=== PATIENT | female | born 1945 | race Caucasian/White ===

== ENCOUNTER → 2017-10-28 13:53 | Outpatient (CLI) | payer MEDICARE, SELFPAY ==
[2017-10-28 14:37] LABS: Prothrombin Time 21.7 seconds (9.4-11.8)
== END ==
PROVIDERS: Visit Provider Family Medicine
DX: Z79.01 Long term (current) use of anticoagulants (principal); Z51.81 Encounter for therapeutic drug level monitoring
CPT/HCPCS: 36415; 85610

== ENCOUNTER → 2017-11-21 10:50 | Outpatient (CLI) | payer MEDICARE, SELFPAY ==
[2017-11-21 11:31] LABS: INR 1.87 (0.9-1.1); Prothrombin Time 20.3 seconds (9.4-11.8)
== END ==
PROVIDERS: Visit Provider Family Medicine
DX: Z79.01 Long term (current) use of anticoagulants (principal); Z51.81 Encounter for therapeutic drug level monitoring
CPT/HCPCS: 36415; 85610

== ENCOUNTER → 2017-12-04 10:56 | Outpatient (CLI) | payer MEDICARE, SELFPAY ==
[2017-12-04 11:32] LABS: Prothrombin Time 25.1 seconds (9.4-11.8)
== END ==
PROVIDERS: Visit Provider Family Medicine
DX: Z79.01 Long term (current) use of anticoagulants (principal); Z51.81 Encounter for therapeutic drug level monitoring
CPT/HCPCS: 36415; 85610

== ENCOUNTER → 2017-12-16 10:45 | Outpatient (CLI) | payer MEDICARE, SELFPAY ==
[2017-12-16 11:43] LABS: INR 2.16 (0.9-1.1); Prothrombin Time 23.5 seconds (9.4-11.8)
== END ==
PROVIDERS: Visit Provider Family Medicine
DX: Z79.01 Long term (current) use of anticoagulants (principal); Z51.81 Encounter for therapeutic drug level monitoring
CPT/HCPCS: 36415; 85610

== ENCOUNTER → 2018-01-14 09:42 | Outpatient (CLI) | payer MEDICARE, SELFPAY ==
[2018-01-14 10:30] LABS: INR 2.12 (0.9-1.1); Prothrombin Time 23.1 seconds (9.4-11.8)
== END ==
PROVIDERS: Visit Provider Family Medicine
DX: Z79.01 Long term (current) use of anticoagulants (principal); Z51.81 Encounter for therapeutic drug level monitoring
CPT/HCPCS: 36415; 85610

== ENCOUNTER → 2018-06-17 11:08 | Outpatient (CLI) | payer MEDICARE, SELFPAY ==
[2018-06-17 12:53] LABS: INR 2.25 (0.9-1.1); Prothrombin Time 22.6 seconds (9.4-11.8)
== END ==
PROVIDERS: Visit Provider Family Medicine
DX: Z51.81 Encounter for therapeutic drug level monitoring (principal); Z79.01 Long term (current) use of anticoagulants
CPT/HCPCS: 36415; 85610

== ENCOUNTER → 2018-10-14 13:53 | Outpatient (CLI) | payer MEDICARE, SELFPAY ==
[2018-10-14 14:14] LABS: INR 2.79 (0.9-1.1); Prothrombin Time 27.9 seconds (9.4-11.8)
== END ==
PROVIDERS: Visit Provider Family Medicine
DX: Z51.81 Encounter for therapeutic drug level monitoring (principal); Z79.01 Long term (current) use of anticoagulants
CPT/HCPCS: 36415; 85610

== ENCOUNTER → 2019-01-05 15:41 | Outpatient (CLI) | payer MEDICARE, SELFPAY ==
--- NOTE | 2019-01-05 15:55 | XR_ITS ---
XR chest 2V HISTORY: ITS.REASON: COUGH ORDERING PHYSICIAN: Gabriel Pendleton MD PATIENT AGE: 73 years COMPARISON: 07/17/2010 FINDINGS: Cardiac pacemaker is in place from left subclavian approach. Normal heart size. There are atelectatic or fibrotic changes in the right upper lobe anteriorly. The remaining lungs are clear. No acute bony findings. IMPRESSION: Atelectatic or fibrotic changes in the right upper lobe. Consider follow-up to confirm resolution
== END ==
PROVIDERS: PCP Family Medicine; Visit Provider Family Medicine
DX: R05 Cough (principal)
CPT/HCPCS: 71046

== ENCOUNTER → 2019-01-29 12:29 | Outpatient (CLI) | payer MEDICARE, SELFPAY ==
--- NOTE | 2019-01-29 12:39 | CT_ITS ---
CT chest wo con HISTORY: Cough and congestion abnormal lung sounds. Abnormal CXR ITS.REASON: ABNORMAL LUNG SOUNDS, COUGH ORDERING PHYSICIAN: Gabriel Pendleton MD PATIENT AGE: 73 years COMPARISON: PA and lateral chest January 05, 2019 as well as July 2010 made to the 9 Technique: Axial images obtained. Sagittal and coronal reformatted images are also generated and reviewed. All CT scans at the facility use one or more dose reduction, viz: automated exposure control, ma/kV adjustment per patient size (including targeted exams where dose is matched to indication, i.e. head), or iterative reconstruction technique. FINDINGS: : LUNGS. Minimal linear scarring at the anterior RUL,. Which extends peripherally from right hilum. This accounts for the density seen here on recent plain film & likely reflecting interval area of prior inflammation/scarring No acute pneumonia. No significant lung nodule or mass.. I believe minimal scarring and atelectasis accounts tiny area of density posteriorly at right upper lobe (axial image 22, sagittal 33, 34.) . scattered pleural-parenchymal scarring at right apex> left apex, accounting for of minimal densities here, axial image 7-9 sagittal image 30--35 I believe this is compatible with previous chest films dating back to 2009 . Small 4.5 mm calcified granuloma towards distal left lung base, axial slice 51 at LLL. Mediastinum. No significant mediastinal mass or adenopathy.. The right tr is very slightly more generous then the left tr, but I see no discrete mass or adenopathy on this noncontrast study.. Initially Question possible very subtle tapering of the proximal right middle lobe bronchus, however after further review I believe we are merely viewing to be mainly viewing generous vessels & Interstitium at right tr on this noncontrast study.. (also note the right tr has a similar contour on plain film from 01/05/2019 versus 2010 CXR). However if patient should & progressive cough or symptoms a follow-up postcontrast study in 6 months months may be of benefit . Heart:. Pacemaker noted. Streak artifact from leads. Heart upper normal in size. No pericardial effusion. Moderate size hiatal hernia. Measures up to 4.5 cm transverse and 5 cm AP Thoracic spine. Mild degenerative changes. Mild anterior marginal osteophytes some early senile ankylosis changes. However no significant compression fracture or thoracic spine lesion. No rib fracture or lesion. No pleural effusion or pleural lesion. Uppermost abdomen. Limited views here. Adrenals unremarkable upper abdomen. 1 cm most likely benign cyst at the superior right lobe of liver noted. Measures fluid density ------IMPRESSION 1.... No acute appearing pulmonary findings. 2.... Minor chronic changes . No findings of significant concern .. Minimal linear scarring anterior RUL.-Likely postinflammatory feature which accounts for density seen on recent CXR. .. Scant pleural-parenchymal scarring right apex(> left apex); as well as along posterior RUL (However patient persist and cough or symptoms consider follow-up CT chest 6 months particularly if symptoms persist) 3.... No discrete mediastinal adenopathy nor mass. . 4.... Moderate-sized hiatal hernia measures 5 cm AP diameter 5.... Pacemaker..
== END ==
PROVIDERS: PCP Family Medicine; Visit Provider Family Medicine
DX: R05 Cough (principal); R91.8 Other nonspecific abnormal finding of lung field
CPT/HCPCS: 71250

== ENCOUNTER → 2019-07-26 11:12 | Outpatient (CLI) | payer MEDICARE, SELFPAY ==
[2019-07-26 12:01] LABS: Prothrombin Time 45.6 seconds (9.4-11.8)
[2019-07-26 12:02] LABS: INR 4.72 (0.9-1.1)
== END ==
PROVIDERS: Visit Provider Family Medicine
DX: Z51.81 Encounter for therapeutic drug level monitoring (principal); Z79.01 Long term (current) use of anticoagulants
CPT/HCPCS: 36415; 85610

== ENCOUNTER → 2019-07-29 10:22 | Outpatient (CLI) | payer MEDICARE, SELFPAY ==
[2019-07-29 10:56] LABS: INR 2.21 (0.9-1.1); Prothrombin Time 22.1 seconds (9.4-11.8)
== END ==
PROVIDERS: Visit Provider Family Medicine
DX: Z51.81 Encounter for therapeutic drug level monitoring (principal)
CPT/HCPCS: 36415; 85610

== ENCOUNTER → 2020-06-28 12:36 | Outpatient (CLI) | payer MEDICARE, SELFPAY ==
[2020-06-29 09:22] LABS: Covid-19 Nasal PCR Sendout Lex NOT DETECTED
== END ==
PROVIDERS: PCP Family Medicine; Visit Provider Family Medicine
DX: Z03.818 Encounter for observation for suspected exposure to other biological agents ruled out (principal)
CPT/HCPCS: U0004

== ENCOUNTER 2021-03-22 13:33 | Emergency (ER) | payer MEDICARE, SELFPAY ==
[2021-03-22 13:34] VITALS: BP 130/59; PULSE 85; RESP 18; TEMP 36.9; O2SAT 97; BMI 31.6
--- NOTE | 2021-03-22 13:43 | HMH.EDLOEX ---
ED Disposition Clinical Impression: Knee strain Qualifiers: Encounter type: initial encounter Laterality: right Qualified Code(s): S86.911A - Strain of unspecified muscle(s) and tendon(s) at lower leg level, right leg, initial encounter Fall Qualifiers: Encounter type: initial encounter Qualified Code(s): W19.XXXA - Unspecified fall, initial encounter Disposition: Home, Self-Care Condition on Discharge: Good Instructions: DI for Knee Effusion, DI for Knee Pain Additional Instructions: Remain touchdown weightbearing until follow-up with primary care provider within the next 2 to 3 days for reevaluation. If symptoms are not improving within the next several days to 1 week, be evaluated by your primary care or emergency room or urgent treatment center for repeat imaging. Referrals: Gabriel Pendleton MD [Primary Care Provider] - 3 days - Critical Care Critical Care Time: No Attestation: On , the high probability of a clinically significant, sudden or life threatening deterioration of the following system(s) required my full and direct attention, intervention and personal management. The time I documented below is in addition to time spent performing reported procedures but includes the following listed in this critical care notation. Medical Decision Making - Medical Records Medical records reviewed: Yes: I reviewed the patient's medical records. - Hugo Inquiry Pt receiving controlled substance: No Vital Signs: 03/22/21 13:34 03/22/21 14:30 03/22/21 15:00 Temperature 98.4 F Temperature Source Oral Pulse Rate 86 77 Pulse Rate [Right] 85 Respiratory Rate 18 20 20 Blood Pressure 122/63 115/70 Blood Pressure [Right Arm] 130/59 L Blood Pressure Mean 69 85 Blood Pressure Mean [Right Arm] 82 02 Sat by Pulse Oximetry 97 95 96 Oxygen Delivery Method Room Air - Radiology Data #1 Image(s): Knee Image Reviewed: Yes I reviewed the patient's radiology results IMPRESSION: Osteoarthritic change with small knee joint effusion otherwise negative Medical Decision Narrative: Patient with no obvious fracture or dislocation on x-ray. She is neurovascularly intact distally. She does have some arthritis and a small knee effusion which may be subsequent to her chronic arthritis or recent fall. She is given crutches, Stan bandage and advised to be touchdown weightbearing until follow-up with PCP in the next 2 to 3 days. If symptoms are worsening or not getting better over the next several days to 1 week, she was advised to be evaluated again at primary care or the ER for repeat imaging to look for occult fracture. She does not have any clear ligamentous instability on exam, though body habitus does somewhat limit exam. Lower Extremity Injury HPI - General Stated Complaint: Fall with right leg injury Time Seen by Provider: 03/22/21 13:43 Mode of Arrival: EMS Source of Information: Patient Limitations: No Limitations - History of Present Illness HPI Narrative: Medical history significant for hypertension, hyperlipidemia, on warfarin who presents to the emergency department for right knee injury that occurred about 3 hours prior to arrival when she slipped in the shower. There was a twisting component and she did not hit her head, denies any head, neck, back pain. No loss of consciousness. Pain in the knee is worse with movement, better with rest. She took a Tylenol at home which has helped somewhat with the pain. No lower leg, ankle, foot pain. - Related Data Allergies Allergy/AdvReac Type Severity Reaction Status Date / Time SULFA (sulfonamide) Allergy Unknown Uncoded 07/29/17 15:38 Sulfamethoxazole Allergy Unknown Uncoded 07/29/17 15:38 Trimethoprim Allergy Unknown Uncoded 07/29/17 15:38 [facility] History - Hepatitis A Screen Attestation statement:: This patient has been screened for Hepatitis A risk factors. I have reviewed the patient's past medical history: Yes ROS Obtained: Larry
--- NOTE | 2021-03-22 13:44 | XR_ITS ---
PROCEDURE: XR KNEE RT 3V CLINICAL INDICATION: fall with twisting inj COMPARISON: No exams were available for comparison FINDINGS: No fracture or dislocation. No lytic or blastic change. There is normal mineralization. [id number] osteoarthritic changes are present involving the medial compartment and patellofemoral joint with suspected small suprapatellar effusion. A small loose body is noted anterior to the tibial spine region. Other findings:None. IMPRESSION: Osteoarthritic change with small knee joint effusion otherwise negative Dictated by: Andrea Barton MD 03/22/2021 15:10 Andrea Barton MD in [place] 03/22/2021 15:10
[2021-03-22 14:30] VITALS: BP 122/63; PULSE 86; RESP 20; O2SAT 95
[2021-03-22 15:00] VITALS: BP 115/70; PULSE 77; RESP 20; O2SAT 96
[2021-03-22 15:20] VITALS: BP 115/70; PULSE 67; RESP 18; TEMP 36.7; O2SAT 98
== END 2021-03-22 15:31 | disposition home or self-care (01) ==
PROVIDERS: Emergency Provider Emergency Medicine; PCP Family Medicine
DX: S86.911A Strain of unspecified muscle(s) and tendon(s) at lower leg level, right leg, initial encounter (principal); W18.2XXA Fall in (into) shower or empty bathtub, initial encounter; Y92.012 Bathroom of single-family (private) house as the place of occurrence of the external cause; I10 Essential (primary) hypertension; E78.5 Hyperlipidemia, unspecified; Z88.2 Allergy status to sulfonamides; Z79.899 Other long term (current) drug therapy
CPT/HCPCS: 73562; 99282

== ENCOUNTER → 2021-04-02 07:30 | Outpatient (CLI) | payer MEDICARE, SELFPAY ==
--- NOTE | 2021-04-02 07:40 | CT_ITS ---
PROCEDURE: CT KNEE RT WO CON CLINICAL HISTORY: RIGHT KNEE PAIN SWELLING AFTER FALL LAST WEEK COMPARISON: CR XR KNEE RT 3V from 03/22/2021 TECHNIQUE: Axial images obtained with sagittal and coronal reformats. All CT scans at the facility use one or more dose reduction, viz: automated exposure control, ma/kV adjustment per patient size (including targeted exams where dose is matched to indication, i.e. head), or iterative reconstruction technique. FINDINGS: There is normal alignment. Osteoarthritic changes are present involving all 3 compartments greatest at medial compartment with narrowing joint space, osteophyte formation, and mild osteosclerosis. There is a moderate size knee joint effusion. No fat fluid level is. There does appear to be a minimally displaced fracture involving the anterior aspect of the tibial spine region centrally accounting for the loose body noted on the previous radiograph. This is at the region of the insertion the anterior cruciate ligament on the proximal tibia. The ACL is not well evaluated by CT. This avulsion fracture may be acute. MRI may provide further for the status of the ACL and to determine if this represents an acute or chronic avulsion. No other fractures are apparent. IMPRESSION: 1. Avulsion fracture of the anterior interspinous region of proximal tibia which may be acute. Consider MRI to determine if this represents an acute fracture and to determine the status of the ligamentous structures. 2. Moderate-sized knee joint effusion. 3. Moderate osteoarthritic changes Dictated by: Andrea Barton MD 04/03/2021 04:26 Andrea Barton MD in [place] 04/03/2021 04:26
== END ==
PROVIDERS: PCP Family Medicine; Visit Provider Family Medicine
DX: M25.561 Pain in right knee (principal)
CPT/HCPCS: 73700

== ENCOUNTER → 2021-06-15 13:29 | Outpatient (CLI) | payer MEDICARE, SELFPAY ==
--- NOTE | 2021-06-15 13:33 | CT_ITS ---
PROCEDURE: CT KNEE RT WO CON CLINICAL HISTORY: RT KNEE PAIN Injury with pain COMPARISON: CT CT KNEE RT WO CON from 04/02/2021 TECHNIQUE: Axial images obtained with sagittal and coronal reformats. All CT scans at the facility use one or more dose reduction, viz: automated exposure control, ma/kV adjustment per patient size (including targeted exams where dose is matched to indication, i.e. head), or iterative reconstruction technique. FINDINGS: No change in the small intercondylar bone fragment at the proximal tibia just anterior to the tibial spines consistent with a small avulsion injury age indeterminate. There are osteoarthritic changes of the knee involving all 3 compartments with spurring of the tibial spines. There is a small knee joint effusion present. No new fractures apparent. A calcified loose body is present posteriorly medial to the medial aspect of the lateral femoral condyle. This has slightly migrated more centrally compared to the previous exam. Knee joint effusion is slightly smaller compared to the previous study. A small cortical defect is present in the medial tibial plateau articular surface measuring approximately 5 mm not significantly changed. IMPRESSION: No change in the small bony fragment along the anterior aspect of the tibial spines. This could be due to an old avulsion injury or a loose body. There is an additional loose body along the medial aspect of the medial femoral condyle posteriorly which is slightly migrated more medial compared to the previous exam.. There are osteoarthritic changes with knee joint effusion. Dictated by: Andrea Barton MD 06/18/2021 08:15 Andrea Barton MD in [facility] 06/18/2021 08:15
== END ==
PROVIDERS: PCP Family Medicine; Visit Provider Family Medicine
DX: M25.561 Pain in right knee (principal)
CPT/HCPCS: 73700

== ENCOUNTER 2021-10-27 01:32 | Emergency (ER) | payer MEDICARE, SELFPAY ==
[2021-10-27] VITALS (8 sets, daily range): BP systolic 131–158; BP diastolic 59–79; PULSE 56–85; RESP 20–24; TEMP 36.7–37.1; O2SAT 80–100; BMI 31.7
--- NOTE | 2021-10-27 01:39 | CT_ITS ---
PROCEDURE INFORMATION: Exam: CTA Chest With Contrast Exam date and time: 10/27/2021 2:38 AM Age: 76 years old Clinical indication: Shortness of breath; Additional info: SOA TECHNIQUE: Imaging protocol: Computed tomographic angiography of the chest with contrast. 3D rendering (Not supervised by radiologist): MIP and/or 3D reconstructed images were created by the technologist. Radiation optimization: All CT scans at this facility use at least one of these dose optimization techniques: automated exposure control; mA and/or kV adjustment per patient size (includes targeted exams where dose is matched to clinical indication); or iterative reconstruction. Contrast material: ISOVUE 370; Contrast volume: 70 ml; Contrast route: INTRAVENOUS (IV); COMPARISON: CHESTWO CT chest wo con 01/29/2019 12:39 PM FINDINGS: Pulmonary arteries: Normal. No pulmonary emboli. Aorta: Unremarkable. No aortic aneurysm. No aortic dissection. Lungs: Unremarkable. No consolidation. No masses. Pleural spaces: Unremarkable. No pneumothorax. No pleural effusion. Heart: Unremarkable. No cardiomegaly. No pericardial effusion. Lymph nodes: Unremarkable. No enlarged lymph nodes. Diaphragm: There is a moderate hiatal hernia. Liver: There is an 11.9 mm cyst or hemangioma in the right lobe of the liver. Bones/joints: There are marked degenerative changes present. No acute fracture. Soft tissues: Unremarkable. IMPRESSION: No acute cardiopulmonary abnormality. Moderate hiatal hernia. Hepatic cyst or hemangioma.
--- NOTE | 2021-10-27 01:39 | XR_ITS ---
PROCEDURE INFORMATION: Exam: XR Chest Exam date and time: 10/27/2021 2:24 AM Age: 76 years old Clinical indication: Shortness of breath; Additional info: SOA TECHNIQUE: Imaging protocol: XR of the chest. Views: 2 views. COMPARISON: CHESTWO CT chest wo con 01/29/2019 12:39 PM FINDINGS: Tubes, catheters and devices: Cardiac pacer system in stable position. Lungs: Unremarkable. No consolidation. Pleural spaces: Unremarkable. No pleural effusion. No pneumothorax. Heart/Mediastinum: Unremarkable. No cardiomegaly. Bones/joints: Unremarkable. IMPRESSION: No acute cardiopulmonary abnormality.
--- NOTE | 2021-10-27 01:42 | ECG_ITS ---
APPROVED REPORT Exam: Resting ECG HR:79 bpm ECG Measurements Heart Rate 79 AXES CA 187 P 78 QRSd 138 QRS -78 QT 429 T 90 QTc 464 Conclusion ELECTRONIC VENTRICULAR PACEMAKER ABNORMAL RHYTHM ECG UNCONFIRMED REPORT Electronically signed by : Osawldo Price MD 10/27/2021 12:26:33
[2021-10-27 01:58] LABS: Basophils # 0.1 K/mm3 (0-0.2); Basophils % 2.1 % (0.1-2.0); Eosinophils # 0.4 K/mm3 (0.0-0.4); Eosinophils % 6.6 % (0.1-12.0); Hematocrit 41.6 % (37.0-47.0); Hemoglobin 13.3 g/dL (12.2-16.2); Lymphocytes # 2.5 K/mm3 (0.7-4.5); Lymphocytes % 38.2 % (10-50); Mean Corpuscular HGB Conc 31.9 g/dL (31.8-35.4); Mean Corpuscular Hemoglobin 30.2 pg (27.0-31.2); Mean Corpuscular Volume 94.7 fl (81-99); Mean Platelet Volume 8.5 fl (7.4-10.4); Monocytes # 0.5 K/mm3 (0.1-1.0); Monocytes % 8.2 % (1.7-9.3); Neutrophils # 2.9 K/mm3 (1.8-7.8); Neutrophils % 44.9 % (37.0-80.0); Platelet Count 278 K/mm3 (142-424); Red Cell Distribution Width 13.9 % (11.5-17.5); White Blood Count 6.4 K/mm3 (4.8-10.8)
[2021-10-27 02:01] LABS: Coronavirus 19, PCR Not Detected (NotDetected); Influenza A, PCR Not Detected (NotDetected); Influenza B, PCR Not Detected (NotDetected)
[2021-10-27 02:10] LABS: Chloride 100 mmol/L (98-107)
[2021-10-27 02:11] LABS: ABG Base Excess 2.7 mmol/L (-2.4-2.3); ABG HCO3 24.6 mmhg (22.0-26.0); ABG Oxygen Saturation 98 % (90-100); ABG PCO2 26.7 mmhg (35.0-45.0); ABG PO2 91.2 mmhg (80-100); ABG TCO2 25.4 mmhg (23-27)
[2021-10-27 02:11] LABS: Potassium 3.8 mmoL/L (3.5-5.1); Sodium 135 mmol/L (136-145)
[2021-10-27 02:12] LABS: Allen's Test Acceptable; Oxygen 2L %; Source Left Radial
[2021-10-27 02:13] LABS: Alanine Aminotransferase 16 U/L (12-78); Blood Urea Nitrogen 15 mg/dl (7-17); Creatinine Clearance Estimated 57 mL/min (50-200); Estimated Glomerular Filt Rate 48 ml/min (>60); GFR (African American) 58 ML/MIN (>60)
[2021-10-27 02:14] LABS: Albumin Level 3.9 g/dl (3.5-5.0); Albumin/Globulin Ratio 1.4 (1.1-1.8); Alkaline Phosphatase 73 U/L (38-126); Anion Gap 11.8 mEq/L (5-15); Aspartate Amino Transferase 39 U/L (14-36); Bilirubin,Total 0.5 mg/dl (0.2-1.3); Calcium 8.3 mg/dl (8.4-10.2); Carbon Dioxide 27 mmol/L (22.0-30.0); Globulin 2.8 g/dL (1.3-3.2); Glucose 98 mg/dl (74-100); Lactic Acid 1.6 mmol/L (0.7-2.1); Total Protein,Serum 6.7 g/dl (6.3-8.2)
[2021-10-27 02:14] LABS: ABG PH 7.58 mmol/L (7.35-7.45)
--- NOTE | 2021-10-27 02:17 | HMH.EDSOB ---
ED Disposition Clinical Impression: Pacemaker Dyspnea Qualifiers: Dyspnea type: unspecified Qualified Code(s): R06.00 - Dyspnea, unspecified Disposition: Home, Self-Care Condition on Discharge: Good Instructions: DI for Shortness of Breath Additional Instructions: see pcp and consider card and pul consult Referrals: Gabriel Pendleton MD [Primary Care Provider] - - Critical Care Critical Care Time: No Attestation: On 10/27/21, the high probability of a clinically significant, sudden or life threatening deterioration of the following system(s) required my full and direct attention, intervention and personal management. The time I documented below is in addition to time spent performing reported procedures but includes the following listed in this critical care notation. Medical Decision Making - Medical Records Medical records reviewed: Yes: I reviewed the patient's medical records. - Hugo Inquiry Pt receiving controlled substance: No Vital Signs: 10/27/21 01:33 10/27/21 01:35 10/27/21 01:50 Temperature 98.8 F Temperature Source Oral Pulse Rate 56 L 78 Pulse Rate [Right] 78 Respiratory Rate 24 Blood Pressure 157/72 H Blood Pressure [Right Arm] 157/72 H Blood Pressure Mean Blood Pressure Mean [Right Arm] 100 02 Sat by Pulse Oximetry 80 L 83 L Oxygen Delivery Method Room Air Room Air Oxygen Flow Rate (LPM) 10/27/21 02:20 10/27/21 03:01 10/27/21 03:17 Temperature Temperature Source Pulse Rate 85 81 84 Pulse Rate [Right] Respiratory Rate Blood Pressure 155/79 H 131/59 L 158/67 H Blood Pressure [Right Arm] Blood Pressure Mean 83 81 Blood Pressure Mean [Right Arm] 02 Sat by Pulse Oximetry 97 94 L 95 Oxygen Delivery Method Nasal Cannula Oxygen Flow Rate (LPM) 2 2 2 10/27/21 03:30 Temperature Temperature Source Pulse Rate 71 Pulse Rate [Right] Respiratory Rate Blood Pressure 139/62 Blood Pressure [Right Arm] Blood Pressure Mean Blood Pressure Mean [Right Arm] 02 Sat by Pulse Oximetry 100 Oxygen Delivery Method Nasal Cannula Oxygen Flow Rate (LPM) 2 - Lab Data Lab results reviewed: Yes: I reviewed the patient's lab results. Lab Results 10/27/21 01:51: WBC 6.4, RBC 4.40, Hgb 13.3, Hct 41.6, MCV 94.7, MCH 30.2, MCHC 31.9, RDW 13.9, Plt Count 278, MPV 8.5, Neut % (Auto) 44.9, Lymph % (Auto) 38.2, Isabela % (Auto) 8.2, Eos % (Auto) 6.6, Baso % (Auto) 2.1 H, Neut # (Auto) 2.9, Lymph # (Auto) 2.5, Isabela # (Auto) 0.5, Eos # (Auto) 0.4, Baso # (Auto) 0.1, ESR 27 10/27/21 01:51: Sodium 135 L, Potassium 3.8, Chloride 100, Carbon Dioxide 27, Anion Gap 11.8, BUN 15, Creatinine 1.10 H, Estimated Creat Clear 57, Estimated GFR 48 L, Est GFR ( Amer) 58 L, Glucose 98, Calcium 8.3 L, Total Bilirubin 0.5, AST 39 H, ALT 16, Alkaline Phosphatase 73, Troponin I < 0.01, C-Reactive Protein 12.7 H, Total Protein 6.7, Albumin 3.9, Globulin 2.8, Albumin/Globulin Ratio 1.4 10/27/21 01:51: Lactate 1.6 10/27/21 01:51: SARS-CoV-2 (PCR) Not detected, Influenza A Untype (PCR) Not detected, Influenza Type B (PCR) Not detected 10/27/21 01:51: Procalcitonin 0.077 10/27/21 01:51: NT-Pro-B Natriuret Pep 191 10/27/21 02:04: Specimen Source Left radial, O2 % 2l, ABG pH 7.58 H*, ABG pCO2 26.7 L, ABG pO2 91.2, ABG HCO3 24.6, ABG Total CO2 25.4, ABG O2 Saturation 98, ABG Base Excess 2.7 H, Andrea Test Acceptable 10/27/21 02:18: PT 18.8 H, INR 1.73 H 10/27/21 04:41: Troponin I 0.02 Result diagrams: 10/27/21 01:51 10/27/21 01:51 Orders (Tests/Meds): ED MEDICATIONS Generic Name Dose Route Start Last Admin Trade Name Freq PRN Reason Stop Dose Admin Sodium Chloride 1,000 mls @ 999 mls/hr 10/27/21 01:45 10/27/21 01:45 Sod Chlor 0.9% 1000ml Bag IV 10/27/21 02:45 999 mls/hr .Q1H1M AGUSTIN Administration Discontinued Medications Generic Name Dose Route Start Last Admin Trade Name Freq PRN Reason Stop Dose Admin Albuterol/Ipratropium 3 ml 10/27/21 01:39 10/27/21
[2021-10-27 02:19] LABS: C-Reactive Protein 12.7 mg/L (0-4)
[2021-10-27 02:24] LABS: Erythrocyte Sedimentation Rate 27 mm/hr (0-30)
[2021-10-27 02:26] LABS: NT Pro Brain Natriuretic Pep. 191 pg/mL (0-450)
[2021-10-27 02:36] LABS: Procalcitonin 0.077 ng/mL (0.0-2.0)
[2021-10-27 02:38] LABS: INR 1.73 (0.9-1.1); Prothrombin Time 18.8 seconds (10.1-12.5)
[2021-10-27 02:56] LABS: Troponin I < 0.01 ng/ml (0.00-0.034)
[2021-10-27 05:32] LABS: Troponin I 0.02 ng/ml (0.00-0.034)
== END 2021-10-27 05:57 | disposition home or self-care (01) ==
PROVIDERS: Emergency Provider Emergency Medicine; PCP Family Medicine
DX: R06.00 Dyspnea, unspecified (principal); I48.0 Paroxysmal atrial fibrillation; Z95.0 Presence of cardiac pacemaker; Z79.899 Other long term (current) drug therapy
CPT/HCPCS: 71046; 71275; 80053; 82803; 83605; 83880; 84145; 84484; 85025; 85610; 85651; 86140; 87040; 93005; 96365; 96375; 99284; C9803; Q9967; U0003; U0005

== ENCOUNTER 2021-10-28 10:32 | Observation (INO) | payer MEDICARE, SELFPAY ==
[2021-10-28] VITALS (13 sets, daily range): BP systolic 134–176; BP diastolic 51–85; PULSE 69–94; RESP 18–22; TEMP 36.6–36.8; O2SAT 95–99; BMI 30.2; BMI 31.4
--- NOTE | 2021-10-28 11:12 | XR_ITS ---
PROCEDURE INFORMATION: Exam: XR Chest Exam date and time: 10/28/2021 11:56 AM Age: 76 years old Clinical indication: Shortness of breath TECHNIQUE: Imaging protocol: XR of the chest. Views: 1 view. COMPARISON: CR XR CHEST 2V 10/27/2021 2:24 AM FINDINGS: Tubes, catheters and devices: Transvenous pacemaker leads in the heart Lungs: Opacities in the right base may represent atelectasis or pneumonia.. Pleural spaces: Unremarkable. No pleural effusion. No pneumothorax. Heart/Mediastinum: Unremarkable. No cardiomegaly. Bones/joints: Degenerative changes in the glenohumeral joints and acromioclavicular joints IMPRESSION: Opacities in the right base may represent atelectasis or pneumonia..
--- NOTE | 2021-10-28 11:26 | ECG_ITS ---
APPROVED REPORT Exam: Resting ECG HR:73 bpm ECG Measurements Heart Rate 73 AXES MO 177 P 78 QRSd 133 QRS -79 QT 431 T 82 QTc 457 Conclusion ELECTRONIC VENTRICULAR PACEMAKER ABNORMAL RHYTHM ECG UNCONFIRMED REPORT Electronically signed by : Oswaldo Price MD 10/28/2021 20:08:01
[2021-10-28 11:44] LABS: Basophils # 0.1 K/mm3 (0-0.2); Basophils % 0.5 % (0.1-2.0); Eosinophils # 0.1 K/mm3 (0.0-0.4); Eosinophils % 0.5 % (0.1-12.0); Hematocrit 41.2 % (37.0-47.0); Hemoglobin 13.3 g/dL (12.2-16.2); Lymphocytes # 2.6 K/mm3 (0.7-4.5); Mean Corpuscular HGB Conc 32.2 g/dL (31.8-35.4); Mean Corpuscular Hemoglobin 30.4 pg (27.0-31.2); Mean Corpuscular Volume 94.6 fl (81-99); Mean Platelet Volume 8.1 fl (7.4-10.4); Monocytes # 0.8 K/mm3 (0.1-1.0); Monocytes % 5.8 % (1.7-9.3); Neutrophils # 10.9 K/mm3 (1.8-7.8); Neutrophils % 75.2 % (37.0-80.0); Platelet Count 320 K/mm3 (142-424); Red Blood Count 4.35 M/mm3 (4.20-5.40); Red Cell Distribution Width 13.6 % (11.5-17.5); White Blood Count 14.5 K/mm3 (4.8-10.8)
[2021-10-28 11:46] LABS: Coronavirus 19, PCR Not Detected (NotDetected); Influenza A, PCR Not Detected (NotDetected); Influenza B, PCR Not Detected (NotDetected)
[2021-10-28 11:48] LABS: Chloride 104 mmol/L (98-107)
[2021-10-28 11:49] LABS: Potassium 3.4 mmoL/L (3.5-5.1); Sodium 136 mmol/L (136-145)
[2021-10-28 11:51] LABS: Alanine Aminotransferase 17 U/L (12-78); Albumin Level 3.9 g/dl (3.5-5.0); Albumin/Globulin Ratio 1.3 (1.1-1.8); Alkaline Phosphatase 71 U/L (38-126); Anion Gap 10.4 mEq/L (5-15); Aspartate Amino Transferase 35 U/L (14-36); Bilirubin,Total 0.6 mg/dl (0.2-1.3); Blood Urea Nitrogen 15 mg/dl (7-17); Calcium 8.5 mg/dl (8.4-10.2); Carbon Dioxide 25 mmol/L (22.0-30.0); Creatinine Clearance Estimated 61 mL/min (50-200); Estimated Glomerular Filt Rate 54 ml/min (>60); GFR (African American) 65 ML/MIN (>60); Globulin 2.9 g/dL (1.3-3.2); Glucose 104 mg/dl (74-100); Lactic Acid 1.4 mmol/L (0.7-2.1); Total Protein,Serum 6.8 g/dl (6.3-8.2)
[2021-10-28 12:01] LABS: NT Pro Brain Natriuretic Pep. 1180 pg/mL (0-450)
[2021-10-28 12:04] LABS: Troponin I 0.02 ng/ml (0.00-0.034)
--- NOTE | 2021-10-28 12:41 | HMH.EDGENADL ---
ED Disposition Clinical Impression: Bronchospasm, Elevated brain natriuretic peptide (BNP) level Pneumonia Qualifiers: Pneumonia type: due to unspecified organism Laterality: right Lung location: lower lobe of lung Qualified Code(s): J18.9 - Pneumonia, unspecified organism Acute bronchitis Qualifiers: Bronchitis organism: unspecified organism Qualified Code(s): J20.9 - Acute bronchitis, unspecified Disposition: Admitted as Observation Condition on Discharge: Fair Referrals: Gabriel Pendleton MD [Primary Care Provider] - - Critical Care Critical Care Time: No Attestation: On 10/28/21, the high probability of a clinically significant, sudden or life threatening deterioration of the following system(s) required my full and direct attention, intervention and personal management. The time I documented below is in addition to time spent performing reported procedures but includes the following listed in this critical care notation. Medical Decision Making - Hugo Inquiry Pt receiving controlled substance: No Vital Signs: 10/28/21 10:52 10/28/21 11:00 10/28/21 11:06 Temperature 97.9 F Temperature Source Oral Pulse Rate 69 74 Pulse Rate [Left Radial] 72 Respiratory Rate 18 Blood Pressure 150/71 H 154/69 H Blood Pressure [Right Arm] 150/71 H Blood Pressure Mean 88 81 Blood Pressure Mean [Right Arm] 97 02 Sat by Pulse Oximetry 96 Oxygen Delivery Method Nasal Cannula Oxygen Flow Rate (LPM) 2 10/28/21 11:30 10/28/21 12:15 Temperature Temperature Source Pulse Rate 80 70 Pulse Rate [Left Radial] Respiratory Rate Blood Pressure 159/75 H 159/75 H Blood Pressure [Right Arm] Blood Pressure Mean 103 Blood Pressure Mean [Right Arm] 02 Sat by Pulse Oximetry 98 Oxygen Delivery Method Oxygen Flow Rate (LPM) - Lab Data Lab Results 10/28/21 11:34: WBC 14.5 H D, RBC 4.35, Hgb 13.3, Hct 41.2, MCV 94.6, MCH 30.4, MCHC 32.2, RDW 13.6, Plt Count 320, MPV 8.1, Neut % (Auto) 75.2, Lymph % (Auto) 18.0, Jennings % (Auto) 5.8, Eos % (Auto) 0.5, Baso % (Auto) 0.5, Neut # (Auto) 10.9 H, Lymph # (Auto) 2.6, Jennings # (Auto) 0.8, Eos # (Auto) 0.1, Baso # (Auto) 0.1 10/28/21 11:34: Sodium 136, Potassium 3.4 L, Chloride 104, Carbon Dioxide 25, Anion Gap 10.4, BUN 15, Creatinine 1.00, Estimated Creat Clear 61, Estimated GFR 54 L, Est GFR ( Amer) 65, Glucose 104 H, Calcium 8.5, Total Bilirubin 0.6, AST 35, ALT 17, Alkaline Phosphatase 71, Troponin I 0.02, NT-Pro-B Natriuret Pep 1180 H, Total Protein 6.8, Albumin 3.9, Globulin 2.9, Albumin/Globulin Ratio 1.3 10/28/21 11:34: Lactate 1.4 10/28/21 11:34: SARS-CoV-2 (PCR) Not detected, Influenza A Untype (PCR) Not detected, Influenza Type B (PCR) Not detected Result diagrams: 10/28/21 11:34 10/28/21 11:34 Orders (Tests/Meds): ED MEDICATIONS Generic Name Dose Route Start Last Admin Trade Name Freq PRN Reason Stop Dose Admin Albuterol/Ipratropium 3 ml 10/28/21 14:00 Ipratropium/Albuterol 3 Ml Neb 11/27/21 13:59 QIDRT AGUSTIN Ceftriaxone Sodium 1 gm/ 50 mls @ 100 mls/hr 10/28/21 13:15 Sodium Chloride IV 11/11/21 13:14 Q24H AGUSTIN Azithromycin 500 mg/ Sodium 250 mls @ 250 mls/hr 10/28/21 13:15 Chloride IV 11/11/21 13:14 Q24H AGUSTIN Methylprednisolone Sodium Succinate 80 mg 10/28/21 13:00 Methylprednisolone Sod Succ 125mg Vial IV 11/27/21 12:59 Q8H AGUSTIN Sodium Chloride 10 ml 10/28/21 11:12 Sodium Chloride 0.9% 10ml Flush Syringe IV 11/27/21 11:11 NEEDED PRN Maintain IV Site Sodium Chloride 3 ml 10/28/21 11:30 Sodium Chloride 3% 15ml Neb 11/27/21 11:29 ONCE PRN INDUCE SPUTUM COLLECTION Discontinued Medications Generic Name Dose Route Start Last Admin Trade Name Freq PRN Reason Stop Dose Admin Levofloxacin/Dextrose 750 mg in 150 mls @ 100 mls/hr 10/28/21 13:00 Levofloxacin 750mg/150ml Premix IV 11/11/21 12:59 Q24H AGUSTIN ORDERS Category Date Phil
--- NOTE | 2021-10-28 13:25 | PC.NURSE ---
DR PATEL SPOKE WITH DR HIGHTOWER PT IS GOING TO BE ADMITTED HOUSE NOTIFIED
--- NOTE | 2021-10-28 13:59 | PC.NURSE ---
called report to kia rolon
[2021-10-28 14:23] LABS: INR 2.08 (0.9-1.1); Prothrombin Time 22.3 seconds (10.1-12.5)
[2021-10-28 17:05] LABS: Adenovirus,PCR Not Detected (NotDetected); Bordetella Pertussis Not Detected (NotDetected); Chlamydophila Pneumoniae, PCR Not Detected (NotDetected); Coronavirus 19, PCR Not Detected (NotDetected); Coronavirus 229E Not Detected (NotDetected); Coronavirus NL63 Not Detected (NotDetected); Coronovirus HKU1,PCR Not Detected (NotDetected); Human Metapneumovirus Not Detected (NotDetected); Influenza A, PCR Not Detected (NotDetected); Influenza AH1, 2009 Not Detected (NotDetected); Influenza AH1, PCR Not Detected (NotDetected); Influenza AH3,PCR Not Detected (NotDetected); Influenza B, PCR Not Detected (NotDetected); Mycoplasma Pneumoniae, PCR Not Detected (NotDetected); Parainfluenza 1, PCR Not Detected (NotDetected); Parainfluenza 2, PCR Not Detected (NotDetected); Parainfluenza 3, PCR Not Detected (NotDetected); Parainfluenza 4, PCR Not Detected (NotDetected); Respiratory Syncytial Virus Not Detected (NotDetected); Rhinovirus/Enterovirus Not Detected (NotDetected)
[2021-10-28 18:40] LABS: Coronavirus OC43 Detected (NotDetected)
--- NOTE | 2021-10-28 22:07 | PC.NURSE ---
Okayed with [facility] on administering warfarin r/t interaction pop up with azithromycin.
[2021-10-29] VITALS (12 sets, daily range): BP systolic 128–150; BP diastolic 40–80; PULSE 64–99; RESP 18–20; TEMP 36.5–36.8; O2SAT 95–99; BMI 32.0
--- NOTE | 2021-10-29 07:25 | HMH.PHAVTE ---
[facility] Pharmacy VTE Monitoring - Patient Demographics Admission date: 10/28/21 Report Date: 10/29/21 Time: 07:25 Allergies/Adverse Reactions: Patient Allergies sulfamethoxazole [From Bactrim] Allergy (Unknown, Verified 10/28/21 14:05) Unknown allergy reaction trimethoprim [From Bactrim] Allergy (Unknown, Verified 10/28/21 14:05) Unknown allergy reaction Height: 1.65 m Weight: 87.226 kg Patient Problems: Current Active Problems Pneumonia (Acute) Bronchospasm (Acute) Acute bronchitis (Acute) Elevated brain natriuretic peptide (BNP) level (Acute) - VTE Risk Labs: VTE Related Lab Results Hgb 13.3 g/dL (12.2-16.2) 10/28/21 11:34 Hct 41.2 % (37.0-47.0) 10/28/21 11:34 Plt Count 320 K/mm3 (142-424) 10/28/21 11:34 PT 22.3 seconds (10.1-12.5) H 10/28/21 11:34 INR 2.08 (0.9-1.1) H 10/28/21 11:34 BUN 15 mg/dl (7-17) 10/28/21 11:34 Creatinine 1.00 mg/dl (0.52-1.04) 10/28/21 11:34 Estimated Creat Clear 61 mL/min (50-200) 10/28/21 11:34 VTE Score: 4 VTE Risk Level: Low Risk - Prophylaxis VTE Prophylaxis Ordered?: Yes Types of VTE Prophylaxis: TEDS Knee High, Pharmacological Location of Applied Device: Bilateral Lower Extremeties Pharmacologic Type: Warfarin
--- NOTE | 2021-10-29 08:45 | CT_ITS ---
FINAL REPORT TECHNIQUE: Postcontrast axial images of the chest were performed in a CTA protocol. This study was performed with techniques to keep radiation doses as low as reasonably achievable, (ALARA). Individualized dose reduction technique using automated exposure control or adjustment of mA and/or kV according to the patient's size were employed. CLINICAL HISTORY: recurrent wheezing COMPARISON: 10/27/2021 FINDINGS: There is streak artifact arising from right upper chest wall pacemaker. There is a moderate size hiatal hernia. The heart is normal in size. No adenopathy is identified. No pleural or pericardial effusion is identified. The thoracic aorta is normal in caliber with no focal aneurysm or dissection identified. There is no filling defect to suggest pulmonary embolism. No lung infiltrate or mass is identified. The images of the upper abdomen demonstrate a 1.2 cm benign-appearing right hepatic lobe cyst. IMPRESSION: No evidence for PE on this exam. Reviewed, Interpreted and Dictated by Yasir Unger MD Transcribed by Jessy Quintero Authenticated by Yasir Unger MD on 10/29/2021 10:41:34 AM [facility]
--- NOTE | 2021-10-29 08:48 | HMH.HP ---
*Admission Date: 10/28/21 *Chief complaint: Wheezing and coughing *History of present illness: 76-year-old white female who is enjoyed a very good functional status in spite of cardiac issues-she states that she been diagnosed with A. fib and a bundle branch block, and had a pacemaker put in several years ago per EP at [facility] and has had it replaced with good status. She follows with Dr. Valentine at [facility] cardiology. She also is chronic A. fib and has been on warfarin for several years. In addition to this she is had multiple episodes where she has wheezing, bronchospasm and shortness of air and has lot of functional problems with this with inability to do daily activities because of frequent wheezing. She sees her family practice doctor in [facility] who has been giving her what sounds like steroid shots intermittently for this bronchospasm which helped. She reports that she has been on a multiplicity of inhalers-she cannot remember names but states they have been all different kinds and she stopped them after 2 or 3 days because she developed blisters in her mouth. She denies thrush but reports that she has lots of blisters. She is not sure if the inhalers actually help. She also has been diagnosed with rheumatoid arthritis by her family practice doctor, and has been on a regimen of prednisone 7.5 alternating with 2.5 every other day, does not recall ever seen an child protective services social worker, technician support association or other field sales specialist. She is never seen a community health director although her bilingual medical assistant have been aware of the wheezing and bronchospasm. She reports that she has had echocardiograms in the past have been normal except for the issues with the electrical conduction issues. 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 She does note that in the wintertime when weather is very cold she seems to do better. Her , who from small cell lung cancer in 2012, was a very heavy smoker, in the house with her, but she has never actively smoked. She does not think that her symptoms have improved since her and her house is now smoke-free. 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 [facility] History I have reviewed the patient's past medical history: Yes Medical History: Reports:: Hyperlipidemia, Hypertension, Internal Pacemaker Denies:: Cancer, Diabetes Mellitus Type 1, Diabetes Mellitus Type 2, MRSA *Have you ever received a pneumonia vaccine?: No *Have you received a flu vaccine this season?: No Other Medical History: Reports: Arthritis, Sinus Problems Other Surgeries: Yes: Pacemaker Amputation: No - *Social History Last grade of school completed: High school graduate Smoking Status: Never smoker Alcohol Intake: current Alcohol Intake Frequency:: holidays/special occasions only *Occupational Status:: retired Household Members: family *Travel in the last 8 weeks: None Family Hx:: Asthma, Cancer, Diabetes, Heart Attack, Hyperlipidemia, Hypertension, Stroke Review of Systems - Review of Systems Review of systems:: pertinent systems reviewed and negative unless documented below Meds Home Medications Medication Instructions Recorded Confirmed Type Fluoxetine HCl [Prozac] 20 mg PO DAILY 10/27/21 10/28/21 History Losartan Potassium 50 mg PO DAILY 10/27/21 10/28/21 History Omeprazole [Omeprazole 20mg 20 mg PO DAILY 10/27/21 10/28/21 History Capsule] Simvastatin 40 mg PO HS 10/27/21 10/28/21 History Warfarin Sodium 5 mg PO DAILY 10/27/21 10/28/21 History hydroCHLOROthiazide 12.5 mg PO DAILY 10/27/21 10/28/21 History [Hydrochlorothiazide 12.5mg Tab] Allergies Allergy/AdvReac Type Severity Reaction Status Date / Time sulfamethoxazole Allergy Unknown Unknown Verified 10/28/21 14:05 [From Bactrim]
[2021-10-29 09:09] LABS: Basophils % 0.1 % (0.1-2.0); Eosinophils % 0.1 % (0.1-12.0); Hematocrit 39.5 % (37.0-47.0); Hemoglobin 12.5 g/dL (12.2-16.2); Lymphocytes # 0.6 K/mm3 (0.7-4.5); Lymphocytes % 4.2 % (10-50); Mean Corpuscular HGB Conc 31.6 g/dL (31.8-35.4); Mean Corpuscular Hemoglobin 30.2 pg (27.0-31.2); Mean Corpuscular Volume 95.6 fl (81-99); Monocytes # 0.5 K/mm3 (0.1-1.0); Monocytes % 3.2 % (1.7-9.3); Neutrophils % 92.4 % (37.0-80.0); Platelet Count 266 K/mm3 (142-424); Red Blood Count 4.13 M/mm3 (4.20-5.40); Red Cell Distribution Width 13.5 % (11.5-17.5); White Blood Count 15.2 K/mm3 (4.8-10.8)
[2021-10-29 09:20] LABS: MANUAL DIFFERENTIAL MANUAL DIFFERENTIAL (MANUAL DIFF)
[2021-10-29 09:40] LABS: Chloride 102 mmol/L (98-107)
[2021-10-29 09:41] LABS: Sodium 135 mmol/L (136-145)
[2021-10-29 09:43] LABS: Blood Urea Nitrogen 16 mg/dl (7-17); Creatinine Clearance Estimated 65 mL/min (50-200); Estimated Glomerular Filt Rate 54 ml/min (>60); GFR (African American) 65 ML/MIN (>60)
[2021-10-29 09:44] LABS: Calcium 8.2 mg/dl (8.4-10.2); Carbon Dioxide 23 mmol/L (22.0-30.0); Glucose 198 mg/dl (74-100)
[2021-10-29 09:49] LABS: C-Reactive Protein 30.6 mg/L (0-4)
[2021-10-29 10:20] LABS: Lymphocytes % 2 % (10-50); Monocytes % 1 % (2-9); Neutrophils % 97 % (42-76); Total Cells Counted 100
[2021-10-29 10:21] LABS: Platelet Estimate Normal
[2021-10-29 10:36] LABS: Erythrocyte Sedimentation Rate 41 mm/hr (0-30)
--- NOTE | 2021-10-29 10:45 | HMH.PHAINT ---
MEDICATION RECONCILIATION COMPLETED ON PATIENT USING EXTERNAL FILL HISTORY FROM PHARMACY AND PATIENT INTERVIEW. -KYRA ALVARENGA, VANNESAD
--- NOTE | 2021-10-29 11:24 | HMH.PULMCON ---
*Admission Date: 10/28/21 *Reason for consult:: Acute hypoxic respiratory failure *History of present illness: Ms. Lorenzo is a 76-year-old female no significant smoking exposure, significant secondhand smoke exposure, diagnosed with rheumatoid arthritis by her PCP 2 years ago and has been receiving prednisone 7.5 mg every other day, has been complaining of respiratory problems for a very long time almost 10 years, her breathing symptoms predominate with exertion and not at rest however she also have these intermittent episodes of bronchitis 1-2 times per year for which she has been receiving antibiotics and steroids with improvement in her symptoms. However her baseline exertional dyspnea has been gradually getting worse since the last 10 years. On this admission presented to the hospital worsening respiratory associated cough and greenish phlegm. Denies any subjective fevers. Denies any known sick contacts. [facility] History Medical History: Reports:: Hyperlipidemia, Hypertension, Internal Pacemaker Denies:: Cancer, Diabetes Mellitus Type 1, Diabetes Mellitus Type 2, MRSA *Have you ever received a pneumonia vaccine?: No *Have you received a flu vaccine this season?: No Other Medical History: Reports: Arthritis, Sinus Problems Other Surgeries: Yes: Pacemaker Amputation: No - *Social History Last grade of school completed: High school graduate Smoking Status: Never smoker Alcohol Intake: current Alcohol Intake Frequency:: holidays/special occasions only *Occupational Status:: retired Household Members: family *Travel in the last 8 weeks: None Family Hx:: Asthma, Cancer, Diabetes, Heart Attack, Hyperlipidemia, Hypertension, Stroke ROS - Cons Reports chills, Reports fatigue - Eyes Reports blurry vision - ENT Denies nosebleed - Card Reports shortness of breath - Resp Respiratory: Reports chest congestion, Reports cough, Denies excessive phlegm production, Denies coughing up blood, Reports cough with sputum production - GI Gastrointestingal: Denies: abdominal pain - Psych Denies thoughts of hurting/killing others, Denies thoughts of hurting/killing yourself Meds Home Medications Medication Instructions Recorded Confirmed Type Fluoxetine HCl [Prozac] 20 mg PO DAILY 10/27/21 10/28/21 History Losartan Potassium 50 mg PO DAILY 10/27/21 10/28/21 History Omeprazole [Omeprazole 20mg 20 mg PO DAILY 10/27/21 10/28/21 History Capsule] Simvastatin 40 mg PO HS 10/27/21 10/28/21 History Warfarin Sodium 5 mg PO MOTH 10/27/21 10/29/21 History hydroCHLOROthiazide 12.5 mg PO DAILY 10/27/21 10/28/21 History [Hydrochlorothiazide 12.5mg Tab] Warfarin Sodium [Coumadin 5mg 2.5 mg PO [id number] 10/29/21 10/29/21 History tablet] predniSONE [Prednisone 5mg 7.5 mg PO Q48H 10/29/21 10/29/21 History Tab] Allergies Allergy/AdvReac Type Severity Reaction Status Date / Time sulfamethoxazole Allergy Unknown Unknown Verified 10/28/21 14:05 [From Bactrim] allergy reaction trimethoprim [From Bactrim] Allergy Unknown Unknown Verified 10/28/21 14:05 allergy reaction Exam - Constitutional Constitutional:: Present: no acute distress - HENMT Exam HENMT: Present: normocephalic - Eye Exam Eyes:: Present: normal appearance both eyes and related structures - Neck Exam Neck:: Present: normal visual inspection - Respiratory Exam Respiratory:: Present: respiratory distress, wheezing. Absent: accessory muscle use - Cardiovascular Exam Cardiac:: Present: S1, S2 - GI Exam GI:: Present: soft - Skin Exam Skin: Present: warm - Neurological Exam Neurological: Present: alert, awake, normal cognition - Extremities Exam Extremities: Present: no cyanosis, no clubbing, no edema Internal Medicine - CN: Reslt - Labs CBC & Chem 7: 10/29/21 08:36 10/29/21 08:36 Labs: Short CBC 10/28/21 10/29/21 Range/Units 11:34 08:36 WBC 14.5 H D 15.2 H (4.8-10.8) K/mm3 Hgb 13.3 12.5 (
--- NOTE | 2021-10-29 14:02 | CA_ITS ---
APPROVED REPORT EXAM: Comprehensive 2D, Doppler, and color-flow Echocardiogram [place] Laborer: Mervat Charles, RT(R) Ht: 5 ft 5 in Wt: 192lbs BSA: 1.94 BP: 150/71 mmHg Indications: SOB, HTN, hyperlipidemia, bronchial spasms, pacemaker, hx AFIB, RBBB, cardiac ablation 2D Dimensions LVOT 2.02 cm (M/F) 1.5-2.5 M-Mode Dimensions RVDd 3.22 cm (0.9-2.6) LA Diam 3.51 cm (1.9-4.0) LVDd 4.47 cm (3.5-5.7) Ao Diam 2.78 cm (2.0-3.7) LVDs 3.06 cm (3.5-5.7) IVSd 0.89 cm (0.6-1.1) PWd 0.76 cm (0.6-1.1) EF (Teich) 59.70% FS 31.50% EDV (Teich) 91.00 mL ESV (Teich) 36.70 mL LV Diastology E Decel Time 227.00 (160-240 msec) E/A Ratio 0.8 MED E' 5.00 (< 7 cm/sec) E'/MED E' Ratio 18.90 (>14) LAT E' 11.00 (<10 cm/sec) E/LAT E' Ratio 8.59 (>14) Mitral Valve MV E Max Gopal. 95.00 (40-130 cm/s) MV A Velocity 126.00 (40-130 cm/s) E/A Ratio 0.75 MV Decel. Time 227.00 (160-240 ms) MV PHT 66.00 ms Tricuspid Valve TR P. Velocity 325.00 cm/s RAP Estimate 15.00 mmHg RVSP 57.30 mmHg Left Ventricle Left atrium is mildly enlarged, left ventricle is normal size, mild concentric left ventricular hypertrophy, estimated ejection fraction 55% with no regional wall motion abnormality, diastolic parameters are inconclusive. Right Ventricle Right atrium and right ventricle are mildly enlarged with normal contractility, there is pacemaker lead seen in right ventricle. Aortic Valve Aortic valve is thickened and calcified without aortic stenosis or aortic insufficiency. Mitral Valve Mitral valve leaflets are minimally thickened, there is mild mitral regurgitation. Tricuspid Valve Tricuspid valve grossly normal, there is mild tricuspid regurgitation, calculated right ventricular systolic pressure is 57 mmHg. Pulmonic Valve Pulmonic valve is poorly visualized. Great Vessels Aortic root is normal size. Inferior vena cava is poorly visualized. Pericardium No significant pericardial effusion. Inferior vena cava is poorly visualized. Conclusion 1. Mild biatrial enlargement, normal left ventricular size, mild concentric left ventricular hypertrophy, visually estimated ejection fraction 55% with no regional wall motion abnormality, diastolic parameters are inconclusive. 2. Mildly enlarged right ventricle with normal contractility. 3. Mild mitral and tricuspid regurgitation, calculated right ventricular systolic pressure is 57 mmHg. 4. No significant pericardial effusion. 5. Inferior vena cava is poorly visualized. Electronically signed by : Joe Blandon MD 10/29/2021 19:19:39
[2021-10-30] VITALS (13 sets, daily range): BP systolic 138–156; BP diastolic 66–83; PULSE 74–103; RESP 16–22; TEMP 36.6–36.9; O2SAT 95–99; BMI 32.0
[2021-10-30 06:56] LABS: Alanine Aminotransferase 14 U/L (12-78); Albumin Level 3.7 g/dl (3.5-5.0); Albumin/Globulin Ratio 1.4 (1.1-1.8); Alkaline Phosphatase 62 U/L (38-126); Anion Gap 7.7 mEq/L (5-15); Aspartate Amino Transferase 29 U/L (14-36); Bilirubin,Total 0.4 mg/dl (0.2-1.3); Blood Urea Nitrogen 22 mg/dl (7-17); Calcium 8.7 mg/dl (8.4-10.2); Carbon Dioxide 27 mmol/L (22.0-30.0); Chloride 101 mmol/L (98-107); Creatinine Clearance Estimated 65 mL/min (50-200); Estimated Glomerular Filt Rate 54 ml/min (>60); GFR (African American) 65 ML/MIN (>60); Globulin 2.7 g/dL (1.3-3.2); Glucose 167 mg/dl (74-100); Sodium 133 mmol/L (136-145); Total Protein,Serum 6.4 g/dl (6.3-8.2)
[2021-10-30 06:59] LABS: Basophils # 0.1 K/mm3 (0-0.2); Basophils % 0.7 % (0.1-2.0); Hematocrit 38.8 % (37.0-47.0); Hemoglobin 12.6 g/dL (12.2-16.2); Lymphocytes # 0.9 K/mm3 (0.7-4.5); Lymphocytes % 6.8 % (10-50); Mean Corpuscular HGB Conc 32.6 g/dL (31.8-35.4); Mean Corpuscular Hemoglobin 30.5 pg (27.0-31.2); Mean Corpuscular Volume 93.5 fl (81-99); Mean Platelet Volume 8.2 fl (7.4-10.4); Monocytes # 0.5 K/mm3 (0.1-1.0); Monocytes % 3.5 % (1.7-9.3); Neutrophils # 12.5 K/mm3 (1.8-7.8); Neutrophils % 89.1 % (37.0-80.0); Platelet Count 290 K/mm3 (142-424); Red Blood Count 4.14 M/mm3 (4.20-5.40); Red Cell Distribution Width 13.4 % (11.5-17.5)
[2021-10-30 07:02] LABS: INR 2.94 (0.9-1.1); Prothrombin Time 30.7 seconds (10.1-12.5)
[2021-10-30 07:15] LABS: MANUAL DIFFERENTIAL MANUAL DIFFERENTIAL (MANUAL DIFF)
[2021-10-30 07:27] LABS: Potassium 2.7 mmoL/L (3.5-5.1)
[2021-10-30 08:12] LABS: Lymphocytes % 13 % (10-50); Monocytes % 1 % (2-9); Neutrophils % 86 % (42-76); Platelet Estimate Normal; Total Cells Counted 100
--- NOTE | 2021-10-30 09:05 | HMH.ACPN2 ---
Internal Medicine - PN: Subj *Date: 10/30/21 *Time: 08:30 Interval history: No acute events overnight. Tolerating oxygen well. Stable on 2 L. Still having cough but improving. Afebrile. Respiratory panel has returned with a coronavirus infection, non-Covid. Likely culprit in exacerbation of her underlying undiagnosed lung disease. During fair p.o. intake. Exam Vital signs and Labs for Last 24 Hours: Temp Pulse Resp BP Pulse Ox 98.4 F 95 H 22 156/71 H 96 10/30/21 08:00 10/30/21 08:00 10/30/21 08:00 10/30/21 08:00 10/30/21 08:00 Laboratory Results - last 24 hr 10/29/21 08:36: WBC 15.2 H, RBC 4.13 L, Hgb 12.5, Hct 39.5, MCV 95.6, MCH 30.2, MCHC 31.6 L, RDW 13.5, Plt Count 266, MPV 8.0, Neut % (Auto) 92.4 H, Lymph % (Auto) 4.2 L, Wilkin % (Auto) 3.2, Eos % (Auto) 0.1, Baso % (Auto) 0.1, Neut # (Auto) 14.0 H, Lymph # (Auto) 0.6 L, Wilkin # (Auto) 0.5, Eos # (Auto) 0.0, Baso # (Auto) 0.0, Total Counted 100, Neutrophils % (Manual) 97 H, Lymphocytes % (Manual) 2 L, Monocytes % (Manual) 1 L, Platelet Estimate Normal 10/29/21 08:36: Sodium 135 L, Potassium 3.0 L, Chloride 102, Carbon Dioxide 23, Anion Gap 13.0, BUN 16, Creatinine 1.00, Estimated Creat Clear 65, Estimated GFR 54 L, Est GFR ( Amer) 65, Glucose 198 H D, Calcium 8.2 L 10/29/21 08:36: ESR 41 H 10/29/21 08:36: C-Reactive Protein 30.6 H D 10/30/21 06:06: PT 30.7 H, INR 2.94 H 10/30/21 06:06: WBC 14.0 H, RBC 4.14 L, Hgb 12.6, Hct 38.8, MCV 93.5, MCH 30.5, MCHC 32.6, RDW 13.4, Plt Count 290, MPV 8.2, Neut % (Auto) 89.1 H, Lymph % (Auto) 6.8 L, Wilkin % (Auto) 3.5, Eos % (Auto) 0.0 L, Baso % (Auto) 0.7, Neut # (Auto) 12.5 H, Lymph # (Auto) 0.9, Wilkin # (Auto) 0.5, Eos # (Auto) 0.0, Baso # (Auto) 0.1, Total Counted 100, Neutrophils % (Manual) 86 H, Lymphocytes % (Manual) 13, Monocytes % (Manual) 1 L, Platelet Estimate Normal 10/30/21 06:06: Sodium 133 L, Potassium 2.7 L*, Chloride 101, Carbon Dioxide 27, Anion Gap 7.7, BUN 22 H D, Creatinine 1.00, Estimated Creat Clear 65, Estimated GFR 54 L, Est GFR ( Amer) 65, Glucose 167 H, Calcium 8.7, Total Bilirubin 0.4, AST 29, ALT 14, Alkaline Phosphatase 62, Total Protein 6.4, Albumin 3.7, Globulin 2.7, Albumin/Globulin Ratio 1.4 I & O for Last 24 hours: Intake & Output 10/27/21 10/28/21 10/29/21 10/30/21 23:59 23:59 23:59 23:59 Intake Total 240 / 240 1140 / 1140 240 / 240 Output Total 450 / 850 1200 / 1200 Balance 240 / 240 690 / 290 -960 / -960 Weight 85.786 kg 87.226 kg 87.226 kg Microbiology Reports for the Last 24 Hours: Microbiology 10/28/21 11:28 Sputum - Expectorated Sputum Gram Stain - Final 10/28/21 11:28 Sputum - Expectorated Sputum Sputum Culture - Preliminary - Constitutional mild distress, obese - *Routine HEENT Exam Head: Present: normocephalic Eye: Present: EOMI, PERRL ENT: Present: mucous membranes moist - *Routine Neck Exam Present: supple. Absent: lymphadenopathy - *Routine Respiratory Exam Present: rhonchi, wheezes, crackles, distant breath sounds - *Routine Cardiovascular Exam Present: RRR - *Routine Abdominal Exam Present: soft, normoactive bowel sounds. Absent: tenderness - *Routine Extremities Exam Absent: cyanosis, clubbing, edema - *Routine Skin Exam Present: warm. Absent: rash - *Routine Neurological Exam Present: alert, oriented X3 Assessment and Plan (1) Acute hypoxemic respiratory failure Status: Acute Category: Medical Code(s): J96.01 - Acute respiratory failure with hypoxia (2) Acute bronchitis Status: Acute Qualifiers: Bronchitis organism: unspecified organism Qualified Code(s): J20.9 - Acute bronchitis, unspecified Category: Medical Code(s): J20.9 - Acute bronchitis, unspecified (3) Bronchospasm Status: Acute Category: Medical Code(s): J98.01 - Acute bronchospasm (4) Community acquired pneumonia Status: Acute Category: Medical Code(s): J18.9 - Pneumonia, unspecified organism - Assessmen
--- NOTE | 2021-10-30 09:20 | HMH.PULMPN ---
Internal Medicine - PN: Subj *Date: 10/30/21 *Time: 11:05 Interval history: No acute respiratory events overnight. Patient admits continued improvement in her symptoms. Exam - Constitutional Constitutional:: Present: no acute distress, comfortable - HENMT Exam HENMT: Present: normocephalic, atraumatic - Eye Exam Eyes:: Present: normal appearance both eyes and related structures - Neck Exam Neck:: Present: normal visual inspection - Respiratory Exam Respiratory:: Present: able to speak in complete sentences, no respiratory distress. Absent: wheezing - Cardiovascular Exam Cardiac:: Present: S1, S2 - GI Exam GI:: Present: soft - Skin Exam Skin: Present: warm - Neurological Exam Neurological: Present: alert, awake - Extremities Exam Extremities: Present: no cyanosis, no clubbing, no edema Assessment and Plan (1) Acute bronchitis Status: Acute Qualifiers: Bronchitis organism: unspecified organism Qualified Code(s): J20.9 - Acute bronchitis, unspecified Category: Medical Code(s): J20.9 - Acute bronchitis, unspecified (2) Bronchospasm Status: Acute Category: Medical Code(s): J98.01 - Acute bronchospasm - Assessment and plan all Dx Assessment and Plan for all problems:: #Acute hypoxic respiratory failure: #Community-acquired pneumonia: 76-year-old female no significant smoking exposure, significant secondhand smoke exposure, diagnosed with rheumatoid arthritis by her PCP 2 years ago and has been receiving prednisone 7.5 mg every other day, presented to hospital with worsening respiratory distress, productive phlegm greenish that was changed along with subjective fevers. Denies any sick contacts. Has been complaining of respiratory problems for a very long time almost 10 years, her breathing symptoms predominate with exertion and not at rest however she also have these intermittent episodes of bronchitis 1-2 times per year for which she has been receiving antibiotics and steroids with improvement in her symptoms. However her baseline exertional dyspnea has been gradually getting worse since the last 10 years. Denies any personal history or family history of asthma no childhood respiratory symptoms. Symptoms worse with exposure to cold air. Patient also on long-term anticoagulant for her atrial fibrillation. Denies any prior history of blood clots. Prelim sputum 10- 25 WBC, few gram-positive cocci Clinical bilateral expiratory wheeze. CTA performed, revealed bilateral air trapping/ mosaic attenuation. No dense consolidative process noted. No evidence of pulmonary embolism. Interval update: Patient admits continued improvement in her symptoms. On room air saturating 98%. Auscultation revealed significantly improved wheezing. Autoimmune work-up pending. Plan: -Patient on room air saturating 98%. Perform 6-minute walk testing prior to discharge to determine the the need for home oxygen therapy. -Continue Ceftriaxone and Azithromycin, can be weaned to levofloxacin upon discharge -Continue DuoNebs every 6 hours, budesonide every 12 scheduled, recommend to discharge the patient on triple inhaler therapy along with DuoNebs every 6 hours and as needed basis. Please arrange nebulizer machine prior to discharge -Recommend to wean steroids to prednisone 40 mg daily for 7 days. -We will follow with autoimmune, rheumatological work-up and will evaluate the possibility of her RA/CT-ILD, RA-LADAN as an outpatient basis with needed additional autoimmune workup. #Thank you for involving pulmonary in this patient care. We will perform 6-minute walk testing prior to discharge and please arrange nebulization machine at home. We will follow the patient in pulmonary clinic in 1 week. Please call pulmonary with any further questions or concerns.
[2021-10-30 16:14] LABS: Cytoplasmic (C-ANCA) <1:20 titer (Neg:<1:20); Perinuclear (P-ANCA) <1:20 titer (Neg:<1:20)
[2021-10-31] VITALS: BP 153/80; PULSE 78; PULSE 80; RESP 16; TEMP 36.7; O2SAT 95
[2021-10-31 00:10] LABS: Anti-Cyclic Citrullinated Pept 7 units (0-19)
[2021-10-31 04:00] VITALS: BP 167/90; PULSE 70; PULSE 89; RESP 18; TEMP 36.7; O2SAT 95
[2021-10-31 05:00] VITALS: BMI 32.5
[2021-10-31 06:27] VITALS: PULSE 72; PULSE 76; O2SAT 96
[2021-10-31 07:25] LABS: Basophils % 0.3 % (0.1-2.0); Eosinophils % 0.1 % (0.1-12.0); Hematocrit 38.3 % (37.0-47.0); Hemoglobin 12.3 g/dL (12.2-16.2); Lymphocytes % 9.4 % (10-50); Mean Corpuscular HGB Conc 32.1 g/dL (31.8-35.4); Mean Corpuscular Hemoglobin 30.5 pg (27.0-31.2); Mean Corpuscular Volume 95.2 fl (81-99); Mean Platelet Volume 8.7 fl (7.4-10.4); Monocytes # 0.4 K/mm3 (0.1-1.0); Monocytes % 4.1 % (1.7-9.3); Neutrophils # 9.4 K/mm3 (1.8-7.8); Neutrophils % 86.2 % (37.0-80.0); Platelet Count 309 K/mm3 (142-424); Red Blood Count 4.02 M/mm3 (4.20-5.40); Red Cell Distribution Width 13.5 % (11.5-17.5); White Blood Count 10.9 K/mm3 (4.8-10.8)
[2021-10-31 07:34] LABS: Alanine Aminotransferase 13 U/L (12-78); Albumin Level 3.4 g/dl (3.5-5.0); Albumin/Globulin Ratio 1.4 (1.1-1.8); Alkaline Phosphatase 52 U/L (38-126); Anion Gap 8.4 mEq/L (5-15); Aspartate Amino Transferase 34 U/L (14-36); Bilirubin,Total 0.4 mg/dl (0.2-1.3); Blood Urea Nitrogen 28 mg/dl (7-17); Calcium 8.6 mg/dl (8.4-10.2); Carbon Dioxide 25 mmol/L (22.0-30.0); Chloride 102 mmol/L (98-107); Creatinine Clearance Estimated 66 mL/min (50-200); Estimated Glomerular Filt Rate 54 ml/min (>60); GFR (African American) 65 ML/MIN (>60); Globulin 2.5 g/dL (1.3-3.2); Glucose 157 mg/dl (74-100); MANUAL DIFFERENTIAL MANUAL DIFFERENTIAL (MANUAL DIFF); Potassium 4.4 mmoL/L (3.5-5.1); Sodium 131 mmol/L (136-145); Total Protein,Serum 5.9 g/dl (6.3-8.2)
[2021-10-31 08:00] VITALS: BP 132/84; PULSE 90; PULSE 94; RESP 24; TEMP 37.1; O2SAT 97
--- NOTE | 2021-10-31 08:32 | HMH.DCSUM ---
General - General Admission date:: 10/28/21 Discharge date: 10/31/21 HPI HPI: 76-year-old white female who is enjoyed a very good functional status in spite of cardiac issues-she states that she been diagnosed with A. fib and a bundle branch block, and had a pacemaker put in several years ago per EP at [facility] and has had it replaced with good status. She follows with Dr. Valentine at [facility] cardiology. She also is chronic A. fib and has been on warfarin for several years. In addition to this she is had multiple episodes where she has wheezing, bronchospasm and shortness of air and has lot of functional problems with this with inability to do daily activities because of frequent wheezing. She sees her family practice doctor in [facility] who has been giving her what sounds like steroid shots intermittently for this bronchospasm which helped. She reports that she has been on a multiplicity of inhalers-she cannot remember names but states they have been all different kinds and she stopped them after 2 or 3 days because she developed blisters in her mouth. She denies thrush but reports that she has lots of blisters. She is not sure if the inhalers actually help. She also has been diagnosed with rheumatoid arthritis by her family practice doctor, and has been on a regimen of prednisone 7.5 alternating with 2.5 every other day, does not recall ever seen an clinical trials data coordinator, lawn care worker or other brand specialist. She is never seen a preschool teacher although her hot knife cutter have been aware of the wheezing and bronchospasm. She reports that she has had echocardiograms in the past have been normal except for the issues with the electrical conduction issues. 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 She does note that in the wintertime when weather is very cold she seems to do better. Her , who from small cell lung cancer in 2012, was a very heavy smoker, in the house with her, but she has never actively smoked. She does not think that her symptoms have improved since her and her house is now smoke-free. 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 Hospital Course Hospital Course: Patient was admitted, placed on IV fluids. Placed on intense pulmonary toilet with duo nebs and inhaled budesonide as well as antibiotics. Acute bronchospasm improved and very nice and progressive stepwise fashion over the next 48 hours. Pulmonary was consulted, appreciate input and follow-up plan scheduled. Patient reached baseline level of functioning fairly quickly. PCR testing was found to show [id number] species. This morning patient was back to her baseline, doing all ADLs, no oxygen requirement, and she will be discharged home with duo nebs, budesonide nebs. P.o. dexamethasone and Levaquin, along with close follow-up in our office for a post hospital checkup and with Dr. Chanel in the next week. He is asked for a 6-minute walk test before discharge, and this will be done. Objective Vital signs: Temp Pulse Resp BP Pulse Ox 98.8 F 94 H 24 132/84 97 10/31/21 08:00 10/31/21 08:00 10/31/21 08:00 10/31/21 08:00 10/31/21 08:00 no acute distress - *Routine HEENT Exam Head: Present: normocephalic Eye: Present: EOMI, PERRL ENT: Present: mucous membranes moist - *Routine Neck Exam Present: supple - *Routine Respiratory Exam Present: CTA bilaterally - *Routine Cardiovascular Exam Present: RRR - *Routine Abdominal Exam Present: soft, normoactive bowel sounds. Absent: tenderness - *Routine Extremities Exam Absent: cyanosis, clubbing, edema - *Routine Skin Exam Present: warm. Absent: rash - Detailed Eye Exam Eyelids: Bilateral normal inspection R
--- NOTE | 2021-10-31 09:04 | HMH.PHAINT ---
I spoke with Mrs. Lorenzo today about her medication list upon discharge. Went over the new medications, medications she was to continue, and medications that she should stop taking. Went over interaction between two of her new discharge medications and her warfarin (INR increase), and instructed her to call her provider that manages her warfarin so they can be aware and to see if they wanted her to come in and have her INR checked after she starts the medications.
--- NOTE | 2021-10-31 09:12 | HMH.PULMPN ---
Internal Medicine - PN: Subj *Date: 10/31/21 *Time: 11:28 Interval history: No acute respiratory vents overnight. Patient continued to remain on room air. 6 Minute walk testing showed exertional hypoxia. Exam - Constitutional Constitutional:: Present: no acute distress, comfortable - HENMT Exam HENMT: Present: normocephalic - Eye Exam Eyes:: Present: normal appearance both eyes and related structures - Neck Exam Neck:: Present: normal visual inspection - Respiratory Exam Respiratory:: Present: able to speak in complete sentences, respiratory distress. Absent: wheezing - Cardiovascular Exam Cardiac:: Present: S1, S2 - GI Exam GI:: Present: soft - Skin Exam Skin: Present: warm, no rash - Neurological Exam Neurological: Present: alert, awake, normal cognition - Extremities Exam Extremities: Present: no cyanosis, no clubbing, no edema Assessment and Plan (1) Acute hypoxemic respiratory failure Status: Acute Category: Medical Code(s): J96.01 - Acute respiratory failure with hypoxia (2) Acute bronchitis Status: Acute Qualifiers: Bronchitis organism: unspecified organism Qualified Code(s): J20.9 - Acute bronchitis, unspecified Category: Medical Code(s): J20.9 - Acute bronchitis, unspecified (3) Bronchospasm Status: Acute Category: Medical Code(s): J98.01 - Acute bronchospasm (4) Community acquired pneumonia Status: Acute Category: Medical Code(s): J18.9 - Pneumonia, unspecified organism - Assessment and plan all Dx Assessment and Plan for all problems:: #Acute hypoxic respiratory failure: #Community-acquired pneumonia: 76-year-old female no significant smoking exposure, significant secondhand smoke exposure, diagnosed with rheumatoid arthritis by her PCP 2 years ago and has been receiving prednisone 7.5 mg every other day, presented to hospital with worsening respiratory distress, productive phlegm greenish that was changed along with subjective fevers. Denies any sick contacts. Has been complaining of respiratory problems for a very long time almost 10 years, her breathing symptoms predominate with exertion and not at rest however she also have these intermittent episodes of bronchitis 1-2 times per year for which she has been receiving antibiotics and steroids with improvement in her symptoms. However her baseline exertional dyspnea has been gradually getting worse since the last 10 years. Denies any personal history or family history of asthma no childhood respiratory symptoms. Symptoms worse with exposure to cold air. Patient also on long-term anticoagulant for her atrial fibrillation. Denies any prior history of blood clots. Prelim sputum 10- 25 WBC, few gram-positive cocci CTA performed on admission , revealed bilateral air trapping/ mosaic attenuation. No dense consolidative process noted. No evidence of pulmonary embolism. Auscultation revealed diffuse bilateral expiratory wheeze on admission. Patient was initiated on duo nebs along with budesonide to significantly improve her respiratory distress and she was eventually weaned to room air from treated with saturations maintained at 98% and above. However patient still appeared to be in distress and 6-minute walk testing was performed on the day of the discharge that showed desaturations to 87% patient was discharged on home oxygen therapy. Autoimmune work-up with ROSY and CCP negative. CRP 30.6. BNP also elevated. The plan was made to discharge the patient on levofloxacin to complete a total of 7-day course along with initiation of Trelegy 100 inhaler and DuoNebs every 6 hours on a as needed basis and to continue prednisone 40 mg daily and to follow in the clinic in 7 to 10 days. Plan: -Patient on room air saturating 98%. Exertional hypoxia noted -Continue Ceftriaxone and Azithromycin, can be weaned to levofloxacin upon discharge -Continue DuoNebs every 6 hours, budesonide every 12 scheduled, recommend to di
[2021-10-31 09:32] VITALS: PULSE 96; PULSE 97
--- NOTE | 2021-10-31 09:45 | CARE MANAGER ---
Patient needs nebulizer machine and Oxygen upon discharge. Faxed information to [facility]. Declines home health at this time. OANH Cheatham
[2021-10-31 10:31] LABS: Lymphocytes % 13 % (10-50); Monocytes % 3 % (2-9); Neutrophils % 84 % (42-76); Total Cells Counted 100
[2021-10-31 10:32] LABS: Platelet Estimate Normal
--- NOTE | 2021-11-02 13:09 | CARE MANAGER ---
Addendum entered by April Jiang RN 11/02/21 13:27: Daughter, Abigail, returned call. States patient is doing very well. She is using nebulizer and Oxygen and still has some coughing, but denies any issues or questions/concerns. OANH Cheatham Original Note: Attempted to contact patient regarding follow up to hospital discharge. Left voicemail message. OANH Cheatham
[2021-11-07 21:31] LABS: D001-IgE D pteronyssinus <0.10 kU/L (Class 0); D002-IgE D farinae <0.10 kU/L (Class 0); E001-IgE Cat Dander <0.10 kU/L (Class 0); E005-IgE Dog Dander <0.10 kU/L (Class 0); E072-IgE Mouse Urine <0.10 kU/L (Class 0); F001-IgE Egg White <0.10 kU/L (Class 0); F002-IgE Milk <0.10 kU/L (Class 0); F003-IgE Codfish <0.10 kU/L (Class 0); F004-IgE Wheat <0.10 kU/L (Class 0); F010-IgE Sesame Seed <0.10 kU/L (Class 0); F013-IgE Peanut <0.10 kU/L (Class 0); F014-IgE Soybean <0.10 kU/L (Class 0); F024-IgE Shrimp <0.10 kU/L (Class 0); F256-IgE Walnut <0.10 kU/L (Class 0); F338-IgE Scallop <0.10 kU/L (Class 0); G002-IgE Bermuda Grass <0.10 kU/L (Class 0); G006-IgE Timothy Grass <0.10 kU/L (Class 0); I006-IgE Cockroach, German <0.10 kU/L (Class 0); Immunoglobulin E, Total 4 IU/mL (6-495); M001-IgE Penicillium chrysogen <0.10 kU/L (Class 0); M002-IgE Cladosporium herbarum <0.10 kU/L (Class 0); M003-IgE Aspergillus fumigatus <0.10 kU/L (Class 0); M006-IgE Alternaria alternata <0.10 kU/L (Class 0); T001-IgE Maple/Box Elder <0.10 kU/L (Class 0); T003-IgE Common Silver Birch <0.10 kU/L (Class 0); T006-IgE Cedar, Mountain <0.10 kU/L (Class 0); T007-IgE Oak, White <0.10 kU/L (Class 0); T008-IgE Elm, American <0.10 kU/L (Class 0); T010-IgE Walnut <0.10 kU/L (Class 0); T011-IgE Maple Leaf Sycamore <0.10 kU/L (Class 0); T014-IgE Cottonwood <0.10 kU/L (Class 0); T015-IgE Ash, White <0.10 kU/L (Class 0); T022-IgE Pecan, Hickory <0.10 kU/L (Class 0); T070-IgE White Mulberry <0.10 kU/L (Class 0); W001-IgE Ragweed, Short <0.10 kU/L (Class 0); W011-IgE Thistle, Russian <0.10 kU/L (Class 0); W014-IgE Pigweed, Common <0.10 kU/L (Class 0); W016-IgE Rough Marshelder <0.10 kU/L (Class 0); W018-IgE Sheep Sorrel <0.10 kU/L (Class 0)
== END 2021-10-31 11:08 | disposition home or self-care (01) ==
LOC: ER 13:14 → 2ND 13:40
PROVIDERS: Internal Medicine Adolescent Medicine; Admitting Provider Internal Medicine Adolescent Medicine; Emergency Provider Emergency Medicine; PCP Family Medicine; Visit Provider Internal Medicine Adolescent Medicine
DX: J18.9 Pneumonia, unspecified organism (principal); Z79.01 Long term (current) use of anticoagulants; J20.9 Acute bronchitis, unspecified; Z79.899 Other long term (current) drug therapy; I48.91 Unspecified atrial fibrillation; Z95.0 Presence of cardiac pacemaker; I10 Essential (primary) hypertension; J98.01 Acute bronchospasm; J96.01 Acute respiratory failure with hypoxia; R06.09 Other forms of dyspnea; J30.89 Other allergic rhinitis; Z20.822 Contact with and (suspected) exposure to COVID-19
CPT/HCPCS: G0378; 36415; 71045; 71275; 80048; 80053; 82785; 83605; 83880; 84484; 85007; 85025; 85610; 85651; 86003; 86008; 86140; 86200; 86256; 87040; 87070; 87205; 87581; 87632; 87798; 93005; 93306; 94618; 94640; 94760; 96365; 96367; 96375; 99285; C9803; J0456; J0696; Q9967; U0003; U0005

== ENCOUNTER → 2021-11-29 12:44 | Outpatient (CLI) | payer MEDICARE, SELFPAY ==
[2021-11-29 13:45] VITALS: PULSE 73; PULSE 80
== END ==
PROVIDERS: PCP Family Medicine; Visit Provider Internal Medicine Pulmonary Disease
DX: R06.00 Dyspnea, unspecified (principal)
CPT/HCPCS: 94060; 94618; 94640; 94727; 94729; 94762

== ENCOUNTER → 2022-02-25 13:07 | Outpatient (CLI) | payer MEDICARE, SELFPAY ==
--- NOTE | 2022-02-25 13:07 | CT_ITS ---
FINAL REPORT CLINICAL HISTORY: soa, cough COMPARISON: October 29, 2021 FINDINGS: Axial images through the chest was performed by computed tomography. Sagittal and coronal reformatted images were obtained and reviewed. High-resolution technique was performed with supine inspiration and expiration and prone inspiration. This study was performed with techniques to keep radiation doses as low as reasonably achievable (ALARA). Individualized dose reduction techniques using automated exposure control or adjustment of mA and/or kV according to the patient's size were employed. There is a left subclavian pacemaker. There is no axillary mass or adenopathy. There is no mediastinal or hilar mass or adenopathy. There is a small pericardial effusion. There is no pleural effusion. There is a 12 mm mass in the right hepatic lobe that is stable and likely represents a cyst. There is a small hiatal hernia. Lung window images demonstrate mild scarring. There is mild right middle lobe atelectasis or scarring. There has been interval improvement in patchy ground-glass opacity with minimal persistent ground-glass opacity. There is no significant air trapping. IMPRESSION: Interval improvement in patchy ground-glass opacity with minimal persisting ground-glass opacity. No significant air trapping. Mild right middle lobe atelectasis or scarring. Reviewed, Interpreted and Dictated by Prabhakar Moe III, MD Transcribed by Darrell Melendez Authenticated and [facility]
== END ==
PROVIDERS: PCP Family Medicine; Visit Provider Internal Medicine Pulmonary Disease
DX: J84.9 Interstitial pulmonary disease, unspecified (principal)
CPT/HCPCS: 71250

== ENCOUNTER → 2022-08-14 08:07 | Outpatient (CLI) | payer MEDICARE, SELFPAY ==
[2022-08-14 08:55] VITALS: PULSE 71; PULSE 77
== END ==
PROVIDERS: PCP Family Medicine; Visit Provider Internal Medicine Pulmonary Disease
DX: R06.09 Other forms of dyspnea (principal)
CPT/HCPCS: 94060; 94618; 94640; 94727; 94729

== ENCOUNTER → 2023-02-18 13:37 | Outpatient (CLI) | payer MEDICARE, SELFPAY | PROVIDERS: PCP Family Medicine; Visit Provider Internal Medicine Cardiovascular Disease | DX: R06.09 Other forms of dyspnea (principal) | CPT/HCPCS: 93306 ==

== ENCOUNTER → 2023-03-13 14:33 | Outpatient (CLI) | payer MEDICARE, SELFPAY ==
--- NOTE | 2023-03-13 14:37 | XR_ITS ---
FINAL REPORT CLINICAL HISTORY: ankle pain, weightbearing views for podiatry clinic FINDINGS: Left ankle Three views were obtained. There is no acute fracture or dislocation. There are mild degenerative changes. Calcaneal spurs are noted. No soft tissue abnormality is identified. IMPRESSION: Mild degenerative changes. Reviewed, Interpreted and Dictated by Prabhakar Moe III, MD Transcribed by Melissa Gandara Authenticated and [facility]
--- NOTE | 2023-03-13 14:37 | XR_ITS ---
FINAL REPORT CLINICAL HISTORY: foot pain ,weight bearing views for podiatry clinic. FINDINGS: Right foot Three views were obtained. There is no acute fracture or dislocation. There are mild degenerative changes. Calcaneal spurs are noted. No soft tissue abnormality is identified. IMPRESSION: Mild degenerative changes. Reviewed, Interpreted and Dictated by Prabhakar Moe III, MD Transcribed by Melissa Gandara Authenticated and [facility]
--- NOTE | 2023-03-13 14:37 | XR_ITS ---
FINAL REPORT CLINICAL HISTORY: ankle pain, weightbearing views for podiatry clinic FINDINGS: Right ankle Three views were obtained. There is no acute fracture or dislocation. There are mild degenerative changes. Calcaneal spurs are noted. No soft tissue abnormality is identified. IMPRESSION: Mild degenerative changes. Reviewed, Interpreted and Dictated by Prabhakar Moe III, MD Transcribed by Melissa Gandara Authenticated and [facility]
--- NOTE | 2023-03-13 14:37 | XR_ITS ---
FINAL REPORT CLINICAL HISTORY: foot pain, weightbearing views for podiatry clinic. FINDINGS: Left foot Three views were obtained. There is no acute fracture or dislocation. There are mild degenerative changes. Calcaneal spurs are noted. No soft tissue abnormality is identified. IMPRESSION: Mild degenerative changes. Reviewed, Interpreted and Dictated by Prabhakar Moe III, MD Transcribed by Melissa Gandara Authenticated and . [facility]
== END ==
PROVIDERS: PCP Family Medicine; Visit Provider Nurse Practitioner Family
DX: M79.672 Pain in left foot; M79.671 Pain in right foot; M25.572 Pain in left ankle and joints of left foot; M25.571 Pain in right ankle and joints of right foot
CPT/HCPCS: 73610; 73630

== ENCOUNTER → 2023-04-02 09:43 | Outpatient (CLI) | payer MEDICARE, SELFPAY ==
--- NOTE | 2023-04-02 10:00 | US_ITS ---
FINAL REPORT CLINICAL HISTORY: Decreased Pulses COMPARISON: None FINDINGS: ANKLE-BRACHIAL PRESSURE INDICES Pressure indices are as follows: RIGHT LOWER EXTREMITY: Ankle-brachial pressure index: 1.1 Comments: Normal LEFT LOWER EXTREMITY: Ankle-brachial pressure index: 1.1 Comments: Normal IMPRESSION: No evidence of significant obstructive peripheral vascular disease of the lower extremities Reviewed, Interpreted and Dictated by Yasir Unger MD Transcribed by Kimberly Aviles Authenticated and [facility]
== END ==
PROVIDERS: PCP Family Medicine; Visit Provider Nurse Practitioner Family
DX: R09.89 Other specified symptoms and signs involving the circulatory and respiratory systems (principal)
CPT/HCPCS: 93923

== ENCOUNTER → 2023-04-29 09:49 | Outpatient (CLI) | payer MEDICARE, SELFPAY ==
[2023-04-29 11:05] LABS: Anion Gap 13.5 mEq/L (5-15); Blood Urea Nitrogen 14 mg/dl (7-17); Calcium 8.9 mg/dl (8.4-10.2); Carbon Dioxide 25 mmol/L (22.0-30.0); Chloride 99 mmol/L (98-107); Estimated Glomerular Filt Rate 43 ml/min (>60); GFR (African American) 53 ML/MIN (>60); Glucose 75 mg/dl (74-100); Potassium 3.5 mmoL/L (3.5-5.1); Sodium 134 mmol/L (136-145)
== END ==
PROVIDERS: PCP Family Medicine; Visit Provider Internal Medicine Cardiovascular Disease
DX: I10 Essential (primary) hypertension (principal)
CPT/HCPCS: 36415; 80048

== ENCOUNTER 2023-09-16 09:41 | Outpatient (CLI) | payer MEDICARE, SELFPAY ==
[2023-09-16 10:40] VITALS: PULSE 60; PULSE 67
[2023-09-16] MEDS: ALBUTEROL 0.083% 2.5 MG/3 ML NEB IH (10:40)
== END 2023-09-16 23:59 ==
PROVIDERS: PCP Family Medicine; Visit Provider Internal Medicine Pulmonary Disease
DX: R06.09 Other forms of dyspnea (principal); Z51.81 Encounter for therapeutic drug level monitoring; Z79.01 Long term (current) use of anticoagulants
CPT/HCPCS: 94060; 94618; 94640; 94726; 94729

== ENCOUNTER 2024-04-21 21:24 | Observation (INO) | payer MEDICARE, SELFPAY ==
--- NOTE | 2024-04-21 21:41 | XR_ITS ---
PROCEDURE INFORMATION: Exam: XR Chest Exam date and time: 04/21/2024 10:11 PM Age: 78 years old Clinical indication: Shortness of breath; Additional info: SOGabriel, nedraid+ 1wk TECHNIQUE: Imaging protocol: Radiologic exam of the chest. Views: 1 view. COMPARISON: 1. CT HR CHEST X3 02/25/2022 1:37 PM 2. CR XR CHEST PORTABLE 10/28/2021 11:56 AM FINDINGS: Lungs: Right basilar airspace opacity. Lungs are otherwise clear. Pleural spaces: Unremarkable. No pleural effusion. No pneumothorax. Heart/Mediastinum: Heart size mildly enlarged but stable. Stable position of the dual lead pacer. Moderate-sized hiatal hernia. Bones/joints: Unremarkable. IMPRESSION: Right basilar airspace opacity suggesting possible developing pneumonia. Advise short-term follow-up chest x-ray in 3 to 6 weeks to ensure resolution. This finding should be followed until completely resolved and returned to baseline.
[2024-04-21 21:44] VITALS: BP 143/84; PULSE 97; RESP 18; TEMP 37.2; O2SAT 94; BMI 30.7
--- NOTE | 2024-04-21 21:49 | ECG_ITS ---
APPROVED REPORT Exam: Resting ECG HR:96 bpm ECG Measurements Heart Rate 96 AXES QRSd 147 QRS -75 QT 398 T 81 QTc 452 Conclusion ELECTRONIC VENTRICULAR PACEMAKER Electronically signed by : SILVER CHAN, 04/21/2024 22:04:55
[2024-04-21 21:51] LABS: VBG Base Excess -2.7 mmol/L (-2.4-2.3); VBG HCO3 22.5 mmol/L (23-30); VBG Oxygen Saturation 74.9 % (50-70); VBG PCO2 39.2 mmol/L (35-51); VBG PH 7.38 mmol/L (7.31-7.41); VBG PO2 39.5 mmol/L (28-40); VBG Total CO2 23.7 mmol/L (23-27)
[2024-04-21 21:51] LABS: Basophils # 0.2 K/mm3 (0-0.2); Basophils % 1.1 % (0.1-2.0); Eosinophils # 0.1 K/mm3 (0.0-0.4); Eosinophils % 0.8 % (0.1-12.0); Hemoglobin 13.8 g/dL (12.2-16.2); Lymphocytes % 12.6 % (10-50); Mean Corpuscular HGB Conc 30.6 g/dL (31.8-35.4); Mean Corpuscular Hemoglobin 31.1 pg (27.0-31.2); Mean Corpuscular Volume 101.9 fl (81-99); Mean Platelet Volume 8.4 fl (7.4-10.4); Monocytes % 6.1 % (1.7-9.3); Neutrophils # 12.6 K/mm3 (1.8-7.8); Neutrophils % 79.4 % (37.0-80.0); Platelet Count 351 K/mm3 (142-424); Red Blood Count 4.42 M/mm3 (4.20-5.40); Red Cell Distribution Width 13.5 % (11.5-17.5); White Blood Count 15.9 K/mm3 (4.8-10.8)
--- NOTE | 2024-04-21 21:51 | PC.NURSE ---
Pt reports she tested Covid+ over 8 days ago at PCP, reports increasing SOA and non productive cough, reports she is unable to rest
[2024-04-21 21:52] LABS: Albumin Level 4.3 g/dl (3.5-5.0); Chloride 100 mmol/L (98-107); Potassium 4.2 mmoL/L (3.5-5.1); Sodium 131 mmol/L (136-145)
[2024-04-21 21:53] LABS: MANUAL DIFFERENTIAL MANUAL DIFFERENTIAL (MANUAL DIFF)
[2024-04-21 21:55] LABS: Lactate Venous 2.3 mmol/L (0.4-2.0)
[2024-04-21 21:55] LABS: Alanine Aminotransferase 17 U/L (12-78); Albumin/Globulin Ratio 1.3 (1.1-1.8); Alkaline Phosphatase 70 U/L (38-126); Anion Gap 11.2 mEq/L (5-15); Aspartate Amino Transferase 33 U/L (14-36); Blood Urea Nitrogen 11 mg/dl (7-17); Calcium 8.9 mg/dl (8.4-10.2); Carbon Dioxide 24 mmol/L (22.0-30.0); Creatinine Clearance Estimated 55 mL/min (50-200); Estimated Glomerular Filt Rate 48 ml/min (>60); GFR (African American) 58 ML/MIN (>60); Globulin 3.2 g/dL (1.3-3.2); Glucose 128 mg/dl (74-100); Total Protein,Serum 7.5 g/dl (6.3-8.2)
--- NOTE | 2024-04-21 21:55 | CT_ITS ---
PROCEDURE INFORMATION: Exam: CTA Chest With Contrast Exam date and time: 04/21/2024 10:24 PM Age: 78 years old Clinical indication: Cough and shortness of breath; Additional info: SOA, covid+ TECHNIQUE: Imaging protocol: Computed tomographic angiography of the chest with contrast. Exam focused on the arteries. 3D rendering (Not supervised by radiologist): MIP and/or 3D reconstructed images were created by the technologist. Radiation optimization: All CT scans at this facility use at least one of these dose optimization techniques: automated exposure control; mA and/or kV adjustment per patient size (includes targeted exams where dose is matched to clinical indication); or iterative reconstruction. Contrast material: ISOVUE; Contrast volume: 70 ml; Contrast route: INTRAVENOUS (IV); COMPARISON: CT ANGIO CHEST PE PROTOCOL 10/29/2021 9:26 AM FINDINGS: Tubes, catheters and devices: Stable position of the dual lead pacer. Pulmonary arteries: Normal. No pulmonary emboli. Aorta: Unremarkable. No aortic aneurysm. No aortic dissection. Celiac trunk and mesenteric arteries: Focal short segment narrowing of the proximal celiac artery with mild poststenotic dilatation suggesting median arcuate ligament syndrome redemonstrated. Lungs: Potential soft tissue fullness in the right infrahilar region with associated narrowing and possible occlusion of the adjacent central infrahilar airways. This finding measures 3.3 x 3.4 x 3.1 cm centered on axial image 60 and coronal image 45. Associated opacification of the more peripheral inferior right middle lobe with associated volume loss suggesting postobstructive pneumonia and atelectasis. A 9 mm perihilar nodular appearing density in the right upper lobe on axial image 55 and coronal image 48 that has developed in the interval since prior CT. There are patchy multifocal ground-glass opacities noted in the more inferior aspect of the right lower lobe and superolateral aspect of the left lower lobe. Lung gruber otherwise clear. Pleural spaces: Unremarkable. No pneumothorax. No pleural effusion. Heart: Unremarkable. No cardiomegaly. No pericardial effusion. Lymph nodes: Mildly enlarged subcarinal node measuring 11 mm. Mildly enlarged right infrahilar lymph nodes noted. Diaphragm: Moderate-sized hiatal hernia redemonstrated. Liver: Small cyst in the right lobe of the liver redemonstrated. Bones/joints: See Celiac trunk and mesenteric arteries finding. Soft tissues: Unremarkable. IMPRESSION: 1. No PE identified but sensitivity may be limited by motion artifact. 2. Patchy multifocal ground-glass opacities in both lower lobes may reflect pneumonia related to patient's C19 infection. 3. Possible soft tissue fullness in the right infrahilar region measuring up to 3.4 cm with associated potential occlusion of the adjacent airways. This finding might be due to perihilar consolidation and/or adenopathy but developing hilar mass also possible. Associated opacification and volume loss of the right middle lobe suggesting developing postobstructive pneumonia and atelectasis. Pulmonary consultation regarding these findings advised. 4. Incidental new 9 mm nodule in the right upper lobe. Benign versus malignant etiologies cannot be differentiated. Consider CT Chest at 3 months, PET/CT, or biopsy. (Reference: Diamond) 5. Interval development of mild right hilar and subcarinal adenopathy. 6. Focal short segment narrowing of the proximal celiac artery with mild poststenotic dilatation suggesting median arcuate ligament syndrome redemonstrated. REFERENCES: Diamond H, et al. Guidelines for Management of Incidental Pulmonary Nodules Detected on CT Images: From the Fleischner Society 2017. Radiology. 2017;284(1):228-243.
[2024-04-21 22:01] VITALS: BP 170/79; O2SAT 97
[2024-04-21 22:05] LABS: Lactic Acid 2.2 mmol/L (0.7-2.1)
[2024-04-21 22:08] LABS: Troponin I < 0.01 ng/ml (0.00-0.034)
[2024-04-21] MEDS: ONDANSETRON 4MG/2ML VIAL 4 MG IV (22:14)
[2024-04-21] MEDS: METHYLPREDNISOLONE SOD SUCC 125MG VIAL 125 MG IV (22:15)
[2024-04-21] MEDS: CEFTRIAXONE SODIUM 1 GM in 0.9 % SODIUM CHLORIDE 50 ML IV (22:15)
[2024-04-21 22:19] LABS: INR 2.69 (0.9-1.1); Prothrombin Time 27.3 seconds (10.1-12.5)
[2024-04-21 22:37] LABS: Lymphocytes % 11 % (10-50); Macrocytosis 1+; Monocytes % 5 % (2-9); Neutrophils % 84 % (42-76); Platelet Estimate Normal; Total Cells Counted 100
--- NOTE | 2024-04-21 22:37 | [facility].EDCP ---
Discharge Plan Disposition Patient Disposition: Admitted Condition: Fair Prescriptions Prescriptions: No Action fluticasone propionate [Flonase Allergy Relief] 50 mcg/actuation spray,suspension 1 spray intranasal BID PRN (Reason: allergy symptoms) 90 Days Qty: 16 3RF Rx Instructions: administer into each nostril albuterol sulfate 90 mcg/actuation HFA aerosol inhaler See Rx Instructions .ROUTE .COMPLEX Qty: 8.5 11RF Dose Instruction: INHALE 2 PUFFS BY MOUTH EVERY 6 HOURS NEEDED FOR SHORTNESS OF BREATH OR WHEEZING Rx Instructions: INHALE 2 PUFFS BY MOUTH EVERY 6 HOURS NEEDED FOR SHORTNESS OF BREATH OR WHEEZING Breztri Aerosphere 160-9-4.8 mcg/actuation HFA aerosol inhaler See Rx Instructions .ROUTE .COMPLEX Qty: 10.7 1RF Dose Instruction: INHALE 2 PUFFS BY MOUTH TWICE A DAY (RINSE MOUTH AFTER USE) Rx Instructions: INHALE 2 PUFFS BY MOUTH TWICE A DAY (RINSE MOUTH AFTER USE) losartan 50 MG tablet 50 mg PO DAILY simvastatin 40 MG tablet 40 mg PO HS omeprazole 20 MG capsule,delayed release(DR/EC) 20 mg PO DAILY fluoxetine 20 MG capsule 20 mg PO DAILY hydrochlorothiazide 12.5 MG tablet 12.5 mg PO DAILY warfarin 5 MG tablet 2.5 mg PO SUTUWEFRSA Referrals Follow up/Referrals: Gabriel Pendleton MD [Primary Care Provider] - See instructions Clinical Impressions Clinical Impression: COVID-19, Lung nodule Community acquired pneumonia Qualifiers: Laterality: right Lung location: unspecified part of lung Qualified Code(s): J18.9 - Pneumonia, unspecified organism Print Language Print Language: Vietnamese Discharge ED Provider: Genoveva Mcdaniel HPI <Genoveva Mcdaniel MD - Last Filed: 04/21/24 23:12> General Chief Complaint: Shortness of Breath/Dyspnea Stated Complaint: covid+, vomiting Time Seen by Provider: 04/21/24 21:46 Mode of Arrival: Wheelchair Source of Information: Patient Limitations: No Limitations Description of Symptoms (Recalled from ER Triage Doc. by RN): Pt reports to ED with cc of weakness, SOA, cough, and headache. Pt tested positive for COVID last friday 04/13. Pt also has N&V. History of Present Illness HPI narrative: Patient is a 78-year-old female with past medical history of asthma, restrictive lung disease, heart block status post pacemaker placement presenting with shortness of breath. Patient tested positive for COVID on 04/13 and has been managing her symptoms at home but over the past 2 to 3 days has had worsening weakness, shortness of breath, cough and headache. She has also had some associated nausea and vomiting. Her daughter was concerned about her work of breathing prompting their presentation tonight. Her daughter does also note that she is prone to pneumonias and is concerned that she may have contracted 1 today. Denies any known fevers. Related Data Home Medications ?Medication ?Instructions ?Recorded ?Confirmed fluoxetine 20 mg capsule 20 mg PO DAILY Depression 10/27/21 09/16/23 hydrochlorothiazide 12.5 mg tablet 12.5 mg PO DAILY Fluid 10/27/21 09/16/23 losartan 50 mg tablet 50 mg PO DAILY Hypertension 10/27/21 09/16/23 omeprazole 20 mg capsule,delayed 20 mg PO DAILY GERD 10/27/21 09/16/23 release simvastatin 40 mg tablet 40 mg PO HS High cholesterol 10/27/21 09/16/23 warfarin 5 mg tablet 2.5 mg PO SUTUWEFRSA Blood thinner 10/29/21 09/16/23 Previous Rx's ?Medication ?Instructions ?Recorded fluticasone propionate 50 1 spray intranasal BID PRN allergy 02/19/23 mcg/actuation nasal symptoms 90 days #16 grams spray,suspension (Flonase Allergy Relief) albuterol sulfate 90 mcg/actuation See Rx Instructions .Route 10/13/23 aerosol inhaler .COMPLEX #8.5 grams budesonide 160 mcg-glycopyr 9 See Rx Instructions .Route 03/31/24 mcg-formot 4.8 mcg/actuation HFA .COMPLEX #10.7 grams inhaler (Breztri Aerosphere) Allergies Allergy/AdvReac Type Severity Reaction Status Date / Time sulfamethoxazole Allergy Unknown Unknown Verified 09/16/23 12:01 [From Bactrim] allergy reaction trimethoprim [From Bactrim] Allergy Unknown Unknown Verified 09/16/23 12:01 allergy reaction PFSH <Genoveva Mcdaniel MD - Last Filed: 04/21/24 23:12> [facility] Disclaimer: The information contained in this section may have been updated after the patient was seen, as this information can be updated by other users. Medical History Abnormal pulmonary function Allergic rhinitis Allergic rhinitis, unspecified Asthma Dyspnea on exertion Dyspnea on exertion History of pacemaker Moderate persistent asthma Restrictive lung disease Surgical History No history of previous surgery Family History Other Asthma Cancer Diabetes Heart attack Hyperlipidemia Hypertension Stroke Social History Smoking Status: Never smoker alcohol intake: current alcohol intake frequency: holidays/special occasions only current occupational status: retired Travel in the last 8 weeks: None household members: family <Genoveva Mcdaniel MD - Last Filed: 04/21/24 23:12> ROS Obtained: Yes Systems reviewed as appropriate & no additional complaints except as documented Physical Exam <Genoveva Mcdaniel MD - Last Filed: 04/21/24 23:12> General General appearance: alert and other (Some increased work of breathing and frequent productive cough) Neck Neck exam: Present normal inspection Chest Chest inspection: Present normal inspection and symmetric chest wall rise Respiratory Respiratory exam: Present other (Coarse breath sounds bilaterally with some increased work of breathing) Cardiovascular Cardiovascular exam: Present normal rhythm and tachycardia Abdominal Exam Abdominal exam: Present soft; Absent tenderness Neurological Exam Neurological exam: Present alert and oriented X3 Psychiatric Psychiatric exam: Present normal affect HEART Score <Genoveva Mcdaniel MD - Last Filed: 04/21/24 23:12> HEART Score HEART Score assessment performed?: Yes History (anamnesis): Slightly suspicious ECG: Non-specific disturbance Age: >65 years Risk factors: 1-2 risk factors Troponin: </= normal limit HEART Score: 4 <Tray Kowalski MD - Last Filed: 04/22/24 00:33> HEART Score HEART Score: 4 Critical Care <Genoveva Mcdaniel MD - Last Filed: 04/21/24 23:12> Critical Care Time Critical Care Time: No Medical Decision Making <Genoveva Mcdaniel MD - Last Filed: 04/21/24 23:12> Medical Records Medical records reviewed: Yes I reviewed the patient's medical records. Hugo Inquiry Pt receiving controlled substance: No Vital Signs Vital Signs: 04/21/24 21:44 04/21/24 22:01 04/21/24 22:57 Temperature 98.9 F Temperature Source Oral Pulse Rate 74 Pulse Rate [Left Radial] 97 H Respiratory Rate 18 Blood Pressure 170/79 H Blood Pressure [Right Arm] 143/84 H Blood Pressure Mean 131 Blood Pressure Mean [Right Arm] 103 02 Sat by Pulse Oximetry 94 L 97 Oxygen Delivery Method Room Air Oxygen Flow Rate (LPM) 04/21/24 22:57 04/21/24 23:00 04/21/24 23:30 Temperature Temperature Source Pulse Rate 95 H Pulse Rate [Left Radial] Respiratory Rate Blood Pressure 136/68 131/64 Blood Pressure [Right Arm] Blood Pressure Mean 90 81 Blood Pressure Mean [Right Arm] 02 Sat by Pulse Oximetry Oxygen Delivery Method Oxygen Flow Rate (LPM) 04/22/24 00:00 04/22/24 00:28 Temperature Temperature Source Pulse Rate Pulse Rate [Left Radial] Respiratory Rate Blood Pressure 119/55 L Blood Pressure [Right Arm] Blood Pressure Mean 76 Blood Pressure Mean [Right Arm] 02 Sat by Pulse Oximetry 90 L Oxygen Delivery Method Room Air Oxygen Flow Rate (LPM) 2 Lab Data Lab results reviewed: Yes I reviewed the patient's lab results. Labs: Lab Results 04/21/24 21:38: WBC 15.9 H, RBC 4.42, Hgb 13.8, Hct 45.0, MCV 101.9 H, MCH 31.1, MCHC 30.6 L, RDW 13.5, Plt Count 351, MPV 8.4, Neut % (Auto) 79.4, Lymph % (Auto) 12.6, [place] % (Auto) 6.1, Eos % (Auto) 0.8, Baso % (Auto) 1.1, Neut # (Auto) 12.6 H, Lymph # (Auto) 2.0, [place] # (Auto) 1.0, Eos # (Auto) 0.1, Baso # (Auto) 0.2, Total Counted 100, Neutrophils % (Manual) 84 H, Lymphocytes % (Manual) 11, Monocytes % (Manual) 5, Platelet Estimate Normal, Macrocytosis 1+, PT 27.3 H, INR 2.69 H, Sodium 131 L, Potassium 4.2, Chloride 100, Carbon Dioxide 24, Anion Gap 11.2, BUN 11, Creatinine 1.10 H, Estimated Creat Clear 55, Estimated GFR 48 L, Est GFR ( Amer) 58 L, Glucose 128 H, Lactate 2.2 H, Calcium 8.9, Total Bilirubin 1.0, AST 33, ALT 17, Alkaline Phosphatase 70, Troponin I < 0.01, Total Protein 7.5 D, Albumin 4.3, Globulin 3.2, Albumin/Globulin Ratio 1.3 04/21/24 21:55: VBG pH 7.38, VBG pCO2 39.2, VBG pO2 39.5, VBG HCO3 22.5 L, VBG Total CO2 23.7, VBG O2 Saturation 74.9 H, VBG Base Excess -2.7 L, VBG Lactic Acid 2.3 H 04/21/24 21:38 04/21/24 21:38 Response Orders (Tests/Meds): ED MEDICATIONS Generic Name Dose Route Start Last Admin Trade Name Freq PRN Reason Stop Dose Admin Acetaminophen 650 mg 04/22/24 00:13 Acetaminophen 325mg Tab PO 05/22/24 00:12 Q4HP PRN Fever or Mild Pain (1-3) Ceftriaxone Sodium 1 gm/ 50 mls @ 100 mls/hr 04/21/24 22:00 04/21/24 22:15 Sodium Chloride IV 05/01/24 21:59 100 mls/hr Q24H AGUSTIN Administration Morphine Sulfate 2 mg 04/22/24 00:13 Morphine 2mg/Ml Syringe IV 05/22/24 00:12 Q2HP PRN Severe Pain (7-10) Nicotine 21 mg 04/22/24 00:13 Nicotine 21mg/24hr Patch TD 05/22/24 00:12 DAILYP PRN Nicotine Cravings Ondansetron HCl 4 mg 04/22/24 00:13 Ondansetron 4mg/2ml Vial IV 05/22/24 00:12 Q8HP PRN Nausea Pantoprazole Sodium 40 mg 04/22/24 09:00 Pantoprazole 40mg Tablet PO 05/22/24 08:59 DAILY AGUSTIN Discontinued Medications Generic Name Dose Route Start Last Admin Trade Name Freq PRN Reason Stop Dose Admin Albuterol/Ipratropium 3 ml 04/21/24 21:52 04/21/24 22:57 Ipratropium/Albuterol 3 Ml Neb IH 04/21/24 21:53 3 ml ONCE ONE Administration Doxycycline Hyclate 100 mg 04/21/24 22:29 04/21/24 22:59 Doxycycline Hycl 100 Mg Tablet PO 04/21/24 22:30 100 mg ONCE ONE Administration Iopamidol 70 ml 04/21/24 22:55 04/21/24 22:56 Iopamidol-370 (76%);100ml Bottle IV 04/21/24 22:56 70 ml ONCE ONE Administration Methylprednisolone Sodium Succinate 125 mg 04/21/24 21:53 04/21/24 22:15 Methylprednisolone Sod Succ 125mg Vial IV 04/21/24 21:54 125 mg ONCE ONE Administration Ondansetron HCl 4 mg 04/21/24 21:53 04/21/24 22:14 Ondansetron 4mg/2ml Vial IV 04/21/24 21:54 4 mg ONCE ONE Administration Sodium Chloride 50 ml 04/21/24 22:55 04/21/24 22:56 0.9 % Sodium Chloride 50 Ml Vial IV 04/21/24 22:56 50 ml ONCE ONE Administration Sodium Chloride 10 ml 04/21/24 22:55 04/21/24 22:57 Sodium Chloride 0.9% 10ml Syr (Rad Only) IV 04/21/24 22:56 10 ml ONCE ONE Administration ORDERS Category Date Time Status CTA Chest [CT angio chest PE protocol] Stat Cat Scan 04/21/24 21:55 Completed Pulmonology Consult [Consult to Pulmonology] [CONS] Cons 04/22/24 00:13 Active Routine XR chest portable Stat Exams 04/21/24 21:41 Completed Complete Blood Count Auto Diff AMLAB Lab 04/22/24 06:00 Ordered Complete Blood Count Auto Diff Stat Lab 04/21/24 21:38 Completed Comprehensive Metabolic Panel AMLAB Lab 04/22/24 06:00 Ordered Comprehensive Metabolic Panel Stat Lab 04/21/24 21:38 Completed INR [Prothrombin Time INR] Stat Lab 04/21/24 21:38 Completed Lactic Acid Stat Lab 04/21/24 21:38 Completed Magnesium AMLAB Lab 04/22/24 06:00 Ordered Troponin I Stat Lab 04/21/24 21:38 Ordered Blood Culture Stat Micro 04/21/24 22:00 Received Venous Blood Gas Stat RT 04/21/24 21:55 Completed ECG Data Tracing #1: Attestation: I reviewed this ECG and interpreted as documented below: ECG Narrative: EKG showing ventricular paced rhythm at a rate of 96 with otherwise normal intervals, no acute ischemia or infarction but does have occasional PVC ECG initial impression date: 04/21/24 ECG initial impression time: 21:49 MDM Narrative Medical Decision Narrative: Patient is a 78-year-old female with past medical history asthma, restrictive lung disease, heart block status post pacemaker placement presenting with shortness of breath. She was diagnosed with COVID 1 week ago and has been declining especially over the past 3 days. Her daughter is concerned that she may have a pneumonia as she is prone to this with her lung disease. She does have an increased work of breathing and coarse breath sounds bilaterally. Her oxygen saturation is 93% on room air but she is tachycardic as well. She does take warfarin. Will obtain labs and imaging for further evaluation and management. Blood culture was obtained and we will start patient on Rocephin and doxycycline for presumed pneumonia EKG showing a ventricular paced rhythm without acute ischemia or infarction but is borderline tachycardic, VBG without acute derangement with pH of 7.38, pCO2 of 39 and pO2 of 39 with a lactate of 2.3, CBC is notable for white blood cell count of 15.9, CMP with creatinine slightly elevated to 1.1, INR is therapeutic at 2.69, troponin is negative, CT PE pending at time of signout and care patient transition to Dr. Kowalski. <Tray Kowalski MD - Last Filed: 04/22/24 00:33> Vital Signs Vital Signs: 04/21/24 21:44 04/21/24 22:01 04/21/24 22:57 Temperature 98.9 F Temperature Source Oral Pulse Rate 74 Pulse Rate [Left Radial] 97 H Respiratory Rate 18 Blood Pressure 170/79 H Blood Pressure [Right Arm] 143/84 H Blood Pressure Mean 131 Blood Pressure Mean [Right Arm] 103 02 Sat by Pulse Oximetry 94 L 97 Oxygen Delivery Method Room Air Oxygen Flow Rate (LPM) 04/21/24 22:57 04/21/24 23:00 04/21/24 23:30 Temperature Temperature Source Pulse Rate 95 H Pulse Rate [Left Radial] Respiratory Rate Blood Pressure 136/68 131/64 Blood Pressure [Right Arm] Blood Pressure Mean 90 81 Blood Pressure Mean [Right Arm] 02 Sat by Pulse Oximetry Oxygen Delivery Method Oxygen Flow Rate (LPM) 04/22/24 00:00 04/22/24 00:28 Temperature Temperature Source Pulse Rate Pulse Rate [Left Radial] Respiratory Rate Blood Pressure 119/55 L Blood Pressure [Right Arm] Blood Pressure Mean 76 Blood Pressure Mean [Right Arm] 02 Sat by Pulse Oximetry 90 L Oxygen Delivery Method Room Air Oxygen Flow Rate (LPM) 2 Lab Data Labs: Lab Results 04/21/24 21:38: WBC 15.9 H, RBC 4.42, Hgb 13.8, Hct 45.0, MCV 101.9 H, MCH 31.1, MCHC 30.6 L, RDW 13.5, Plt Count 351, MPV 8.4, Neut % (Auto) 79.4, Lymph % (Auto) 12.6, [place] % (Auto) 6.1, Eos % (Auto) 0.8, Baso % (Auto) 1.1, Neut # (Auto) 12.6 H, Lymph # (Auto) 2.0, [place] # (Auto) 1.0, Eos # (Auto) 0.1, Baso # (Auto) 0.2, Total Counted 100, Neutrophils % (Manual) 84 H, Lymphocytes % (Manual) 11, Monocytes % (Manual) 5, Platelet Estimate Normal, Macrocytosis 1+, PT 27.3 H, INR 2.69 H, Sodium 131 L, Potassium 4.2, Chloride 100, Carbon Dioxide 24, Anion Gap 11.2, BUN 11, Creatinine 1.10 H, Estimated Creat Clear 55, Estimated GFR 48 L, Est GFR ( Amer) 58 L, Glucose 128 H, Lactate 2.2 H, Calcium 8.9, Total Bilirubin 1.0, AST 33, ALT 17, Alkaline Phosphatase 70, Troponin I < 0.01, Total Protein 7.5 D, Albumin 4.3, Globulin 3.2, Albumin/Globulin Ratio 1.3 04/21/24 21:55: VBG pH 7.38, VBG pCO2 39.2, VBG pO2 39.5, VBG HCO3 22.5 L, VBG Total CO2 23.7, VBG O2 Saturation 74.9 H, VBG Base Excess -2.7 L, VBG Lactic Acid 2.3 H Response Orders (Tests/Meds): ED MEDICATIONS Generic Name Dose Route Start Last Admin Trade Name Freq PRN Reason Stop Dose Admin Acetaminophen 650 mg 04/22/24 00:13 Acetaminophen 325mg Tab PO 05/22/24 00:12 Q4HP PRN Fever or Mild Pain (1-3) Ceftriaxone Sodium 1 gm/ 50 mls @ 100 mls/hr 04/21/24 22:00 04/21/24 22:15 Sodium Chloride IV 05/01/24 21:59 100 mls/hr Q24H AGUSTIN Administration Morphine Sulfate 2 mg 04/22/24 00:13 Morphine 2mg/Ml Syringe IV 05/22/24 00:12 Q2HP PRN Severe Pain (7-10) Nicotine 21 mg 04/22/24 00:13 Nicotine 21mg/24hr Patch TD 05/22/24 00:12 DAILYP PRN Nicotine Cravings Ondansetron HCl 4 mg 04/22/24 00:13 Ondansetron 4mg/2ml Vial IV 05/22/24 00:12 Q8HP PRN Nausea Pantoprazole Sodium 40 mg 04/22/24 09:00 Pantoprazole 40mg Tablet PO 05/22/24 08:59 DAILY AGUSTIN Discontinued Medications Generic Name Dose Route Start Last Admin Trade Name Freq PRN Reason Stop Dose Admin Albuterol/Ipratropium 3 ml 04/21/24 21:52 04/21/24 22:57 Ipratropium/Albuterol 3 Ml Neb IH 04/21/24 21:53 3 ml ONCE ONE Administration Doxycycline Hyclate 100 mg 04/21/24 22:29 04/21/24 22:59 Doxycycline Hycl 100 Mg Tablet PO 04/21/24 22:30 100 mg ONCE ONE Administration Iopamidol 70 ml 04/21/24 22:55 04/21/24 22:56 Iopamidol-370 (76%);100ml Bottle IV 04/21/24 22:56 70 ml ONCE ONE Administration Methylprednisolone Sodium Succinate 125 mg 04/21/24 21:53 04/21/24 22:15 Methylprednisolone Sod Succ 125mg Vial IV 04/21/24 21:54 125 mg ONCE ONE Administration Ondansetron HCl 4 mg 04/21/24 21:53 04/21/24 22:14 Ondansetron 4mg/2ml Vial IV 04/21/24 21:54 4 mg ONCE ONE Administration Sodium Chloride 50 ml 04/21/24 22:55 04/21/24 22:56 0.9 % Sodium Chloride 50 Ml Vial IV 04/21/24 22:56 50 ml ONCE ONE Administration Sodium Chloride 10 ml 04/21/24 22:55 04/21/24 22:57 Sodium Chloride 0.9% 10ml Syr (Rad Only) IV 04/21/24 22:56 10 ml ONCE ONE Administration ORDERS Category Date Time Status CTA Chest [CT angio chest PE protocol] Stat Cat Scan 04/21/24 21:55 Completed Pulmonology Consult [Consult to Pulmonology] [CONS] Cons 04/22/24 00:13 Active Routine XR chest portable Stat Exams 04/21/24 21:41 Completed Complete Blood Count Auto Diff AMLAB Lab 04/22/24 06:00 Ordered Complete Blood Count Auto Diff Stat Lab 04/21/24 21:38 Completed Comprehensive Metabolic Panel AMLAB Lab 04/22/24 06:00 Ordered Comprehensive Metabolic Panel Stat Lab 04/21/24 21:38 Completed INR [Prothrombin Time INR] Stat Lab 04/21/24 21:38 Completed Lactic Acid Stat Lab 04/21/24 21:38 Completed Magnesium AMLAB Lab 04/22/24 06:00 Ordered Troponin I Stat Lab 04/21/24 21:38 Ordered Blood Culture Stat Micro 04/21/24 22:00 Received Venous Blood Gas Stat RT 04/21/24 21:55 Completed MDM Narrative Medical Decision Narrative: Patient is a 78-year-old female with past medical history asthma, restrictive lung disease, heart block status post pacemaker placement presenting with shortness of breath. She was diagnosed with COVID 1 week ago and has been declining especially over the past 3 days. Her daughter is concerned that she may have a pneumonia as she is prone to this with her lung disease. She does have an increased work of breathing and coarse breath sounds bilaterally. Her oxygen saturation is 93% on room air but she is tachycardic as well. She does take warfarin. Will obtain labs and imaging for further evaluation and management. Blood culture was obtained and we will start patient on Rocephin and doxycycline for presumed pneumonia EKG showing a ventricular paced rhythm without acute ischemia or infarction but is borderline tachycardic, VBG without acute derangement with pH of 7.38, pCO2 of 39 and pO2 of 39 with a lactate of 2.3, CBC is notable for white blood cell count of 15.9, CMP with creatinine slightly elevated to 1.1, INR is therapeutic at 2.69, troponin is negative, CT PE pending at time of signout and care patient transition to Dr. Kowalski. Kowalski: Upon my assumption of care patient is stable. She is ill-appearing with significant adventitious sounds in bilateral lung gruber as well as increased work of breathing though she is not in respiratory distress. I reviewed labs concerning for leukocytosis, PT/INR are appropriately elevated since patient is on warfarin, mildly elevated lactic, creatinine similar to baseline. CTA PE was personally interpreted and I did not appreciate PE however there are findings in the right lung concerning for pneumonia. Radiology read in agreement also mentions pulmonary nodules that will require pulmonology follow-up. Given patient's advanced age, and disease course thus far with COVID, and now the presence of pneumonia and increased work of breathing, I believe she requires admission which I recommended to patient and family. They are in agreement with this plan. I discussed this case with the hospitalist including lab and imaging finding as well as the medications that have been administered thus far in the ER. Patient accepted for admission.
--- NOTE | 2024-04-21 22:40 | PC.NURSE ---
Called to CT, RAC IV infiltrated during PE protocol, Per breeding technician 33ml of contrast injected prior to infiltration. Provider aware
[2024-04-21] MEDS: 0.9 % SODIUM CHLORIDE 50 ML VIAL IV (22:56)
[2024-04-21] MEDS: IOPAMIDOL-370 (76%);100ML BOTTLE 70 ML IV (22:56)
[2024-04-21 22:57] VITALS: PULSE 74; PULSE 95
[2024-04-21] MEDS: SODIUM CHLORIDE 0.9% 10ML SYR (RAD ONLY) 10 ML IV (22:57)
[2024-04-21] MEDS: IPRATROPIUM/ALBUTEROL 3 ML NEB IH (22:57)
[2024-04-21] MEDS: DOXYCYCLINE HYCL 100 MG TABLET PO (22:59)
--- NOTE | 2024-04-21 22:59 | PC.NURSE ---
Ice pack applied to RAC
[2024-04-21 23:00] VITALS: BP 136/68
[2024-04-21 23:30] VITALS: BP 131/64
[2024-04-22] VITALS (16 sets, daily range): BP systolic 108–136; BP diastolic 51–89; PULSE 64–95; RESP 16–20; TEMP 36.5–37.6; O2SAT 90–97; BMI 31.8; BMI 31.3
--- NOTE | 2024-04-22 00:25 | PC.NURSE ---
tobacco warehouse manager notified of admission
--- NOTE | 2024-04-22 00:29 | EXP.HP ---
History of Present Illness *Admission Date: 04/22/24 *Reason for visit:: SOB *History of present illness: This is a 78-year-old female with PMHx of asthma, heart block status post pacemaker placement presenting with shortness of breath. Patient tested positive for COVID on 04/13 and has been managing her symptoms at home but over the past 2 to 3 days has had worsening weakness, shortness of breath, cough and headache. She has also had some associated nausea and vomiting. Her daughter was concerned about her work of breathing prompting their presentation tonight. Her daughter does also note that she is prone to pneumonias and is concerned that she may have contracted 1 today. Denies any known fevers. Admitted for further management [facility] Medical History Abnormal pulmonary function Allergic rhinitis Allergic rhinitis, unspecified Asthma Dyspnea on exertion Dyspnea on exertion History of pacemaker Moderate persistent asthma Restrictive lung disease Surgical History No history of previous surgery Family History Other Asthma Cancer Diabetes Heart attack Hyperlipidemia Hypertension Stroke Social History (Updated 04/22/24 @ 01:40 by Annie Muñiz RN) Smoking Status: Never smoker alcohol intake: current alcohol intake frequency: holidays/special occasions only current occupational status: retired Travel in the last 8 weeks: None household members: family lives independently: Yes Review of Systems Review of Systems Review of systems:: pertinent systems reviewed and negative unless documented below Meds Home Medications and Allergies Home Medications ?Medication ?Instructions ?Recorded ?Confirmed ?Type fluoxetine 20 mg capsule 20 mg PO DAILY 10/27/21 04/22/24 History hydrochlorothiazide 12.5 mg tablet 12.5 mg PO DAILY 10/27/21 04/22/24 History losartan 50 mg tablet 50 mg PO DAILY 10/27/21 04/22/24 History omeprazole 20 mg capsule,delayed 20 mg PO DAILY 10/27/21 04/22/24 History release simvastatin 40 mg tablet 40 mg PO HS 10/27/21 04/22/24 History warfarin 5 mg tablet 2.5 mg PO MOTHSA 10/29/21 04/22/24 History fluticasone propionate 50 1 spray intranasal BID PRN allergy 02/19/23 04/22/24 Rx mcg/actuation nasal symptoms 90 days #16 grams spray,suspension (Flonase Allergy Relief) alprazolam 0.25 mg tablet 0.25 mg PO TIDP PRN Anxiety 04/22/24 04/22/24 History budesonide 160 mcg-glycopyr 9 2 puff inhalation BID 04/22/24 04/22/24 History mcg-formot 4.8 mcg/actuation HFA inhaler (Breztri Aerosphere) prednisone 2.5 mg tablet 2.5 mg PO DAILY 04/22/24 04/22/24 History warfarin 5 mg tablet 5 mg PO SUTUWEFR 04/22/24 04/22/24 History New Prescriptions to Start Prescriptions: Allergies Allergy/AdvReac Type Severity Reaction Status Date / Time sulfamethoxazole Allergy Unknown Unknown Verified 09/16/23 12:01 [From Bactrim] allergy reaction trimethoprim [From Bactrim] Allergy Unknown Unknown Verified 09/16/23 12:01 allergy reaction Exam Data for Last 24 hours Vital signs and Labs for Last 24 Hours: Temp Pulse Resp BP Pulse Ox O2 Del Method O2 Flow Rate 98.9 F 95 H 18 136/68 90 L Room Air 2 04/21/24 21:44 04/21/24 22:57 04/21/24 21:44 04/21/24 23:00 04/22/24 00:28 04/22/24 00:28 04/22/24 00:28 Laboratory Results - last 24 hr 04/21/24 21:38: WBC 15.9 H, RBC 4.42, Hgb 13.8, Hct 45.0, MCV 101.9 H, MCH 31.1, MCHC 30.6 L, RDW 13.5, Plt Count 351, MPV 8.4, Neut % (Auto) 79.4, Lymph % (Auto) 12.6, [place] % (Auto) 6.1, Eos % (Auto) 0.8, Baso % (Auto) 1.1, Neut # (Auto) 12.6 H, Lymph # (Auto) 2.0, [place] # (Auto) 1.0, Eos # (Auto) 0.1, Baso # (Auto) 0.2, Total Counted 100, Neutrophils % (Manual) 84 H, Lymphocytes % (Manual) 11, Monocytes % (Manual) 5, Platelet Estimate Normal, Macrocytosis 1+, PT 27.3 H, INR 2.69 H, Sodium 131 L, Potassium 4.2, Chloride 100, Carbon Dioxide 24, Anion Gap 11.2, BUN 11, Creatinine 1.10 H, Estimated Creat Clear 55, Estimated GFR 48 L, Est GFR ( Amer) 58 L, Glucose 128 H, Lactate 2.2 H, Calcium 8.9, Total Bilirubin 1.0, AST 33, ALT 17, Alkaline Phosphatase 70, Troponin I < 0.01, Total Protein 7.5 D, Albumin 4.3, Globulin 3.2, Albumin/Globulin Ratio 1.3 04/21/24 21:55: VBG pH 7.38, VBG pCO2 39.2, VBG pO2 39.5, VBG HCO3 22.5 L, VBG Total CO2 23.7, VBG O2 Saturation 74.9 H, VBG Base Excess -2.7 L, VBG Lactic Acid 2.3 H I & O for Last 24 hours: Intake & Output 04/19/24 04/20/24 04/21/24 04/22/24 23:59 23:59 23:59 23:59 Weight 83.915 kg Constitutional Constitutional: moderate distress and cooperative *Routine HEENT Exam Head: Present normocephalic Eye: Present EOMI and PERRL ENT: Present mucous membranes moist *Routine Neck Exam Neck: Present supple; Absent lymphadenopathy *Routine Respiratory Exam Respiratory: Present CTA bilaterally, wheezes, crackles, diminished air movement and symmetric chest movement *Routine Cardiovascular Exam Cardiovascular: Present RRR, Normal S1 and Normal S2 *Routine Abdominal Exam Abdominal: Present soft and normoactive bowel sounds; Absent tenderness *Routine Rectal Exam Rectal:: deferred *Routine Genitalia Exam Genitalia:: deferred *Routine Extremities Exam Extremities: Absent cyanosis, clubbing or edema *Routine Skin Exam Skin: Present warm; Absent rash *Routine Neurological Exam Neurological: Present alert and oriented X3 H&P: Result Imaging and Cardiology EKG: Status: image reviewed by me, Preliminary report and final report Chest x-ray: Status: image reviewed by me, Preliminary report and final report CT scan - chest: Status: image reviewed by me, Preliminary report and final report Assessment and Plan *Assessment and plan (1) COVID-19: Status: Acute Category: Medical Code(s): U07.1 - COVID-19 (2) Pneumonia: Status: Acute Qualifiers: Laterality: right Lung location: lower lobe of lung Pneumonia type: due to unspecified organism Qualified Code(s): J18.9 - Pneumonia, unspecified organism Category: Medical Code(s): J18.9 - Pneumonia, unspecified organism (3) Hilar mass: Status: Acute Category: Medical Code(s): R91.8 - Other nonspecific abnormal finding of lung field (4) Lung nodule: Status: Acute Category: Medical Code(s): R91.1 - Solitary pulmonary nodule (5) LISA (acute kidney injury): Status: Acute Category: Medical Code(s): N17.9 - Acute kidney failure, unspecified (6) HTN (hypertension): Status: Acute Qualifiers: Hypertension type: unspecified Qualified Code(s): I10 - Essential (primary) hypertension Category: Medical Code(s): I10 - Essential (primary) hypertension (7) Pacemaker: Status: Acute Category: Medical Code(s): Z95.0 - Presence of cardiac pacemaker Plan 78-year-old female with PMHx of asthma, heart block status post pacemaker placement presenting with shortness of breath. Patient tested positive for COVID. On arrival patient satting 93% on room air, slightly tachycardic. EKG showing a ventricular paced rhythm without acute ischemia or infarction but is borderline tachycardic, VBG without acute derangement with pH of 7.38, pCO2 of 39 and pO2 of 39 with a lactate of 2.3, CBC is notable for white blood cell count of 15.9, CMP with creatinine slightly elevated to 1.1, INR is therapeutic at 2.69, troponin is negative, CT PE negative. Discussed with the ER for admission. I agree for inpatient management plan as: -Bilateral multifocal groundglass opacity consistent with COVID-pneumonia Incidental right upper lobe lung nodule. Benign versus malignancy Hilar mass vs adenopathy Admit patient for continuous medical monitoring dispo [facility]Sur Pulmonology consult Optimize saturation. Currently on 2 L nasal cannula and weaning Started on ceftriaxone and doxycycline for pneumonia Decadron 6 mg IV daily Sputum culture pending Repeat respiratory full panel. Currently COVID swab negative Monitor daily lab. Monitor for sepsis Vital signs per unit -Acute kidney injury: Presumed prerenal azotemia Daily CMP. Monitor for creatinine encourage increased p.o. fluid intake Caution with nephrotoxic medication Monitoring of History of hypertension On losartan. Condition reviewed and stable Home medications in the setting of hypotension Status post pacemaker On chronic anticoagulation with warfarin Pharmacy to dose and monitor Low concern for DVT. On chronic warfarin. Protonix for GI bleed protection Full code
[2024-04-22 00:53] LABS: Troponin I 0.03 ng/ml (0.00-0.034)
[2024-04-22] MEDS: ACETAMINOPHEN 325MG TAB 650 MG PO (01:16)
[2024-04-22 01:34] LABS: Reflex Lactic Add Lactic Reflex
[2024-04-22 02:04] LABS: Lactic Acid Follow Up (RFLX 1) 0.6 mmol/L (0.7-2.1)
--- NOTE | 2024-04-22 02:09 | PC.NURSE ---
Patient arrived to floor via wheelchair from ED at 00:50.
[2024-04-22 03:56] LABS: Troponin I 0.04 ng/ml (0.00-0.034)
--- NOTE | 2024-04-22 04:18 | PC.NURSE ---
78 yo female pt is A/O X 4 admitted with covid pneumonia. Pt requires 02 at 2 liters per nc cont. She was medicated with tylenol per MAR after complaints of aching and had low grade temp. Pt has tolerated fluids through the night with no further reports of N/V. Last medicated with zofran in the ER. Daughter at bedside. Pt able to ambulate to BR with standby assist and her cane
[2024-04-22 05:47] LABS: Coronavirus 19, PCR Not Detected (NotDetected); Influenza A, PCR Not Detected (NotDetected); Influenza B, PCR Not Detected (NotDetected)
[2024-04-22] MEDS: IPRATROPIUM/ALBUTEROL 3 ML NEB IH ×4 (06:06→23:02)
[2024-04-22 06:48] LABS: Alanine Aminotransferase 12 U/L (12-78); Albumin Level 3.5 g/dl (3.5-5.0); Albumin/Globulin Ratio 1.1 (1.1-1.8); Alkaline Phosphatase 63 U/L (38-126); Anion Gap 11.8 mEq/L (5-15); Aspartate Amino Transferase 31 U/L (14-36); Bilirubin,Total 0.5 mg/dl (0.2-1.3); Blood Urea Nitrogen 12 mg/dl (7-17); Calcium 8.6 mg/dl (8.4-10.2); Carbon Dioxide 22 mmol/L (22.0-30.0); Chloride 97 mmol/L (98-107); Creatinine Clearance Estimated 61 mL/min (50-200); Estimated Glomerular Filt Rate 60 ml/min (>60); GFR (African American) 73 ML/MIN (>60); Globulin 3.2 g/dL (1.3-3.2); Glucose 194 mg/dl (74-100); Magnesium 1.6 mg/dl (1.6-2.3); Potassium 3.8 mmoL/L (3.5-5.1); Sodium 127 mmol/L (136-145); Total Protein,Serum 6.7 g/dl (6.3-8.2)
[2024-04-22 06:54] LABS: Basophils % 0.2 % (0.1-2.0); Hemoglobin 12.8 g/dL (12.2-16.2); Lymphocytes # 0.5 K/mm3 (0.7-4.5); Lymphocytes % 2.3 % (10-50); Mean Corpuscular HGB Conc 31.2 g/dL (31.8-35.4); Mean Corpuscular Hemoglobin 31.6 pg (27.0-31.2); Mean Corpuscular Volume 101.3 fl (81-99); Mean Platelet Volume 8.8 fl (7.4-10.4); Monocytes # 0.4 K/mm3 (0.1-1.0); Neutrophils # 19.4 K/mm3 (1.8-7.8); Neutrophils % 95.5 % (37.0-80.0); Platelet Count 319 K/mm3 (142-424); Red Blood Count 4.05 M/mm3 (4.20-5.40); Red Cell Distribution Width 13.6 % (11.5-17.5); White Blood Count 20.3 K/mm3 (4.8-10.8)
[2024-04-22 07:07] LABS: MANUAL DIFFERENTIAL MANUAL DIFFERENTIAL (MANUAL DIFF)
--- NOTE | 2024-04-22 08:03 | HMH.PHAINT1 ---
Pharmacy Intervention Comments: HOME MEDICATION LIST VERIFIED USING LIST FROM OUTPATIENT PHARMACY
[2024-04-22] MEDS: DOXYCYCLINE HYCLATE 100 MG in 0.9 % SODIUM CHLORIDE 250 ML 166.667 MG IV ×2 (08:54→20:12)
[2024-04-22] MEDS: IRBESARTAN 75MG TABLET 75 MG PO (08:54)
[2024-04-22] MEDS: hydroCHLOROthiazide 12.5MG CAPSULE 12.5 MG PO (08:54)
[2024-04-22] MEDS: 0.9 % SODIUM CHLORIDE 1000ML 1,000 ML 100 ML IV (08:54)
[2024-04-22] MEDS: FLUOXETINE 20MG CAPSULE 20 MG PO (08:54)
[2024-04-22] MEDS: DEXAMETHASONE 4MG/ML 1ML VIAL 6 MG IV (08:59)
[2024-04-22 09:13] LABS: Adenovirus,PCR Not Detected (NotDetected); Bordetella Pertussis Not Detected (NotDetected); Chlamydophila Pneumoniae, PCR Not Detected (NotDetected); Coronavirus 19, PCR Not Detected (NotDetected); Coronavirus 229E Not Detected (NotDetected); Coronavirus NL63 Not Detected (NotDetected); Coronavirus OC43 Not Detected (NotDetected); Coronovirus HKU1,PCR Not Detected (NotDetected); Human Metapneumovirus Not Detected (NotDetected); Influenza A, PCR Not Detected (NotDetected); Influenza AH1, 2009 Not Detected (NotDetected); Influenza AH1, PCR Not Detected (NotDetected); Influenza AH3,PCR Not Detected (NotDetected); Influenza B, PCR Not Detected (NotDetected); Mycoplasma Pneumoniae, PCR Not Detected (NotDetected); Parainfluenza 1, PCR Not Detected (NotDetected); Parainfluenza 2, PCR Not Detected (NotDetected); Parainfluenza 3, PCR Not Detected (NotDetected); Parainfluenza 4, PCR Not Detected (NotDetected); Respiratory Syncytial Virus Not Detected (NotDetected)
--- NOTE | 2024-04-22 09:41 | EXP.PULM.CON ---
History of Present Illness History of present illness: Mr. Lorenzo is a 78-year-old female with reported history of asthma presented with any worsening respiratory send pulmonary was called for further evaluation and management. Patient also had a history reported COVID-19 positive testing on 04/13/2024 managed conservatively as an outpatient basis. Patient admits progressively worsening respiratory distress along with cough and productive phlegm since her diagnosis of COVID-19 pneumonia. Admits worsening wheezing PFSH PFS Disclaimer: The information contained in this section may have been updated after the patient was seen, as this information can be updated by other users. Medical History Abnormal pulmonary function Allergic rhinitis Allergic rhinitis, unspecified Asthma Dyspnea on exertion Dyspnea on exertion History of pacemaker Moderate persistent asthma Restrictive lung disease Surgical History No history of previous surgery Family History Other Asthma Cancer Diabetes Heart attack Hyperlipidemia Hypertension Stroke Social History (Updated 04/22/24 @ 01:40 by Annie Muñiz RN) Smoking Status: Never smoker alcohol intake: current alcohol intake frequency: holidays/special occasions only current occupational status: retired Travel in the last 8 weeks: None household members: family lives independently: Yes Review of Systems Constitutional Constitutional: Reports anorexia, Reports body ache(s), Reports fatigue and Reports lethargy Eyes Eyes: Denies eye discharge, Denies dry eyes, Denies irritation and Denies itchy eyes ENT Ears, Nose, Mouth, and Throat: Denies epistaxis, Denies facial pain, Denies lip swelling and Denies throat swelling *Cardiovascular Cardiovascular: Reports dyspnea and Reports dyspnea on exertion *Respiratory Respiratory: Reports change in phlegm color, Reports chest congestion, Reports cough, Reports dyspnea, Reports dyspnea on exertion, Reports excessive phlegm production and Reports wheezing *Gastrointestinal Gastrointestinal: Denies abdominal pain, Denies belching and Denies cramping *Musculoskeletal Musculoskeletal: Reports back pain, Reports myalgias and Reports other (No small joint swelling or Pain) Psychiatric Psychiatric: Denies homicidal ideation and Denies suicidal ideation Endocrine Endocrine: Reports fatigue and Denies heat intolerance Hematologic/Lymphatic Hematologic/Lymphatic: Denies easy bleeding and Denies lymphadenopathy Allergic/Immunologic Allergic/Immunologic: Denies itchy eyes, Denies lip swelling, Denies throat swelling and Reports wheezing Pulmonology Exam Inpatient Vital signs and Labs for Last 24 Hours: Temp Pulse Resp BP Pulse Ox O2 Del Method O2 Flow Rate 97.7 F 70 16 108/56 L 94 L Nasal Cannula 2 04/22/24 08:00 04/22/24 08:00 04/22/24 08:00 04/22/24 08:00 04/22/24 08:00 04/22/24 06:39 04/22/24 06:39 Laboratory Results - last 24 hr 04/21/24 21:38: WBC 15.9 H, RBC 4.42, Hgb 13.8, Hct 45.0, MCV 101.9 H, MCH 31.1, MCHC 30.6 L, RDW 13.5, Plt Count 351, MPV 8.4, Neut % (Auto) 79.4, Lymph % (Auto) 12.6, [place] % (Auto) 6.1, Eos % (Auto) 0.8, Baso % (Auto) 1.1, Neut # (Auto) 12.6 H, Lymph # (Auto) 2.0, [place] # (Auto) 1.0, Eos # (Auto) 0.1, Baso # (Auto) 0.2, Total Counted 100, Neutrophils % (Manual) 84 H, Lymphocytes % (Manual) 11, Monocytes % (Manual) 5, Platelet Estimate Normal, Macrocytosis 1+, PT 27.3 H, INR 2.69 H, Sodium 131 L, Potassium 4.2, Chloride 100, Carbon Dioxide 24, Anion Gap 11.2, BUN 11, Creatinine 1.10 H, Estimated Creat Clear 55, Estimated GFR 48 L, Est GFR ( Amer) 58 L, Glucose 128 H, Lactate 2.2 H, Calcium 8.9, Total Bilirubin 1.0, AST 33, ALT 17, Alkaline Phosphatase 70, Troponin I < 0.01, Total Protein 7.5 D, Albumin 4.3, Globulin 3.2, Albumin/Globulin Ratio 1.3 04/21/24 21:55: VBG pH 7.38, VBG pCO2 39.2, VBG pO2 39.5, VBG HCO3 22.5 L, VBG Total CO2 23.7, VBG O2 Saturation 74.9 H, VBG Base Excess -2.7 L, VBG Lactic Acid 2.3 H 04/22/24 00:30: Troponin I 0.03 04/22/24 01:50: Lactate 0.6 L 04/22/24 03:25: Troponin I 0.04 H 04/22/24 05:40: SARS-CoV-2 (PCR) Not detected, Influenza A Untype (PCR) Not detected, Influenza Type B (PCR) Not detected 04/22/24 05:57: WBC 20.3 H* D, RBC 4.05 L, Hgb 12.8, Hct 41.0, MCV 101.3 H, MCH 31.6 H, MCHC 31.2 L, RDW 13.6, Plt Count 319, MPV 8.8, Neut % (Auto) 95.5 H, Lymph % (Auto) 2.3 L, [place] % (Auto) 2.0, Eos % (Auto) 0.0 L, Baso % (Auto) 0.2, Neut # (Auto) 19.4 H, Lymph # (Auto) 0.5 L, [place] # (Auto) 0.4, Eos # (Auto) 0.0, Baso # (Auto) 0.0, Sodium 127 L, Potassium 3.8, Chloride 97 L, Carbon Dioxide 22, Anion Gap 11.8, BUN 12, Creatinine 0.90, Estimated Creat Clear 61, Estimated GFR 60, Est GFR ( Amer) 73 D, Glucose 194 H D, Calcium 8.6, Magnesium 1.6, Total Bilirubin 0.5, AST 31, ALT 12 D, Alkaline Phosphatase 63, Total Protein 6.7, Albumin 3.5 D, Globulin 3.2, Albumin/Globulin Ratio 1.1 I & O for Labs for Last 24 Hours: Intake & Output 04/19/24 04/20/24 04/21/24 04/22/24 23:59 23:59 23:59 23:59 Intake Total 360 / 360 Output Total 0 / 0 Balance 360 / 360 Weight 185 lb 188 lb Constitutional: Present moderate distress Head: Present normocephalic and atraumatic ENT: Present normal exam, normal oropharynx and mucous membranes moist Neck: Present normal inspection and full ROM Respiratory: Present prolonged expiratory phase, respiratory distress, rhonchi, wheezes, diminished air movement and able to speak in complete sentences Cardiac: Present S1/S2, Tachycardia and radial pulses present GI: Present soft and distention; Absent tenderness or guarding Rectal (female): Present deferred (female): Present deferred Skin: Present intact; Absent cyanosis or jaundice Neuro: Present alert, awake and oriented x 3 Extremities: Present normal inspection; Absent clubbing or cyanosis Psychiatric: Present normal affect and cooperative Meds Home Medications and Allergies Home Medications ?Medication ?Instructions ?Recorded ?Confirmed ?Type fluoxetine 20 mg capsule 20 mg PO DAILY 10/27/21 04/22/24 History hydrochlorothiazide 12.5 mg tablet 12.5 mg PO DAILY 10/27/21 04/22/24 History losartan 50 mg tablet 50 mg PO DAILY 10/27/21 04/22/24 History omeprazole 20 mg capsule,delayed 20 mg PO DAILY 10/27/21 04/22/24 History release simvastatin 40 mg tablet 40 mg PO HS 10/27/21 04/22/24 History warfarin 5 mg tablet 2.5 mg PO MOTHSA 10/29/21 04/22/24 History fluticasone propionate 50 1 spray intranasal BID PRN allergy 02/19/23 04/22/24 Rx mcg/actuation nasal symptoms 90 days #16 grams spray,suspension (Flonase Allergy Relief) alprazolam 0.25 mg tablet 0.25 mg PO TIDP PRN Anxiety 04/22/24 04/22/24 History budesonide 160 mcg-glycopyr 9 2 puff inhalation BID 04/22/24 04/22/24 History mcg-formot 4.8 mcg/actuation HFA inhaler (Breztri Aerosphere) prednisone 2.5 mg tablet 2.5 mg PO DAILY 04/22/24 04/22/24 History warfarin 5 mg tablet 5 mg PO SUTUWEFR 04/22/24 04/22/24 History New Prescriptions to Start Prescriptions: Allergies Allergy/AdvReac Type Severity Reaction Status Date / Time sulfamethoxazole Allergy Unknown Unknown Verified 09/16/23 12:01 [From Bactrim] allergy reaction trimethoprim [From Bactrim] Allergy Unknown Unknown Verified 09/16/23 12:01 allergy reaction Results Laboratory Findings 04/22/24 05:57 04/22/24 05:57 PT/INR, D-dimer PT 27.3 seconds (10.1-12.5) H 04/21/24 21:38 INR 2.69 (0.9-1.1) H 04/21/24 21:38 Abnormal lab findings: Abnormal Labs 04/21/24 04/21/24 04/22/24 21:38 21:55 01:50 WBC 15.9 H RBC MCV 101.9 H MCH MCHC 30.6 L Neut % (Auto) Lymph % (Auto) Eos % (Auto) Neut # (Auto) 12.6 H Lymph # (Auto) Neutrophils % (Manual) 84 H PT 27.3 H INR 2.69 H VBG HCO3 22.5 L VBG O2 Saturation 74.9 H VBG Base Excess -2.7 L VBG Lactic Acid 2.3 H Sodium 131 L Chloride Creatinine 1.10 H Estimated GFR 48 L Est GFR ( Amer) 58 L Glucose 128 H Lactate 2.2 H 0.6 L Troponin I 04/22/24 04/22/24 03:25 05:57 WBC 20.3 H* D RBC 4.05 L MCV 101.3 H MCH 31.6 H MCHC 31.2 L Neut % (Auto) 95.5 H Lymph % (Auto) 2.3 L Eos % (Auto) 0.0 L Neut # (Auto) 19.4 H Lymph # (Auto) 0.5 L Neutrophils % (Manual) PT INR VBG HCO3 VBG O2 Saturation VBG Base Excess VBG Lactic Acid Sodium 127 L Chloride 97 L Creatinine Estimated GFR Est GFR ( Amer) Glucose 194 H D Lactate Troponin I 0.04 H Assessment and Plan *Assessment and plan (1) Pneumonia: Status: Acute Qualifiers: Laterality: right Lung location: lower lobe of lung Pneumonia type: due to unspecified organism Qualified Code(s): J18.9 - Pneumonia, unspecified organism Category: Medical Code(s): J18.9 - Pneumonia, unspecified organism Plan # Postobstructive pneumonia: # History of COVID-19 pneumonia: #Acute hypoxic respiratory failure: Mr. Lorenzo is a 78-year-old female with reported history of asthma presented with any worsening respiratory send pulmonary was called for further evaluation and management. Patient also had a history reported COVID-19 positive testing on 04/13/2024 managed conservatively as an outpatient basis. Patient admits progressively worsening respiratory distress along with cough and productive phlegm since her diagnosis of COVID-19 pneumonia. Admits worsening wheezing CT PE upon admission evidence of pulm embolism. Diffuse membranous opacities faint. Right middle lobe consolidative/atelectatic changes. Possible concerning narrowing of the right BAL also noted. Afebrile. Hemodynamically stable. Neutrophilic predominant leukocytosis. COVID-19 PCR resulted negative on this admission. Patient admission was initiated on ceftriaxone and doxycycline along with nebulization therapies and steroids. Plan: Continue oxygen supplementation to maintain O2 saturation below 89% and above. This is new from her patient baseline Continue Zosyn pending culture results and nasal MRSA PCR Mucomyst twice daily along with chest percussion therapy DuoNebs every 6 hours along with Pulmicort every 12 scheduled
[2024-04-22 10:30] LABS: Anisocytosis 1+; Lymphocytes % 3 % (10-50); Macrocytosis 1+; Monocytes % 2 % (2-9); Neutrophils % 95 % (42-76); Platelet Estimate Normal; Total Cells Counted 100
[2024-04-22 10:46] LABS: Rhinovirus/Enterovirus Detected (NotDetected)
--- NOTE | 2024-04-22 11:08 | PC.NURSE ---
Sputum collected and sent to lab.
[2024-04-22] MEDS: WARFARIN 5MG TABLET 2.5 MG PO (11:21)
[2024-04-22] MEDS: PIPERACILLIN/TAZO 4.5 GM in 0.9 % SODIUM CHLORIDE 100 ML IV ×3 (11:46→22:15)
--- NOTE | 2024-04-22 14:04 | EXP.PN ---
Subjective *Date: 04/22/24 *Time: 15:35 Interval history: The patient is seen and examined today at bedside. She is accompanied by her daughter and I am accompanied by her nurse Katia. The patient reports that she lives alone and is independent of activities of daily living. She reports that she is a lifelong non-smoker but was to a smoker and describes secondhand smoke. Her goal is to feel better, be discharged home and continue outpatient follow-up with her physicians. Nursing staff report that she remains afebrile with stable vital signs and saturating appropriately on 2 L of oxygen with no home oxygen reported. Pulmonology has evaluated the patient. Exam Data for Last 24 hours Vital signs and Labs for Last 24 Hours: Temp Pulse Resp BP Pulse Ox O2 Del Method O2 Flow Rate 98 F 64 17 110/60 94 L Nasal Cannula 2 04/22/24 12:00 04/22/24 12:00 04/22/24 12:00 04/22/24 12:00 04/22/24 12:00 04/22/24 13:00 04/22/24 13:00 Laboratory Results - last 24 hr 04/21/24 21:38: WBC 15.9 H, RBC 4.42, Hgb 13.8, Hct 45.0, MCV 101.9 H, MCH 31.1, MCHC 30.6 L, RDW 13.5, Plt Count 351, MPV 8.4, Neut % (Auto) 79.4, Lymph % (Auto) 12.6, [place] % (Auto) 6.1, Eos % (Auto) 0.8, Baso % (Auto) 1.1, Neut # (Auto) 12.6 H, Lymph # (Auto) 2.0, [place] # (Auto) 1.0, Eos # (Auto) 0.1, Baso # (Auto) 0.2, Total Counted 100, Neutrophils % (Manual) 84 H, Lymphocytes % (Manual) 11, Monocytes % (Manual) 5, Platelet Estimate Normal, Macrocytosis 1+, PT 27.3 H, INR 2.69 H, Sodium 131 L, Potassium 4.2, Chloride 100, Carbon Dioxide 24, Anion Gap 11.2, BUN 11, Creatinine 1.10 H, Estimated Creat Clear 55, Estimated GFR 48 L, Est GFR ( Amer) 58 L, Glucose 128 H, Lactate 2.2 H, Calcium 8.9, Total Bilirubin 1.0, AST 33, ALT 17, Alkaline Phosphatase 70, Troponin I < 0.01, Total Protein 7.5 D, Albumin 4.3, Globulin 3.2, Albumin/Globulin Ratio 1.3 04/21/24 21:55: VBG pH 7.38, VBG pCO2 39.2, VBG pO2 39.5, VBG HCO3 22.5 L, VBG Total CO2 23.7, VBG O2 Saturation 74.9 H, VBG Base Excess -2.7 L, VBG Lactic Acid 2.3 H 04/22/24 00:30: Troponin I 0.03 04/22/24 01:50: Lactate 0.6 L 04/22/24 03:25: Troponin I 0.04 H 04/22/24 05:40: Chlamy pneumoniae PCR Not detected, Adenovirus (PCR) Not detected, B. pertussis DNA (PCR) Not detected, Coronavirus OC43 (PCR) Not detected, Coronavirus HKU1 (PCR) Not detected, Coronavirus 229E (PCR) Not detected, SARS-CoV-2 (PCR) Not detected 04/22/24 05:40: SARS-CoV-2 (PCR) Not detected, Coronavirus NL63 (PCR) Not detected, Human Metapneumovir PCR Not detected, Influenza A (H1) PCR Not detected, Influ A (H1N1/09) PCR Not detected, Influenza A (H3) PCR Not detected, Influenza Type A (PCR) Not detected, Influenza A Untype (PCR) Not detected, Influenza Type B (PCR) Not detected 04/22/24 05:40: Influenza Type B (PCR) Not detected, M. pneumoniae (PCR) Not detected, Parainfluenza 1 (PCR) Not detected, Parainfluenza 2 (PCR) Not detected, Parainfluenza 3 (PCR) Not detected, Parainfluenza 4 (PCR) Not detected, RSV (PCR) Not detected, Entero/Rhino (PCR) Detected A 04/22/24 05:57: WBC 20.3 H* D, RBC 4.05 L, Hgb 12.8, Hct 41.0, MCV 101.3 H, MCH 31.6 H, MCHC 31.2 L, RDW 13.6, Plt Count 319, MPV 8.8, Neut % (Auto) 95.5 H, Lymph % (Auto) 2.3 L, [place] % (Auto) 2.0, Eos % (Auto) 0.0 L, Baso % (Auto) 0.2, Neut # (Auto) 19.4 H, Lymph # (Auto) 0.5 L, [place] # (Auto) 0.4, Eos # (Auto) 0.0, Baso # (Auto) 0.0, Total Counted 100, Neutrophils % (Manual) 95 H, Lymphocytes % (Manual) 3 L, Monocytes % (Manual) 2, Platelet Estimate Normal, Anisocytosis 1+, Macrocytosis 1+, Sodium 127 L, Potassium 3.8, Chloride 97 L, Carbon Dioxide 22, Anion Gap 11.8, BUN 12, Creatinine 0.90, Estimated Creat Clear 61, Estimated GFR 60, Est GFR ( Amer) 73 D, Glucose 194 H D, Calcium 8.6, Magnesium 1.6, Total Bilirubin 0.5, AST 31, ALT 12 D, Alkaline Phosphatase 63, Total Protein 6.7, Albumin 3.5 D, Globulin 3.2, Albumin/Globulin Ratio 1.1 I & O for Last 24 hours: Intake & Output 04/19/24 04/20/24 04/21/24 04/22/24 23:59 23:59 23:59 23:59 Intake Total 1080 / 1080 Output Total 0 / 0 Balance 1080 / 1080 Weight 83.915 kg 85.275 kg Constitutional Constitutional: no acute distress, obese and cooperative *Routine HEENT Exam Head: Present normocephalic and atraumatic Eye: Present EOMI and PERRL ENT: Present mucous membranes moist *Routine Neck Exam Neck: Present supple; Absent JVD or lymphadenopathy *Routine Respiratory Exam Respiratory: Present rhonchi, wheezes, normal respiratory effort and symmetric chest movement *Routine Cardiovascular Exam Cardiovascular: Present RRR *Routine Abdominal Exam Abdominal: Present soft and normoactive bowel sounds; Absent tenderness *Routine Extremities Exam Extremities: Present full ROM and pulses intact; Absent edema *Routine Skin Exam Skin: Present intact and warm; Absent rash *Routine Neurological Exam Neurological: Present alert, oriented X3, moving all extremities, vision grossly intact, hearing grossly intact and normal speech; Absent sensory deficit or motor deficit Routine Psychiatric Exam Psychiatric: Present normal affect, normal thought process, cooperative, good insight and good judgment Assessment and Plan *Assessment and plan (1) Acute hypoxic respiratory failure: Status: Acute Category: Medical Code(s): J96.01 - Acute respiratory failure with hypoxia (2) Hilar mass: Status: Acute Category: Medical Code(s): R91.8 - Other nonspecific abnormal finding of lung field (3) Postobstructive pneumonia: Status: Acute Category: Medical Code(s): J18.9 - Pneumonia, unspecified organism (4) Atrial fibrillation: Status: Acute Category: Medical Code(s): I48.91 - Unspecified atrial fibrillation (5) Pacemaker: Status: Acute Category: Medical Code(s): Z95.0 - Presence of cardiac pacemaker (6) Chronic anticoagulation: Status: Acute Category: Medical Code(s): Z79.01 - clinical specialist (current) use of anticoagulants (7) HTN (hypertension): Status: Acute Qualifiers: Hypertension type: unspecified Qualified Code(s): I10 - Essential (primary) hypertension Category: Medical Code(s): I10 - Essential (primary) hypertension (8) Generalized anxiety disorder: Status: Acute Category: Medical Code(s): F41.1 - Generalized anxiety disorder (9) Chronically on benzodiazepine therapy: Status: Acute Category: Medical Code(s): Z79.899 - Other group home (current) drug therapy Plan 78-year-old female that presents to the ED with shortness of air and imaging is concerning for hilar mass. Problems addressed as follows: Acute hypoxic respiratory failure Hilar mass Postobstructive pneumonia Pulse oximetry monitoring Oxygen therapy to maintain appropriate oxygen saturations Currently requiring 2 L via nasal cannula (no home O2 requirement) Pulmonology consult Outpatient PFTs FEV1 79% CTA chest: Right infrahilar mass 3.3 x 3.4 x 3.1 cm, postobstructive pneumonia, RUL pulmonary nodule Blood cultures pending Sputum cultures pending MRSA screen pending Trending labs and inflammatory markers Becky/Heydi inhalation therapy ICS therapy Mucomyst therapy IV dexamethasone IV doxycycline IV Zosyn Chronic atrial fibrillation Chronic anticoagulation with Coumadin S/P PPM Telemetry monitoring Routine INR Coumadin therapy Hypertension Routine blood pressure monitoring Thiazide diuretic ARB therapy Generalized anxiety disorder Chronically prescribed benzodiazepine therapy Routine nursing interaction SSRI therapy Benzodiazepine therapy as needed The patient is hospitalized day 1 with above diagnoses complicated by her advanced age. We appreciate network systems consultant evaluation and recommendations. Case management is assisting with discharge needs. Her hope is to return home to her family. She reports a supportive and loving family. Barriers to discharge currently include her IV antibiotic therapy and trending inflammatory markers. Expected day of discharge over the next few days.
--- NOTE | 2024-04-22 14:36 | PC.NURSE ---
PT OFF FLOOR TO RADIOLOGY
[2024-04-22] MEDS: ACETYLCYSTEINE 20% 4ML VIAL 2 ML IH (18:27)
[2024-04-22] MEDS: ALPRAZolam 0.25MG TABLET 0.25 MG PO (20:12)
[2024-04-22] MEDS: SIMVASTATIN 40 MG 1 EACH PO (20:12)
[2024-04-22] MEDS: ACETAMINOPHEN 500MG TAB 1000 MG PO (22:12)
[2024-04-23] VITALS (7 sets, daily range): BP systolic 122–126; BP diastolic 62–67; PULSE 60–82; RESP 18–20; TEMP 36.3–37.2; O2SAT 97–99; BMI 32.9
[2024-04-23] MEDS: PIPERACILLIN/TAZO 4.5 GM in 0.9 % SODIUM CHLORIDE 100 ML IV ×2 (05:33→11:14)
[2024-04-23] MEDS: IPRATROPIUM/ALBUTEROL 3 ML NEB IH ×2 (06:05→13:00)
[2024-04-23] MEDS: ACETYLCYSTEINE 20% 4ML VIAL 2 ML IH (06:05)
--- NOTE | 2024-04-23 06:25 | PC.NURSE ---
wheezing with ambulation around 2300 - RT called for breathing tx. patient weaned to RA tonight/AM with O2 sats >95%. droplet for Rhino/Entero. inhaler locked in room drawer for pharm to label.
[2024-04-23 06:33] LABS: Basophils % 0.1 % (0.1-2.0); Hemoglobin 12.2 g/dL (12.2-16.2); Lymphocytes # 0.8 K/mm3 (0.7-4.5); Lymphocytes % 4.6 % (10-50); Mean Corpuscular HGB Conc 30.6 g/dL (31.8-35.4); Mean Corpuscular Hemoglobin 31.2 pg (27.0-31.2); Mean Corpuscular Volume 101.9 fl (81-99); Mean Platelet Volume 8.5 fl (7.4-10.4); Monocytes # 0.7 K/mm3 (0.1-1.0); Monocytes % 4.1 % (1.7-9.3); Neutrophils # 16.1 K/mm3 (1.8-7.8); Neutrophils % 91.1 % (37.0-80.0); Platelet Count 304 K/mm3 (142-424); Red Blood Count 3.92 M/mm3 (4.20-5.40); Red Cell Distribution Width 13.5 % (11.5-17.5); White Blood Count 17.7 K/mm3 (4.8-10.8)
[2024-04-23 06:41] LABS: MANUAL DIFFERENTIAL MANUAL DIFFERENTIAL (MANUAL DIFF)
[2024-04-23 06:43] LABS: Anion Gap 12.6 mEq/L (5-15); Blood Urea Nitrogen 27 mg/dl (7-17); Calcium 8.5 mg/dl (8.4-10.2); Carbon Dioxide 20 mmol/L (22.0-30.0); Chloride 97 mmol/L (98-107); Creatinine Clearance Estimated 54 mL/min (50-200); Estimated Glomerular Filt Rate 43 ml/min (>60); GFR (African American) 52 ML/MIN (>60); Glucose 143 mg/dl (74-100); Potassium 3.6 mmoL/L (3.5-5.1); Sodium 126 mmol/L (136-145)
[2024-04-23 06:51] LABS: NT Pro Brain Natriuretic Pep. 1370 pg/mL (0-450)
[2024-04-23 06:59] LABS: Procalcitonin 0.503 ng/mL (0.0-2.0)
[2024-04-23 07:44] LABS: Anisocytosis 1+; Lymphocytes % 3 % (10-50); Macrocytosis 1+; Monocytes % 2 % (2-9); Neutrophils % 95 % (42-76); Platelet Estimate Normal; Total Cells Counted 100
[2024-04-23] MEDS: DEXAMETHASONE 4MG/ML 1ML VIAL 6 MG IV (09:11)
[2024-04-23] MEDS: PT OWN MED *LOSARTAN 50 MG TAB 1 EACH PO (09:11)
[2024-04-23] MEDS: HYDROCHLOROTHIAZIDE 12.5 MG 1 EACH PO (09:12)
[2024-04-23] MEDS: OMEPRAZOLE 20 MG 1 EACH PO (09:12)
[2024-04-23] MEDS: FLUOXETINE 20 MG 1 EACH PO (09:12)
[2024-04-23] MEDS: DOXYCYCLINE HYCLATE 100 MG in 0.9 % SODIUM CHLORIDE 250 ML 166.667 MG IV (09:12)
[2024-04-23] MEDS: ACETAMINOPHEN 500MG TAB 1000 MG PO (09:13)
--- NOTE | 2024-04-23 09:30 | EXP.PULM.PN ---
Subjective *Date: 04/23/24 *Time: 12:55 Interval history: No acute respiratory events overnight. Patient denies any new respiratory complaint. Admits to being weak. Pulmonology Exam Inpatient Vital signs and Labs for Last 24 Hours: Temp Pulse Resp BP Pulse Ox O2 Del Method O2 Flow Rate 97.4 F L 79 20 122/62 97 Room Air 1 04/23/24 07:35 04/23/24 07:35 04/23/24 07:35 04/23/24 07:35 04/23/24 07:35 04/23/24 07:35 04/23/24 06:09 Laboratory Results - last 24 hr 04/22/24 05:40: Chlamy pneumoniae PCR Not detected, Adenovirus (PCR) Not detected, B. pertussis DNA (PCR) Not detected, Coronavirus OC43 (PCR) Not detected, Coronavirus HKU1 (PCR) Not detected, Coronavirus 229E (PCR) Not detected, SARS-CoV-2 (PCR) Not detected, Coronavirus NL63 (PCR) Not detected, Human Metapneumovir PCR Not detected, Influenza A (H1) PCR Not detected, Influ A (H1N1/09) PCR Not detected, Influenza A (H3) PCR Not detected, Influenza Type A (PCR) Not detected, Influenza Type B (PCR) Not detected, M. pneumoniae (PCR) Not detected, Parainfluenza 1 (PCR) Not detected, Parainfluenza 2 (PCR) Not detected, Parainfluenza 3 (PCR) Not detected, Parainfluenza 4 (PCR) Not detected, RSV (PCR) Not detected, Entero/Rhino (PCR) Detected A 04/22/24 05:57: Total Counted 100, Neutrophils % (Manual) 95 H, Lymphocytes % (Manual) 3 L, Monocytes % (Manual) 2, Platelet Estimate Normal, Anisocytosis 1+, Macrocytosis 1+ 04/23/24 05:54: WBC 17.7 H, RBC 3.92 L, Hgb 12.2, Hct 40.0, MCV 101.9 H, MCH 31.2, MCHC 30.6 L, RDW 13.5, Plt Count 304, MPV 8.5, Neut % (Auto) 91.1 H, Lymph % (Auto) 4.6 L, [place] % (Auto) 4.1, Eos % (Auto) 0.0 L, Baso % (Auto) 0.1, Neut # (Auto) 16.1 H, Lymph # (Auto) 0.8, [place] # (Auto) 0.7, Eos # (Auto) 0.0, Baso # (Auto) 0.0, Total Counted 100, Neutrophils % (Manual) 95 H, Lymphocytes % (Manual) 3 L, Monocytes % (Manual) 2, Platelet Estimate Normal, Anisocytosis 1+, Macrocytosis 1+, Sodium 126 L, Potassium 3.6, Chloride 97 L, Carbon Dioxide 20 L, Anion Gap 12.6, BUN 27 H D, Creatinine 1.20 H D, Estimated Creat Clear 54, Estimated GFR 43 L, Est GFR ( Amer) 52 L D, Glucose 143 H D, Calcium 8.5, NT-Pro-B Natriuret Pep 1370 H, Procalcitonin 0.503 Temp Pulse Resp BP Pulse Ox O2 Del Method O2 Flow Rate 97.7 F 70 16 108/56 L 94 L Nasal Cannula 2 04/22/24 08:00 04/22/24 08:00 04/22/24 08:00 04/22/24 08:00 04/22/24 08:00 04/22/24 06:39 04/22/24 06:39 Laboratory Results - last 24 hr 04/21/24 21:38: WBC 15.9 H, RBC 4.42, Hgb 13.8, Hct 45.0, MCV 101.9 H, MCH 31.1, MCHC 30.6 L, RDW 13.5, Plt Count 351, MPV 8.4, Neut % (Auto) 79.4, Lymph % (Auto) 12.6, [place] % (Auto) 6.1, Eos % (Auto) 0.8, Baso % (Auto) 1.1, Neut # (Auto) 12.6 H, Lymph # (Auto) 2.0, [place] # (Auto) 1.0, Eos # (Auto) 0.1, Baso # (Auto) 0.2, Total Counted 100, Neutrophils % (Manual) 84 H, Lymphocytes % (Manual) 11, Monocytes % (Manual) 5, Platelet Estimate Normal, Macrocytosis 1+, PT 27.3 H, INR 2.69 H, Sodium 131 L, Potassium 4.2, Chloride 100, Carbon Dioxide 24, Anion Gap 11.2, BUN 11, Creatinine 1.10 H, Estimated Creat Clear 55, Estimated GFR 48 L, Est GFR ( Amer) 58 L, Glucose 128 H, Lactate 2.2 H, Calcium 8.9, Total Bilirubin 1.0, AST 33, ALT 17, Alkaline Phosphatase 70, Troponin I < 0.01, Total Protein 7.5 D, Albumin 4.3, Globulin 3.2, Albumin/Globulin Ratio 1.3 04/21/24 21:55: VBG pH 7.38, VBG pCO2 39.2, VBG pO2 39.5, VBG HCO3 22.5 L, VBG Total CO2 23.7, VBG O2 Saturation 74.9 H, VBG Base Excess -2.7 L, VBG Lactic Acid 2.3 H 04/22/24 00:30: Troponin I 0.03 04/22/24 01:50: Lactate 0.6 L 04/22/24 03:25: Troponin I 0.04 H 04/22/24 05:40: SARS-CoV-2 (PCR) Not detected, Influenza A Untype (PCR) Not detected, Influenza Type B (PCR) Not detected 04/22/24 05:57: WBC 20.3 H* D, RBC 4.05 L, Hgb 12.8, Hct 41.0, MCV 101.3 H, MCH 31.6 H, MCHC 31.2 L, RDW 13.6, Plt Count 319, MPV 8.8, Neut % (Auto) 95.5 H, Lymph % (Auto) 2.3 L, [place] % (Auto) 2.0, Eos % (Auto) 0.0 L, Baso % (Auto) 0.2, Neut # (Auto) 19.4 H, Lymph # (Auto) 0.5 L, [place] # (Auto) 0.4, Eos # (Auto) 0.0, Baso # (Auto) 0.0, Sodium 127 L, Potassium 3.8, Chloride 97 L, Carbon Dioxide 22, Anion Gap 11.8, BUN 12, Creatinine 0.90, Estimated Creat Clear 61, Estimated GFR 60, Est GFR ( Amer) 73 D, Glucose 194 H D, Calcium 8.6, Magnesium 1.6, Total Bilirubin 0.5, AST 31, ALT 12 D, Alkaline Phosphatase 63, Total Protein 6.7, Albumin 3.5 D, Globulin 3.2, Albumin/Globulin Ratio 1.1 I & O for Labs for Last 24 Hours: Intake & Output 04/20/24 04/21/24 04/22/24 04/23/24 23:59 23:59 23:59 23:59 Intake Total 1920 / 2530 880 / 880 Output Total 0 / 0 0 / 0 Balance 1920 / 2530 880 / 880 Weight 185 lb 188 lb 197 lb 12.8 oz Intake & Output 04/19/24 04/20/24 04/21/24 04/22/24 23:59 23:59 23:59 23:59 Intake Total 360 / 360 Output Total 0 / 0 Balance 360 / 360 Weight 185 lb 188 lb Microbiology Reports for the Last 24 Hours: Microbiology 04/21/24 22:00 Blood Blood Culture - Preliminary NO GROWTH AFTER 24 HOURS 04/21/24 22:00 Blood Blood Culture - Preliminary NO GROWTH AFTER 24 HOURS 04/22/24 11:05 Sputum - Expectorated Sputum Gram Stain - Final Constitutional: Present moderate distress Head: Present normocephalic and atraumatic ENT: Present normal exam, normal oropharynx and mucous membranes moist Neck: Present normal inspection and full ROM Respiratory: Present prolonged expiratory phase, respiratory distress, rhonchi, wheezes, diminished air movement and able to speak in complete sentences Cardiac: Present S1/S2, Tachycardia and radial pulses present GI: Present soft and distention; Absent tenderness or guarding Rectal (female): Present deferred (female): Present deferred Skin: Present intact; Absent cyanosis or jaundice Neuro: Present alert, awake and oriented x 3 Extremities: Present normal inspection; Absent clubbing or cyanosis Psychiatric: Present normal affect and cooperative Assessment and Plan *Assessment and plan (1) Pneumonia: Status: Acute Qualifiers: Laterality: right Lung location: lower lobe of lung Pneumonia type: due to unspecified organism Qualified Code(s): J18.9 - Pneumonia, unspecified organism Category: Medical Code(s): J18.9 - Pneumonia, unspecified organism (2) History of 2019 novel coronavirus disease (COVID-19): Status: Acute Category: Medical Code(s): Z86.16 - Personal history of COVID-19 (3) Abnormal CT scan: Status: Acute Category: Medical Code(s): R93.89 - Abnormal findings on diagnostic imaging of other specified body structures (4) Postobstructive pneumonia: Status: Acute Category: Medical Code(s): J18.9 - Pneumonia, unspecified organism Plan # Postobstructive pneumonia: # History of COVID-19 pneumonia: #Acute hypoxic respiratory failure: Mr. Lorenzo is a 78-year-old female with reported history of asthma presented with any worsening respiratory send pulmonary was called for further evaluation and management. Patient also had a history reported COVID-19 positive testing on 04/13/2024 managed conservatively as an outpatient basis. Patient admits progressively worsening respiratory distress along with cough and productive phlegm since her diagnosis of COVID-19 pneumonia. Admits worsening wheezing CT PE upon admission evidence of pulm embolism. Diffuse membranous opacities faint. Right middle lobe consolidative/atelectatic changes. Possible concerning narrowing of the right BAL also noted. Afebrile. Hemodynamically stable. Neutrophilic predominant leukocytosis. COVID-19 PCR resulted negative on this admission. Patient admission was initiated on ceftriaxone and doxycycline along with nebulization therapies and steroids. Interval Update: No acute respiratory vents overnight. Improving leukocytosis. Continue to receive Zosyn and dexamethasone. Plan: On room air saturating 100%. Will follow with walk testing prior to discharge Wean antibiotics to Augmentin to complete a total of 7-day course. Follow with sputum cultures nasal MRSA PCR. Mucomyst twice daily for along with continuation of flutter valve upon discharge Can be discharged home on home inhaler to include Breztri 2 puffs daily along with albuterol/DuoNebs every 6 hours on as-needed basis Follow in pulmonary clinic in 3 to 5 days postdischarge # Thank you for involving pulmonary in this patient care. Will continue to follow.
--- NOTE | 2024-04-23 09:31 | XR_ITS ---
FINAL REPORT CLINICAL HISTORY: RML PNM COMPARISON: 04/21/2024 FINDINGS: A single portable view of the chest was obtained. A left subclavian pacer is identified. The heart is enlarged. Pulmonary vascularity is within normal limits. The mediastinum is within normal limits. There are persistent right base opacities which are worrisome for pneumonia. The bony thorax is intact. IMPRESSION: Right base opacities, worrisome for pneumonia. Reviewed, Interpreted and Dictated by Prabhakar Moe III, MD Transcribed by Mami Paez Authenticated and [facility]
[2024-04-23 09:42] LABS: INR 3.12 (0.9-1.1); Prothrombin Time 31.2 seconds (10.1-12.5)
[2024-04-23] MEDS: WARFARIN 5 MG 1 EACH PO (11:14)
--- NOTE | 2024-04-23 13:44 | PC.NURSE ---
patient a&ox4 and vss. Patient on room air and maintaining O2 saturation >90%. Patient has no c/o pain or discomforrt and gets around well x1 with her cane.
--- NOTE | 2024-04-23 13:53 | P.DS_ITS ---
General Admission date:: 04/22/24 Discharge date: 04/23/24 HPI HPI HPI: This is a 78-year-old female with PMHx of asthma, heart block status post pacemaker placement presenting with shortness of breath. Patient tested positive for COVID on 04/13 and has been managing her symptoms at home but over the past 2 to 3 days has had worsening weakness, shortness of breath, cough and headache. She has also had some associated nausea and vomiting. Her daughter was concerned about her work of breathing prompting their presentation tonight. Her daughter does also note that she is prone to pneumonias and is concerned that she may have contracted 1 today. Denies any known fevers. Admitted for further management Hospital Course Hospital Course Hospital Course: 78-year-old female that presents to the ED with shortness of air and imaging is concerning for hilar mass. Admitted for treatment of concern for postobs tructive pneumonia and respiratory distress. 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 Clinically showed improvement during admission. Pulmonology assisted with care. Given improvement, stable to discharge home. Problems addressed as follows: # Postobstructive pneumonia: # History of COVID-19 pneumonia: #Acute hypoxic respiratory failure: -CTA of chest obtained on admission showing right infrahilar mass approximately 3 cm in diameter. Postobstructive pneumonia and right upper lobe pulmonary nodule. Initiated on IV doxycycline and Zosyn. Responded well to antibiotic t reatment. Given improvement clinically, will transition to Augmentin to complete total of 7 days of antibiotic therapy. Will also continue flutter valve upon discharge. Patient has de-escalated to room air. Walk test performed on day of discharge. Plan to follow-up with pulmonology in the clinic in 3 to 5 days. Tolerating inhalers and nebulizers. Chronic atrial fibrillation Chronic anticoagulation with Coumadin S/P PPM. Monitored on telemetry during admission. INR's at goal. Discussed monitoring with Coumadin clinic, patient prefers to continue to follow with her primary care physician. Recommended repeat INR on Friday to make further adjustments. Decreased warfarin to 2-1/2 mg daily until repeat INR obtained. INR 3 on day of discharge. Hypertension Routine blood pressure monitoring. Continue losartan 50 mg daily, simvastatin for Neumiller grams nightly. Generalized anxiety disorder Chronically prescribed benzodiazepine therapy Continue home alprazolam 0.5 mg 3 times a day as needed and Prozac 20 mg daily. Total time spent on discharge 35 minutes in counseling, documentation, chart review, and direct care with patient. Exam Data for Last 24 hours Vital signs and Labs for Last 24 Hours: Temp Pulse Resp BP Pulse Ox O2 Del Method O2 Flow Rate 97.4 F L 82 20 122/62 97 Room Air 1 04/23/24 07:35 04/23/24 13:02 04/23/24 07:35 04/23/24 07:35 04/23/24 07:35 04/23/24 07:35 04/23/24 06:09 Laboratory Results - last 24 hr 04/23/24 05:54: WBC 17.7 H, RBC 3.92 L, Hgb 12.2, Hct 40.0, MCV 101.9 H, MCH 31.2, MCHC 30.6 L, RDW 13.5, Plt Count 304, MPV 8.5, Neut % (Auto) 91.1 H, Lymph % (Auto) 4.6 L, [place] % (Auto) 4.1, Eos % (Auto) 0.0 L, Baso % (Auto) 0.1, Neut # (Auto) 16.1 H, Lymph # (Auto) 0.8, [place] # (Auto) 0.7, Eos # (Auto) 0.0, Baso # (Auto) 0.0, Total Counted 100, Neutrophils % (Manual) 95 H, Lymphocytes % (Manual) 3 L, Monocytes % (Manual) 2, Platelet Estimate Normal, Anisocytosis 1+, Macrocytosis 1+, Sodium 126 L, Potassium 3.6, Chloride 97 L, Carbon Dioxide 20 L , Anion Gap 12.6, BUN 27 H D, Creatinine 1.20 H D, Estimated Creat Clear 54, Estimated GFR 43 L, Est GFR ( Amer) 52 L D, Glucose 143 H D, Calcium 8.5, NT-Pro-B Natriuret Pep 1370 H, Procalcitonin 0.503 04/23/24 09:20: PT 31.2 H, INR 3.12 H I & O for Last 24 hours: Intake & Output 04/20/24 04/21/24 04/22/24 04/23/24 23:59 23:59 23:59 23:59 Intake Total 1920 / 2530 1150 / 1150 Output Total 0 / 0 0 / 0 Balance 1920 / 2530 1150 / 1150 Weight 83.915 kg 85.275 kg 89.72 kg Microbiology Reports for the Last 24 Hours: Microbiology 04/22/24 11:05 Sputum - Expectorated Sputum Gram Stain - Final 04/22/24 11:05 Sputum - Expectorated Sputum Sputum Culture - Preliminary 04/21/24 22:00 Blood Blood Culture - Preliminary NO GROWTH AFTER 24 HOURS 04/21/24 22:00 Blood Blood Culture - Preliminary NO GROWTH AFTER 24 HOURS Constitutional Constitutional: no acute distress, obese and cooperative *Routine HEENT Exam Head: Present normocephalic and atraumatic Eye: Present EOMI and PERRL ENT: Present mucous membranes moist *Routine Neck Exam Neck: Present supple; Absent JVD or lymphadenopathy *Routine Respiratory Exam Respiratory: Present rhonchi, wheezes, normal respiratory effort and symmetric chest movement *Routine Cardiovascular Exam Cardiovascular: Present RRR *Routine Abdominal Exam Abdominal: Present soft and normoactive bowel sounds; Absent tenderness *Routine Rectal Exam Patient deferred: visual exam *Routine Exam Patient deferred: external exam *Routine Extremities Exam Extremities: Present full ROM and pulses intact; Absent edema *Routine Skin Exam Skin: Present intact and warm; Absent rash *Routine Neurological Exam Neurological: Present alert, oriented X3, moving all extremities and normal speech; Absent altered mental status Routine Psychiatric Exam Psychiatric: Present normal affect Results Data Completed and Pending Labs on day of discharge: Labs from last 24 hours 04/23/24 04/23/24 09:20 05:54 WBC 17.7 H RBC 3.92 L Hgb 12.2 Hct 40.0 MCV 101.9 H MCH 31.2 MCHC 30.6 L RDW 13.5 Plt Count 304 MPV 8.5 Neut % (Auto) 91.1 H Lymph % (Auto) 4.6 L [place] % (Auto) 4.1 Eos % (Auto) 0.0 L Baso % (Auto) 0.1 Neut # (Auto) 16.1 H Lymph # (Auto) 0.8 [place] # (Auto) 0.7 Eos # (Auto) 0.0 Baso # (Auto) 0.0 Total Counted 100 Neutrophils % (Manual) 95 H Lymphocytes % (Manual) 3 L Monocytes % (Manual) 2 Platelet Estimate Normal Anisocytosis 1+ Macrocytosis 1+ PT 31.2 H INR 3.12 H Sodium 126 L Potassium 3.6 Chloride 97 L Carbon Dioxide 20 L Anion Gap 12.6 BUN 27 H D Creatinine 1.20 H D Estimated Creat Clear 54 Estimated GFR 43 L Est GFR ( Amer) 52 L D Glucose 143 H D Calcium 8.5 NT-Pro-B Natriuret Pep 1370 H Procalcitonin 0.503 Preliminary micro results at discharge 04/22/24 11:05 Sputum Culture - Preliminary Sputum - Expectorated Sputum 04/21/24 22:00 Blood Culture - Preliminary Blood NO GROWTH AFTER 24 HOURS 04/21/24 22:00 Blood Culture - Preliminary Blood NO GROWTH AFTER 24 HOURS DS: Diagnosis Discharge Diagnosis (1) Pneumonia: Status: Acute Code(s): J18.9 - Pneumonia, unspecified organism Qualifiers: Laterality: right Lung location: lower lobe of lung Pneumonia type: due to unspecified organism Qualified Code(s): J18.9 - Pneumonia, unspecified organism (2) History of 2019 novel coronavirus disease (COVID-19): Status: Acute Code(s): Z86.16 - Personal history of COVID-19 (3) Abnormal CT scan: Status: Acute Code(s): R93.89 - Abnormal findings on diagnostic imaging of other specified body structures (4) Postobstructive pneumonia: Status: Acute Code(s): J18.9 - Pneumonia, unspecified organism Meds Home Medications and Allergies Home Medications ?Medication ?Instructions ?Recorded ?Confirmed ?Type fluoxetine 20 mg capsule 20 mg PO DAILY 10/27/21 04/22/24 History hydrochlorothiazide 12.5 mg tablet 12.5 mg PO DAILY 10/27/21 04/22/24 History losartan 50 mg tablet 50 mg PO DAILY 10/27/21 04/22/24 History omeprazole 20 mg capsule,delayed 20 mg PO DAILY 10/27/21 04/22/24 History release simvastatin 40 mg tablet 40 mg PO HS 10/27/21 04/22/24 History warfarin 5 mg tablet 2.5 mg PO MOTHSA 10/29/21 04/22/24 History fluticasone propionate 50 1 spray intranasal BID PRN allergy 02/19/23 04/22/24 Rx mcg/actuation nasal symptoms 90 days #16 grams spray,suspension (Flonase Allergy Relief) alprazolam 0.25 mg tablet 0.25 mg PO TIDP PRN Anxiety 04/22/24 04/22/24 History budesonide 160 mcg-glycopyr 9 2 puff inhalation BID 04/22/24 04/22/24 History mcg-formot 4.8 mcg/actuation HFA inhaler (Breztri Aerosphere) prednisone 2.5 mg tablet 2.5 mg PO DAILY 04/22/24 04/22/24 History amoxicillin 875 mg-potassium 1 tab PO BID 5 days #10 tabs 04/23/24 Rx clavulanate 125 mg tablet warfarin 5 mg tablet 5 mg PO SUTUWEFR #30 tabs 04/23/24 04/22/24 Rx New Prescriptions to Start Prescriptions: amoxicillin-pot clavulanate Jaron Blanco Allergies Allergy/AdvReac Type Severity Reaction Status Date / Time sulfamethoxazole Allergy Unknown Unknown Verified 09/16/23 12:01 [From Bactrim] allergy reaction trimethoprim [From Bactrim] Allergy Unknown Unknown Verified 09/16/23 12:01 allergy reaction Discharge Plan Disposition Patient Disposition: Home Health Service Condition: Fair Discharge Order Discharge Orders: Discharge Order (Routine); Ordered 04/23/24 Ordered By: Jaron Blanco Follow up Plan Follow up with: Gabriel Pendleton MD [Primary Care Provider] - 04/26/24 10:30 am (Friday) Jeronimo Barrett MD [Physician] - 04/30/24 10:20 am Prescriptions/Medication Reconciliation: New amoxicillin-pot clavulanate 875-125 mg tablet 1 tab PO BID 5 Days Qty: 10 0RF Continued fluticasone propionate [Flonase Allergy Relief] 50 mcg/actuation s pray,suspension 1 spray intranasal BID PRN (Reason: allergy symptoms) 90 Days Qty: 16 3RF Rx Instructions: administer into each nostril losartan 50 MG tablet 50 mg PO DAILY simvastatin 40 MG tablet 40 mg PO HS omeprazole 20 MG capsule,delayed release(DR/EC) 20 mg PO DAILY fluoxetine 20 MG capsule 20 mg PO DAILY hydrochlorothiazide 12.5 MG tablet 12.5 mg PO DAILY warfarin 5 MG tablet 2.5 mg PO MOTHSA Rx Instructions: 2.5mg by mouth on Friday, and Friday and 5mg by mouth on Friday, Friday, Friday and Janes alprazolam 0.25 mg tablet 0.25 mg PO TIDP PRN (Reason: Anxiety) prednisone 2.5 mg tablet 2.5 mg PO DAILY Alicjatri Aerosphere 160-9-4.8 mcg/actuation HFA aerosol inhaler 2 puff inhalation BID Rx Instructions: INHALE 2 PUFFS BY MOUTH TWICE A DAY (RINSE MOUTH AFTER USE) warfarin 5 mg tablet 5 mg PO SUTUWEFR Qty: 30 0RF Problem Reconciliation Problems Reviewed?: Yes Patient Discharge Instructions ACTIVITY: Continue current activity DIET: continue same diet Additional Instructions: please take 2.5mg Warfarin daily until follow-up with PCP on Friday. Patient Instructions: DI for Pneumonia -- Adult, DI for Shortness of Breath, Coumadin Vitamin K/ Diet Print Language: Jamaican Providers Primary Care Provider: Gabriel Pendleton Admit Provider: Mike Bolanos Attending Provider: Mike Bolanos
--- NOTE | 2024-04-23 14:53 | HMH.PTEV ---
Physical Therapy Evaluation Rehab PT IP Evaluation Start: 04/23/24 10:29 Freq: ONCE Status: Active Protocol: Document 04/23/24 13:58 ZANE (Rec: 04/23/24 14:52 PHODAVE [id number]) Subjective/History History History This is the initial inpatient eval for Sommer Lorenzo, a 78 yof that was admitted to [facility] for possible pneumonia. This patient has a PMH that includes abnormal pulmonary function, allergic rhinitis, Asthma, dyspnea on exertion, dyspnea on exertion, history of pacemaker, moderate persistent asthma, and restrictive lung disease. Subjective Subjective When entering the room we found the patient sitting at the EOB eating lunch at this time. The patient stated that she was independent with everything before being admitted. Patient stated that she is still able to drive, cook, bath, and dress herself at this time. The patient stated that she has two small based quad canes that she uses , one for at home, and a prettier one if I'm in town. The patient currently lives at home by herself but stated that if she went home at this time I will have family stay for a couple days to make sure I do alright on my own again. New diagnosis of cancer in past 12 No months? Rehab PT IP Eval Objective Appearance Patient Behavior Appropriate,Cooperative Patient Orientation Person,Place,Birthday Difficulty following instructions none Speech Pattern Clear,Appropriate Ambulation Patient Able to Ambulate Yes Ambulation Observation IP General Gait Pattern Observation Wide Based Gait Ambulation Distance (feet) 40 Ambulation Assistive Device Small Base Quad Cane Ambulation Ability Supervision/Stand by Balance Sitting Balance Steady, safe Standing Balance Steady, wide stance Dynamic Sitting Balance Ability Normal Dynamic Standing Balance Ability Normal Transfers Sit to Stand Bed Transfer Ability Supervision/Stand by Rehab PT IP prob,goals,plan Problems Date of Evaluation: 04/23/24 Discharge Plan PT Discharge Plan Patient SPO2% was monitored before and after ambulation at this time. EOB SPO2% was 98% and 95% after ambulating 40 feet with a small quad base cane. This patient is most appropriate to discharge to home with home health at this time. Eval Complexity Eval Charge Codes 22056 - High Complexity PHYSICIAN CERTIFICATION: I certify the specified therapy services for Sommer Bill Lorenzo are required, authorized, and reviewed every 30 days.
--- NOTE | 2024-04-23 15:02 | CARE MANAGER ---
Addendum entered by Park Mack 04/26/24 13:32: Cathy st/ [facility] stated that services will begin this week. Original Note: PT recommended home health PT/OT. Patient agreeable. Information sent to [facility]. OANH Cheatham
--- NOTE | 2024-04-23 16:01 | HMH.OTEV ---
OT Inpatient Evaluation Rehab OT IP Evaluation Start: 04/23/24 10:29 Freq: ONCE Status: Active Protocol: Document 04/23/24 15:30 ANTONYRUDY (Rec: 04/23/24 16:01 SHANNAN [id number]) Rehab OT IP Assessment Subjective History Pt oriented x5 on arrival and agreeable to OT evaluation. Pt admitted to [facility] on 04/22/24 due to shortness of breath. Pt history and physical report : This is a 78-year-old female with PMHx of asthma, heart block status post pacemaker placement presenting with shortness of breath. Patient tested positive for COVID on and has been managing her symptoms at home but over the past 2 to 3 days has had worsening weakness, shortness of breath, cough and headache. She has also had some associated nausea and vomiting . Her daughter was concerned about her work of breathing prompting their presentation tonight. Her daughter does also note that she is prone to pneumonias and is concerned that she may have contracted 1 today. Denies any known fevers. Admitted for further management Subjective I am usually so independent. Pt seen this date for initial OT evaluation. Upon entry, pt demonstrating emotional distress due to being overwhelmed regarding health conditions and physical limitations. Pt reports that prior to admission they lived at home alone. Pt was independent with all ADLs and IADLs. Pt uses a quad cane during functional mobility. Pt 's daughter present during second half of evaluation. Daughter reports planning to stay with pt in their home to provide 24/7 care and assistance. Pt sitting at eob on arrival. Pt demonstrated good static sitting balance while at eob for ~3 minutes. Pt performed a sit to stand transfer with CGA using a quad cane. Pt then engaged in functional mobility for ~30 feet using quad cane with CGA. Pt returned to seated position on eob with CGA. Pt's daughter then entered the room. Pt was left sitting on eob with call alcantara and all other needs in reach. Objective Patient Orientation Person,Place,Name,Birthday, Year Right Upper Extremity Gross ROM WFL Left Upper Extremity Gross ROM WFL Transfer Training Sit/Stand Transfer Assist Level Contact Guard/Hand Hold Decrease in Endurance Yes Rehab OT IP prob,goals,plan Problems Date of Evaluation: 04/23/24 OT IP Problems Bed Mobility,Transfers,Balance ,Self care,Safety Rehab Potential Rehab Potential Good Plan OT intervention Plan Bed Mobility,Transfers,Balance ,Self care,Safety,Therapeutic Exercise OT Plan Frequency Daily Duration LOS Discharge Goals Bed Mobility Ability Standby Assistance Sit to Stand Chair Transfer Ability Supervision/Stand by Chair Transfer Ability Supervision/Stand by Chair Transfer Technique Sit to/from Ambulatory Chair Transfer Assistive Devices Small Base Quad Cane Feeding Ability Independent Lower Body Dressing Ability Standby Assistance Upper Body Dressing Ability Standby Assistance Bathing Ability Standby Assistance Performing Toilet Hygiene Ability Standby Assistance Overall Commode/Toilet Transfer Ability Standby Assistance Commode/Toilet Transfer Technique Sit to/from Ambulatory Commode/Toilet Transfer Assistive Grab Bars Devices Oral Care Assist Independent Discharge Plan OT Discharge Plan Pt will be seen for OT services while at [facility]. Once discharged, pt could return home if family is able to provide 24/7 care and assistance. Pt is recommended for a evaluation if they return home. However, if family cannot provide 24/7 care and assistance, pt would benefit from short-term rehab at [facility]. Continued skilled OT services are important to improve strength, endurance, safety, ADL independence, and functional transfers to reach PLOF. Eval Complexity Eval Charge Codes 64439 - Low Complexity PHYSICIAN CERTIFICATION: I certify the specified therapy services for Sommer Bill Lorenzo are required, authorized, and reviewed every 30 days.
--- NOTE | 2024-04-26 15:58 | CARE MANAGER ---
Contacted patient related to hospital discharge. She states she is doing great. She is aware of follow up appointments and are taking the antibiotics prescribed. Denies questions or concerns. Home health to start later this week. OANH Cheatham
== END 2024-04-23 15:38 | disposition home health service (06) ==
LOC: ER 04-22 00:13 → 2ND 04-22 00:48
PROVIDERS: Nurse Practitioner Family; Admitting Provider Family Medicine; Emergency Provider Emergency Medicine; PCP Family Medicine; Visit Provider Family Medicine
DX: J18.9 Pneumonia, unspecified organism (principal); U07.1 COVID-19; R91.8 Other nonspecific abnormal finding of lung field; R91.1 Solitary pulmonary nodule; N17.9 Acute kidney failure, unspecified; I10 Essential (primary) hypertension; Z95.0 Presence of cardiac pacemaker; J96.01 Acute respiratory failure with hypoxia; J45.909 Unspecified asthma, uncomplicated; I48.20 Chronic atrial fibrillation, unspecified; Z79.01 Long term (current) use of anticoagulants; F41.1 Generalized anxiety disorder; Z79.899 Other long term (current) drug therapy; Z86.16 Personal history of COVID-19; R93.89 Abnormal findings on diagnostic imaging of other specified body structures; D72.829 Elevated white blood cell count, unspecified
CPT/HCPCS: 36415; 71045; 71275; 80048; 80053; 82803; 83605; 83735; 83880; 84145; 84484; 85007; 85025; 85610; 87040; 87070; 87077; 87081; 87205; 87265; 87486; 87581; 87632; 87635; 87636; 93005; 94640; 94667; 94761; 97163; 97165; 99285; G0378; J0696; J1100; J2405; J2543; J2919; J7030; J7620; Q9967

== ENCOUNTER 2024-04-26 09:37 | Outpatient (CLI) | payer MEDICARE, SELFPAY ==
[2024-04-26 10:25] LABS: INR 2.91 (0.9-1.1); Prothrombin Time 29.3 seconds (10.1-12.5)
== END 2024-04-26 23:59 | disposition home or self-care (01) ==
LOC: LAB 09:38
PROVIDERS: PCP Family Medicine; Visit Provider Family Medicine
DX: Z79.01 Long term (current) use of anticoagulants (principal)
CPT/HCPCS: 36415; 85610

== ENCOUNTER 2024-06-11 13:16 | Outpatient (CLI) | payer MEDICARE, SELFPAY ==
--- NOTE | 2024-06-11 13:17 | CT_ITS ---
PROCEDURE INFORMATION: Exam: CT Chest Without Contrast; Diagnostic Exam date and time: 06/11/2024 1:22 PM Age: 78 years old Clinical indication: Dyspnea; Additional info: Nodule. /collapse/endobronchial lesion TECHNIQUE: Imaging protocol: Diagnostic computed tomography of the chest without contrast. Radiation optimization: All CT scans at this facility use at least one of these dose optimization techniques: automated exposure control; mA and/or kV adjustment per patient size (includes targeted exams where dose is matched to clinical indication); or iterative reconstruction. COMPARISON: CT ANGIO CHEST PE PROTOCOL 04/21/2024 10:24 PM FINDINGS: Lungs: There is near complete resolution of right middle lobe consolidation with minor atelectatic changes remaining. Previously noted soft tissue fullness within the right hilum also appears improved but difficult to adequately assess on this noncontrast study. Changes would suggest resolving right hilar lymphadenopathy. There is redemonstration of oval-shaped 9 mm right perihilar pulmonary nodule unchanged. Incidental calcified granuloma left lung unchanged. Minor bibasilar atelectatic changes, stable. Small indistinct subpleural nodular density superior segment right lower lobe likely postinflammatory in nature. Mild bronchiectasis mid-lower lung zones, stable. Pleural spaces: Unremarkable. No pneumothorax. No pleural effusion. Heart: Heart size is stable. Pacemaker wires and ICD monitor is extending to the right atrium and right ventricle. Mild calcification of coronary arteries. No significant pericardial effusion. Lymph nodes: See Lungs finding. Vasculature: Atherosclerotic changes with stable ectasia of the ascending aorta measuring 3.8 cm in diameter. Diaphragm: Moderate size hiatal hernia unchanged. Bones/joints: Smooth bridging endplate osteophytes throughout the thoracic spine unchanged. No acute bony abnormalities. Soft tissues: Unremarkable IMPRESSION: 1. Resolving right hilar lymphadenopathy and right middle lobe consolidation presumed infectious in nature. 2. Stable 9 mm right perihilar pulmonary nodule, indeterminate. Recommend a repeat CT chest in 6 months for continued surveillance.
== END 2024-06-11 23:59 | disposition home or self-care (01) ==
PROVIDERS: PCP Family Medicine; Visit Provider Internal Medicine Pulmonary Disease
DX: R91.8 Other nonspecific abnormal finding of lung field (principal)
CPT/HCPCS: 71250

== ENCOUNTER 2024-11-08 10:51 | Outpatient (CLI) | payer MEDICARE, SELFPAY ==
--- NOTE | 2024-11-08 10:56 | XR_ITS ---
FINAL REPORT CLINICAL HISTORY: COVID-19 SOA FINDINGS: 2 views of the chest were obtained . The heart is normal in size. The mediastinum is within normal limits. A left-sided pacemaker is in place. There is vague opacity along the right heart border suspicious for right middle lobe pneumonia. Left lung is clear. There is no pneumothorax. Osseous structures are unremarkable. IMPRESSION: Right middle lobe consolidation compatible with pneumonia. Recommend continued follow-up. Reviewed, Interpreted and Dictated by James Cortes MD Transcribed by Jessy Quintero Authenticated and [facility]
== END 2024-11-08 23:59 | disposition home or self-care (01) ==
LOC: RAD 10:53
PROVIDERS: PCP Family Medicine; Visit Provider Nurse Practitioner Family
DX: U07.1 COVID-19 (principal)
CPT/HCPCS: 71046

== ENCOUNTER 2024-12-08 12:11 | Outpatient (CLI) | payer MEDICARE, SELFPAY ==
[2024-12-08 12:35] VITALS: BP 135/72; PULSE 73; RESP 18; TEMP 36.7; O2SAT 100
[2024-12-08 13:00] VITALS: BP 129/68; PULSE 70
[2024-12-08] MEDS: 0.9 % SODIUM CHLORIDE 1000ML 1,000 ML 500 ML IV (13:15)
[2024-12-08] MEDS: METHYLPREDNISOLONE SOD SUCC 125MG VIAL 125 MG IV (13:15)
[2024-12-08 13:30] VITALS: BP 134/62; PULSE 73
[2024-12-08 14:00] VITALS: BP 133/67; PULSE 76
[2024-12-08 14:35] VITALS: BP 128/67; PULSE 77
== END 2024-12-08 14:45 | disposition home or self-care (01) ==
LOC: INF 12:12
PROVIDERS: PCP Family Medicine; Visit Provider Family Medicine
DX: Z51.81 Encounter for therapeutic drug level monitoring (principal); Z79.01 Long term (current) use of anticoagulants
CPT/HCPCS: 96360; 96361; J2919; J7030

== ENCOUNTER 2024-12-15 14:01 | Outpatient (CLI) | payer MEDICARE, SELFPAY ==
--- NOTE | 2024-12-15 14:30 | CT_ITS ---
FINAL REPORT TECHNIQUE: Thin section axial images were obtained from the lung apices through the upper abdomen without contrast. This study was performed with techniques to keep radiation doses as low as reasonably achievable (ALARA). Individualized dose reduction techniques using automated exposure control or adjustment of mA and/or kV according to the patient's size were employed. CLINICAL HISTORY: 6 month follow-up nodule and shortness of breath COMPARISON: 06/11/2024 FINDINGS: There is no mediastinal, hilar, or axillary lymphadenopathy. There is no pleural effusion. There is a very small stable pericardial effusion. There is new atelectasis in the left lower lobe. A 4 mm posterior right upper lobe nodule seen on series 2 image 22 is unchanged. The right middle lobe atelectasis is stable. The right perihilar nodule is seen on image 39 and measures 6 mm, which appears similar to prior exam. Limited, unenhanced evaluation of the upper abdomen demonstrate a hypodense lesion in the liver which is likely a cyst and appears stable. There is a large hiatal hernia. There is no acute osseous abnormality. IMPRESSION: Stable right middle lobe atelectasis. New left lower lobe atelectasis. Stable right perihilar nodule. Otherwise, no new abnormality. Reviewed, Interpreted and Dictated by Jessica Crowell MD Transcribed by Mami Paez Authenticated and [facility]
[2024-12-15 16:15] VITALS: PULSE 67
[2024-12-15] MEDS: ALBUTEROL 0.083% 2.5 MG/3 ML NEB IH (16:15)
== END 2024-12-15 23:59 | disposition home or self-care (01) ==
LOC: RAD 14:02
PROVIDERS: PCP Family Medicine; Visit Provider Internal Medicine Pulmonary Disease
DX: R91.8 Other nonspecific abnormal finding of lung field (principal); R06.09 Other forms of dyspnea
CPT/HCPCS: 71250; 94060; 94618; 94640; 94726; 94729; J7613

== ENCOUNTER 2025-05-01 05:52 | Emergency (ER) | payer MEDICARE, SELFPAY ==
[2025-05-01] VITALS (11 sets, daily range): BP systolic 123–146; BP diastolic 51–91; PULSE 72–99; RESP 13–23; TEMP 36.8–36.9; O2SAT 92–97; BMI 30.7
--- NOTE | 2025-05-01 05:59 | ECG_ITS ---
APPROVED REPORT Exam: Resting ECG HR:86 bpm ECG Measurements Heart Rate 86 AXES QRSd 130 QRS -77 QT 393 T 86 QTc 437 Conclusion ELECTRONIC VENTRICULAR PACEMAKER ABNORMAL RHYTHM ECG No STEMI Electronically signed by : YIN JORGE, 05/02/2025 03:38:06
--- NOTE | 2025-05-01 06:08 | XR_ITS ---
PROCEDURE INFORMATION: Exam: XR Chest Exam date and time: 05/01/2025 6:08 AM Age: 79 years old Clinical indication: Cough and shortness of breath; Additional info: Cough SOA TECHNIQUE: Imaging protocol: Radiologic exam of the chest. Views: 2 views. COMPARISON: CT CHEST WO CON 12/15/2024 2:08 PM FINDINGS: Tubes, catheters and devices: There is a 2 lead pacemaker on the left side of the chest. Lungs: Hazy infiltrates in the right perihilar region concerning for pneumonia. Pleural spaces: Unremarkable. No pleural effusion. No pneumothorax. Heart/Mediastinum: The heart is normal in size. Bones/joints: Unremarkable. IMPRESSION: Hazy infiltrates in the right perihilar region concerning for pneumonia.
--- NOTE | 2025-05-01 06:11 | ED_ITS ---
Discharge Plan Disposition Patient Disposition: Home, Self-Care Prescriptions Prescriptions: New prednisone 50 mg tablet 50 mg PO DAILY 3 Days Qty: 3 0RF No Action prednisone 2.5 mg tablet 2.5 mg PO DAILY montelukast [Singulair] 10 mg tablet 10 mg PO DAILY Qty: 90 2RF azelastine 137 mcg (0.1 %) spray,non-aerosol 2 spray intranasal HS 90 Days Qty: 30 2RF Rx Instructions: administer into each nostril nystatin 100,000 unit/mL suspension 600,000 unit PO TID 10 Days Qty: 180 0RF Rx Instructions: administer 1/2 of dose in each side of the mouth ipratropium-albuterol 0.5 mg-3 mg(2.5 mg base)/3 mL solution for nebulization 3 ml inhalation QID PRN (Reason: shortness of breath or wheezing) 30 Days Qty: 90 2RF hydrochlorothiazide 12.5 mg capsule 12.5 mg PO DAILY fluticasone propionate [Flonase Allergy Relief] 50 mcg/actuation spray,suspension 2 spray intranasal BID 90 Days Qty: 16 3RF Rx Instructions: administer into each nostril Breztri Aerosphere 160-9-4.8 mcg/actuation HFA aerosol inhaler 2 inh IH BID 90 Days Qty: 10.7 3RF losartan 50 MG tablet 50 mg PO DAILY simvastatin 40 MG tablet 40 mg PO HS omeprazole 20 MG capsule,delayed release(DR/EC) 20 mg PO DAILY fluoxetine 20 MG capsule 20 mg PO DAILY warfarin 5 MG tablet 2.5 mg PO MOTHSA Rx Instructions: 2.5mg by mouth on Friday, and Friday and 5mg by mouth on Friday, Friday, Friday and Friday alprazolam 0.25 mg tablet 0.25 mg PO TIDP PRN (Reason: Anxiety) warfarin 5 mg tablet 5 mg PO SUTUWEFR Qty: 30 0RF Referrals Follow up/Referrals: Gabriel Pendleton MD [Primary Care Provider, Medical] - See instructions Activity Restrictions/Add. Instructions Additional Instructions/Restrictions: At this time it was felt you are safe to be discharged home. If new or worsening symptoms please do not hesitate to return the emergency department. Please follow-up with your family doctor or Dr. Barrett at some point this week to ensure things are headed in the right direction. Please use your breathing machine every 4 hours as needed. Please take your steroids as prescribed. Clinical Impressions Clinical Impression: Lung disease, restrictive, Viral respiratory infection Print Language Print Language: Montenegrin Discharge ED Provider: Vicente Worrell HPI <Tray Kowalski MD - Last Filed: 05/01/25 06:55> General Chief Complaint: Shortness of Breath/Dyspnea Stated Complaint: SOB, cough Time Seen by Provider: 05/01/25 05:58 Mode of Arrival: Ambulatory Source of Information: Patient Description of Symptoms (Recalled from ER Triage Doc. by RN): Patient has cough and soa starting yesterday; has not been around anyone sick that she knows of; worse this morning History of Present Illness HPI narrative: 79-year-old female with history of A-fib, pacemaker, chronic anticoagulation, questionable endobronchial lesion, exertional dyspnea asthma, allergies, abnormal PFTs presents to the ER with family concerned for 24 hours of cough and worsening shortness of breath. Patient states she was doing okay on her home medications including her Breztri but in the last 24 hours she has developed cough, congestion, significant shortness of breath. She felt bad enough last night to take nebulizer albuterol at home which offered her some improvement of symptoms, but this morning she woke up feeling worse. She is not having chest pain or pressure, but she is very short of breath. She reports no oxygen use at home but arrived in the ER saturating only 92% on room air. She has a somewhat productive cough. She denies headache or dizziness, no fevers or chills, no numbness, tingling, or weakness, no nausea, vomiting, or diarrhea. She denies hematuria or dysuria. Patient reports no known sick exposures but states I seem to get COVID a lot . Reviewed most recent pulmonology note from 1 month ago demonstrates patient had had recent treatment for suspected asthma exacerbation, started newly on antihistamine, and was showing signs of improvement. Recommended 3 to 4-month follow-up. The last time patient was evaluated in the ER she was admitted to the hospital for COVID and pneumonia with a similar presentation to that with which she presents today. No medications were taken immediately prior to arrival, no breathing treatments have been taken today. Related Data Home Medications ?Medication ?Instructions ?Recorded ?Confirmed fluoxetine 20 mg capsule 20 mg PO DAILY 10/27/2103/12 losartan 50 mg tablet 50 mg PO DAILY 10/27/2103/12 omeprazole 20 mg capsule,delayed 20 mg PO DAILY 03/31/25 release simvastatin 40 mg tablet 40 mg PO HS 10/27/21 5 warfarin 5 mg tablet 2.5 mg PO MOTHSA 10/29/21 alprazolam 0.25 mg tablet 0.25 mg PO TIDP PRN Anxiety 04/22/24 03/31/25 prednisone 2.5 mg tablet 2.5 mg PO DAILY 09/15/24 hydrochlorothiazide 12.5 mg capsule 12.5 mg PO DAILY 0 12/22/24 03/31/25 Previous Rx's ?Medication ?Instructions ?Recorded warfarin 5 mg tablet 5 mg PO SUTUWEFR #30 tabs ipratropium 0.5 mg-albuterol 3 mg 3 ml inhalation QID PRN shortness 04/30/24 (2.5 mg base)/3 mL nebulization of breath or wheezing 30 days #90 soln mL nystatin 100,000 unit/mL oral 600,000 unit (6 mL) PO T ID 10 days 04/30/24 suspension #180 mL fluticasone propionate 50 2 spray intranasal BID aller gy 12/22/24 mcg/actuation nasal symptoms 90 days #16 grams spray,suspension (Flonase Allergy Relief) budesonide 160 mcg-glycopyr 9 2 inh inhalation BID 90 days #10.7 01/19/25 mcg-formot 4.8 mcg/actuation HFA grams inhaler (Breztri Aerosphere) azelastine 137 mcg (0.1 %) nasal 2 spray intranasal HS 90 days #30 03/31/25 spray mL montelukast 10 mg tablet 10 mg PO DAILY #90 tabs 03/12 09/04 (Singulair) prednisone 50 mg tablet 50 mg PO DAILY restrictive l radha 05/01/25 disease 3 days #3 tabs Allergies Allergy/AdvReac Type Severity Reaction Status Date / Time sulfamethoxazole (From Allergy Unknown Unknown Verified 03/31/25 11:26 Bactrim) allergy reaction trimethoprim (From Bactrim) Allergy Unknown Unknown Verified 03/31/25 11:26 allergy reaction PFSH <Tray Kowalski MD - Last Filed: 05/01/25 06:55> [facility] Disclaimer: The information contained in this section may have been updated after the patient was seen, as this information can be updated by other users. Medical History Abnormal CT scan History of 2019 novel coronavirus disease (COVID-19) Dyspnea on exertion Allergic rhinitis Abnormal pulmonary function Asthma History of pacemaker Restrictive lung disease Allergic rhinitis, unspecified Moderate persistent asthma Dyspnea on exertion Surgical History No history of previous surgery Family History Other Asthma Cancer Diabetes Heart attack Hyperlipidemia Hypertension Stroke Social History Smoking Status: Never smoker alcohol intake: current alcohol intake frequency: holidays/special occasions only current occupational status: retired Travel in the last 8 weeks?: None household members: family lives independently: Yes Do you have a cough?: Yes Other Medical History Have you received the Flu Vaccine for this season: No Have you received the Pneumonia Vaccine: Yes <Tray Kowalski MD - Last Filed: 05/01/25 06:55> ROS Obtained: Yes Systems reviewed as appropriate & no additional complaints except as documented Per HPI Physical Exam <Tray Kowalski MD - Last Filed: 05/01/25 06:55> General General appearance: alert Comment: Ill-appearing Head Head exam: atraumatic and normocephalic Eye Eye exam: Present PERRL and EOMI ENT ENT exam: Present mucous membranes moist Neck Neck exam: Present normal inspection and full ROM Chest Chest inspection: Present symmetric chest wall rise Respiratory Respiratory exam: Present wheezes (Expiratory, worse at the bases); Absent normal lung sounds bilaterally (Rhonchi and rales especially at the bases), respiratory distress, stridor, accessory muscle use or prolonged expiratory phase Cardiovascular Cardiovascular exam: Present regular rate and normal rhythm Abdominal Exam Abdominal exam: Present soft; Absent distention, tenderness, guarding or rebound Extremities Exam Extremities exam: Present full ROM; Absent edema, joint swelling or calf tenderness Neurological Exam Neurological exam: Present alert and oriented X3; Absent motor sensory deficit Psychiatric Psychiatric exam: Present normal affect and normal mood Skin Skin exam: Present warm and dry HEART Score <Tray Kowalski MD - Last Filed: 05/01/25 06:55> HEART Score HEART Score assessment performed?: No Critical Care <Tray Kowalski MD - Last Filed: 05/01/25 06:55> Critical Care Time Critical Care Time: No Medical Decision Making <Tray Kowalski MD - Last Filed: 05/01/25 06:55> Medical Records Medical records reviewed: Yes I reviewed the patient's medical records. MR Comment: See HPI for details Hugo Inquiry Pt receiving controlled substance: No Vital Signs Vital Signs: 05/01/25 05:58 05/01/25 06:00 05/01/25 06:04 Temperature 98.4 F Temperature Source Oral Pulse Rate 88 98 H Pulse Rate [Right Radial] 91 H Respiratory Rate 16 Blood Pressure 143/52 H 136/62 Blood Pressure [Right Arm] 136/62 Blood Pressure Mean [Right Arm] 86 Blood Pressure Source [Right Arm] Automatic Cuff Blood Pressure Position [Right Arm] Supine 02 Sat by Pulse Oximetry 95 95 92 L Oxygen Delivery Method Room Air Room Air Room Air 05/01/25 06:30 05/01/25 06:45 05/01/25 07:01 Temperature Temperature Source Pulse Rate 92 H 82 Pulse Rate [Right Radial] Respiratory Rate 23 13 14 Blood Pressure 146/91 H 124/52 L Blood Pressure [Right Arm] Blood Pressure Mean [Right Arm] Blood Pressure Source [Right Arm] Blood Pressure Position [Right Arm] 02 Sat by Pulse Oximetry 96 97 96 Oxygen Delivery Method 05/01/25 07:30 Temperature Temperature Source Pulse Rate 99 H Pulse Rate [Right Radial] Respiratory Rate 23 Blood Pressure 134/52 L Blood Pressure [Right Arm] Blood Pressure Mean [Right Arm] Blood Pressure Source [Right Arm] Blood Pressure Position [Right Arm] 02 Sat by Pulse Oximetry 95 Oxygen Delivery Method Room Air Lab Data Labs: Lab Results 05/01/25 06:12: Chlamy pneumoniae PCR Not detected, Adenovirus (PCR) Not detected, B. pertussis DNA (PCR) Not detected, Coronavirus OC43 (PCR) Not detected, Coronavirus HKU1 (PCR) Not detected, Coronavirus 229E (PCR) Not detected, SARS-CoV-2 (PCR) Not detected, Coronavirus NL63 (PCR) Not detected, Human Metapneumovir PCR Not detected, Influenza A (H1) PCR Not detected, Influ A (H1N1/09) PCR Not detected, Influenza A (H3) PCR Not detected, Influenza Type A (PCR) Not detected, Influenza Type B (PCR) Not detected, M. pneumoniae (PCR) Not detected, Parainfluenza 1 (PCR) Not detected, Parainfluenza 2 (PCR) Not detected, Parainfluenza 3 (PCR) Not detected, Parainfluenza 4 (PCR) Not detected, RSV (PCR) Not detected, Entero/Rhino (PCR) Detected A 05/01/25 06:15: WBC 14.4 H, RBC 3.91 L, Hgb 12.2, Hct 37.0, MCV 94.6, MCH 31.2, MCHC 33.0, RDW 12.3, Plt Count 272, MPV 9.4, Neut % (Auto) 77.4, Lymph % (Auto) 10.3, [place] % (Auto) 10.7 H, Eos % (Auto) 0.7, Baso % (Auto) 0.5, Neut # (Auto) 11.2 H, Lymph # (Auto) 1.5, [place] # (Auto) 1.5 H, Eos # (Auto) 0.1, Baso # (Auto) 0.1, PT 30.5 H, INR 2.98 H, D-Dimer 0.32, VBG pH 7.40, VBG pCO2 45.4, VBG pO2 35.6, VBG HCO3 27.7, VBG Total CO2 29.1 H, VBG O2 Saturation 69.7, VBG Base Excess 2.9 H, VBG Lactic Acid 1.6, Sodium 131 L, Potassium 3.9, Chloride 94 L, Carbon Dioxide 27, Anion Gap 13.9, BUN 11, Creatinine 1.20 H, Estimated Creat Clear 50, Estimated GFR 43 L, Est GFR ( Amer) 52 L, Glucose 132 H, Calcium 8.9, Total Bilirubin 1.0, AST 28, ALT 9 L, Alkaline Phosphatase 64, Troponin I 0.02, Total Protein 6.8, Albumin 4.0, Globulin 2.8, Albumin/Globulin Ratio 1.4 05/01/25 06:15 05/01/25 06:15 Response Orders (Tests/Meds): ED MEDICATIONS Generic Name Dose Route Start Last Admin Trade Name Freq PRN Reason Stop Dose Admin Lactated Ringer's 500 mls @ 250 mls/hr 05/01/25 07:41 05/01/25 07:55 Lactated Ringer's 500ml IV 05/01/25 09:40 250 mls/hr .Q2H ONE Administration Discontinued Medications Generic Name Dose Route Start Last Admin Trade Name Freq PRN Reason Stop Dose Admin Albuterol Sulfate 20 mg 05/01/25 07:48 05/01/25 08:07 Albuterol 0.083% 2.5 Mg/3 Ml Formerly [facility] 05/01/25 07:49 20 mg ONCE ONE Administration Albuterol/Ipratropium 9 ml 05/01/25 06:08 05/01/25 06:18 Ipratropium/Albuterol 3 Ml Formerly [facility] 05/01/25 06:09 9 ml ONCE ONE Administration Magnesium Sulfate 2 gm in 50 mls @ 50 mls/hr 05/01/25 07:05 05/01/25 08:06 Magnesium Sulfate 2gm/50ml Premix IV 05/01/25 08:04 Infused ONCE ONE Infusion Methylprednisolone Sodium Succinate 125 mg 05/01/25 06:08 05/01/25 06:17 Methylprednisolone Sod Succ 125mg Vial IV 05/01/25 06:09 125 mg ONCE ONE Administration ORDERS Category Date Time Status CXR 2 view (NOT portable) [XR chest 2V] Stat Exams 05/01/25 06:08 Taken BNP [NT Pro Brain Natriuretic Pep.] Stat Lab 05/01/25 06:15 Received CBC w/Auto Diff [Complete Blood Count Auto Diff] Stat Lab 05/01/25 06:15 Completed CMP [Comprehensive Metabolic Panel] Stat Lab 05/01/25 06:15 Completed D-Dimer Stat Lab 05/01/25 06:15 Completed Full Resp Panel w/COVID ([facility]) Routine Lab 05/01/25 06:12 Completed PT INR [Prothrombin Time INR] Stat Lab 05/01/25 06:15 Completed Trop I [Troponin I] Stat Lab 05/01/25 06:15 Completed Troponin I Q3H Lab 05/01/25 09:15 Ordered Troponin I Q3H Lab 05/01/25 12:15 Ordered VBG [Venous Blood Gas] Stat RT 05/01/25 06:15 Completed 12-lead EKG Request [ECG Request] Stat Y 05/01/25 06:16 Ordered MDM Narrative Medical Decision Narrative: In summary, this 79-year-old female with comorbidities described in the HPI presents to the emergency department today with shortness of breath and cough. On initial evaluation patient is hemodynamically stable, afebrile, only saturating 92% on room air on arrival with significant adventitious sounds throughout both lungs worse at the bases with rhonchi, rales, and wheezing. She is not in acute respiratory distress but is ill-appearing, no peripheral edema, no calf tenderness, remainder of exam benign. Differential diagnosis includes but is not limited to viral syndrome, asthma exacerbation, hypercarbia, pneumonia, also considered the possibility of ACS, PE, volume overload. Based on these concerns, I ordered hematologic and serum labs, chest x-ray, viral swab, VBG. ECG personally interpreted demonstrates paced rhythm, rate 86, normal QTc, no STEMI. Patient received DuoNebs and Solu-Medrol initially for treatment. Labs personally reviewed demonstrate leukocytosis WBC 14.4, no anemia, normal platelets, VBG with normal pH, no hypercarbia, additional labs pending at the time of physician handoff. Chest x-ray personally interpreted demonstrates abnormality in the right lower lobe however this is consistent with chest x-ray from October of this year, may represent atelectasis, chronic disease, but cannot rule out new infiltrate. See radiology read for final interpretation which is pending at this time. Patient is actively receiving her DuoNebs and reports having slight relief. Additional labs and radiology read pending at time of physician handoff. Patient handed off to Dr. Worrell in stable condition. <Vicente Worrell MD - Last Filed: 05/01/25 08:26> Vital Signs Vital Signs: 05/01/25 05:58 05/01/25 06:00 05/01/25 06:04 Temperature 98.4 F Temperature Source Oral Pulse Rate 88 98 H Pulse Rate [Right Radial] 91 H Respiratory Rate 16 Blood Pressure 143/52 H 136/62 Blood Pressure [Right Arm] 136/62 Blood Pressure Mean [Right Arm] 86 Blood Pressure Source [Right Arm] Automatic Cuff Blood Pressure Position [Right Arm] Supine 02 Sat by Pulse Oximetry 95 95 92 L Oxygen Delivery Method Room Air Room Air Room Air 05/01/25 06:30 05/01/25 06:45 05/01/25 07:01 Temperature Temperature Source Pulse Rate 92 H 82 Pulse Rate [Right Radial] Respiratory Rate 23 13 14 Blood Pressure 146/91 H 124/52 L Blood Pressure [Right Arm] Blood Pressure Mean [Right Arm] Blood Pressure Source [Right Arm] Blood Pressure Position [Right Arm] 02 Sat by Pulse Oximetry 96 97 96 Oxygen Delivery Method 05/01/25 07:30 Temperature Temperature Source Pulse Rate 99 H Pulse Rate [Right Radial] Respiratory Rate 23 Blood Pressure 134/52 L Blood Pressure [Right Arm] Blood Pressure Mean [Right Arm] Blood Pressure Source [Right Arm] Blood Pressure Position [Right Arm] 02 Sat by Pulse Oximetry 95 Oxygen Delivery Method Room Air Lab Data Labs: Lab Results 05/01/25 06:12: Chlamy pneumoniae PCR Not detected, Adenovirus (PCR) Not detected, B. pertussis DNA (PCR) Not detected, Coronavirus OC43 (PCR) Not detected, Coronavirus HKU1 (PCR) Not detected, Coronavirus 229E (PCR) Not detected, SARS-CoV-2 (PCR) Not detected, Coronavirus NL63 (PCR) Not detected, Human Metapneumovir PCR Not detected, Influenza A (H1) PCR Not detected, Influ A (H1N1/09) PCR Not detected, Influenza A (H3) PCR Not detected, Influenza Type A (PCR) Not detected, Influenza Type B (PCR) Not detected, M. pneumoniae (PCR) Not detected, Parainfluenza 1 (PCR) Not detected, Parainfluenza 2 (PCR) Not detected, Parainfluenza 3 (PCR) Not detected, Parainfluenza 4 (PCR) Not detected, RSV (PCR) Not detected, Entero/Rhino (PCR) Detected A 05/01/25 06:15: WBC 14.4 H, RBC 3.91 L, Hgb 12.2, Hct 37.0, MCV 94.6, MCH 31.2, MCHC 33.0, RDW 12.3, Plt Count 272, MPV 9.4, Neut % (Auto) 77.4, Lymph % (Auto) 10.3, [place] % (Auto) 10.7 H, Eos % (Auto) 0.7, Baso % (Auto) 0.5, Neut # (Auto) 11.2 H, Lymph # (Auto) 1.5, [place] # (Auto) 1.5 H, Eos # (Auto) 0.1, Baso # (Auto) 0.1, PT 30.5 H, INR 2.98 H, D-Dimer 0.32, VBG pH 7.40, VBG pCO2 45.4, VBG pO2 35.6, VBG HCO3 27.7, VBG Total CO2 29.1 H, VBG O2 Saturation 69.7, VBG Base Excess 2.9 H, VBG Lactic Acid 1.6, Sodium 131 L, Potassium 3.9, Chloride 94 L, Carbon Dioxide 27, Anion Gap 13.9, BUN 11, Creatinine 1.20 H, Estimated Creat Clear 50, Estimated GFR 43 L, Est GFR ( Amer) 52 L, Glucose 132 H, Calcium 8.9, Total Bilirubin 1.0, AST 28, ALT 9 L, Alkaline Phosphatase 64, Troponin I 0.02, Total Protein 6.8, Albumin 4.0, Globulin 2.8, Albumin/Globulin Ratio 1.4 Response Orders (Tests/Meds): ED MEDICATIONS Generic Name Dose Route Start Last Admin Trade Name Freq PRN Reason Stop Dose Admin Lactated Ringer's 500 mls @ 250 mls/hr 05/01/25 07:41 05/01/25 07:55 Lactated Ringer's 500ml IV 05/01/25 09:40 250 mls/hr .Q2H ONE Administration Discontinued Medications Generic Name Dose Route Start Last Admin Trade Name Freq PRN Reason Stop Dose Admin Albuterol Sulfate 20 mg 05/01/25 07:48 05/01/25 08:07 Albuterol 0.083% 2.5 Mg/3 Ml Formerly [facility] 05/01/25 07:49 20 mg ONCE ONE Administration Albuterol/Ipratropium 9 ml 05/01/25 06:08 05/01/25 06:18 Ipratropium/Albuterol 3 Ml Formerly [facility] 05/01/25 06:09 9 ml ONCE ONE Administration Magnesium Sulfate 2 gm in 50 mls @ 50 mls/hr 05/01/25 07:05 05/01/25 08:06 Magnesium Sulfate 2gm/50ml Premix IV 05/01/25 08:04 Infused ONCE ONE Infusion Methylprednisolone Sodium Succinate 125 mg 05/01/25 06:08 05/01/25 06:17 Methylprednisolone Sod Succ 125mg Vial IV 05/01/25 06:09 125 mg ONCE ONE Administration ORDERS Category Date Time Status CXR 2 view (NOT portable) [XR chest 2V] Stat Exams 05/01/25 06:08 Taken BNP [NT Pro Brain Natriuretic Pep.] Stat Lab 05/01/25 06:15 Received CBC w/Auto Diff [Complete Blood Count Auto Diff] Stat Lab 05/01/25 06:15 Completed CMP [Comprehensive Metabolic Panel] Stat Lab 05/01/25 06:15 Completed D-Dimer Stat Lab 05/01/25 06:15 Completed Full Resp Panel w/COVID ([facility]) Routine Lab 05/01/25 06:12 Completed PT INR [Prothrombin Time INR] Stat Lab 05/01/25 06:15 Completed Trop I [Troponin I] Stat Lab 05/01/25 06:15 Completed Troponin I Q3H Lab 05/01/25 09:15 Ordered Troponin I Q3H Lab 05/01/25 12:15 Ordered VBG [Venous Blood Gas] Stat RT 05/01/25 06:15 Completed 12-lead EKG Request [ECG Request] Stat Y 05/01/25 06:16 Ordered MDM Narrative Medical Decision Narrative: In summary, this 79-year-old female with comorbidities described in the HPI presents to the emergency department today with shortness of breath and cough. On initial evaluation patient is hemodynamically stable, afebrile, only saturating 92% on room air on arrival with significant adventitious sounds throughout both lungs worse at the bases with rhonchi, rales, and wheezing. She is not in acute respiratory distress but is ill-appearing, no peripheral edema, no calf tenderness, remainder of exam benign. Differential diagnosis includes but is not limited to viral syndrome, asthma exacerbation, hypercarbia, pneumonia, also considered the possibility of ACS, PE, volume overload. Based on these concerns, I ordered hematologic and serum labs, chest x-ray, viral swab, VBG. ECG personally interpreted demonstrates paced rhythm, rate 86, normal QTc, no STEMI. Patient received DuoNebs and Solu-Medrol initially for treatment. Labs personally reviewed demonstrate leukocytosis WBC 14.4, no anemia, normal platelets, VBG with normal pH, no hypercarbia, additional labs pending at the time of physician handoff. Chest x-ray personally interpreted demonstrates abnormality in the right lower lobe however this is consistent with chest x-ray from October of this year, may represent atelectasis, chronic disease, but cannot rule out new infiltrate. See radiology read for final interpretation which is pending at this time. Patient is actively receiving her DuoNebs and reports having slight relief. Additional labs and radiology read pending at time of physician handoff. Patient handed off to Dr. Worrell in stable condition. Vicente Worrell: Upon assumption of care patient is hemodynamically stable receiving DuoNeb at bedside. Chest x-ray informally interpreted by me there is persistent opacity in the right lower lobe which is the same compared to previous x-ray no dynamic changes. Upon repeat evaluation patient is wheezing but is moving air, patient has a leukocytosis was previously tachypneic is not tachypneic currently will administer continuous albuterol. Full sepsis bolus fluids were considered but will be deferred and judicious fluids will be administered with 500 cc crystalloid bolus. Viral swab positive for rhinovirus. Upon repeat evaluation patient had significant improvement of wheezing to scant wheezing bilaterally good air movement no tachypnea. Shared decision making discussion was had and patient wishes to pursue outpatient treatment at this time. I think this is reasonable. Patient has nebulizer supplies at home we discharged with a course of steroids was given multiple return precautions and verbalized understanding will follow-up with either PCP or Dr. Barrett at some point this week to ensure things are headed in the right direction.
[2025-05-01 06:15] LABS: Adenovirus,PCR Not Detected (NotDetected); Chlamydophila Pneumoniae, PCR Not Detected (NotDetected); Coronavirus 19, PCR Not Detected (NotDetected); Coronovirus HKU1,PCR Not Detected (NotDetected); Influenza A, PCR Not Detected (NotDetected); Influenza AH1, 2009 Not Detected (NotDetected); Influenza AH1, PCR Not Detected (NotDetected); Influenza AH3,PCR Not Detected (NotDetected); Influenza B, PCR Not Detected (NotDetected); Mycoplasma Pneumoniae, PCR Not Detected (NotDetected); Parainfluenza 1, PCR Not Detected (NotDetected); Parainfluenza 2, PCR Not Detected (NotDetected); Parainfluenza 3, PCR Not Detected (NotDetected); Parainfluenza 4, PCR Not Detected (NotDetected)
[2025-05-01] MEDS: METHYLPREDNISOLONE SOD SUCC 125MG VIAL 125 MG IV (06:17)
[2025-05-01] MEDS: IPRATROPIUM/ALBUTEROL 3 ML NEB 9 ML IH (06:18)
--- NOTE | 2025-05-01 06:20 | PC.NURSE ---
pt to xray via wheelchair
--- OUTSIDE RECORDS SUMMARY | 2025-05-01 06:26 | XMS_ITS | Clinical Summary ---
[facility] Address [address] [place] [address] Care Team Providers Care Information Strategist Name Role Phone Zoran Pendleton MD Primary Care Provider [phone] Allergies Active Allergy Reactions Criticality Noted Date Comments Sulfa Antibiotics GI Intolerance Low 02/06/2016 Ezetimibe-Simvastatin Myalgia Low 02/06/2016 Medications FLUoxetine (PROzac) 20 MG capsule 1 capsule Daily. 01/10/20 16 Active omeprazole (priLOSEC) 20 MG capsule Take 1 capsule by mouth Daily. 30 capsule 2 08/23/19 17 Active predniSONE (DELTASONE) 5 MG tablet Take 0.5 tablets by mouth Daily. 03/09/20 20 Active Breztri Aerosphere 160-9-4.8 MCG/ACT aerosol inhaler Daily As Needed. 03/05/20 22 Active ALPRAZolam (XANAX) 0.25 MG tablet 1 tablet Every Night. 04/22/20 24 Active hydroCHLOROthi azide (MICROZIDE) 12.5 MG capsule Take 1 capsule by mouth Every Morning. 90 capsule 12/16/19 25 Active losartan (COZAAR) 50 MG tablet TAKE 1 TABLET BY MOUTH DAILY 90 tablet 1 02/05/20 25 Active simvastatin (ZOCOR) 40 MG tablet TAKE 1 TABLET BY MOUTH EVERY NIGHT. 30 tablet 2 02/09/20 25 Active warfarin (COUMADIN) 5 MG tablet TAKE ONE-HALF (1/2) TO ONE (1) TABLET BY MOUTH DAILY OR DIRECTED BY ANTICOAGULATION CLINIC 50 tablet 03/17/20 25 Active Active Problems Problem Noted Date Diagnosed Date Elective replacement indicated for pacemaker 10/2019 Overview (09/13/2019): Added automatically from request for surgery [id number] Chronic atrial fibrillation 02/16/2018 Atrial fibrillation [I48.91] 01/16/2018 Right bundle branch block 10/29/2016 Chronic fatigue 10/29/2016 Arthritis 10/29/2016 Overview (10/29/2016): Refractory to methotrexate. 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 2006 EPS with failed ablation of atrial tachycardia with induction of atrial fibrillation. b. Tachy-mushtaq symptoms with pacemaker implantation 2012, [employer] per Dr. Baez. Encounters Date Type Department Care Team Description 04/25/2025 Anticoagulation Visit [facility] [address] [facility] [address] [place] [address] Darren Martin, Mortgage Operations Manager Chronic atrial fibrillation (Primary Dx) 04/06/[address] [facility] [address] [facility] [address] [place] [phone] Jaron Doyle MD Remote Device Check 03/24/2025 Anticoagulation Visit [facility] [address] [facility] [address] [place] [address] Darren Martin Mortgage Operations Manager Chronic atrial fibrillation (Primary Dx) 03/17/2025 Refill [facility] [address] [facility] [address] [place] [address] Jaron Doyle MD 02/23/2025 Anticoagulation Visit [facility] [address] [facility] [address] [place] [address] Brodie Webb, PharmD Chronic atrial fibrillation (Primary Dx) 02/08/[address] [facility] [address] [facility] [address] [place] [address] Jaron Doyle MD Med Refill 02/04/[address] [facility] [address] [facility] [address] [address] [place] [address] Jaron Doyle MD Med Refill 02/03/2025 Anticoagulation Visit [facility] [place] [address] Brodie Webb, PharmD Chronic atrial fibrillation (Primary Dx) from Last 3 Months Family History Medical History Relation Name Comments Heart disease Mother Relation Name Status Comments Father unknown heart i ssues Mother Social History Tobacco Use Types Packs/Day Years Used Date Smoking Tobacco: Never Passive Smoke Exposure: Past Smokeless Tobacco: Never Tobacco Cessation:Counseling Given: Not Answered Alcohol Use Standard Drinks/Week Comments No 0 (1 standard drink = 0.6 oz pur e alcohol) Comments No Sex and Gender Information Value Date Recorded Sex Assigned at Female 10/19/2024 2:18 PM EDT Legal Sex Female 11:51 AM EDT Gender Identity Not on file Sexual Orientation Straight 10/19/2024 2: 18 PM EDT Last Filed Vital Signs Vital Sign Reading Time Taken Comments Blood Pressure 128/64 10/21/2024 2:25 PM EDT Pulse 93 10/21/2024 2:25 PM EDT Temperature 36.9 C (98.4 F) 09/20/2019 11:20 AM EST Respiratory Rate 14 09/20/2019 2:27 PM EST Oxygen Saturation 99% 10/21/2024 2:25 PM EDT Inhaled Oxygen Concentration - - Weight 83.9 kg (185 lb) 10/21/2024 2:25 PM EDT Height 165.1 cm (5' 5 ) 10/21/2024 2:25 PM EDT Body Mass Index 30.79 10/21/2024 2:25 PM EDT Plan of Treatment Upcoming Encounters Date Type Department Care Team (Late st Contact Info) Description 05/05/2025 9:30 AM EDT Office Visit [facility] [address] [facility] [address] [address] [place] [address] Jaron Doyle MD [address] [place] [address] Health Maintenance Due Date Last Done Comments DXA SCAN 1944 COLOGUARD 1989 COLON CANCER SCREENING 5 YEA R SIGMOIDOSCOPY 1989 COLONOSCOPY 1989 COL[address]ECTAL CANCER SCREENING 1989 CT COLONOGRAPHY 1989 FECAL OCCULT BLOOD TEST 1989 FIT Testing (1 year) 1989 ZOSTER VACCINE (1 of 2) 1994 TDAP/TD VACCINES (2 - Tdap) 10/13/2006 10/13/1996 ANNUAL WELLNESS VISIT 11/08/2016 RSV Vaccine - Adults (1 - 1- dose 75+ series) 10/24/2019 Pneumococcal Vaccine 50+ (2 of 2 - PCV) 11/05/2022 11/05/2021 INFLUENZA VACCINE 03/11/2025 COVID-19 Vaccine ( - season) 2025 07/31/2021, 12/08/2020, 11/07/2020 LIPID PANEL 10/21/2025 10/21/2024 Medical Devices Implanted Type Area Base Loader Device Identifier Shelf Expiration Date Model / Serial / Lot Gen Pm Advisa Surescan Dr Mccord - [id number] - [id number] Implanted:Qty: 1 on 09/20/2019 by Bobby Stephens MD at [facility] Pacemaker [employer] 10/22/2020 [id number] / [id number] / Procedures Procedure Name Priority Date/Time Associated Diagnosis Comments SCANNED - LABS 04/25/2025 PROTIME-INR Routine 04/25/2025 REMOTE DEVICE CHECK 04/06/2025 5 :45 PM EDT SCANNED - LABS 03/24/2025 PROTIME-INR Routine 03/24/2025 PROTIME-INR Routine 02/23/2025 PROTIME-INR Routine 02/03/2025 LIPID PANEL Routine 10/21/2024 3:40 PM EDT CAD, multiple vessel from Last 3 Months or Most Recently Relevant to Health Maintenance Results * LABS SCANNED (04/25/2025) Only the most recent of2 resultswithin the time period is included. [facility] Onbase LAB BLOOD ORDERABLES Final Re sult * Protime-INR (04/25/2025) Only the most recent of4 resultswithin the time period is included. INR 2.60 Blood 04/25/2025 [facility] Provider LAB BLOOD ORDERABLES Maite l Result * Remote Device Check (04/06/2025 5:45 PM EDT) Date Time Interrogation Session [id number] [facility] Type Interrogation Session Remote [facility] Implantable Pulse Generator Base Loader Medtronic [facility] Implantable Pulse Generator Type IPG [facility] Implantable Pulse Generator Model Advisa DR MCCORD [id number] [facility] Implantable Pulse Generator Serial Number [id number] [facility] Implantable Pulse Generator Implant Date [id number] [facility] Battery Remaining Longevity 43.0 mo [facility] Battery Voltage 2.970 [facility] Battery [employer] Trigger 2.830 [facility] Battery Status OK [facility] Mushtaq Statistic RA Percent Paced 62.32 [facility] Mushtaq Statistic RV Percent Paced 94.99 [facility] Atrial Tachy Statistic AT/AF [place] Percent 0.00 [facility] Lead Channel RA Sensing Intrinsic Amplitude 1.875 [facility] Lead Channel Setting RA Sensing Sensitivity 0.30 [facility] Lead Channel RA Impedance Value 380 [facility] [email or web address] [facility] Lead Channel RA Pacing Threshold Amplitude 0.250 [facility] Lead Channel RA Pacing Threshold Pulse Width 0.4 [facility] [email or web address] [facility] Lead Channel RA Measurements Date and Time [id number] [facility] Lead Channel Setting RA Pacing Amplitude 1.500 [facility] Lead Channel Setting RA Pacing Pulse Width 0.4 [facility] [email or web address] [facility] Lead Channel RV Sensing Intrinsic Amplitude 11.125 [facility] Lead Channel Setting RV Sensing Sensitivity 0.90 [facility] Lead Channel RV Impedance Value 456 [facility] Lead Channel RV Pacing Threshold Amplitude 0.625 [facility] Lead Channel RV Pacing Threshold Pulse Width 0.4 [facility] Lead Channel RV Measurements Date and Time [id number] [facility] Lead Channel Setting RV Pacing Amplitude 2.000 [facility] Lead Channel Setting RV Pacing Pulse Width 0.4 [facility] Mushtaq Setting Mode (NBG Code) DDDR [facility] Mushtaq Setting Lower Rate Limit 70 [facility] Mushtaq Setting AT Mode Switch Rate 171 [facility] Mushtaq Setting Maximum Tracking Rate 100 [facility] Mushtaq Setting Maximum Sensor Rate 130 [facility] Mushtaq Setting PAV Delay 150 [facility] Mushtaq Setting JARRETT Delay 120 [facility] Lead Channel Setting RA Sensing Polarity Bipolar [facility] Lead Channel Setting RV Sensing Polarity Bipolar [facility] Lead Channel Setting RA Pacing Polarity Bipolar [facility] Lead Channel Setting RV Pacing Polarity Bipolar [facility] Lead Channel RA Pacing Threshold Polarity Bipolar [facility] Lead Channel RV Pacing Threshold Polarity Bipolar [facility] Zone Setting Type Category AT/AF [facility] IDC RATE 1 171 [facility] THERAPIES All Rx On [facility] Zone Setting Status Monitor [facility] Zone ID 2 [facility] Zone Setting Type Category VT [facility] IDC RATE 1 150 [facility] Zone Setting Status ENABLED [facility] Zone ID 6 [facility] 04/06/2025 5:45 PM EDT us Jaron Doyle MD CV IMPLANTABLE CARDIAC DEVICE Final Result [facility] * (ABNORMAL) Lipid Panel (10/21/2024 3:40 PM EDT) Total Cholesterol 201(H) 100 - 199 mg/dL [facility] Triglycerides 70 0 - 149 mg/dL [facility] HDL Cholesterol 90 >39 mg/dL [facility] VLDL Cholesterol Claude 13 5 - 40 mg/dL [facility] LDL Chol Calc (NIH) 98 0 - 99 mg/dL [facility] Blood 10/21/2024 3:40 PM EDT 10/21/2024 Narrative [facility] ([facility]) - 10/22/2024 6:09 AM EDT Performed at: - [facility] [address] [place] [address] [id number] [employer]inery Supervisor: Mekhi Kimbrough PhD, Phone: [phone] Patient Fasting: Y us Jaron Doyle MD LAB BLOOD ORDERABLES Final Res ult [facility] [address] [place] [address], [place] [phone] [facility] [address] [place] [id number], from Last 3 Months or Most Recently Relevant to Health Maintenance Insurance MEDICARE ADVANTAGE PPO Advance Directives Documents on File Type Date Recorded Patient Patch Worker Expl anation LIVING WILL - SCAN 09/20/2019 10:43 AM leanna ing will Care Teams Information Strategist Relationship Specialty Start Date End Date Zoran Pendleton MD [address] [place] [id number] PCP - General 12/21/15
--- OUTSIDE RECORDS SUMMARY | 2025-05-01 06:26 | XMS_ITS | Encounter Summary ---
Author Organization [facility] Address [address] [place] [address] Care Team Providers Care Personnel Manager Name Role Phone Zoran Pendleton MD Primary Care Provider [phone] Reason for Visit * Reason Onset Date Comments Remote Device Check 04/06/2025 Encounter Details Date Type Department Care Team (Late st Contact Info) Description 04/06/2025 Telephone [facility] [address] [address] Jaron Doyle MD [address] [facility] [address] [facility] [address] [place] [address] Remote Device Check Social History Tobacco Use Types Packs/Day Years Used Date Smoking Tobacco: Never Passive Smoke Exposure: Past Smokeless Tobacco: Never Alcohol Use Standard Drinks/Week Comments No 0 (1 standard drink = 0.6 oz pur e alcohol) Comments No Sex and Gender Information Value Date Recorded Sex Assigned at Female 10/19/2024 2:18 PM EDT Legal Sex Female 11:51 AM EDT Gender Identity Not on file Sexual Orientation Straight 10/19/2024 2: 18 PM EDT documented as of this encounter Miscellaneous Notes * Telephone Encounter - Martha Florian - 04/06/2025 11:36 AM EDT Spoke with daughter. Reminded her that her mother's pacemaker reading is due. documented in this encounter Plan of Treatment Upcoming Encounters Date Type Department Care Team (Late st Contact Info) Description 05/05/2025 9:30 AM EDT Office Visit [facility] [address] [place] [address] [place] [address] Jaron Doyle MD [address] [facility] [address] [place] [address] documented as of this encounter Visit Diagnoses Not on filedocumented in this encounter Care Teams Personnel Manager Relationship Specialty Start Date End Date Zoran Pendleton MD [address] [place] [address] PCP - General 07/31/15 documented as of this encounter
--- OUTSIDE RECORDS SUMMARY | 2025-05-01 06:26 | XMS_ITS | Encounter Summary ---
Author Organization [facility] Address [address] [place] [address] Care Team Providers Care Cyber Operator Name Role Phone Zoran Pendleton MD Primary Care Provider [phone] Reason for Visit * Reason Comments Med Refill Encounter Details Date Type Department Care Team (Late st Contact Info) Description 03/17/2025 Refill [facility] [address] [facility] [address] [place] [phone] Jaron Doyle MD [address] [facility] [address] [place] [address] Social History Tobacco Use Types Packs/Day Years [...] encounter Miscellaneous Notes * Telephone Encounter - Renetta Mariee PharmD - 03/17/2025 1:29 PM EDT Warfarin rx refilled per protocol Called in Rx Renetta Mariee PharmD 03/17/2025 13:30 EDT documented in this encounter Plan of Treatment Upcoming Encounters Date Type Department Care Team (Late st Contact Info) Description 05/05/2025 9:30 AM EDT Office Visit [facility] [address] [place] [address] [place] [address] Jaron Doyle MD [address] [facility] [address] [address] documented as of this encounter Visit Diagnoses Not on filedocumented in this encounter Care Teams Cyber Operator Relationship Specialty Start Date End Date Zoran Pendleton MD [address] [place] [address] PCP - General 07/31/15 documented as of this encounter
--- OUTSIDE RECORDS SUMMARY | 2025-05-01 06:26 | XMS_ITS | Encounter Summary ---
[facility] [address] [place] [address] Care Team Providers Care Motorcycle Mechanic Apprentice Name Role Phone Zoran Pendleton MD Primary Care Provider Encounter Details Date Type Department Care Team (Latest Contact Info) Description 03/24/2025 Anticoagulation Visit [facility] [address] [place] [phone] Darren Martin Mash Tub Cooker Chronic atrial fibrillation (Primary Dx) Social History Tobacco Use Types Packs/Day Years [...] PM EDT documented as of this encounter Progress Notes * Darren Martin, Mash Tub Cooker - 03/24/2025 1:14 PM EDT [facility] Progress Note Patient Demographics Method of INR reporting: REMOTE LAB Estimated OOP Cost: Indication: Chronic Atrial Fibrillation Referring Provider Remi Silveira IV PA-C/ Jaron Doyle MD Reason patient is not on a DOAC: Goal INR: 2-3 Warfarin Start Date Reason patient is not on home monitor: [id number]: HTN (1), Age >74 (2), and Female (1) 4: 4.0% Planned Duration of Therapy Lifelong Relevant medical history: Bleed Risk/History: No history of bleed Tablets Strength: 5 mg (peach) Anticoagulation Clinic INR History Date 12/30 01/13 02/09 03/08 04/08 04/26 05/18 05/26 06/01 06/08 06/15 06/22 06/29 Total WeeklyDose 25 mg 25 mg 25 mg 25 mg 25 mg 25 mg 25 mg 22.5 mg 17.5 mg 22.5 mg 25mg 22.5 mg 22.5 mg INR 1.9 2.3 2.4 2.5 2.5 2.91 3.4 3.8 2.9 1.9 2.2 2.0 2.6 Notes 1xRED Azith Date 07/0608/12/2409/07 Total WeeklyDose 22.5 mg 22.5 mg 22.5 mg 22.5 mg 22.5 mg 22.5 mg 22.5 mg 22.5 mg 22.5 mg 25 mg 22.5mg 10 mg 22.5 mg INR 2.0 2.3 2.4 1.8 2.10 2.8 2.5 1.7 1.6 2.9 > 8 1.7 2.0 Notes Rec /3 COVID Pneumonia levofloxacin Pred Date 01/05 01/12 02/03 02/23 03/24 Total Weekly Dose 22.5 mg 22.5 mg 22.5 mg 22.5 mg 22.5 mg INR 2.7 2.5 2.8 2.6 1.9 Notes Patient Contact Information Verbal release: Not obtained Preferred contact number: Alternative contact number(s): [phone] (Kait) Patient Appropriate for WarfNoCall ? No Preferred contact name: Sommer Lorenzo Alternative contact name(s): Kait Bo (Daughter) Preferred contact relation: Self Lab contact information (if applicable): CONY Pendleton [facility] Subjective Findings Drug Interactions Dietary Findings Historical: fluoxetine, simvastatin (increased risk of bleeding); omeprazole, prednisone 2.5 mg qd Historical GLV intake (09/18/22): Avoids New (including OTC): No GLV changes this encounter: No GLV Alcohol and Tobacco Historical: None New: None Patient Findings Positives: Bruising Negatives: Signs/symptoms of thrombosis, Signs/symptoms of bleeding, Laboratory test error suspected, Change in health, Change in alcohol use, Change in activity, Upcoming invasive procedure, Emergency department visit, Upcoming dental procedure, Missed doses, Extra doses, Change in medications, Change in diet/appetite, Hospital admission, Other complaints Comments: Patient mentions bruising of various sizes from bumping into things. No GLV this past week. All other findings negative per patient. Assessment and Plan: INR is slightly sub therapeutic at 1.9 (goal 2.0-3.0). Result reported verbally from POCT at Dr Pendleton's office. Per Brodie Webb PharmD Instructed patient to continue maintenance regimen of warfarin2.5 mg daily except 5 mg Mon/Fri until recheck. Awaiting fax result. Recheck INR in 4 weeks, 04/21. Verbal and written information provided. Kait Bo expresses understanding by teach back and has no further questions at this time. Darren Martin [facility] 03/24/2025 13:27 EDT I, Bhavana Castillo, PharmD, have reviewed the note in full and agree with the assessment and plan. 03/24/25 14:23 EDT documented in this encounter Plan of Treatment Upcoming Encounters Date Type Department Care Team (Late st Contact Info) Description 05/05/2025 9:30 AM EDT Office Visit [facility] [address] [place] [address] [address] Jaron Doyle MD [address] [facility] [address] [place] [address] documented as of this encounter Procedures Procedure Name Priority Date/Time Associated Diagnosis Comments SCANNED - LABS 03/24/2025 PROTIME-INR Routine 03/24/2025 documented in this encounter Results * LABS SCANNED (03/24/2025) [facility] Onbase LAB BLOOD ORDERABLES Final Re sult * Protime-INR (03/24/2025) INR 1.90 Blood 03/24/2025 Historical Provider LAB BLOOD ORDERABLES Maite l Result documented in this encounter Visit Diagnoses Diagnosis Chronic atrial fibrillation- Primary Atrial fibrillation documented in this encounter Care Teams Motorcycle Mechanic Apprentice Relationship Specialty Start Date End Date Zoran Pendleton MD [address] [place] [address] PCP - General 07/31/15 documented as of this encounter
--- OUTSIDE RECORDS SUMMARY | 2025-05-01 06:26 | XMS_ITS | Clinical Summary ---
Author Organization Healthcare Address [address] [place] [address] Care Team Providers Care Control Room Helper Name Role Phone Zoran Pendleton MD Primary Care Provider [phone] Social History Tobacco Use Types Packs/Day Years Used Date Smoking Tobacco: Never Assessed Comments Unknown Sex and Gender Information Value Date Recorded Sex Assigned at Not on file Legal Sex Female 6:17 PM EDT Gender Identity Not on file Sexual Orientation Not on file Last Filed Vital Signs Vital Sign Reading Time Taken Comments Blood Pressure 145/67 02/18/2023 2:38 PM EDT Pulse 88 02/18/2023 2:38 PM EDT Temperature - - Respiratory Rate - - Oxygen Saturation - - Inhaled Oxygen Concentration - - Weight 82.1 kg (181 lb) 02/18/2023 2:38 PM EDT Height 165.1 cm (5' 5 ) 02/18/2023 2:38 PM EDT Body Mass Index 30.12 02/18/2023 2:38 PM EDT Plan of Treatment Health Maintenance Due Date Last Done Comments [facility]-Bone Density Scan 1944 [facility]-Depression Screening 1944 [facility]-Medicare Annual Wellness (AWV) 1944 [facility]-/Child/Adol SDOH Screenings 1944 [facility]-Obesity Intervention 1950 [facility]- SDOH Screenings 1962 [facility]-Adult SDOH Screenings 1962 [facility]-Zoster Vaccines (1 of 2) 1994 [facility]-DTaP,Tdap,and Td Vaccine s (1 - Tdap) 10/14/1996 10/13/1996 [facility]-RSV Vaccine: 60+ Years o r (1 - 1-dose 75+ series) 10/24/2019 [facility]-Pneumococcal Vaccine: 50 + Years (2 of 2 - PCV) 11/05/2022 11/05/2021 [id number] Vaccine (4 - 2024- season) 2025 07/31/2021, 12/08/2020, 11/07/2020 [facility]-Influenza Vaccine (#1) 2025 HPV Vaccines Aged Out No longer eligi ble based on patient's age to complete this topic [facility]-HIB Vaccines Aged Out No longer e ligible based on patient's age to complete this topic [facility]-Hepatitis A Vaccines Aged Out No longer eligible based on patient's age to complete this topic [facility]-IPV Vaccines Aged Out No longer e ligible based on patient's age to complete this topic [facility]-Rotavirus Vaccines Aged Out No lo nger eligible based on patient's age to complete this topic Insurance [facility] MEDICARE Care Teams Control Room Helper Relationship Specialty Start Date End Date Zoran Pendleton MD [address] [place] [address] [address] [place] [address] PCP - General 12/22/20
--- OUTSIDE RECORDS SUMMARY | 2025-05-01 06:26 | XMS_ITS | Encounter Summary ---
[facility] Address [address] [place] [address] Care Team Providers Care Computer Project Manager Name Role Phone Zoran Pendleton MD Primary Care Provider [phone] Encounter Details Date Type Department Care Team (Latest Contact Info) Description 04/25/2025 Anticoagulation Visit [facility] [address] [place] [phone] Darren Martin Fuel Cell Designer Chronic atrial fibrillation (Primary Dx) Social History [...] this encounter Progress Notes * Darren Martin, Fuel Cell Designer - 04/25/2025 2:22 PM EDT [facility] Progress Note Patient Demographics Method of INR reporting: REMOTE LAB Estimated OOP Cost: Indication: Chronic Atrial Fibrillation Referring Provider Remi Silveira IV PA-C/ Jaron Doyle MD Reason patient is not on a DOAC: Goal INR: 2-3 Warfarin Start Date Reason patient is not on home monitor: [id number]: HTN (1), Age >74 (2), and Female [...] Pred Date 01/05 01/12 02/03 02/23 03/24 04/25 Total Weekly Dose 22.5 mg 22.5 mg 22.5 mg 22.5 mg 22.5 mg 22.5 mg INR 2.7 2.5 2.8 2.6 1.9 2.6 Notes Patient Contact Information Verbal release: Not obtained Preferred contact number: Alternative contact number(s): [phone] (Kait) Patient Appropriate for WarfNoCall ? No Preferred contact name: Sommer Lorenzo Alternative contact name(s): Kait Bo (Daughter) Preferred contact relation: Self Lab contact information (if applicable): CONY Pendleton [facility] Subjective Findings Drug Interactions Dietary Findings Historical: fluoxetine, simvastatin (increased risk of bleeding); omeprazole, prednisone 2.5 mg qd Historical GLV intake (09/18/22): Avoids New (including OTC): No GLV changes this encounter: No GLV Alcohol and Tobacco Historical: None New: None Patient Findings Negatives: Signs/symptoms of thrombosis, Signs/symptoms of bleeding, Laboratory test error suspected, Change in health, Change in alcohol use, Change in activity, Upcoming invasive procedure, Emergency department visit, Upcoming dental procedure, Missed doses, Extra doses, Change in medications, Change in diet/appetite, Hospital admission, Bruising, Other complaints Comments: All findings negative per patient. Assessment and Plan: INR is therapeutic at 2.6 (goal 2.0-3.0). Result reported verbally from POCT at Dr Pendleton's office.Instructed patient to continue maintenance regimen of warfarin 2.5 mg daily except 5 mg MonFri until recheck. Awaiting fax result. Recheck INR in 4 weeks, 05/23/25. Verbal and written information provided. Kait Bo expresses understanding by teach back and has no further questions at this time. Darren Martin [facility] 04/25/2025 14:27 EDT I, Breanne Dubois [facility], have reviewed the note in full and agree with the assessment and plan. 04/25/25 14:48 EDT documented in this encounter Plan of Treatment Upcoming Encounters Date Type Department Care Team (Late st Contact Info) Description 05/05/2025 9:30 AM EDT Office Visit [facility] [address] [place] [address] [place] [address] Jaron Doyle MD [address] [place] [address] documented as of this encounter Procedures Procedure Name Priority Date/Time Associated Diagnosis Comments SCANNED - LABS 04/25/2025 PROTIME-INR Routine 04/25/2025 documented in this encounter Results * LABS SCANNED (04/25/2025) [facility] LAB BLOOD ORDERABLES Final Re sult * Protime-INR (04/25/2025) INR 2.60 Blood 04/25/2025 [facility] Provider LAB BLOOD ORDERABLES Maite l Result documented in this encounter Visit Diagnoses Diagnosis Chronic atrial fibrillation- Primary Atrial fibrillation documented in this encounter Care Teams Computer Project Manager Relationship Specialty Start Date End Date Zoran Pendleton MD [address] [place] [address] PCP - General 07/31/15 documented as of this encounter
[2025-05-01 06:30] LABS: Lactate Venous 1.6 mmol/L (0.4-2.0); VBG HCO3 27.7 mmol/L (23-30); VBG PCO2 45.4 mmol/L (35-51); VBG PH 7.40 mmol/L (7.31-7.41); VBG PO2 35.6 mmol/L (28-40)
[2025-05-01 06:31] LABS: Hematocrit 37.0 % (37.0-47.0); Hemoglobin 12.2 g/dL (12.2-16.2); Immature Granulocytes % 0.4 %; Mean Corpuscular HGB Conc 33.0 g/dL (31.8-35.4); Mean Corpuscular Hemoglobin 31.2 pg (27.0-31.2); Mean Corpuscular Volume 94.6 fl (81-99); Nucleated Red Blood Cells % 0 %; Platelet Count 272 K/mm3 (142-424); Red Blood Count 3.91 M/mm3 (4.20-5.40); Red Cell Distribution Width-SD 42.8 fL; White Blood Count 14.4 K/mm3 (4.8-10.8)
[2025-05-01 06:35] LABS: INR 2.98 (0.9-1.1); Prothrombin Time 30.5 seconds (10.1-12.5)
[2025-05-01 06:42] LABS: D-Dimer 0.32 ug/mL (0.0-0.5)
[2025-05-01 06:48] LABS: Troponin I 0.02 ng/ml (0.00-0.034)
[2025-05-01] MEDS: MAGNESIUM SULFATE IN WATER 2 GM/50 ML PIGGYBACK IV (07:10)
[2025-05-01 07:12] LABS: Albumin Level 4.0 g/dl (3.5-5.0); Chloride 94 mmol/L (98-107); Sodium 131 mmol/L (136-145)
[2025-05-01 07:13] LABS: Potassium 3.9 mmoL/L (3.5-5.1)
[2025-05-01 07:15] LABS: Alanine Aminotransferase 9 U/L (12-78); Anion Gap 13.9 mEq/L (5-15); Aspartate Amino Transferase 28 U/L (14-36); Blood Urea Nitrogen 11 mg/dl (7-17); Carbon Dioxide 27 mmol/L (22.0-30.0); Creatinine Clearance Estimated 50 mL/min (50-200); Creatinine,Serum 1.20 mg/dl (0.52-1.04); Estimated Glomerular Filt Rate 43 ml/min (>60); GFR (African American) 52 ML/MIN (>60)
[2025-05-01 07:16] LABS: Albumin/Globulin Ratio 1.4 (1.1-1.8); Alkaline Phosphatase 64 U/L (38-126); Bilirubin,Total 1.0 mg/dl (0.2-1.3); Calcium 8.9 mg/dl (8.4-10.2); Globulin 2.8 g/dL (1.3-3.2); Glucose 132 mg/dl (74-100); Total Protein,Serum 6.8 g/dl (6.3-8.2)
[2025-05-01] MEDS: RINGERS SOLUTION,LACTATED 500 ML 250 ML IV (07:55)
[2025-05-01] MEDS: ALBUTEROL 0.083% 2.5 MG/3 ML NEB 20 MG IH (08:07)
[2025-05-01 08:34] LABS: NT Pro Brain Natriuretic Pep. 2070 pg/mL (0-450)
== END 2025-05-01 08:59 | disposition home or self-care (01) ==
PROVIDERS: Emergency Medicine; Emergency Provider Emergency Medicine; PCP Family Medicine
DX: R06.02 Shortness of breath (principal); R06.2 Wheezing; J98.4 Other disorders of lung; E87.1 Hypo-osmolality and hyponatremia; J06.9 Acute upper respiratory infection, unspecified; B34.1 Enterovirus infection, unspecified
CPT/HCPCS: 0223U; 71046; 80053; 82803; 83880; 84484; 85025; 85378; 85610; 93005; 96360; 99285; J2919; J3475; J7120

== ENCOUNTER 2025-05-03 14:42 | Inpatient (IN) | payer MEDICARE, SELFPAY ==
[2025-05-03] VITALS (13 sets, daily range): BP systolic 129–161; BP diastolic 51–83; PULSE 69–98; RESP 18–20; TEMP 36.6–36.9; O2SAT 94–100; BMI 31.4
--- NOTE | 2025-05-03 15:01 | HMH.EDGENADL ---
Discharge Plan Disposition Patient Disposition: Admitted Condition: Good Clinical Impressions Clinical Impression: Pneumonia, Asthma exacerbation Discharge ED Provider: Nichole Matthews Adult HPI General Chief complaint: Shortness of Breath/Dyspnea Stated complaint: SOA Time Seen by Provider: 05/03/25 15:01 Mode of Arrival: Ambulatory Source of Information: Patient and Relative Description of Symptoms (Recalled from ER Triage Doc. by RN): patient presents to the ED for shortness of air and wheezing. patient was just seen in the ED on Friday the for the same symptoms but symptoms have worsened. History of Present Illness HPI narrative: Patient is an 79-year-old female with a past medical history of coronary artery disease and asthma who presented to the emergency department with shortness of breath. Patient states that she was seen on Friday for similar symptoms but reports worsening shortness of breath. Patient states that she was diagnosed with rhino enterovirus but patient has felt significantly weak with ambulation. Patient states that she was offered admission at that time but decided she wanted to go home. Patient denies any chest pain. Patient reports upper respiratory symptoms. Patient denies any fevers. Patient denies any headache or vision changes. Patient denies any abdominal pain nausea vomiting or diarrhea. Related Data Home Medications ?Medication ?Instructions ?Recorded ?Confirmed fluoxetine 20 mg capsule 20 mg PO DAILY 10/27/21 05/03/25 losartan 50 mg tablet 50 mg PO DAILY 10/27/21 05/03/25 omeprazole 20 mg capsule,delayed 20 mg PO DAILY 10/27/21 05/03/25 release simvastatin 40 mg tablet 40 mg PO HS 10/27/21 05/03/25 warfarin 5 mg tablet 2.5 mg PO MOTHSA 10/29/21 05/03/25 Held on 05/05/25. Instructions: per PCP alprazolam 0.25 mg tablet 0.25 mg PO BIDP PRN Anxiety 04/22/24 05/04/25 prednisone 2.5 mg tablet 2.5 mg PO DAILY 09/15/24 05/03/25 Held on 05/05/25. Instructions: while taking high dose prednisone hydrochlorothiazide 12.5 mg capsule 12.5 mg PO DAILY 12/22/24 05/03/25 Held on 05/05/25. Instructions: until cardiology f/u Previous Rx's ?Medication ?Instructions ?Recorded warfarin 5 mg tablet 5 mg PO MARICHUY #30 tabs 04/23/24 Held on 05/05/25. Instructions: per PCP fluticasone propionate 50 2 spray intranasal BID allergy 12/22/24 mcg/actuation nasal symptoms 90 days #16 grams spray,suspension (Flonase Allergy Relief) budesonide 160 mcg-glycopyr 9 2 inh inhalation BID 90 days #10.7 01/19/25 mcg-formot 4.8 mcg/actuation HFA grams inhaler (Breztri Aerosphere) azelastine 137 mcg (0.1 %) nasal 2 spray intranasal HS 90 days #30 03/31/25 spray mL montelukast 10 mg tablet 10 mg PO DAILY #90 tabs 03/31/25 (Singulair) benzonatate 100 mg capsule 200 mg (2 x 100 mg) PO TIDP PRN 05/05/25 cough #30 caps cefdinir 300 mg capsule 300 mg PO BID #6 caps 05/05/25 prednisone 20 mg tablet 40 mg (2 x 20 mg) PO DAILY #6 tabs 05/05/25 Allergies Allergy/AdvReac Type Severity Reaction Status Date / Time sulfamethoxazole (From Allergy Unknown Unknown Verified 03/31/25 11:26 Bactrim) allergy reaction trimethoprim (From Bactrim) Allergy Unknown Unknown Verified 03/31/25 11:26 allergy reaction PFSH PFSH Disclaimer: The information contained in this section may have been updated after the patient was seen, as this information can be updated by other users. Medical History (Updated 05/04/25 @ 12:43 by Jeronimo Barrett MD) Viral pneumonia Recurrent pneumonia Abnormal CT scan History of 2019 novel coronavirus disease (COVID-19) Dyspnea on exertion Allergic rhinitis Abnormal pulmonary function Asthma History of pacemaker Restrictive lung disease Allergic rhinitis, unspecified Moderate persistent asthma Dyspnea on exertion Surgical History No history of previous surgery Family History Other Asthma Cancer Diabetes Heart attack Hyperlipidemia Hypertension Stroke Social History Smoking Status: Never smoker alcohol intake: current alcohol intake frequency: holidays/special occasions only current occupational status: retired Travel in the last 8 weeks?: None household members: family lives independently: Yes Other Medical History Have you received the Flu Vaccine for this season: No Have you received the Pneumonia Vaccine: Yes ROS Obtained: Yes All systems reviewed & no additional complaints except as documented and Yes Systems reviewed as appropriate & no additional complaints except as documented Physical Exam General General appearance: alert and in no apparent distress Head Head exam: atraumatic, normocephalic and normal inspection Eye Eye exam: Present normal appearance, PERRL and EOMI; Absent scleral icterus ENT ENT exam: Present normal exam and normal external ear exam Neck Neck exam: Present normal inspection and full ROM Chest Chest inspection: Present normal inspection and symmetric chest wall rise Respiratory Respiratory exam: Present normal lung sounds bilaterally and wheezes (all lung gruber); Absent respiratory distress Cardiovascular Cardiovascular exam: Present regular rate, normal rhythm and normal heart sounds Abdominal Exam Abdominal exam: Present soft and distention; Absent tenderness, guarding or rebound Extremities Exam Extremities exam: Present normal inspection and full ROM Back Exam Back exam: Present normal inspection and full ROM Neurological Exam Neurological exam: Present alert and oriented X3 Psychiatric Psychiatric exam: Present normal affect and normal mood Skin Skin exam: Present warm and dry Medical Decision Making Medical Records Medical records reviewed: Yes I reviewed the patient's medical records. Screening: Per USPSTF and CDC recommendations, given the prevalence of disease in our region, it is our hospital?s policy to screen for HIV and viral Hepatitis for all patients aged 18 and over and those with ongoing risk factors. Hugo Inquiry Pt receiving controlled substance: No Vital Signs: 05/03/25 14:49 05/03/25 15:13 05/03/25 16:32 Temperature 98.2 F Temperature Source Temporal Artery Scan Pulse Rate 74 Pulse Rate [Right Radial] 92 H Respiratory Rate 20 Blood Pressure 134/72 Blood Pressure [Right Arm] 161/69 H Blood Pressure Mean [Right Arm] 99 Blood Pressure Source Blood Pressure Source [Right Arm] Automatic Cuff Blood Pressure Position Blood Pressure Position [Right Arm] Sitting 02 Sat by Pulse Oximetry 94 L 98 96 Oxygen Delivery Method Room Air Nasal Cannula Oxygen Flow Rate (LPM) 2 05/03/25 16:45 05/03/25 17:30 05/03/25 17:46 Temperature Temperature Source Pulse Rate 84 69 75 Pulse Rate [Right Radial] Respiratory Rate Blood Pressure 151/65 H 155/67 H 152/58 H Blood Pressure [Right Arm] Blood Pressure Mean [Right Arm] Blood Pressure Source Blood Pressure Source [Right Arm] Blood Pressure Position Blood Pressure Position [Right Arm] 02 Sat by Pulse Oximetry 96 99 100 Oxygen Delivery Method Oxygen Flow Rate (LPM) 05/03/25 18:22 Temperature 98.5 F Temperature Source Oral Pulse Rate 72 Pulse Rate [Right Radial] Respiratory Rate 20 Blood Pressure 129/51 L Blood Pressure [Right Arm] Blood Pressure Mean [Right Arm] Blood Pressure Source Automatic Cuff Blood Pressure Source [Right Arm] Blood Pressure Position Supine Blood Pressure Position [Right Arm] 02 Sat by Pulse Oximetry Oxygen Delivery Method Nasal Cannula Oxygen Flow Rate (LPM) 2 Lab Data Lab results reviewed: Yes I reviewed the patient's lab results. Lab Results 05/03/25 11:53: Urine Sodium 12.0 L 05/03/25 15:20: WBC 15.1 H, RBC 3.87 L, Hgb 12.1 L, Hct 36.0 L, MCV 93.0, MCH 31.3 H, MCHC 33.6, RDW 12.2, Plt Count 277, MPV 9.6, Neut % (Auto) 83.7 H, Lymph % (Auto) 5.2 L, [place] % (Auto) 10.5 H, Eos % (Auto) 0.0 L, Baso % (Auto) 0.1, Neut # (Auto) 12.7 H, Lymph # (Auto) 0.8, [place] # (Auto) 1.6 H, Eos # (Auto) 0.0, Baso # (Auto) 0.0, Total Counted 100, Neutrophils % (Manual) 88 H, Lymphocytes % (Manual) 6 L, Monocytes % (Manual) 6, Platelet Estimate Normal, RBC Morphology Normal, D-Dimer 0.40, VBG pH 7.42 H, VBG pCO2 40.9, VBG pO2 48.2 H, VBG HCO3 26.1, VBG Total CO2 27.4 H, VBG O2 Saturation 84.7 H, VBG Base Excess 1.7, VBG Lactic Acid 1.7, Sodium 126 L, Potassium 4.2, Chloride 91 L, Carbon Dioxide 26, Anion Gap 13.2, BUN 20 H D, Creatinine 1.10 H, Estimated Creat Clear 55, Estimated GFR 48 L, Est GFR ( Amer) 58 L, Glucose 141 H, Calcium 9.2, Total Bilirubin 1.0, AST 37 H D, ALT 12 D, Alkaline Phosphatase 58, Troponin I 0.02, NT-Pro-B Natriuret Pep 4830 H, Total Protein 6.9, Albumin 4.0, Globulin 2.9, Albumin/Globulin Ratio 1.4 05/03/25 17:24: A. baumannii (PCR) Not detected, Bacteroides fragilis Not detected, Karie albicans (PCR) Not detected, Karie auris (PCR) Not detected, C. glabrata (PCR) Not detected, C. krusei (PCR) Not detected, C. parapsilosis (PCR) Not detected, C. tropicalis (PCR) Not detected, Cryptococcus neoformans PCR Not detected, Enterobacterales (PCR) Not detected, Enterococc faecalis PCR Not detected, Enterococc faecium PCR Not detected, E. coli (PCR) Not detected, H. influenzae DNA Not detected, Klebsiella aerogenes (PCR) Not detected, Klebsiella oxytoca PCR Not detected, K. pneumoniae group (PCR) Not detected, List. monocytogenes PCR Not detected, N. meningitidis (PCR) Not detected, Proteus species (PCR) Not detected, Salmonella spp. (PCR) Not detected, Serratia marcescens PCR Not detected, Staphylococcus sp PCR Not detected, Staph aureus (PCR) Not detected, mecA/C & MREJ Resist Gene Not applicable, mecA/C-Methicil Resis Gene Not applicable, Staph epidermidis (PCR) Not detected, Staph lugdunensis (TEM-PCR) Not detected, S. maltophilia (PCR) Not detected, Streptococcus sp PCR Not detected, S.agalactiae Grp B ADELFO Not detected, Strep pneumoniae (PCR) Not detected, S. pyogenes GrpA ADELFO Not detected, P. aeruginosa (PCR) Not detected, Dianna/B-Vanco Res Genes Not applicable, blaIMP Car res Gene PCR Not applicable, KPC-Carbap Res Gene PCR Not applicable, blaNDM Car Res Gene PCR Not applicable, OXA-48 Carbapenem Resis Gene (PCR) Not applicable, blaVIM Car Res Gene PCR Not applicable, CTX-M Gene Resistance (PCR) Not applicable, MCR-1 Resistance Gene Not applicable 05/05/25 05:51 05/05/25 05:51 Orders (Tests/Meds): ED MEDICATIONS Discontinued Medications Generic Name Dose Route Start Last Admin Trade Name Freq PRN Reason Stop Dose Admin Acetaminophen 650 mg 05/03/25 17:17 Acetaminophen 325mg Tab PO 06/02/25 17:16 Q4HP PRN Fever or Mild Pain (1-3) Albuterol Sulfate 20 mg 05/03/25 16:31 05/03/25 16:45 Albuterol 0.083% 2.5 Mg/3 Ml [facility] 05/03/25 16:32 20 mg ONCE ONE Administration Albuterol/Ipratropium 9 ml 05/03/25 15:29 05/03/25 15:58 Ipratropium/Albuterol 3 Ml [facility] 05/03/25 15:30 9 ml ONCE ONE Administration Albuterol/Ipratropium 3 ml 05/03/25 22:00 05/05/25 10:20 Ipratropium/Albuterol 3 Ml [facility] 06/02/25 21:59 3 ml Q4RT AGUSTIN Administration Alprazolam 0.25 mg 05/03/25 19:45 05/03/25 20:20 Alprazolam 0.25mg Tablet PO 06/02/25 19:44 0.25 mg TIDP PRN Administration Anxiety Benzonatate 200 mg 05/03/25 21:08 05/04/25 01:08 Benzonatate 100mg Capsule PO 06/03/25 08:59 200 mg TID PRN Administration cough Benzonatate 200 mg 05/04/25 07:14 Benzonatate 100mg Capsule PO 06/02/25 21:07 TIDP PRN cough Budesonide 0.5 mg 05/03/25 18:10 05/05/25 06:27 Budesonide 0.5mg/2ml [facility] 06/02/25 18:09 0.5 mg BIDRT AGUSTIN Administration Fluoxetine HCl 20 mg 05/04/25 09:00 05/05/25 08:59 Fluoxetine 20mg Capsule PO 06/03/25 08:59 20 mg DAILY AGUSTIN Administration Fluticasone Propionate 2 spray 05/03/25 21:00 05/04/25 20:24 Fluticasone Prop 50mcg Nasal [place] 16gm NS 06/02/25 20:59 2 spray BID AGUSTIN Administration Magnesium Sulfate 2 gm in 50 mls @ 50 mls/hr 05/03/25 15:29 05/03/25 17:00 Magnesium Sulfate 2gm/50ml Premix IV 05/03/25 16:28 Infused ONCE ONE Infusion Sodium Chloride 1,000 mls @ 999 mls/hr 05/03/25 15:29 05/03/25 17:17 Sod Chlor 0.9% 1000ml Bag IV 05/03/25 16:29 Infused .Q1H1M ONE Infusion Ceftriaxone Sodium 2 gm/ 100 mls @ 200 mls/hr 05/03/25 16:45 05/04/25 16:38 Sodium Chloride IV 05/13/25 16:44 Infused Q24H AGUSTIN Infusion Azithromycin 500 mg/ Sodium 250 mls @ 250 mls/hr 05/03/25 16:45 05/04/25 18:27 Chloride IV 05/13/25 16:44 Infused Q24H AGUSTIN Infusion Irbesartan 75 mg 05/04/25 09:00 05/05/25 08:59 Irbesartan 75mg Tablet PO 06/03/25 08:59 75 mg DAILY AGUSTIN Administration Methylprednisolone Sodium Succinate 125 mg 05/03/25 16:06 05/03/25 16:11 Methylprednisolone Sod Succ 125mg Vial IV 05/03/25 16:07 125 mg ONCE ONE Administration Methylprednisolone Sodium Succinate 40 mg 05/03/25 21:00 05/04/25 08:42 Methylprednisolone Sod Succ 40mg Vial IV 06/02/25 20:59 40 mg Q12H AGUSTIN Administration Methylprednisolone Sodium Succinate 40 mg 05/05/25 09:00 05/05/25 08:59 Methylprednisolone Sod Succ 40mg Vial IV 06/04/25 08:59 40 mg DAILY AGUSTIN Administration Miscellaneous 1 each 05/03/25 18:34 05/03/25 20:20 Pharmacy Consult Request NOTAPPLIC 05/03/25 18:35 1 each CONSULT PHARMACY ONE Administration Montelukast Sodium 10 mg 05/04/25 21:00 05/04/25 20:24 Montelukast Sodium 10mg Tab PO 06/03/25 20:59 10 mg HS AGUSTIN Administration Nicotine 21 mg 05/03/25 17:17 Nicotine 21mg/24hr Patch TD 06/02/25 17:16 DAILYP PRN Nicotine Cravings Ondansetron HCl 4 mg 05/03/25 17:17 Ondansetron 4mg/2ml Vial IV 06/02/25 17:16 Q8HP PRN Nausea Pantoprazole Sodium 40 mg 05/03/25 21:00 05/04/25 20:24 Pantoprazole 40mg Tablet PO 06/02/25 20:59 40 mg HS AGUSTIN Administration Potassium Chloride 40 meq 05/04/25 13:15 05/04/25 18:41 Potassium Chloride 20meq Tab PO 05/04/25 17:16 40 meq Q4H AGUSTIN Administration Pravastatin Sodium 80 mg 05/03/25 21:00 05/04/25 20:24 Pravastatin 40mg Tab PO 06/02/25 20:59 80 mg HS AGUSTIN Administration Sodium Chloride 1,000 mg 05/04/25 21:00 05/05/25 08:59 Sodium Chloride 1,000mg Tablet PO 06/03/25 20:59 1,000 mg BID AGUSTIN Administration Sodium Chloride 10 ml 05/04/25 07:36 Sodium Chloride 0.9% 10ml Flush Syringe IV 06/03/25 07:35 NEEDED PRN Maintain IV Site Sodium Chloride 3 ml 05/04/25 07:48 05/04/25 09:28 Sodium Chloride 3% 15ml Neb IH 06/03/25 07:47 3 ml ONCE PRN Administration INDUCE SPUTUM COLLECTION Warfarin Sodium 2.5 mg 05/05/25 19:45 Warfarin 5mg Tablet PO 06/04/25 19:44 MOTHSA AGUSTIN Warfarin Sodium 5 mg 05/03/25 19:45 05/03/25 20:20 Warfarin 5mg Tablet PO 06/02/25 19:44 2.5 mg SUTUWEFR AGUSTIN Administration ORDERS Category Date Time Status CXR 2 view (NOT portable) [XR chest 2V] Stat Exams 05/03/25 15:29 Completed BNP [NT Pro Brain Natriuretic Pep.] Stat Lab 05/03/25 15:20 Completed CBC w/Auto Diff [Complete Blood Count Auto Diff] Stat Lab 05/03/25 15:20 Completed CMP [Comprehensive Metabolic Panel] Stat Lab 05/03/25 15:20 Completed Complete Blood Count Auto Diff AMLAB Lab 05/04/25 05:30 Completed Complete Blood Count Auto Diff AMLAB Lab 05/05/25 05:51 Completed Comprehensive Metabolic Panel AMLAB Lab 05/04/25 05:30 Completed Comprehensive Metabolic Panel AMLAB Lab 05/05/25 05:51 Completed D-Dimer Stat Lab 05/03/25 15:20 Completed Lipid Panel AMLAB Lab 05/04/25 05:30 Completed Lipid Panel AMLAB Lab 05/05/25 05:51 Completed Magnesium AMLAB Lab 05/04/25 05:30 Completed Magnesium AMLAB Lab 05/05/25 05:51 Completed Trop I [Troponin I] Stat Lab 05/03/25 15:20 Completed Troponin I Q3H Lab 05/03/25 19:09 Completed Troponin I Q3H Lab 05/03/25 22:19 Completed Blood Culture Stat Micro 05/03/25 17:24 Results VBG [Venous Blood Gas] Stat RT 05/03/25 15:20 Completed Medical Decision Narrative: Patient is an 79-year-old female with a past medical history of asthma who presented to the emergency department with shortness of breath. On arrival, patient was hemodynamically stable, not tachycardic, not hypotensive. Patient was saturating appropriately on room air. Differential includes but not limited to: Viral syndrome, asthma exacerbation, pneumonia, pleural effusion, pneumothorax, amongst others. Patient's labs were reviewed and interpreted by myself: CBC showed a mild leukocytosis of 15. Hemoglobin was stable. CMP was unremarkable. D-dimer was normal. Respiratory panel from 2 days prior was positive for rhino enterovirus therefore repeat respiratory swab was not obtained. BNP was mildly elevated at 4800. Initial troponin unremarkable. EKG was reviewed and interpreted by myself and showed normal sinus rhythm at [address] or T wave changes concerning for ischemia. Chest x-ray was reviewed and interpreted by myself and showed right middle lobe pneumonia. No other acute pulmonary effusion or pneumothorax or other acute pathology. Given the patient was significantly wheezy on exam, patient was given 3 DuoNebs, Solu-Medrol as well as magnesium and IV fluids. After 3 DuoNebs, patient continued to have wheezing but had improved air movement. The patient was given 1 hour of continuous albuterol. Given patient's right lower lobe pneumonia on chest x-ray patient was ordered azithromycin and Rocephin for community-acquired pneumonia. Patient was ambulated and patient had significant O2 saturation dropped with minimal ambulation to the low 80s. Patient was placed on 2 L nasal cannula. Given patient's acute hypoxia in the setting of asthma exacerbation and pneumonia with significant weakness of the patient warranted admission. Hospital medicine was consulted and patient was admitted to his service for further evaluation and workup. Patient had no signs of volume overloaded at this time therefore Lasix was not given for further workup at this time. Critical Care Critical Care Time Critical Care Time: No
--- OUTSIDE RECORDS SUMMARY | 2025-05-03 15:15 | XMS_ITS | Encounter Summary ---
[facility] Address [address] [place] [address] Care Team Providers Care Adult Daycare Coordinator Name Role Phone Zoran Pendleton MD Primary Care Provider [phone] Encounter Details Date Type Department Care Team (Latest Contact Info) Description 04/25/2025 Anticoagulation Visit [facility] [address] [place] [phone] Darren Martin Lock Corner Machine Operator Chronic atrial fibrillation (Primary Dx) Social History [...] this encounter Progress Notes * Darren Martin, Lock Corner Machine Operator - 04/25/2025 2:22 PM EDT [facility] Progress Note Patient Demographics Method of INR reporting: REMOTE LAB Estimated OOP Cost: Indication: Chronic Atrial Fibrillation Referring Provider Remi Silveira IV PA-C/ Jaron Doyle MD Reason patient is not on a DOAC: Goal INR: 2-3 Warfarin Start Date Reason patient is not on home monitor: [id number]: HTN (1), Age >74 (2), and Female [...] obtained Preferred contact number: Alternative contact number(s): [phone] (Kait) Patient Appropriate for WarfNoCall ? No Preferred contact name: Sommer Lorenzo Alternative contact name(s): Kait Bo (Daughter) Preferred contact relation: Self Lab contact information (if applicable): CONY Pendleton [facility] Subjective Findings Drug Interactions Dietary Findings [...] further questions at this time. Darren Martin [facility] 04/25/2025 14:27 EDT I, Breanne Dubois [facility], have reviewed the note in full and agree with the assessment and plan. 04/25/25 14:48 EDT documented in this encounter Plan of Treatment Upcoming Encounters Date Type Department Care Team (Late st Contact Info) Description 05/05/2025 9:30 AM EDT Office Visit [facility] CARDIOLOGY [address] [place] [address] [place] [address] Jaron Doyle MD [address] [facility] [address] [place] [address] documented as of this encounter Procedures Procedure Name Priority Date/Time Associated Diagnosis Comments SCANNED - LABS 04/25/2025 PROTIME-INR Routine 04/25/2025 documented in this encounter Results * LABS SCANNED (04/25/2025) [facility] LAB BLOOD ORDERABLES Final Re sult * Protime-INR (04/25/2025) INR 2.60 Blood 04/25/2025 [facility] Provider LAB BLOOD ORDERABLES Maite l Result documented in this encounter Visit Diagnoses Diagnosis Chronic atrial fibrillation- Primary Atrial fibrillation documented in this encounter Care Teams Adult Daycare Coordinator Relationship Specialty Start Date End Date Zoran Pendleton MD [address] [place] [address] PCP - General 07/31/15 documented as of this encounter
--- OUTSIDE RECORDS SUMMARY | 2025-05-03 15:15 | XMS_ITS | Encounter Summary ---
Author Organization [facility] ystem Address [address] [place] [address] Care Team Providers Care Photo Equipment Technician Name Role Phone Zoran Pendleton MD Primary Care Provider [phone] Reason for Visit * Reason Comments Med Refill Encounter Details Date Type Department Care Team (Late st Contact Info) Description 03/17/2025 Refill [facility] [address] [facility] [address] [place] [phone] Jaron Doyle MD [address] [facility] [address] [place] [address] Social History Tobacco Use Types Packs/Day Years [...] Description 05/05/2025 9:30 AM EDT Office Visit [facility] CARDIOLOG[facility] [address] [place] [address] [place] [address] Jaron Doyle MD [address] [facility] [address] [address] documented as of this encounter Visit Diagnoses Not on filedocumented in this encounter Care Teams Photo Equipment Technician Relationship Specialty Start Date End Date Zoran Pendleton MD [address] [place] [address] PCP - General 07/31/15 documented as of this encounter
--- OUTSIDE RECORDS SUMMARY | 2025-05-03 15:15 | XMS_ITS | Encounter Summary ---
[facility] Address [address] [place] [address] Care Team Providers Care Domestic Freight Forwarder Name Role Phone Zoran Pendleton MD Primary Care Provider [phone] Encounter Details Date Type Department Care Team (Latest Contact Info) Description 03/24/2025 Anticoagulation Visit [facility] [address] [place] [phone] Darren Martin Cutter Grind Tool Technician Chronic atrial fibrillation (Primary Dx) Social History [...] this encounter Progress Notes * Darren Martin, Cutter Grind Tool Technician - 03/24/2025 1:14 PM EDT [facility] Progress Note Patient Demographics Method of INR reporting: REMOTE LAB Estimated OOP Cost: Indication: Chronic Atrial Fibrillation Referring Provider Remi Silveira IV PA-C/ Jaron Doyle MD Reason patient is not on a DOAC: Goal INR: 2-3 Warfarin Start Date Reason patient is not on home monitor: [id number]: HTN (1), Age >74 (2), and Female [...] obtained Preferred contact number: Alternative contact number(s): [phone] (Kait) Patient Appropriate for WarfNoCall ? No Preferred contact name: Sommer Lorenzo Alternative contact name(s): Kait Bo (Daughter) Preferred contact relation: Self Lab contact information (if applicable): CONY Pendleton [facility] Subjective Findings Drug Interactions Dietary Findings Historical: [...] further questions at this time. Darren Martin [facility] 03/24/2025 13:27 EDT I, Bhavana Castillo, PharmD, have reviewed the note in full and agree with the assessment and plan. 03/24/25 14:23 EDT documented in this encounter Plan of Treatment Upcoming Encounters Date Type Department Care Team (Late st Contact Info) Description 05/05/2025 9:30 AM EDT Office Visit [facility] CARDIOLOG[facility] [address] [place] [address] [place] [address] Jaron Doyle MD [address] [facility] [address] [place] [address] documented as of this encounter Procedures Procedure Name Priority Date/Time Associated Diagnosis Comments SCANNED - LABS 03/24/2025 PROTIME-INR Routine 03/24/2025 documented in this encounter Results * LABS SCANNED (03/24/2025) [facility] LAB BLOOD ORDERABLES Final Re sult * Protime-INR (03/24/2025) INR 1.90 Blood 03/24/2025 Historical Provider LAB BLOOD ORDERABLES Maite l Result documented in this encounter Visit Diagnoses Diagnosis Chronic atrial fibrillation- Primary Atrial fibrillation documented in this encounter Care Teams Domestic Freight Forwarder Relationship Specialty Start Date End Date Zoran Pendleton MD [address] [place] [address] PCP - General 07/31/15 documented as of this encounter
--- OUTSIDE RECORDS SUMMARY | 2025-05-03 15:15 | XMS_ITS | Clinical Summary ---
Author Organization [facility] Address [address] [place] [address] Care Team Providers Care Hotel Maid Name Role Phone Zoran Pendleton MD Primary Care Provider [phone] Social History Tobacco Use Types Packs/Day Years [...] (2 of 2 - PCV) 11/05/2022 11/05/2021 [id number] Vaccine (4 - 2024- season) 2025 07/31/2021, [...] patient's age to complete this topic Insurance [facility] MEDICARE Care Teams Hotel Maid Relationship Specialty Start Date End Date Zoran Pendleton MD [address] [place] [address] [address] [place] [address] PCP - General 12/22/20
--- OUTSIDE RECORDS SUMMARY | 2025-05-03 15:15 | XMS_ITS | Encounter Summary ---
Author Organization [facility] ystem Address [address] [place] [address] Care Team Providers Care Aircraft Instrument Tester Name Role Phone Zoran Pendleton MD Primary Care Provider [phone] Reason for Visit * Reason Onset Date Comments Remote Device Check 04/06/2025 Encounter Details Date Type Department Care Team (Late st Contact Info) Description 04/06/2025 Telephone [facility] CARDIOLOG[facility] [address] [address] Jaron Doyle MD [address] [facility] [address] [facility] [address] [place] [address] Remote Device Check Social History Tobacco Use [...] Description 05/05/2025 9:30 AM EDT Office Visit [facility] C[facility] [address] [place] [address] [place] [address] Jaron Doyle MD [address] [facility] [address] [place] [address] documented as of this encounter Visit Diagnoses Not on filedocumented in this encounter Care Teams Aircraft Instrument Tester Relationship Specialty Start Date End Date Zoran Pendleton MD [address] [place] [address] PCP - General 07/31/15 documented as of this encounter
--- OUTSIDE RECORDS SUMMARY | 2025-05-03 15:16 | XMS_ITS | Clinical Summary ---
[facility] Address [address] [place] [address] Care Team Providers Care Sculpture Conservator Name Role Phone Zoran Pendleton MD Primary Care Provider [phone] Allergies Active Allergy Reactions Criticality Noted Date [...] (09/13/2019): Added automatically from request for surgery [id number] Chronic atrial fibrillation 02/16/2018 Atrial fibrillation [I48.91] [...] Department Care Team Description 04/25/2025 Anticoagulation Visit [facility] [address] [facility] [address] [place] [address] Darren Martin, Electroencephalograph Technologist Chronic atrial fibrillation (Primary Dx) 04/06/2025 Telephone [facility] [address] [facility] [address] [place] [phone] Jaron Doyle MD Remote Device Check 03/24/2025 Anticoagulation Visit [facility] [address] [facility] [address] [place] [address] Darren Martin Electroencephalograph Technologist Chronic atrial fibrillation (Primary Dx) 03/17/2025 Refill [facility] [address] [facility] [address] [place] [address] Jaron Doyle MD 02/23/2025 Anticoagulation Visit [facility] [address] [facility] [address] [place] [address] Brodie Webb, PharmD Chronic atrial fibrillation (Primary Dx) 02/08/2025 Refill [facility] [address] [facility] [address] [place] [address] Jaron Doyle MD Med Refill 02/04/2025 Refill [facility] [address] [facility] [place] [address] Jaron Doyle MD Med Refill 02/03/2025 Anticoagulation Visit [facility] [place] [address] Brodie Webb, PharmD Chronic atrial [...] 05/05/2025 9:30 AM EDT Office Visit [facility] C[facility] [address] [facility] [place] [address] Jaron Doyle MD [address] [place] [address] Health Maintenance Due Date Last Done Comments [...] 10/21/2025 10/21/2024 Medical Devices Implanted Type Area Windows Server Specialist Device Identifier Shelf Expiration Date Model / Serial / Lot Gen Pm Advisa Surescan Dr Mccord - [id number] - [id number] Implanted:Qty: 1 on 09/20/2019 by Bobby Stephens MD at [facility] Pacemaker [employer] 10/22/2020 [id number] / [id number] / Procedures Procedure Name Priority Date/Time Associated [...] of2 resultswithin the time period is included. [facility] LAB BLOOD ORDERABLES Final Re sult * Protime-INR (04/25/2025) Only the most recent of4 resultswithin the time period is included. INR 2.60 Blood 04/25/2025 [facility] Provider LAB BLOOD ORDERABLES Maite l Result * Remote Device Check (04/06/2025 5:45 PM EDT) Date Time Interrogation Session [id number] [facility] Type Interrogation Session Remote [facility] Implantable Pulse Generator Windows Server Specialist Medtronic [facility] Implantable Pulse Generator Type IPG [facility] Implantable Pulse Generator Model Advisa DR MCCORD [id number] [facility] Implantable Pulse Generator Serial Number [id number] [facility] Implantable Pulse Generator Implant Date [id number] [facility] Battery Remaining Longevity 43.0 mo [facility] Battery Voltage 2.970 [facility] Battery CRYSTAL FLAT GRINDER Trigger 2.830 [facility] Battery Status OK [facility] Mushtaq Statistic RA Percent Paced 62.32 [facility] Mushtaq Statistic RV Percent Paced 94.99 [facility] Atrial Tachy Statistic AT/AF [place] Percent 0.00 [facility] Lead Channel RA Sensing Intrinsic Amplitude 1.875 [facility] Lead Channel Setting RA Sensing Sensitivity 0.30 [facility] Lead Channel RA Impedance Value 380 [facility] Lead Channel RA Pacing Threshold Amplitude 0.250 [facility] Lead Channel RA Pacing Threshold Pulse Width 0.4 [facility] Lead Channel RA Measurements Date and Time [id number] [facility] Lead Channel Setting RA Pacing Amplitude 1.500 [facility] Lead Channel Setting RA Pacing Pulse Width 0.4 [facility] Lead Channel RV Sensing Intrinsic Amplitude 11.125 [facility] Lead Channel Setting RV Sensing Sensitivity 0.90 [facility] Lead Channel RV Impedance Value 456 [facility] Lead Channel RV Pacing Threshold Amplitude 0.625 [facility] Lead Channel RV Pacing Threshold Pulse Width 0.4 [facility] Lead Channel RV Measurements Date and Time [id number] [facility] Lead Channel Setting RV Pacing Amplitude 2.000 [facility] Lead Channel Setting RV Pacing Pulse Width 0.4 [facility] Mushtaq Setting Mode (NBG Code) DDDR [facility] Mushtaq Setting Lower Rate Limit 70 [facility] Mushtaq Setting AT Mode Switch Rate 171 [facility] Mushtaq Setting Maximum Tracking Rate 100 [facility] Mushtaq Setting Maximum Sensor Rate 130 [facility] Mushtaq Setting PAV Delay 150 [facility] Mushtaq Setting JARRETT Delay 120 [facility] Lead Channel Setting RA Sensing Polarity Bipolar [facility] Lead Channel Setting RV Sensing Polarity Bipolar [facility] Lead Channel Setting RA Pacing Polarity Bipolar [facility] Lead Channel Setting RV Pacing Polarity Bipolar [facility] Lead Channel RA Pacing Threshold Polarity Bipolar [facility] Lead Channel RV Pacing Threshold Polarity Bipolar [facility] Zone Setting Type Category AT/AF [facility] IDC RATE 1 171 [facility] THERAPIES All Rx On [facility] Zone Setting Status Monitor [facility] Zone ID 2 [facility] Zone Setting Type Category VT [facility] IDC RATE 1 150 [facility] Zone Setting Status ENABLED [facility] Zone ID 6 [facility] 04/06/2025 5:45 PM EDT us Jaron Doyle MD CV IMPLANTABLE CARDIAC DEVICE Final Result [facility] * (ABNORMAL) Lipid Panel (10/21/2024 3:40 [...] 6:09 AM EDT Performed at: - [facility] [address] [place] [id number] Assembler Dc Field Ring: Mekhi Kimbrough PhD, Phone: [phone] Patient Fasting: Y us Jaron Doyle MD LAB BLOOD ORDERABLES Final Res ult [facility] (AMBULATORY) [address] [place] [address], [place] [phone] [facility] [address] [place] [phone], from Last 3 Months or Most Recently Relevant to Health Maintenance Insurance MEDICARE ADVANTAGE PPO Advance Directives Documents on File Type Date Recorded Patient Destination Sign Repairer Expl anation LIVING WILL - SCAN 09/20/2019 10:43 AM leanna ing will Care Teams Sculpture Conservator Relationship Specialty Start Date End Date Zoran Pendleton MD [address] [place] [id number] PCP - General 12/21/15
--- NOTE | 2025-05-03 15:20 | ECG_ITS ---
APPROVED REPORT Exam: Resting ECG HR:83 bpm ECG Measurements Heart Rate 83 AXES AL 163 P 72 QRSd 149 QRS -70 QT 422 T 79 QTc 462 Conclusion Paced rhythm no acute ST or T wave changes concerning for ischemia Electronically signed by : Nichole Matthews, 05/04/2025 00:39:28
--- NOTE | 2025-05-03 15:29 | XR_ITS ---
PROCEDURE INFORMATION: Exam: XR Chest Exam date and time: 05/03/2025 4:26 PM Age: 79 years old Clinical indication: Shortness of breath TECHNIQUE: Imaging protocol: Radiologic exam of the chest. Views: 2 views. COMPARISON: 1. CR Chest 05/01/2025 6:[address] scan of the chest dated December 15, 2024. 3. Prior chest x-ray dated November 08, 2024. FINDINGS: Tubes, catheters and devices: Dual lead pacer device in stable position. Lungs: Persistent patchy airspace opacity within the medial right lower lung and abutting the right aspect of the cardiac silhouette. This has been seen on multiple prior examinations and correspond to atelectatic change within the right middle lobe. Additional area of airspace opacity within the medial aspect of the right lower lobe appears similar to minimally increased. Lungs are otherwise clear with no other new airspace consolidation. No CHF. Pleural spaces: Minimal blunting of the costovertebral angle on the lateral view compatible with small posterior pleural effusion. Heart/Mediastinum: Borderline cardiomegaly is unchanged. Mediastinal contours are smooth. Bones/joints: Minimal blunting of the costovertebral angle on the lateral view compatible with small posterior pleural effusion. Moderate scoliosis. Multilevel degenerative changes are present throughout the spine. IMPRESSION: Stable appearance of previously seen airspace opacity within the right middle lobe. Findings compatible with atelectasis within the right middle lobe. Previously seen airspace opacity within the medial aspect of the right lower lobe is similar to very minimally increased. Interval development of a small posterior pleural effusion. Borderline cardiomegaly is unchanged. No CHF.
[2025-05-03 15:33] LABS: Lactate Venous 1.7 mmol/L (0.4-2.0); VBG HCO3 26.1 mmol/L (23-30); VBG PCO2 40.9 mmol/L (35-51); VBG PH 7.42 mmol/L (7.31-7.41); VBG PO2 48.2 mmol/L (28-40)
--- NOTE | 2025-05-03 15:34 | PC.NURSE ---
pt was removed off by .
[2025-05-03 15:40] LABS: Albumin Level 4.0 g/dl (3.5-5.0); Chloride 91 mmol/L (98-107); Hematocrit 36.0 % (37.0-47.0); Hemoglobin 12.1 g/dL (12.2-16.2); Immature Granulocytes % 0.5 %; Mean Corpuscular HGB Conc 33.6 g/dL (31.8-35.4); Mean Corpuscular Hemoglobin 31.3 pg (27.0-31.2); Mean Corpuscular Volume 93.0 fl (81-99); Nucleated Red Blood Cells % 0 %; Platelet Count 277 K/mm3 (142-424); Red Blood Count 3.87 M/mm3 (4.20-5.40); Red Cell Distribution Width-SD 41.8 fL; White Blood Count 15.1 K/mm3 (4.8-10.8)
[2025-05-03 15:41] LABS: Potassium 4.2 mmoL/L (3.5-5.1); Sodium 126 mmol/L (136-145)
[2025-05-03 15:43] LABS: Blood Urea Nitrogen 20 mg/dl (7-17); Creatinine Clearance Estimated 55 mL/min (50-200); Creatinine,Serum 1.10 mg/dl (0.52-1.04); Estimated Glomerular Filt Rate 48 ml/min (>60); GFR (African American) 58 ML/MIN (>60)
[2025-05-03 15:44] LABS: Alanine Aminotransferase 12 U/L (12-78); Albumin/Globulin Ratio 1.4 (1.1-1.8); Alkaline Phosphatase 58 U/L (38-126); Anion Gap 13.2 mEq/L (5-15); Aspartate Amino Transferase 37 U/L (14-36); Bilirubin,Total 1.0 mg/dl (0.2-1.3); Calcium 9.2 mg/dl (8.4-10.2); Carbon Dioxide 26 mmol/L (22.0-30.0); Globulin 2.9 g/dL (1.3-3.2); Glucose 141 mg/dl (74-100); Total Protein,Serum 6.9 g/dl (6.3-8.2)
[2025-05-03 15:46] LABS: D-Dimer 0.40 ug/mL (0.0-0.5)
[2025-05-03 15:53] LABS: NT Pro Brain Natriuretic Pep. 4830 pg/mL (0-450)
[2025-05-03 15:56] LABS: Troponin I 0.02 ng/ml (0.00-0.034)
[2025-05-03] MEDS: IPRATROPIUM/ALBUTEROL 3 ML NEB 9 ML IH (15:58)
[2025-05-03] MEDS: MAGNESIUM SULFATE IN WATER 2 GM/50 ML PIGGYBACK IV (15:59)
[2025-05-03] MEDS: 0.9 % SODIUM CHLORIDE 1000ML 1,000 ML 999 ML IV (16:00)
[2025-05-03 16:09] LABS: RBC Morphology Normal; Total Cells Counted 100
[2025-05-03] MEDS: METHYLPREDNISOLONE SOD SUCC 125MG VIAL 125 MG IV (16:11)
--- NOTE | 2025-05-03 16:44 | PC.NURSE ---
Pt dropped down to 86% 02 on RA after getting her x-ray scan. pt was placed on 2L NC by .
[2025-05-03] MEDS: ALBUTEROL 0.083% 2.5 MG/3 ML NEB 20 MG IH (16:45)
--- NOTE | 2025-05-03 17:08 | PC.NURSE ---
tried to obtain cultures at this time, unsuccessful.
--- NOTE | 2025-05-03 17:17 | EXP.HP ---
[facility] Disclaimer: The information contained in this section may have been updated after the patient was seen, as this information can be updated by other users. Medical History Abnormal CT scan History of 2019 novel coronavirus disease (COVID-19) Dyspnea on exertion Allergic rhinitis Abnormal pulmonary function Asthma History of pacemaker Restrictive lung disease Allergic rhinitis, unspecified Moderate persistent asthma Dyspnea on exertion Surgical History No history of previous surgery Family History Other Asthma Cancer Diabetes Heart attack Hyperlipidemia Hypertension Stroke Social History Smoking Status: Never smoker alcohol intake: current alcohol intake frequency: holidays/special occasions only current occupational status: retired Travel in the last 8 weeks?: None household members: family lives independently: Yes Have you lived/traveled outside US in past 30 days?: No Contact w/someone who lives/traveled outside US past 30 days?: No Exposure to someone with infectious disease in past 14 days?: No Do you have a fever (greater than 100.4 F or 38 C)?: No Have you tested positive for COVID-19?: No Exposed to someone with COVID-19 in past 14 days?: No Do you have a sore throat?: No Do you have a cough?: No Do you have any weakness?: No Do you have any diarrhea?: No Are you experiencing any unusual bleeding?: No Do you have any muscle aches/pain?: No Do you have any abdominal pain?: No Are you experiencing loss of taste or smell?: No Other Medical History Have you received the Flu Vaccine for this season: No Have you received the Pneumonia Vaccine: Yes Meds Home Medications and Allergies Home Medications ?Medication ?Instructions ?Recorded ?Confirmed ?Type fluoxetine 20 mg capsule 20 mg PO DAILY 10/27/21 03/31/25 History losartan 50 mg tablet 50 mg PO DAILY 10/27/21 03/31/25 History omeprazole 20 mg capsule,delayed 20 mg PO DAILY 10/27/21 03/31/25 History release simvastatin 40 mg tablet 40 mg PO HS 10/27/21 03/31/25 History warfarin 5 mg tablet 2.5 mg PO MOTHSA 10/29/21 03/31/25 History alprazolam 0.25 mg tablet 0.25 mg PO TIDP PRN Anxiety 04/22/24 03/31/25 History warfarin 5 mg tablet 5 mg PO SUTUWEFR #30 tabs 04/23/24 03/31/25 Rx ipratropium 0.5 mg-albuterol 3 mg 3 ml inhalation QID PRN shortness 04/30/24 03/31/25 Rx (2.5 mg base)/3 mL nebulization of breath or wheezing 30 days #90 soln mL nystatin 100,000 unit/mL oral 600,000 unit (6 mL) PO TID 10 days 04/30/24 03/31/25 Rx suspension #180 mL prednisone 2.5 mg tablet 2.5 mg PO DAILY 09/15/24 03/31/25 History fluticasone propionate 50 2 spray intranasal BID allergy 12/22/24 03/31/25 Rx mcg/actuation nasal symptoms 90 days #16 grams spray,suspension (Flonase Allergy Relief) hydrochlorothiazide 12.5 mg capsule 12.5 mg PO DAILY 12/22/24 03/31/25 History budesonide 160 mcg-glycopyr 9 2 inh inhalation BID 90 days #10.7 01/19/25 03/31/25 Rx mcg-formot 4.8 mcg/actuation HFA grams inhaler (Breztri Aerosphere) azelastine 137 mcg (0.1 %) nasal 2 spray intranasal HS 90 days #30 03/31/25 03/31/25 Rx spray mL montelukast 10 mg tablet 10 mg PO DAILY #90 tabs 03/31/25 03/31/25 Rx (Singulair) prednisone 50 mg tablet 50 mg PO DAILY restrictive lung 05/01/25 Rx disease 3 days #3 tabs New Prescriptions to Start Prescriptions: Allergies Allergy/AdvReac Type Severity Reaction Status Date / Time sulfamethoxazole (From Allergy Unknown Unknown Verified 03/31/25 11:26 Bactrim) allergy reaction trimethoprim (From Bactrim) Allergy Unknown Unknown Verified 03/31/25 11:26 allergy reaction Exam Data for Last 24 hours Vital signs and Labs for Last 24 Hours: Temp Pulse Resp BP Pulse Ox O2 Del Method O2 Flow Rate 98.2 F 92 H 20 161/69 H 98 Nasal Cannula 2 05/03/25 14:49 05/03/25 14:49 05/03/25 14:49 05/03/25 14:49 05/03/25 15:13 05/03/25 15:13 05/03/25 15:13 Laboratory Results - last 24 hr 05/03/25 15:20: WBC 15.1 H, RBC 3.87 L, Hgb 12.1 L, Hct 36.0 L, MCV 93.0, MCH 31.3 H, MCHC 33.6, RDW 12.2, Plt Count 277, MPV 9.6, Neut % (Auto) 83.7 H, Lymph % (Auto) 5.2 L, Trigg % (Auto) 10.5 H, Eos % (Auto) 0.0 L, Baso % (Auto) 0.1, Neut # (Auto) 12.7 H, Lymph # (Auto) 0.8, Trigg # (Auto) 1.6 H, Eos # (Auto) 0.0, Baso # (Auto) 0.0, Total Counted 100, Neutrophils % (Manual) 88 H, Lymphocytes % (Manual) 6 L, Monocytes % (Manual) 6, Platelet Estimate Normal, RBC Morphology Normal, D-Dimer 0.40, VBG pH 7.42 H, VBG pCO2 40.9, VBG pO2 48.2 H, VBG HCO3 26.1, VBG Total CO2 27.4 H, VBG O2 Saturation 84.7 H, VBG Base Excess 1.7, VBG Lactic Acid 1.7, Sodium 126 L, Potassium 4.2, Chloride 91 L, Carbon Dioxide 26, Anion Gap 13.2, BUN 20 H D, Creatinine 1.10 H, Estimated Creat Clear 55, Estimated GFR 48 L, Est GFR ( Amer) 58 L, Glucose 141 H, Calcium 9.2, Total Bilirubin 1.0, AST 37 H D, ALT 12 D, Alkaline Phosphatase 58, Troponin I 0.02, NT-Pro-B Natriuret Pep 4830 H, Total Protein 6.9, Albumin 4.0, Globulin 2.9, Albumin/Globulin Ratio 1.4 I & O for Last 24 hours: Intake & Output 04/30/25 05/01/25 05/02/25 05/03/25 23:59 23:59 23:59 23:59 Intake Total 1050 / 1050 Balance 1050 / 1050 Weight 85.729 kg
--- NOTE | 2025-05-03 17:18 | PC.NURSE ---
SNOW MAKER NOTIFIED OF ADMISSION
--- NOTE | 2025-05-03 17:41 | PC.NURSE ---
pt dropped down to 78% 02 on RA. pt placed on 2L NC. pts 02 100% on 2L NC. notified.
--- NOTE | 2025-05-03 17:57 | PC.NURSE ---
Report called to OANH Newman.
--- NOTE | 2025-05-03 18:25 | PC.NURSE ---
arrived by w/c from ED
--- NOTE | 2025-05-03 18:35 | P.HP_ITS ---
<Statement entered by Og Barbosa MD - 05/04/25 09:12> Personally evaluated the patient and agree with plan of care as outlined by the [facility]. History of Present Illness *Admission Date: 05/03/25 *Reason for visit:: Shortness of breath *History of present illness: This is an 79-year-old female who has a past medical history significant for right bundle branch block, asthma, coronary artery disease, allergic rhinitis, atrial fibrillation, and hypertension who presents with a chief complaint of shortness of breath. Due to patient's symptoms, she presented to the emergency room for evaluation. While in emergency room, patient was given steroids, magnesium, and multiple nebulizer treatments and her shortness of breath remained refractory. Additionally, patient was quiring supplemental oxygen; as a result, hospital medicine was consulted for further management. During my evaluation of the patient, patient states she has been having persistent shortness of air for some time. She presented on Friday to the emergency room and was evaluated and diagnosed with enteral/rhino virus. She was discharged home; unfortunately, patient reports that her shortness of breath progressively got worse. Review of patient's EMR reveals she is currently prescribed warfarin. When asked, she states she was prescribed this medication due to pacemaker placement and bundle branch block (patient was unsure whether White or left). Current EKG reveals a ventricular paced rhythm. Patient currently denies any chest pain, lightheadedness, dizziness, fever, chills, rigors, nausea, vomiting, lower extremity swelling, PND, orthopnea, or diarrhea. Chest x-ray shows right middle lobe atelectasis and possible right lower lobe effusion. Additional pertinent values obtained including white blood cell count of 15.1, red blood cell count of 3.87, hemoglobin 12.1, hematocrit 36, neutrophils 83.7%, sodium of 126, chloride of 96, BUN of 20, creatinine 1.10, GFR 48, blood glucose 141, AST of 37, and BNP of 4830. [facility] Disclaimer: The information contained in this section may have been updated after the patient was seen, as this information can be updated by other users. Medical History Abnormal CT scan History of 2019 novel coronavirus disease (COVID-19) Dyspnea on exertion Allergic rhinitis Abnormal pulmonary function Asthma History of pacemaker Restrictive lung disease Allergic rhinitis, unspecified Moderate persistent asthma Dyspnea on exertion Surgical History No history of previous surgery Family History Other Asthma Cancer Diabetes Heart attack Hyperlipidemia Hypertension Stroke Social History Smoking Status: Never smoker alcohol intake: current alcohol intake frequency: holidays/special occasions only current occupational status: retired Travel in the last 8 weeks?: None household members: family lives independently: Yes Have you lived/traveled outside [place] in past 30 days?: No Contact w/someone who lives/traveled outside [place] past 30 days?: No Exposure to someone with infectious disease in past 14 days?: No Do you have a fever (greater than 100.4 F or 38 C)?: No Have you tested positive for COVID-19?: No Exposed to someone with COVID-19 in past 14 days?: No Do you have a sore throat?: No Do you have a cough?: No Do you have any weakness?: No Do you have any diarrhea?: No Are you experiencing any unusual bleeding?: No Do you have any muscle aches/pain?: No Do you have any abdominal pain?: No Are you experiencing loss of taste or smell?: No Other Medical History Have you received the Flu Vaccine for this season: No Have you received the Pneumonia Vaccine: Yes Review of Systems Review of Systems Review of systems:: pertinent systems reviewed and negative unless documented below Constitutional Constitutional: Reports fatigue Eyes Eyes: Reports system reviewed and no additional complaints, except as documented ENT Ears, Nose, Mouth, and Throat: Reports system reviewed and no additional com plaints, except as documented *Cardiovascular Cardiovascular: Reports dyspnea and Reports dyspnea on exertion *Respiratory Respiratory: Reports dyspnea and Reports dyspnea on exertion *Gastrointestinal Gastrointestinal: Reports system reviewed and no additional complaints, except as documented *Genitourinary Genitourinary: Reports system reviewed and no additional complaints, except as documented *Musculoskeletal Musculoskeletal: Reports system reviewed and no additional complaints, except as documented Integumentary/Breasts Skin/Breast: Reports system reviewed and no additional complaints, except as documented *Neurologic Neurologic: Reports system reviewed and no additional complaints, except as documented Psychiatric Psychiatric: Reports system reviewed and no additional complaints, except as d ocumented Endocrine Endocrine: Reports fatigue Hematologic/Lymphatic Hematologic/Lymphatic: Reports system reviewed and no additional complaints, except as documented Allergic/Immunologic Allergic/Immunologic: Reports system reviewed and no additional complaints, except as documented Meds Home Medications and Allergies Home Medications ?Medication ?Instructions ?Recorded ?Confirmed ?Type fluoxetine 20 mg capsule 20 mg PO DAILY 10/27/2104/12 History losartan 50 mg tablet 50 mg PO DAILY 10/27/2104/12 History omeprazole 20 mg capsule,delayed 20 mg PO DAILY 05/03/25 History release simvastatin 40 mg tablet 40 mg PO HS 10/27/21 5 History warfarin 5 mg tablet 2.5 mg PO MOTHSA 10/29/21 History alprazolam 0.25 mg tablet 0.25 mg PO TIDP PRN Anxiety 04/22/24 05/03/25 History warfarin 5 mg tablet 5 mg PO SUTUWEFR #30 tabs 05/03/25 Rx prednisone 2.5 mg tablet 2.5 mg PO DAILY 09/15/24 History fluticasone propionate 50 2 spray intranasal BID aller gy 12/22/24 05/03/25 Rx mcg/actuation nasal symptoms 90 days #16 grams spray,suspension (Flonase Allergy Relief) hydrochlorothiazide 12.5 mg capsule 12.5 mg PO DAILY 0 12/22/24 05/03/25 History budesonide 160 mcg-glycopyr 9 2 inh inhalation BID 90 days #10.7 01/19/25 05/03/25 Rx mcg-formot 4.8 mcg/actuation HFA grams inhaler (Breztri Aerosphere) azelastine 137 mcg (0.1 %) nasal 2 spray intranasal HS 90 days #30 03/31/25 05/03/25 Rx spray mL montelukast 10 mg tablet 10 mg PO DAILY #90 tabs 03/1205/03/25 Rx (Singulair) New Prescriptions to Start Prescriptions: Allergies Allergy/AdvReac Type Severity Reaction Status Date / Time sulfamethoxazole (From Allergy Unknown Unknown Verified 03/31/25 11:26 Bactrim) allergy reaction trimethoprim (From Bactrim) Allergy Unknown Unknown Verified 03/31/25 11:26 allergy reaction Exam Data for Last 24 hours Vital signs and Labs for Last 24 Hours: Temp Pulse Resp BP Pulse Ox O2 Del Method O2 Flow Rate 98.5 F 72 20 129/51 L 100 Nasal Cannula 2 05/03/25 18:22 05/03/25 18:22 05/03/25 18:22 05/03/25 18:22 05/03/25 17:46 05/03/25 18:22 05/03/25 18:22 Laboratory Results - last 24 hr 05/03/25 15:20: WBC 15.1 H, RBC 3.87 L, Hgb 12.1 L, Hct 36.0 L, MCV 93.0, MCH 31.3 H, MCHC 33.6, RDW 12.2, Plt Count 277, MPV 9.6, Neut % (Auto) 83.7 H, Lymph % (Auto) 5.2 L, [place] % (Auto) 10.5 H, Eos % (Auto) 0.0 L, Baso % (Auto) 0.1, Neut # (Auto) 12.7 H, Lymph # (Auto) 0.8, [place] # (Auto) 1.6 H, Eos # (Auto) 0.0, Baso # (Auto) 0.0, Total Counted 100, Neutrophils % (Manual) 88 H, Lymphocytes % (Manual) 6 L, Monocytes % (Manual) 6, Platelet Estimate Normal, RBC Morphology Normal, D-Dimer 0.40, VBG pH 7.42 H, VBG pCO2 40.9, VBG pO2 48.2 H, VBG HCO3 26.1, VBG Total CO2 27.4 H, VBG O2 Saturation 84.7 H, VBG Base Excess 1.7, VBG Lactic Acid 1.7, Sodium 126 L, Potassium 4.2, Chloride 91 L, Carbon Dioxide 26, Anion Gap 13.2, BUN 20 H D, Creatinine 1.10 H, Estimated Creat Clear 55, Harini mated GFR 48 L, Est GFR ( Amer) 58 L, Glucose 141 H, Calcium 9.2, Total Bilirubin 1.0, AST 37 H D, ALT 12 D, Alkaline Phosphatase 58, Troponin I 0.02, NT-Pro-B Natriuret Pep 4830 H, Total Protein 6.9, Albumin 4.0, Globulin 2.9, Albumin/Globulin Ratio 1.4 I & O for Last 24 hours: Intake & Output 04/30/25 05/01/25 05/02/25 05/03/25 23:59 23:59 23:59 23:59 Intake Total 1150 / 1150 Balance 1150 / 1150 Weight 85.729 kg Constitutional Constitutional: mild distress and cooperative *Routine HEENT Exam Head: Present normocephalic and atraumatic Eye: Present EOMI and PERRL ENT: Present mucous membranes moist *Routine Neck Exam Neck: Present supple, full ROM and trachea midline *Routine Respiratory Exam Respiratory: Present respiratory distress, wheezes and diminished air movement Comments: Patient has conversational dyspnea *Routine Cardiovascular Exam Cardiovascular: Present RRR, Normal S1 and Normal S2 *Routine Abdominal Exam Abdominal: Present soft, normoactive bowel sounds and obese *Routine Rectal Exam Rectal:: deferred *Routine Genitalia Exam Genitalia:: deferred *Routine Extremities Exam Extremities: Present full ROM, pulses intact and normal capillary refill Routine Back/Spine/Pelvis Exam Back/Spine: Present full ROM *Routine Skin Exam Skin: Present intact, dry, warm and normal turgor *Routine Neurological Exam Neurological: Present alert, oriented X3, CN II-XII intact and moving all extremities Routine Psychiatric Exam Psychiatric: Present normal affect, normal thought process, cooperative, good insight and good judgment H&P: Result Impressions 79-year-old female who has known coronary artery disease presents with persistent respiratory distress found to be acutely hypoxic. Patient was refractory to bronchodilators and steroids. Assessment and Plan *Assessment and plan (1) Asthma exacerbation: Status: Acute Qualifiers: Asthma persistence: persistent Asthma severity: moderate Qualified Code(s): J45.41 - Moderate persistent asthma with (acute) exacerbation Category: Medical Code(s): J45.901 - Unspecified asthma with (acute) exacerbation (2) Acute viral bronchiolitis: Status: Acute Category: Medical Code(s): J21.8 - Acute bronchiolitis due to other specified organisms; B97.89 - Other viral agents as the cause of diseases classified elsewhere (3) Acute hypoxic respiratory failure: Status: Acute Category: Medical Code(s): J96.01 - Acute respiratory failure with hypoxia (4) Leukocytosis: Status: Acute Qualifiers: Leukocytosis type: unspecified Qualified Code(s): D72.829 - Elevated white blood cell count, unspecified Category: Medical Code(s): D72.829 - Elevated white blood cell count, unspecified (5) Hyponatremia: Status: Acute Category: Medical Code(s): E87.1 - Hypo-osmolality and hyponatremia (6) CKD (chronic kidney disease): Status: Acute Qualifiers: Chronic kidney disease stage: unspecified stage Qualified Code(s): N18.9 - Chronic kidney disease, unspecified Category: Medical Code(s): N18.9 - Chronic kidney disease, unspecified (7) Elevated brain natriuretic peptide (BNP) level: Status: Acute Category: Medical Code(s): R79.89 - Other specified abnormal findings of blood chemistry Plan Assessment: Acute asthma exacerbation Acute viral bronchitis Acute hypoxic respiratory failure - Patient was recently diagnosed with a entero-/rhinovirus more than likely this viral bronchitis led to her acute hypoxemia and respiratory distress - Will continue conservative measures for viral illness - Solu-Medrol IV twice daily-patient has inspiratory and expiratory wheezing - Will obtain peak flow twice daily post nebulizer treatment - DuoNebs every 4 hours-per attending - If patient's symptomology is unrelieved by nebulizer treatments and steroids, will consider additional imaging to include CTA of the chest -Supplemental oxygen to maintain oxygen saturation greater than 94% Leukocytosis with left shift -May be multifactorial due to acute illness and exogenous steroids - Blood cultures have been obtained - Will obtain procalcitonin in the a.m. - Will continue to monitor for fever Hyponatremia - BNP is markedly elevated however patient does not appear to be hypervolemic - Currently she is denying any lower extremity edema this excludes congestive heart failure-patient currently does not have a diagnosis - Will give supplementation of sodium chloride p.o. twice daily - Check urine random sodium - Imaging is alluding to a possible small effusion - Will consider one-time dose of Lasix - Will monitor patient's serum sodium daily Chronic kidney disease -Patient is at baseline creatinine Elevated BNP -Patient is denying any symptoms consistent with heart failure - She does not appear to be hypervolemic Plan: Admit patient to the MedSur unit Saline lock Vital signs every 4 hours Cardiac diet CBC/CMP daily Daily INR Pharmacy to dose patient's Coumadin 0.5 mg of budesonide twice daily nebulized treatment 4 mg Zofran IV push every 8 hours for nausea vomiting/full code I have discussed this case with attending physician Dr. Barbosa and a look forward to more input
[2025-05-03] MEDS: AZITHROMYCIN 500 MG in 0.9 % SODIUM CHLORIDE 250 ML 250 MG IV (18:51)
[2025-05-03] MEDS: BUDESONIDE 0.5MG/2ML NEB 0.5 MG IH (18:54)
[2025-05-03 19:57] LABS: Troponin I < 0.01 ng/ml (0.00-0.034)
--- NOTE | 2025-05-03 20:05 | PC.NURSE ---
Home medication reconciliation was completed by me during this shift via external medication history.
[2025-05-03] MEDS: PHARMACY CONSULT REQUEST 1 EACH NOTAPPLIC (20:20)
[2025-05-03] MEDS: PRAVASTATIN 40MG TAB 80 MG PO (20:20)
[2025-05-03] MEDS: METHYLPREDNISOLONE SOD SUCC 40MG VIAL 40 MG IV (20:20)
[2025-05-03] MEDS: IPRATROPIUM/ALBUTEROL 3 ML NEB IH (21:36)
[2025-05-03 23:03] LABS: Troponin I 0.01 ng/ml (0.00-0.034)
[2025-05-04] VITALS (18 sets, daily range): BP systolic 115–146; BP diastolic 62–80; PULSE 75–97; RESP 16–20; TEMP 36.5–36.8; O2SAT 94–97; BMI 32.1
[2025-05-04] MEDS: BENZONATATE 100MG CAPSULE 200 MG PO (01:08)
[2025-05-04] MEDS: IPRATROPIUM/ALBUTEROL 3 ML NEB IH ×6 (01:34→22:52)
--- NOTE | 2025-05-04 03:45 | PC.NURSE ---
Patient is alert and oriented x4. She was observed to be resting upright in bed with eyes closed, respirations shallow and occasionally labored on 2 L of oxygen via nasal cannula, and no apparent distress throughout the majority of the night. A family member has remained at the bedside. Upon auscultation of her lungs, inspiratory/expiratory wheezing and rhonchi could be heard. Patient has had scattered audible wheezing throughout this shift as well. She also endorses having an intermittent, productive cough; patient had a persistent coughing episode once this shift of which Tessalon Perles were given per MAR. Breathing treatments were administered per MAR by RTs; patient stated that the breathing treatments have been helping. Education about the pursed-lip breathing technique was provided to teach the patient how to slow down her respiration rates (patient previously asked about how to slow down her breathing whenever she becomes short of breath/labored). The tripod breathing position was also explained. The patient verbalized an understanding about both of these techniques to help manage shortness of breath. Scheduled medications were administered as appropriately per MAR. Flonase and Protonix refused (see MAR). Patient ambulates with assistance from nursing staff as needed + use of her personal cane in her room/to the bathroom; patient refused bedside commode use after offer from nursing staff. Pending random urine sodium sample collection (patient missed the urinary collection device during the first attempt this shift). Upon ambulation this shift, she denied dizziness or lightheadedness; however, the patient still becomes short of breath upon exertion. Activity as tolerated. At this time, the patient remains resting upright in bed without any further complaints. Oxygen saturations remain > 90%. No new needs thus far. Call light within reach.
[2025-05-04 05:56] LABS: Hematocrit 34.2 % (37.0-47.0); Hemoglobin 11.3 g/dL (12.2-16.2); Immature Granulocytes % 0.4 %; Mean Corpuscular HGB Conc 33.0 g/dL (31.8-35.4); Mean Corpuscular Hemoglobin 31.0 pg (27.0-31.2); Mean Corpuscular Volume 93.7 fl (81-99); Nucleated Red Blood Cells % 0 %; Platelet Count 266 K/mm3 (142-424); Red Blood Count 3.65 M/mm3 (4.20-5.40); Red Cell Distribution Width-SD 42.2 fL; White Blood Count 13.1 K/mm3 (4.8-10.8)
[2025-05-04 06:02] LABS: INR 4.59 (0.9-1.1)
[2025-05-04 06:04] LABS: Alanine Aminotransferase 12 U/L (12-78); Albumin Level 3.6 g/dl (3.5-5.0); Albumin/Globulin Ratio 1.3 (1.1-1.8); Alkaline Phosphatase 62 U/L (38-126); Anion Gap 10.5 mEq/L (5-15); Aspartate Amino Transferase 27 U/L (14-36); Bilirubin,Total 0.4 mg/dl (0.2-1.3); Blood Urea Nitrogen 15 mg/dl (7-17); Calcium 8.6 mg/dl (8.4-10.2); Carbon Dioxide 23 mmol/L (22.0-30.0); Chloride 96 mmol/L (98-107); Cholesterol 168 mg/dl (140-200); Creatinine Clearance Estimated 62 mL/min (50-200); Creatinine,Serum 1.00 mg/dl (0.52-1.04); Estimated Glomerular Filt Rate 53 ml/min (>60); GFR (African American) 65 ML/MIN (>60); Globulin 2.8 g/dL (1.3-3.2); Glucose 173 mg/dl (74-100); HDL Cholesterol 72 mg/dl (40-60); Magnesium 2.1 mg/dl (1.6-2.3); Potassium 3.5 mmoL/L (3.5-5.1); Sodium 126 mmol/L (136-145); Total Protein,Serum 6.4 g/dl (6.3-8.2); Triglycerides 61 mg/dl (30-150)
[2025-05-04 06:06] LABS: Prothrombin Time 45.5 seconds (10.1-12.5)
[2025-05-04] MEDS: BUDESONIDE 0.5MG/2ML NEB 0.5 MG IH ×2 (06:37→18:34)
[2025-05-04 07:02] LABS: RBC Morphology Normal; Total Cells Counted 100
[2025-05-04 07:15] LABS: Procalcitonin 0.194 ng/mL (0.0-2.0)
--- NOTE | 2025-05-04 07:48 | CA_ITS ---
APPROVED REPORT EXAM: Comprehensive 2D, Doppler, and color-flow Echocardiogram Emt/Dispatcher: Ursula White RVT Ht: 5 ft 4 in Wt: 192lbs BSA: 1.92 BP: 161/69 mmHg Indications: SHORTNESS OF BREATH,PNEUMONIA 2D Dimensions Left Atrium 3.28 cm F: 2.7 - 3.8 LA Volume 62.40 mL RVID Base (AP4) 3.23 cm (M/F) 2.5-4.1 LA Volume Index 32.50 mL/m2 (M/F) 16-34 LVOT 2.13 cm (M/F) 1.5-2.5 EF AP4 50.30 % GL Strain -27.3 % M-Mode Dimensions RVDd 3.15 cm (0.9-2.6) LVDd 4.67 cm (3.5-5.7) Ao Diam 2.92 cm (2.0-3.7) LVDs 3.42 cm (3.5-5.7) IVSd 1.29 cm (0.6-1.1) PWd 0.57 cm (0.6-1.1) EF (Teich) 52.30% FS 26.80% EDV (Teich) 100.80 mL TAPSE 2.68 (<1.7) ESV (Teich) 48.10 mL LV Diastology E Decel Time 286 (160-240 msec) E/A Ratio 0.8 MED E' 5.7 (>= 7 cm/sec) E'/MED E' Ratio 13.93 (<= 14) LAT E' 6.5 (>= 10 cm/sec) E/LAT E' Ratio 12.22 (<= 14) Aortic Valve LVOT Max 102.0 (70-110 cm/s) KAL Index 1.26 cm2/m2 LVOT VTI 21.59 cm AoV Peak Gopal. 132.0 (50-130 cm/s) AO Peak GR. 6.30 mmHg AO Mean GR. 4.70 (<5 mmHg) AO VTI 31.9 (18-25 cm) KAL (VTI) 2.41 (2.5-4.5 cm2) Mitral Valve MV E Max Gopal. 79.0 (40-130 cm/s) MV A Velocity 97.0 (40-130 cm/s) E/A Ratio 0.82 MV Decel. Time 286 (160-240 ms) Tricuspid Valve TR P. Velocity 290.00 cm/s RAP Estimate 8.00 mmHg RVSP 41.60 mmHg Left Ventricle The left ventricle is normal size. Left ventricular systolic function is mildly reduced. There is increased left ventricular wall thickness. There is mild global hypokinesis present. The septum is asynchronous. Grade 2 diastolic dysfunction is present. LVEF is 45%. Right Ventricle The right ventricle is mildly dilated. The right ventricular systolic function is normal. There is a device seen in the right ventricle. Atria The left atrium is mildly dilated. The right atrium is mildly dilated. There is no color Doppler evidence of interatrial shunt. Aortic Valve The aortic valve is mildly thickened. There is no hemodynamically significant aortic valvular stenosis. Mild aortic regurgitation is present. Mitral Valve The mitral valve is mildly thickened. No evidence of mitral valve stenosis. Mild mitral regurgitation is present. Tricuspid Valve The tricuspid valve leaflets are thin and pliable. Moderate tricuspid regurgitation. RVSP is 30-35 mmHg. Pulmonic Valve The pulmonary valve is grossly normal in structure. Trace pulmonic valve regurgitation is present. Great Vessels The aortic root is normal in size. There is borderline dilation of the ascending aorta, measuring 3.7 cm in diameter. IVC is normal in size and collapses >50% with inspiration. Pericardium There is no pericardial effusion. Other Information Study Quality: Fair Conclusion Mildly reduced LV systolic function (LVEF 45%). Asynchronous septum. Mild RV dilation with normal RV function. Biatrial dilation. Moderate TR. Mild MR, mild AI. There is borderline dilation of the ascending aorta, measuring 3.7 cm in diameter. Electronically signed by : Mady Moe MD 05/04/2025 11:00:13
[2025-05-04 08:33] LABS: Thyroid Stimulating Hormone 0.19 uIU/mL (0.465-4.68)
[2025-05-04] MEDS: METHYLPREDNISOLONE SOD SUCC 40MG VIAL 40 MG IV (08:42)
[2025-05-04] MEDS: IRBESARTAN 75MG TABLET 75 MG PO (08:42)
[2025-05-04] MEDS: FLUOXETINE 20MG CAPSULE 20 MG PO (08:42)
[2025-05-04] MEDS: FLUTICASONE PROP 50MCG NASAL SPRAY 16GM 2 SPRAY NS ×2 (08:43→20:24)
--- NOTE | 2025-05-04 09:05 | P.PN_ITS ---
<Statement entered by Og Barbosa MD - 05/05/25 14:22> Agree with plan of care as outlined by the CRACKING MACHINE OPERATOR. Subjective *Date: 05/04/25 *Time: 13:32 Interval history: Patient sitting up in bed, daughter at bedside. Appears to be in moderate respiratory distress. Pursed lip breathing. Patient currently on room air saturation 94%. States she is feeling better but not back to baseline. Pulmonology consulted, recommendation for CT. Medical Exam Vital signs and Labs for Last 24 Hours: Vital Signs Temp Pulse Pulse Pulse Resp BP BP 05/04/25 08:00 90 05/04/25 07:45 97.7 F 78 18 146/62 H 05/04/25 06:40 05/04/25 06:36 78 05/04/25 06:36 75 05/04/25 06:36 05/04/25 05:00 05/04/25 04:00 75 05/04/25 03:57 98.2 F 85 18 143/73 H 05/04/25 03:00 05/04/25 02:00 76 05/04/25 01:59 78 05/04/25 01:00 05/04/25 00:00 75 05/04/25 00:00 98.3 F 93 H 18 132/71 05/03/25 23:00 05/03/25 22:15 77 05/03/25 22:00 78 05/03/25 21:00 05/03/25 20:00 75 05/03/25 20:00 05/03/25 19:49 97.8 F 98 H 18 130/83 05/03/25 19:24 05/03/25 19:23 78 05/03/25 19:22 77 05/03/25 18:58 05/03/25 18:22 98.5 F 72 20 129/51 L 05/03/25 17:46 75 152/58 H 05/03/25 17:30 69 155/67 H 05/03/25 16:45 84 151/65 H 05/03/25 16:32 74 134/72 05/03/25 15:13 05/03/25 14:49 98.2 F 92 H 20 161/69 H Pulse Ox O2 Del Method O2 Flow Rate FiO2 05/04/25 08:00 05/04/25 07:45 97 Nasal Cannula 2 05/04/25 06:40 Nasal Cannula 2 05/04/25 06:36 05/04/25 06:36 05/04/25 06:36 96 Nasal Cannula 2 05/04/25 05:00 Nasal Cannula 2 05/04/25 04:00 05/04/25 03:57 96 Nasal Cannula 2 05/04/25 03:00 Nasal Cannula 2 05/04/25 02:00 05/04/25 01:59 05/04/25 01:00 Nasal Cannula 2 05/04/25 00:00 05/04/25 00:00 95 Nasal Cannula 2 05/03/25 23:00 Nasal Cannula 2 05/03/25 22:15 05/03/25 22:00 05/03/25 21:00 Nasal Cannula 2 05/03/25 20:00 05/03/25 20:00 Nasal Cannula 2 05/03/25 19:49 97 Nasal Cannula 2 05/03/25 19:24 Nasal Cannula 2 28 05/03/25 19:23 05/03/25 19:22 05/03/25 18:58 Nasal Cannula 2 05/03/25 18:22 Nasal Cannula 2 05/03/25 17:46 100 05/03/25 17:30 99 05/03/25 16:45 96 05/03/25 16:32 96 05/03/25 15:13 98 Nasal Cannula 2 05/03/25 14:49 94 L Room Air Intake and Output 05/03/25 05/04/25 05/04/25 23:59 07:59 15:59 Intake Total 1400 / 1600 200 / 200 Output Total 200 / 200 Balance 1400 / 1600 0 / 0 Intake: Intake, Oral Amount 200 / 200 Intake, Total IV Amount 1400 / 1400 0.9 % Sodium Chloride 1000ML 1, 1000 / 1000 000 ml @ 999 mls/hr IV .Q1H1M ONE Rx#:[id number] Azithromycin 500 mg In 0.9 % 250 / 250 Sodium Chloride 250 ml @ 250 mls/hr IV Q24H AGUSTIN Rx#:[id number] Ceftriaxone Sodium 2 gm In 0.9 100 / 100 % Sodium Chloride 100 ml @ 200 mls/hr IV Q24H AGUSTIN Rx#:[id number] Magnesium Sulfate in Water 2 gm 50 / 50 In 50 ml @ 50 mls/hr IV ONCE ONE Rx#:[id number] Output: Output, Urine Amount 200 / 200 Other: Number of Unmeasured Voids 0 Weight 87.362 kg Patient Weight 05/04/25 23:59 Weight 87.362 kg Laboratory Results - last 24 hr 05/03/25 15:20: WBC 15.1 H, RBC 3.87 L, Hgb 12.1 L, Hct 36.0 L, MCV 93.0, MCH 31.3 H, MCHC 33.6, RDW 12.2, Plt Count 277, MPV 9.6, Neut % (Auto) 83.7 H, Lymph % (Auto) 5.2 L, [place] % (Auto) 10.5 H, Eos % (Auto) 0.0 L, Baso % (Auto) 0.1, Neut # (Auto) 12.7 H, Lymph # (Auto) 0.8, [place] # (Auto) 1.6 H, Eos # (Auto) 0.0, Baso # (Auto) 0.0, Total Counted 100, Neutrophils % (Manual) 88 H, Lymphocytes % (Manual) 6 L, Monocytes % (Manual) 6, Platelet Estimate Normal, RBC Morphology Normal, D-Dimer 0.40, VBG pH 7.42 H, VBG pCO2 40.9, VBG pO2 48.2 H, VBG HCO3 26.1, VBG Total CO2 27.4 H, VBG O2 Saturation 84.7 H, VBG Base Excess 1.7, VBG Lactic Acid 1.7, Sodium 126 L, Potassium 4.2, Chloride 91 L, Carbon Dioxide 26, Anion Gap 13.2, BUN 20 H D, Creatinine 1.10 H, Estimated Creat Clear 55, Estim ated GFR 48 L, Est GFR ( Amer) 58 L, Glucose 141 H, Calcium 9.2, Total Bilirubin 1.0, AST 37 H D, ALT 12 D, Alkaline Phosphatase 58, Troponin I 0.02, NT-Pro-B Natriuret Pep 4830 H, Total Protein 6.9, Albumin 4.0, Globulin 2.9, Albumin/Globulin Ratio 1.4 05/03/25 19:09: Troponin I < 0.01 05/03/25 22:19: Troponin I 0.01 05/04/25 05:30: WBC 13.1 H, RBC 3.65 L, Hgb 11.3 L, Hct 34.2 L, MCV 93.7, MCH 31.0, MCHC 33.0, RDW 12.2, Plt Count 266, MPV 9.3, Neut % (Auto) 94.3 H, Lymph % (Auto) 2.8 L, [place] % (Auto) 2.4, Eos % (Auto) 0.0 L, Baso % (Auto) 0.1, Neut # (Auto) 12.4 H, Lymph # (Auto) 0.4 L, [place] # (Auto) 0.3, Eos # (Auto) 0.0, Baso # (Auto) 0.0, Total Counted 100, Neutrophils % (Manual) 98 H, Lymphocytes % (Manual) 1 L, Monocytes % (Manual) 1 L, Platelet Estimate Normal, RBC Morphology Normal, PT 45.5 H, INR 4.59 H, Sodium 126 L, Potassium 3.5, Chloride 96 L, Carbon Dioxide 23, Anion Gap 10.5, BUN 15, Creatinine 1.00, Estimated Creat Clear 62, Estimated GFR 53 L, Est GFR ( Amer) 65, Glucose 173 H D, Calcium 8.6, Magnesium 2.1, Total Bilirubin 0.4, AST 27 D, ALT 12, Alkaline Phosphatase 62, Total Protein 6.4, Albumin 3.6, Globulin 2.8, Albumin/Globulin Ratio 1.3, Triglycerides 61, Cholesterol 168, LDL Cholesterol Direct 46.68 L, VLDL Cholesterol 12, HDL Cholesterol 72 H, Cholesterol/HDL Ratio 2.3, Procalcitonin 0.194, TSH 0.19 L I & O for Labs for Last 24 Hours: Intake & Output 05/01/25 05/02/25 05/03/25 05/04/25 23:59 23:59 23:59 23:59 Intake Total 1400 / 1600 200 / 200 Output Total 200 / 200 Balance 1400 / 1600 0 / 0 Weight 85.729 kg 87.362 kg Constitutional: Present moderate distress, obese and cooperative Head: Present atraumatic Eyes: Present as per HPI ENT: Present normal exam Neck: Present normal inspection Respiratory: Present prolonged expiratory phase, respiratory distress, rhonchi, wheezes and symmetric chest movement Cardiac: Present Reg Rate and Rhythm; Absent No Murmur GI: Present soft and normal bowel sounds; Absent distention or tenderness Rectal (female): Present deferred (female): Present deferred Extremities: Present normal inspection and normal capillary refill; Absent edema Skin: Present intact and dry; Absent rash Neuro: Present alert, awake and oriented x 3 Assessment and Plan *Assessment and plan (1) Acute hypoxic respiratory failure: Status: Acute Category: Medical Code(s): J96.01 - Acute respiratory failure with hypoxia (2) Acute viral bronchiolitis: Status: Acute Category: Medical Code(s): J21.8 - Acute bronchiolitis due to other specified organisms; B97.89 - Other viral agents as the cause of diseases classified elsewhere (3) Asthma exacerbation: Status: Acute Qualifiers: Asthma persistence: persistent Asthma severity: moderate Qualified Code(s): J45.41 - Moderate persistent asthma with (acute) exacerbation Category: Medical Code(s): J45.901 - Unspecified asthma with (acute) exacerbation (4) Elevated brain natriuretic peptide (BNP) level: Status: Acute Category: Medical Code(s): R79.89 - Other specified abnormal findings of blood chemistry (5) Hyponatremia: Status: Acute Category: Medical Code(s): E87.1 - Hypo-osmolality and hyponatremia (6) CKD (chronic kidney disease): Status: Acute Qualifiers: Chronic kidney disease stage: unspecified stage Qualified Code(s): N18.9 - Chronic kidney disease, unspecified Category: Medical Code(s): N18.9 - Chronic kidney disease, unspecified (7) Leukocytosis: Status: Acute Qualifiers: Leukocytosis type: unspecified Qualified Code(s): D72.829 - Elevated white blood cell count, unspecified Category: Medical Code(s): D72.829 - Elevated white blood cell count, unspecified (8) Atrial fibrillation: Status: Acute Category: Medical Code(s): I48.91 - Unspecified atrial fibrillation (9) Chronic anticoagulation: Status: Acute Category: Medical Code(s): Z79.01 - senior care (current) use of anticoagulants Plan Mrs. Lorenzo is a 79-year-old female who presented to the emergency department with shortness of breath. She has a primary medical history of RBBB, asthma, CAD, A-fib, CKD, and hypertension. She was recently in the emergency department for the same symptoms and was given steroids, magnesium, and multiple nebulizer treatments for her shortness of breath, at this time she was diagnosed with rhinovirus. She was ultimately discharged home. Patient continued to feel short of breath and presented to the emergency department again with similar symptoms. Patient also required supplemental O2 to maintain O2 saturation greater than 90%. Hospital medicine was consulted for admission for a asthma exacerbation, rhinovirus, new oxygen requirement. Plan of care is as follows: #Acute asthma exacerbation #Acute viral bronchitis #Acute hypoxic respiratory failure ? Patient remains short of breath on assessment this morning. Oxygen has been weaned and patient is currently maintaining O2 greater than 90% on room air. Scattered expiratory wheezing and rhonchi noted, patient states improvement from yesterday. Patient continues to have tachypnea respirations low 20s and pursed lip breathing. ? Patient receiving Solu-Medrol 125 mg IV twice daily-transitioning to 40 mg daily per pulmonology. Pulmicort twice daily, DuoNeb every 4 hours. ? Patient does follow with Dr. Barrett in the outpatient setting. Pulmonology consulted, recommending CT without contrast. ? PT/OT consulted for evaluation, states patient is at baseline and may go home to current living situation. #Leukocytosis ? Patient's white count decreased from admission, 13.1. Patient receiving ceftriaxone 2 gm every 24 hour and azithromycin 500 mg IV every 24 hours. Blood cultures pending. Procalcitonin unremarkable. Patient remains afebrile, nontachycardic. ?CBC ordered for the a.m. #Hyponatremia ? BNP is markedly elevated at 4830, however patient does not appear hypervolemic. No lower extremity edema noted, patient has no known history of CHF. Echo shows EF of 45%. Patient follows with Dr. Doyle in [place], states she actually has an appointment tomorrow for checkup. She regularly interrogate her pacemaker at home, states she has not had any complications. ? Urine sodium low at 12 and urine osmolarity pending at this time. Will supplement sodium with sodium chloride tabs twice daily. ? Sodium today remains stable at 126. ? CMP ordered for the a.m. #CKD ? Kidney function within normal range, BUN 15, creatinine 1.00. #A-fib ? Patient has known history of atrial fibrillation, patient has pacemaker in place currently. Patient's EKG shows NSR. Patient does take warfarin daily. INR is not therapeutic, 4.59. Currently holding Coumadin at this time. Will recheck PT/INR in the a.m. Full code Cardiac diet Ambulate as tolerated VTE?Coumadin
[2025-05-04] MEDS: SODIUM CHLORIDE 3% 15ML NEB 3 ML IH (09:28)
--- NOTE | 2025-05-04 09:42 | EXP.PULM.CON ---
History of Present Illness History of present illness: Ms. Lorenzo is a 79-year-old female with a history of asthma and allergic rhinitis right middle lobe endobronchial lesion at baseline not using any oxygen supplementation Presented to the ER with worsening respiratory distress and pulmonary was called for further evaluation and management. Patient in the ER was managed for asthma exacerbation with continued symptoms of respiratory distress and was admitted to the hospital for further evaluation and management. [facility] Disclaimer: The information contained in this section may have been updated after the patient was seen, as this information can be updated by other users. Medical History (Updated 05/04/25 @ 12:43 by Jeronimo Barrett MD) Viral pneumonia Recurrent pneumonia Abnormal CT scan History of 2019 novel coronavirus disease (COVID-19) Dyspnea on exertion Allergic rhinitis Abnormal pulmonary function Asthma History of pacemaker Restrictive lung disease Allergic rhinitis, unspecified Moderate persistent asthma Dyspnea on exertion Surgical History No history of previous surgery Family History Other Asthma Cancer Diabetes Heart attack Hyperlipidemia Hypertension Stroke Social History Smoking Status: Never smoker alcohol intake: current alcohol intake frequency: holidays/special occasions only current occupational status: retired Travel in the last 8 weeks?: None household members: family lives independently: Yes Have you lived/traveled outside [place] in past 30 days?: No Contact w/someone who lives/traveled outside US past 30 days?: No Exposure to someone with infectious disease in past 14 days?: No Do you have a fever (greater than 100.4 F or 38 C)?: No Have you tested positive for COVID-19?: No Exposed to someone with COVID-19 in past 14 days?: No Do you have a sore throat?: No Do you have a cough?: No Do you have any weakness?: No Do you have any diarrhea?: No Are you experiencing any unusual bleeding?: No Do you have any muscle aches/pain?: No Do you have any abdominal pain?: No Are you experiencing loss of taste or smell?: No Review of Systems Constitutional Constitutional: Reports anorexia, Reports body ache(s), Reports fatigue and Reports lethargy Eyes Eyes: Denies eye discharge, Denies dry eyes, Denies irritation and Denies itchy eyes ENT Ears, Nose, Mouth, and Throat: Denies epistaxis, Denies facial pain, Denies lip swelling and Denies throat swelling *Cardiovascular Cardiovascular: Reports dyspnea and Reports dyspnea on exertion *Respiratory Respiratory: Reports change in phlegm color, Reports chest congestion, Reports cough, Reports dyspnea, Reports dyspnea on exertion, Reports excessive phlegm production, Denies hemoptysis, Denies pain on inspiration and Reports wheezing *Gastrointestinal Gastrointestinal: Denies abdominal pain, Denies belching and Denies cramping *Musculoskeletal Musculoskeletal: Reports back pain, Reports myalgias and Reports other (No small joint swelling or Pain) *Neurologic Neurologic: Reports system reviewed and no additional complaints, except as documented Psychiatric Psychiatric: Denies homicidal ideation and Denies suicidal ideation Endocrine Endocrine: Reports fatigue and Denies heat intolerance Hematologic/Lymphatic Hematologic/Lymphatic: Denies easy bleeding and Denies lymphadenopathy Allergic/Immunologic Allergic/Immunologic: Denies itchy eyes, Denies lip swelling, Denies throat swelling and Reports wheezing Pulmonology Exam Inpatient Vital signs and Labs for Last 24 Hours: Temp Pulse Resp BP Pulse Ox O2 Del Method O2 Flow Rate 97.7 F 88 19 146/62 H 97 Nasal Cannula 2 05/04/25 07:45 05/04/25 09:29 05/04/25 09:29 05/04/25 07:45 05/04/25 07:45 05/04/25 07:45 05/04/25 07:45 FiO2 28 05/03/25 19:24 Laboratory Results - last 24 hr 05/03/25 15:20: WBC 15.1 H, RBC 3.87 L, Hgb 12.1 L, Hct 36.0 L, MCV 93.0, MCH 31.3 H, MCHC 33.6, RDW 12.2, Plt Count 277, MPV 9.6, Neut % (Auto) 83.7 H, Lymph % (Auto) 5.2 L, [place] % (Auto) 10.5 H, Eos % (Auto) 0.0 L, Baso % (Auto) 0.1, Neut # (Auto) 12.7 H, Lymph # (Auto) 0.8, [place] # (Auto) 1.6 H, Eos # (Auto) 0.0, Baso # (Auto) 0.0, Total Counted 100, Neutrophils % (Manual) 88 H, Lymphocytes % (Manual) 6 L, Monocytes % (Manual) 6, Platelet Estimate Normal, RBC Morphology Normal, D-Dimer 0.40, VBG pH 7.42 H, VBG pCO2 40.9, VBG pO2 48.2 H, VBG HCO3 26.1, VBG Total CO2 27.4 H, VBG O2 Saturation 84.7 H, VBG Base Excess 1.7, VBG Lactic Acid 1.7, Sodium 126 L, Potassium 4.2, Chloride 91 L, Carbon Dioxide 26, Anion Gap 13.2, BUN 20 H D, Creatinine 1.10 H, Estimated Creat Clear 55, Estimated GFR 48 L, Est GFR ( Amer) 58 L, Glucose 141 H, Calcium 9.2, Total Bilirubin 1.0, AST 37 H D, ALT 12 D, Alkaline Phosphatase 58, Troponin I 0.02, NT-Pro-B Natriuret Pep 4830 H, Total Protein 6.9, Albumin 4.0, Globulin 2.9, Albumin/Globulin Ratio 1.4 05/03/25 19:09: Troponin I < 0.01 05/03/25 22:19: Troponin I 0.01 05/04/25 05:30: WBC 13.1 H, RBC 3.65 L, Hgb 11.3 L, Hct 34.2 L, MCV 93.7, MCH 31.0, MCHC 33.0, RDW 12.2, Plt Count 266, MPV 9.3, Neut % (Auto) 94.3 H, Lymph % (Auto) 2.8 L, [place] % (Auto) 2.4, Eos % (Auto) 0.0 L, Baso % (Auto) 0.1, Neut # (Auto) 12.4 H, Lymph # (Auto) 0.4 L, [place] # (Auto) 0.3, Eos # (Auto) 0.0, Baso # (Auto) 0.0, Total Counted 100, Neutrophils % (Manual) 98 H, Lymphocytes % (Manual) 1 L, Monocytes % (Manual) 1 L, Platelet Estimate Normal, RBC Morphology Normal, PT 45.5 H, INR 4.59 H, Sodium 126 L, Potassium 3.5, Chloride 96 L, Carbon Dioxide 23, Anion Gap 10.5, BUN 15, Creatinine 1.00, Estimated Creat Clear 62, Estimated GFR 53 L, Est GFR ( Amer) 65, Glucose 173 H D, Calcium 8.6, Magnesium 2.1, Total Bilirubin 0.4, AST 27 D, ALT 12, Alkaline Phosphatase 62, Total Protein 6.4, Albumin 3.6, Globulin 2.8, Albumin/Globulin Ratio 1.3, Triglycerides 61, Cholesterol 168, LDL Cholesterol Direct 46.68 L, VLDL Cholesterol 12, HDL Cholesterol 72 H, Cholesterol/HDL Ratio 2.3, Procalcitonin 0.194, TSH 0.19 L I & O for Labs for Last 24 Hours: Intake & Output 05/01/25 05/02/25 05/03/25 05/04/25 23:59 23:59 23:59 23:59 Intake Total 1400 / 1600 200 / 200 Output Total 200 / 200 Balance 1400 / 1600 0 / 0 Weight 189 lb 192 lb 9.6 oz Constitutional: Present moderate distress Head: Present normocephalic and atraumatic ENT: Present normal exam, normal oropharynx and mucous membranes moist Neck: Present normal inspection and full ROM Respiratory: Present prolonged expiratory phase, respiratory distress, wheezes, diminished air movement and able to speak in complete sentences Cardiac: Present S1/S2, Tachycardia and radial pulses present GI: Present soft and distention; Absent tenderness or guarding Rectal (female): Present deferred (female): Present deferred Skin: Present intact; Absent cyanosis or jaundice Neuro: Present alert, awake and oriented x 3 Extremities: Present normal inspection; Absent clubbing or cyanosis Psychiatric: Present normal affect and cooperative Meds Home Medications and Allergies Home Medications ?Medication ?Instructions ?Recorded ?Confirmed ?Type fluoxetine 20 mg capsule 20 mg PO DAILY 10/27/21 05/03/25 History losartan 50 mg tablet 50 mg PO DAILY 10/27/21 05/03/25 History omeprazole 20 mg capsule,delayed 20 mg PO DAILY 10/27/21 05/03/25 History release simvastatin 40 mg tablet 40 mg PO HS 10/27/21 05/03/25 History warfarin 5 mg tablet 2.5 mg PO MOTHSA 10/29/21 05/03/25 History alprazolam 0.25 mg tablet 0.25 mg PO BIDP PRN Anxiety 04/22/24 05/04/25 History warfarin 5 mg tablet 5 mg PO KENDALLEFR #30 tabs 04/23/24 05/03/25 Rx prednisone 2.5 mg tablet 2.5 mg PO DAILY 09/15/24 05/03/25 History fluticasone propionate 50 2 spray intranasal BID allergy 12/22/24 05/03/25 Rx mcg/actuation nasal symptoms 90 days #16 grams spray,suspension (Flonase Allergy Relief) hydrochlorothiazide 12.5 mg capsule 12.5 mg PO DAILY 12/22/24 05/03/25 History budesonide 160 mcg-glycopyr 9 2 inh inhalation BID 90 days #10.7 01/19/25 05/03/25 Rx mcg-formot 4.8 mcg/actuation HFA grams inhaler (Breztri Aerosphere) azelastine 137 mcg (0.1 %) nasal 2 spray intranasal HS 90 days #30 03/31/25 05/03/25 Rx spray mL montelukast 10 mg tablet 10 mg PO DAILY #90 tabs 03/31/25 05/03/25 Rx (Singulair) New Prescriptions to Start Prescriptions: Allergies Allergy/AdvReac Type Severity Reaction Status Date / Time sulfamethoxazole (From Allergy Unknown Unknown Verified 03/31/25 11:26 Bactrim) allergy reaction trimethoprim (From Bactrim) Allergy Unknown Unknown Verified 03/31/25 11:26 allergy reaction Results Laboratory Findings 05/04/25 05:30 05/04/25 05:30 PT/INR, D-dimer PT 45.5 seconds (10.1-12.5) H 05/04/25 05:30 INR 4.59 (0.9-1.1) H 05/04/25 05:30 D-Dimer 0.40 ug/mL (0.0-0.5) 05/03/25 15:20 Abnormal lab findings: Abnormal Labs 05/03/25 05/04/25 15:20 05:30 WBC 15.1 H 13.1 H RBC 3.87 L 3.65 L Hgb 12.1 L 11.3 L Hct 36.0 L 34.2 L MCH 31.3 H Neut % (Auto) 83.7 H 94.3 H Lymph % (Auto) 5.2 L 2.8 L [place] % (Auto) 10.5 H Eos % (Auto) 0.0 L 0.0 L Neut # (Auto) 12.7 H 12.4 H Lymph # (Auto) 0.4 L [place] # (Auto) 1.6 H Neutrophils % (Manual) 88 H 98 H Lymphocytes % (Manual) 6 L 1 L Monocytes % (Manual) 1 L PT 45.5 H INR 4.59 H VBG pH 7.42 H VBG pO2 48.2 H VBG Total CO2 27.4 H VBG O2 Saturation 84.7 H Sodium 126 L 126 L Chloride 91 L 96 L BUN 20 H D Creatinine 1.10 H Estimated GFR 48 L 53 L Est GFR ( Amer) 58 L Glucose 141 H 173 H D AST 37 H D NT-Pro-B Natriuret Pep 4830 H LDL Cholesterol Direct 46.68 L HDL Cholesterol 72 H TSH 0.19 L Assessment and Plan *Assessment and plan (1) Acute hypoxic respiratory failure: Status: Acute Category: Medical Code(s): J96.01 - Acute respiratory failure with hypoxia (2) Recurrent pneumonia: Status: Acute Category: Medical Code(s): J18.9 - Pneumonia, unspecified organism (3) Viral pneumonia: Status: Acute Category: Medical Code(s): J12.9 - Viral pneumonia, unspecified Plan Ms. Lorenzo is a 79-year-old female with a history of asthma and allergic rhinitis right middle lobe endobronchial lesion at baseline not using any oxygen supplementation Presented to the ER with worsening respiratory distress and pulmonary was called for further evaluation and management. Patient in the ER was managed for asthma exacerbation with continued symptoms of respiratory distress and was admitted to the hospital for further evaluation and management. Afebrile. Hemodynamically stable. Neutrophilic predominant leukocytosis. Respiratory viral PCR positive for entero and rhinovirus. Patient recently presented to the ER on 05/01/2025 for with worsening respiratory distress discharged home on steroids. Her prior CT scan from 2023 showed right middle lobe collapse over the findings subsequently resolved on her CT scan from December 2024. Her chest x-ray from her ER admission and chest x-ray from this admission now showing this questionable right middle lobe airspace disease. Currently receiving nebulization therapies along with ceftriaxone azithromycin and prednisone for presumed asthma exacerbation. On examination moderate respiratory distress. Saturating 95% and above on room air. Diffuse wheezing noted. Plan: Continue DuoNebs/Pulmicort every 12 schedule Continue ceftriaxone azithromycin Wean steroids to methylprednisolone [address] chest without contrast for concerning recurrent right middle lobe airspace disease Flutter valve 3 times daily # Thank you for involving pulmonary in this patient care. Will continue to follow.
--- NOTE | 2025-05-04 10:01 | HMH.OTEV ---
OT Evaluation Rehab OT IP Evaluation Start: 05/04/25 08:54 Freq: ONCE Status: Active Protocol: Document 05/04/25 09:56 JAMAAL (Rec: 05/04/25 10:01 [facility]ITAL[facility] [id number]) Rehab OT IP Assessment Subjective History Pt oriented x3 on arrival. Pt agreeable to engage in therapy evaluation. Pt admitted on 05/03/25 due to PNA and shortness of breath. History and physical: This is an 79-year-old female who has a past medical history significant for right bundle branch block, asthma, coronary artery disease, allergic rhinitis, atrial fibrillation, and hypertension who presents with a chief complaint of shortness of breath. Due to patient's symptoms, she presented to the emergency room for evaluation. While in emergency room , patient was given steroids, magnesium, and multiple nebulizer treatments and her shortness of breath remained refractory. Additionally, patient was quiring supplemental oxygen; as a result, hospital medicine was consulted for further management. During my evaluation of the patient, patient states she has been having persistent shortness of air for some time. She presented on Friday to the emergency room and was evaluated and diagnosed with enteral/rhino virus. She was discharged home; unfortunately, patient reports that her shortness of breath progressively got worse. Review of patient's EMR reveals she is currently prescribed warfarin. When asked, she states she was prescribed this medication due to pacemaker placement and bundle branch block (patient was unsure whether White or left). Current EKG reveals a ventricular paced rhythm. Patient currently denies any chest pain, lightheadedness, dizziness, fever, chills, rigors, nausea, vomiting, lower extremity swelling, PND, orthopnea, or diarrhea. Chest x-ray shows right middle lobe atelectasis and possible right lower lobe effusion. Additional pertinent values obtained including white blood cell count of 15.1, red blood cell count of 3.87, hemoglobin 12.1, hematocrit 36, neutrophils 83.7%, sodium of 126, chloride of 96, BUN of 20, creatinine 1.10, GFR 48, blood glucose 141, AST of 37, and BNP of 4830. Subjective Prior to being in the hospital, pt lived at home alone. Pt claims she is normally independent with all ADLs and IADLs. Pt uses a cane during functional transfers, but does have a walker at home. Normally she does not require oxygen. She also still drives. Objective Patient Orientation Person,Place,Birthday Right Upper WFL Extremity Gross ROM Left Upper Extremity WFL Gross ROM Bed Mobility bed mobility-scooting,bed mobility - supine/sit Assist Level Minimal x 1 (25% assist) Transfer Training Sit/Stand Transfer Assist Level Contact Guard/Hand Hold Lower Body Dressing Maximum Assistance Ability Rehab OT IP prob,goals,plan Problems Date of Evaluation: 05/04/25 OT IP Problems Bed Mobility,Transfers,Balance,Self care,Safety Rehab Potential Rehab Potential Good Equipment Needs Assistive Devices Rolling / Wheeled Walker Plan OT intervention Plan Bed Mobility,Transfers,Balance,Self care,Safety, Therapeutic Exercise OT Plan Frequency Daily Duration LOS Discharge Goals Bed Mobility Ability Standby Assistance Sit to Stand Chair Contact Guard/Hand Hold Transfer Ability Chair Transfer Contact Guard/Hand Hold Ability Chair Transfer Sit to/from Ambulatory Technique Chair Transfer Rolling Walker Assistive Devices Lower Body Dressing Minimal Assistance Ability Upper Body Dressing Standby Assistance Ability Performing Toilet Contact Guard Hygiene Ability Overall Commode/ Contact Guard Toilet Transfer Ability Commode/Toilet Sit to/from Ambulatory Transfer Technique Discharge Plan OT Discharge Plan Pt will continue to be seen for OT services while at [facility]. Pt can return home with family assistance once she is medically stable per physician. Therapist recommends OT evaluation upon returning home for continued skilled therapy services. Continued therapy is important in order for patient to improve strength, safety, endurance, ADL independence, and functional transfers to reach PLOF. Eval Complexity Eval Charge Codes 89944 - Moderate Complexity PHYSICIAN CERTIFICATION: I certify the specified therapy services for Sommer Lorenzo are required, authorized, and reviewed every 30 days.
--- NOTE | 2025-05-04 10:01 | HMH.PTEV ---
Physical Therapy Evaluation Rehab PT IP Evaluation Start: 05/04/25 08:54 Freq: ONCE Status: Active Protocol: Document 05/04/25 09:44 BRISSA (Rec: 05/04/25 10:01 BRISSA [id number]) Subjective/History History History Per H&P: This is an 79-year-old female who has a past medical history significant for right bundle branch block, asthma, coronary artery disease, allergic rhinitis, atrial fibrillation, and hypertension who presents with a chief complaint of shortness of breath. Due to patient's symptoms, she presented to the emergency room for evaluation. While in emergency room, patient was given steroids, magnesium, and multiple nebulizer treatments and her shortness of breath remained refractory. Additionally, patient was quiring supplemental oxygen; as a result, hospital medicine was consulted for further management. During my evaluation of the patient, patient states she has been having persistent shortness of air for some time. She presented on Friday to the emergency room and was evaluated and diagnosed with enteral/rhino virus. She was discharged home; unfortunately, patient reports that her shortness of breath progressively got worse. Review of patient's EMR reveals she is currently prescribed warfarin. When asked, she states she was prescribed this medication due to pacemaker placement and bundle branch block (patient was unsure whether White or left). Current EKG reveals a ventricular paced rhythm. Patient currently denies any chest pain, lightheadedness, dizziness, fever, chills, rigors, nausea, vomiting, lower extremity swelling, PND, orthopnea, or diarrhea. Chest x-ray shows right middle lobe atelectasis and possible right lower lobe effusion. Additional pertinent values obtained including white blood cell count of 15.1, red blood cell count of 3.87, hemoglobin 12.1, hematocrit 36, neutrophils 83.7%, sodium of 126, chloride of 96, BUN of 20, creatinine 1.10, GFR 48, blood glucose 141, AST of 37, and BNP of 4830. Subjective Subjective Pt reports she lives alone in a home with a basement. Pt reports she is normally IND with mobility. Pt's daughter present during evaluation and reports she plans to stay with pt upon d/c home. [facility] How much help from another person do you currently need... Turning from your None back to your side while in a flat bed without using bedrails? Moving from lying on None back to sitting on the side of a flat bed without using bedrails? Moving to and from a None bed to a chair ( including a wheelchair)? Standing up from a None chair using your arms? (e.g., wheelchair, bedside chair) Walking in hospital A little room? Climbing 3-5 steps A little with a railing? Mobility Score 22 Mobility Level [facility] Mobility 7 Walk 25 feet or more Mobility Calculator Rehab PT IP Eval Objective Appearance Patient Behavior Appropriate,Cooperative Patient Orientation Person,Place Speech Pattern Clear Ambulation Patient Able to Yes Ambulate Ambulation Observation IP General Gait Wide Based Gait Pattern Observation Ambulation Distance 18 (feet) Ambulation Assistive Small Base Quad Cane Device Ambulation Ability Contact Guard/Hand Hold Balance Ability to Arise Able, uses arms to help Sitting Balance Steady, safe Standing Balance Steady, wide stance Dynamic Sitting Good Balance Ability Dynamic Standing Fair Balance Ability Transfers Bed Transfer Ability Supervision/Stand by Sit to Stand Bed Supervision/Stand by Transfer Ability Rehab PT IP prob,goals,plan Problems Date of Evaluation: 05/04/25 PT IP Problems Bed Mobility,Transfers,Gait,Balance,Self care,Safety Rehab Potential Rehab Potential Good Plan PT Intervention Plan Bed Mobility,Transfers,Gait,Balance,Self care,Safety, Therapeutic Exercise Other Intervention 1-2 times Plan PT Plan Frequency Daily Duration Goals Met Discharge Goals Bed Transfer Ability Independent Sit to Stand Chair Independent Transfer Ability Ambulation Assistive Small Base Quad Cane Device Ambulation Distance 100 (feet) Discharge Plan PT Discharge Plan Initial physical therapy evaluation performed. Patient presents below baseline at this time in functional mobility, transfers, gait, and strength. Pt would benefit from skilled PT while at [facility] to prevent further functional decline and maximize safety with mobility. Pt most appropriate to d/c home when deemed medically necessary d/t current level of mobility, home set-up, and family support. PT recommending home health PT services to address deficits. Eval Complexity Eval Charge Codes 35071 - Moderate Complexity PHYSICIAN CERTIFICATION: I certify the specified therapy services for Sommer Lorenzo are required, authorized, and reviewed every 30 days.
[2025-05-04 10:23] LABS: Free T4 (Free Thyroxine) 1.59 ng/dl (0.78-2.19)
--- NOTE | 2025-05-04 11:33 | SW/DCPLANNER ---
Spoke with patient regarding once she is medically stable and ready for discharge if she is interested in home health services. Patient stated that at this time she believes she does not need it and that she has family that can help her. Shelby Truong
--- OUTSIDE RECORDS SUMMARY | 2025-05-04 12:05 | XMS_ITS | Clinical Summary ---
Author Organization Healthcare Address [address] [place] [address] Care Team Providers Care Welcome Wagon Hostess Name Role Phone Zoran Pendleton MD Primary Care Provider [phone] Social History Tobacco Use Types Packs/Day Years [...] (2 of 2 - PCV) 11/05/2022 11/05/2021 [id number] Vaccine (4 - 2024- season) 2025 07/31/2021, [...] patient's age to complete this topic Insurance [facility] MEDICARE Care Teams Welcome Wagon Hostess Relationship Specialty Start Date End Date Zoran Pendleton MD [address] [place] [address] [address] DARRYL Whalen [id number] PCP - General 12/22/20
--- OUTSIDE RECORDS SUMMARY | 2025-05-04 12:06 | XMS_ITS | Encounter Summary ---
[facility] [address] [place] [address] Care Team Providers Care Credit Products Officer Name Role Phone Zoran Pendleton MD Primary Care Provider [phone] Encounter Details Date Type Department Care Team (Latest Contact Info) Description 04/25/2025 Anticoagulation Visit [facility] [address] [place] [phone] Darren [place] Crossbar Switch Adjuster Chronic atrial fibrillation (Primary Dx) Social History [...] this encounter Progress Notes * Darren [place], Crossbar Switch Adjuster - 04/25/2025 2:22 PM EDT [facility] Anticoagulation Clinic Progress Note Patient Demographics Method of INR reporting: REMOTE LAB Estimated OOP Cost: Indication: Chronic Atrial Fibrillation Referring Provider Remi Silveira IV PA-C/ Jaron Doyle MD Reason patient is not on a DOAC: Goal INR: 2-3 Warfarin Start Date Reason patient is not on home monitor: [id number]: HTN (1), Age >74 (2), and Female [...] obtained Preferred contact number: Alternative contact number(s): [phone] (Kait) Patient Appropriate for WarfNoCall ? No Preferred contact name: Sommer Lorenzo Alternative contact name(s): Kait Bo (Daughter) Preferred contact relation: Self Lab contact information (if applicable): CONY ePndleton [facility] Subjective Findings Drug Interactions Dietary Findings [...] further questions at this time. Darren Martin [facility] 04/25/2025 14:27 EDT I, Breanne Dubois [facility], have reviewed the note in full and agree with the assessment and plan. 04/25/25 14:48 EDT documented in this encounter Plan of Treatment Not on file documented as of this encounter Procedures Procedure Name Priority Date/Time Associated Diagnosis Comments SCANNED - LABS 04/25/2025 PROTIME-INR Routine 04/25/2025 documented in this encounter Results * LABS SCANNED (04/25/2025) [facility] Onbase LAB BLOOD ORDERABLES Final Re sult * Protime-INR (04/25/2025) INR 2.60 Blood 04/25/2025 us Historical Provider LAB BLOOD ORDERABLES Maite l Result documented in this encounter Visit Diagnoses Diagnosis Chronic atrial fibrillation- Primary Atrial fibrillation documented in this encounter Care Teams Credit Products Officer Relationship Specialty Start Date End Date Zoran Pendleton MD [address] [place] [address] PCP - General 07/31/15 documented as of this encounter
--- OUTSIDE RECORDS SUMMARY | 2025-05-04 12:06 | XMS_ITS | Encounter Summary ---
[facility] [address] [place] [address] Care Team Providers Care Service Delivery Management Consultant Name Role Phone Zoran Pendleton MD Primary Care Provider [phone] Encounter Details Date Type Department Care Team (Latest Contact Info) Description 03/24/2025 Anticoagulation Visit [facility] ANTICO[facility]IC [address] [place] [phone] Darren [place] Cultured Marble Products Maker Chronic atrial fibrillation (Primary Dx) Social History [...] this encounter Progress Notes * Darren [place], Cultured Marble Products Maker - 03/24/2025 1:14 PM EDT [facility] Anticoagulation Clinic Progress Note Patient Demographics Method of INR reporting: REMOTE LAB Estimated OOP Cost: Indication: Chronic Atrial Fibrillation Referring Provider Remi Silveira IV PA-C/ Jaron Doyle MD Reason patient is not on a DOAC: Goal INR: 2-3 Warfarin Start Date Reason patient is not on home monitor: [id number]: HTN (1), Age >74 (2), and Female [...] obtained Preferred contact number: Alternative contact number(s): [phone] (Kait) Patient Appropriate for WarfNoCall ? No Preferred contact name: Sommer Lorenzo Alternative contact name(s): Kait Bo (Daughter) Preferred contact relation: Self Lab contact information (if applicable): CONY Pendleton [facility] Subjective Findings Drug Interactions Dietary Findings [...] further questions at this time. Darren Martin [facility] 03/24/2025 13:27 EDT I, Bhavana Castillo, PharmD, have reviewed the note in full and agree with the assessment and plan. 03/24/25 14:23 EDT documented in this encounter Plan of Treatment Not on file documented as of this encounter Procedures Procedure Name Priority Date/Time Associated Diagnosis Comments SCANNED - LABS 03/24/2025 PROTIME-INR Routine 03/24/2025 documented in this encounter Results * LABS SCANNED (03/24/2025) [facility] Onbase LAB BLOOD ORDERABLES Final Re sult * Protime-INR (03/24/2025) INR 1.90 Blood 03/24/2025 us Historical Provider LAB BLOOD ORDERABLES Maite l Result documented in this encounter Visit Diagnoses Diagnosis Chronic atrial fibrillation- Primary Atrial fibrillation documented in this encounter Care Teams Service Delivery Management Consultant Relationship Specialty Start Date End Date Zoran Pendleton MD [address] [place] [address] PCP - General 07/31/15 documented as of this encounter
--- OUTSIDE RECORDS SUMMARY | 2025-05-04 12:06 | XMS_ITS | Encounter Summary ---
Author Organization [facility] ystem Address [address] [place] [address] Care Team Providers Care Heat Pump Installer Name Role Phone Zoran Pendleton MD Primary Care Provider [phone] Reason for Visit * Reason Onset Date Comments Remote Device Check 04/06/2025 Encounter Details Date Type Department Care Team (Late st Contact Info) Description 04/06/2025 Telephone [facility] CARDIOLOGY [address] [phone] Jaron Doyle MD [address] [facility] [address] [facility] [address] [place] [address] Remote Device Check Social History Tobacco Use [...] on file documented as of this encounter Visit Diagnoses Not on filedocumented in this encounter Care Teams Heat Pump Installer Relationship Specialty Start Date End Date Zoran Pendleton MD [address] [place] [address] PCP - General 07/31/15 documented as of this encounter
--- OUTSIDE RECORDS SUMMARY | 2025-05-04 12:06 | XMS_ITS | Encounter Summary ---
Author Organization [facility]stem Address [address] [place] [address] Care Team Providers Care Silo Filler Name Role Phone Zoran Pendleton MD Primary Care Provider [phone] Reason for Visit * Reason Onset Date Comments DR. SERVANDO PEREYRA DEVICE CHECK 05/04/2025 Encounter Details Date Type Department Care Team (Late st Contact Info) Description 05/04/2025 Telephone [facility] [address] [facility] [address] [place] [address] Jaron Doyle MD [address] [facility] [address] [place] [address] DR. SERVANDO PEREYRA DEVICE CHECK Social History Tobacco Use Types Packs/Day Years [...] encounter Miscellaneous Notes * Telephone Encounter - Rose Cruz RegSched Rep - 05/04/2025 9:12 AM EDT Name: Kati Bo Relationship: Emergency Contact Best Callback Number: [phone] Incoming call to the Hub, requesting to Cancel their Device Check appointment on 05/05/25. Per [facility] workflow, further review is needed before the task can be completed. Result of Call: Transferred to [facility] at the practice documented in this encounter Plan of Treatment Not on file documented as of this encounter Visit Diagnoses Not on filedocumented in this encounter Care Teams Silo Filler Relationship Specialty Start Date End Date Zoran Pendleton MD [address] [place] [address] PCP - General 07/31/15 documented as of this encounter
--- OUTSIDE RECORDS SUMMARY | 2025-05-04 12:06 | XMS_ITS | Encounter Summary ---
Author Organization [facility] ystem Address [address] [place] [address] Care Team Providers Care Cellophaner Name Role Phone Zoran Pendleton MD Primary Care Provider [phone] Reason for Visit * Reason Comments Med Refill Encounter Details Date Type Department Care Team (Late st Contact Info) Description 03/17/2025 Refill ANTICOAGULATION CLINIC [address] [facility] [address] [place] [phone] Jaron Doyle MD [address] [facility] [address] [place] [address] Social History Tobacco Use Types Packs/Day Years [...] on filedocumented in this encounter Care Teams Cellophaner Relationship Specialty Start Date End Date Zoran Pendleton MD [address] [place] [address] PCP - General 07/31/15 documented as of this encounter
--- OUTSIDE RECORDS SUMMARY | 2025-05-04 12:06 | XMS_ITS | Clinical Summary ---
[facility] Address [address] [place] [address] Care Team Providers Care Vp Outcomes Name Role Phone Zoran Pendleton MD Primary Care Provider [phone] Allergies Active Allergy Reactions Criticality Noted Date [...] (09/13/2019): Added automatically from request for surgery [id number] Chronic atrial fibrillation 02/16/2018 Atrial fibrillation [I48.91] [...] Encounters Date Type Department Care Team Description 05/04/2025 Telephone [facility] [address] [facility] [address] [place] [address] CRAGER - CANCEL DEVICE CHECK 04/25/2025 Anticoagulation Visit [facility] [address] [facility] [address] [place] [address] Darren Martin Pearler Chronic atrial fibrillation (Primary Dx) 04/06/2025 Telephone [facility] [address] [facility] [address] [place] [address] Jaron Doyle MD Remote Device Check 03/24/2025 Anticoagulation Visit [facility] [address] [facility] [address] [place] [address] Darren Martin Pearler Chronic atrial fibrillation (Primary Dx) 03/17/2025 Refill [facility] [address] [facility] [address] [place] [address] Jaron Doyle MD 02/23/2025 Anticoagulation Visit [facility] [address] [facility] [address] [place] [address] Brodie Webb, PharmD Chronic atrial fibrillation (Primary Dx) 02/08/2025 Refill [facility] [address] [place] [address] Jaron Doyle MD Med Refill 02/04/2025 Refill [facility] [address] [place] [address] [address] [place] [address] Jaron Doyle MD Med Refill 02/03/2025 Anticoagulation Visit [facility] [address] [place] [address] Brodie Webb, PharmD Chronic atrial fibrillation (Primary [...] 10/21/2024 2:25 PM EDT Plan of Treatment Health Maintenance [...] 10/21/2025 10/21/2024 Medical Devices Implanted Type Area Newspaper Journalist Device Identifier Shelf Expiration Date Model / Serial / Lot Gen Pm Advisa Surescan Dr Fenton - [id number] - [id number] Implanted:Qty: 1 on 09/20/2019 by Bobby Stephens MD at [facility] Pacemaker [employer] 10/22/2020 [id number] / [id number] / Procedures Procedure Name Priority Date/Time Associated [...] of2 resultswithin the time period is included. [facility] Onbase LAB BLOOD ORDERABLES Final Re sult * Protime-INR (04/25/2025) Only the most recent of4 resultswithin the time period is included. INR 2.60 Blood 04/25/2025 [facility] Provider LAB BLOOD ORDERABLES Maite l Result * Remote Device Check (04/06/2025 5:45 PM EDT) Date Time Interrogation Session [id number] [facility] Type Interrogation Session Remote [facility] Implantable Pulse Generator Newspaper Journalist Medtronic [facility] Implantable Pulse Generator Type IPG [facility] Implantable Pulse Generator Model Advisa MRI [id number] [facility] Implantable Pulse Generator Serial Number [id number] [facility] Implantable Pulse Generator Implant Date [id number] [facility] Battery Remaining Longevity 43.0 mo [facility] Battery Voltage 2.970 [facility] Battery FORENSIC COMPUTER EXAMINER Trigger 2.830 [facility] Battery Status OK [facility] Mushtaq Statistic RA Percent Paced 62.32 [facility] Mushtaq Statistic RV Percent Paced 94.99 [facility] Atrial Tachy Statistic AT/AF Troy Percent 0.00 [facility] [employer] RADI[facility] Lead Channel RA Sensing Intrinsic Amplitude 1.875 [facility] Lead Channel Setting RA Sensing Sensitivity 0.30 [facility] Lead Channel RA Impedance Value 380 [facility] [employer] [facility] Lead Channel RA Pacing Threshold Amplitude 0.250 [facility] [facility] Lead Channel RA Pacing Threshold Pulse Width 0.4 [facility] [facility] Lead Channel RA Measurements Date and Time [id number] [facility] Lead Channel Setting RA Pacing Amplitude 1.500 [facility] [employer] [facility] Lead Channel Setting RA Pacing Pulse Width 0.4 [facility] [facility] Lead Channel RV Sensing Intrinsic Amplitude 11.125 [facility] [facility] Lead Channel Setting RV Sensing Sensitivity 0.90 [facility] Lead Channel RV Impedance Value 456 [facility] Lead Channel RV Pacing Threshold Amplitude 0.625 [facility] Lead Channel RV Pacing Threshold Pulse Width 0.4 [facility] Lead Channel RV Measurements Date and Time [id number] [facility] Lead Channel Setting RV Pacing Amplitude 2.000 [facility] Lead Channel Setting RV Pacing Pulse Width 0.4 [facility] Mushtaq Setting Mode (NBG Code) DDDR [facility] Mushtaq Setting Lower Rate Limit 70 [facility] Mushtaq Setting AT Mode Switch Rate 171 [facility] Mushtaq Setting Maximum Tracking Rate 100 [facility] Mushtqa Setting Maximum Sensor Rate 130 [facility] Mushtaq Setting PAV Delay 150 [facility] Mushtaq Setting JARRETT Delay 120 [facility] Lead Channel Setting RA Sensing Polarity Bipolar [facility] Lead Channel Setting RV Sensing Polarity Bipolar [facility] Lead Channel Setting RA Pacing Polarity Bipolar [facility] Lead Channel Setting RV Pacing Polarity Bipolar [facility] Lead Channel RA Pacing Threshold Polarity Bipolar [facility] Lead Channel RV Pacing Threshold Polarity Bipolar [facility] Zone Setting Type Category AT/AF [facility] IDC RATE 1 171 [facility] THERAPIES All Rx On [facility] Zone Setting Status Monitor [facility] Zone ID 2 [facility] Zone Setting Type Category VT [facility] IDC RATE 1 150 [facility] Zone Setting Status ENABLED [facility] Zone ID 6 [facility] 04/06/2025 5:45 PM EDT us Jaron Doyle MD CV IMPLANTABLE CARDIAC DEVICE Final Result [facility] * (ABNORMAL) Lipid Panel (10/21/2024 3:40 [...] 6:09 AM EDT Performed at: - [facility] [address] [place], [place] [id number] E/M Engineer: Mekhi Kimbrough PhD, Phone: [phone] Patient Fasting: Y us Jaron Doyle MD LAB BLOOD ORDERABLES Final Res ult [facility] (AMBULATORY) [address] [place] [address], [place] [phone] [facility] [address] [place] [address], [place] [phone] from Last 3 Months or Most Recently Relevant to Health Maintenance Insurance [facility] MEDICARE ADVANTAGE PPO Advance Directives Documents on File Type Date Recorded Patient Window Framer Expl anation LIVING WILL - SCAN 09/20/2019 10:43 AM leanna ing will Care Teams Vp Outcomes Relationship Specialty Start Date End Date Zoran Pendleton MD [address] [id number] PCP - General 07/31/15
[2025-05-04 12:16] LABS: Sodium,Urine Random 12.0 mmol/L (30-90)
--- NOTE | 2025-05-04 12:39 | CT_ITS ---
FINAL REPORT TECHNIQUE: Thin section axial images were obtained from the lung apices through the upper abdomen without contrast. This study was performed with techniques to keep radiation doses as low as reasonably achievable (ALARA). Individualized dose reduction techniques using automated exposure control or adjustment of mA and/or kV according to the patient's size were employed. CLINICAL HISTORY: PNM/Hypoxia COMPARISON: 12/15/2024 FINDINGS: There is no mediastinal, hilar, or axillary lymphadenopathy. There is a new small right pleural effusion. No left pleural or pericardial effusions are identified. A large hiatal hernia is present. There has been interval resolution of the left lower lobe atelectasis since the prior exam. There has been interval development of new right lower lobe airspace disease. There is now complete collapse of the right middle lobe, and the bronchus is occluded, possibly secondary to a mucous plug. There is a right hilar node noted on the prior exam best seen on image #32 of series 9, stable. There are several new adjacent small nodules as well, that may be infectious or inflammatory. There are small hypodense lesions in the liver, that likely represent hepatic cysts.. There is no acute osseous abnormality. IMPRESSION: 1. There has been interval development of new right lower lobe airspace disease since the prior exam. Recommend follow-up to resolution. 2. There is now complete collapse of the right middle lobe, with an occluded bronchus that may represent a mucous plug. 3. Stable right perihilar node, with several new adjacent small nodes that may be infectious or inflammatory. Reviewed, Interpreted and Dictated by Jessica Crowell MD Transcribed by Alondra Carey Authenticated and [facility]
[2025-05-04 13:05] LABS: Acinetobacter calcoaceticus-ba Not Detected; Bacteroides fragilis Not Detected; Candida auris Not Detected; Candida glabrata Not Detected; Enterobacterales Not Detected; Enterococcus faecalis Not Detected; Enterococcus faecium Not Detected; Klebsiella aerogenes Not Detected; Klebsiella pneumoniae grp Not Detected; Proteus spp. Not Detected; Salmonella spp. Not Detected; Serratia marcescens Not Detected; Staphylococcus epidermidis Not Detected; Staphylococcus lugdunensis Not Detected; Staphylococcus spp. Not Detected; Stenotrophomonas maltophilia Not Detected; Streptococcus agalactiae(GrpB) Not Detected; Streptococcus pyogenes Group A Not Detected; Streptococcus spp. Not Detected
[2025-05-04] MEDS: POTASSIUM CHLORIDE 20MEQ TAB 40 MEQ PO ×2 (13:37→18:41)
[2025-05-04 14:21] LABS: Hemoglobin A1C 5.9 % (4.0-6.0)
[2025-05-04] MEDS: AZITHROMYCIN 500 MG in 0.9 % SODIUM CHLORIDE 250 ML 250 MG IV (17:27)
--- NOTE | 2025-05-04 19:20 | PC.NURSE ---
patient has been on RA since 0900 with O2 sats above 90%. upon ambulation to the bathroom O2 sat remained at 90%.
[2025-05-04] MEDS: PANTOPRAZOLE 40MG TABLET 40 MG PO (20:24)
[2025-05-04] MEDS: SODIUM CHLORIDE 1,000MG TABLET 1000 MG PO (20:24)
[2025-05-04] MEDS: PRAVASTATIN 40MG TAB 80 MG PO (20:24)
[2025-05-04] MEDS: MONTELUKAST SODIUM 10MG TAB 10 MG PO (20:24)
[2025-05-05] VITALS (8 sets, daily range): BP systolic 134–171; BP diastolic 56–87; PULSE 66–100; RESP 16–18; TEMP 36.4–36.6; O2SAT 91–97; BMI 33.0
[2025-05-05] MEDS: IPRATROPIUM/ALBUTEROL 3 ML NEB IH ×3 (02:42→10:20)
--- NOTE | 2025-05-05 03:51 | PC.NURSE ---
Pt AOx4. Wheezing is more intense after most recent breathing treatment. O2 stats are staying around 97% on room air. Currently resting in bed with eyes open. Respirations even and unlabored. Denies pain or any additional needs at this time. Bed is low, locked, and call light is in reach.
[2025-05-05 06:20] LABS: Hematocrit 33.9 % (37.0-47.0); Hemoglobin 11.3 g/dL (12.2-16.2); Immature Granulocytes % 0.7 %; Mean Corpuscular HGB Conc 33.3 g/dL (31.8-35.4); Mean Corpuscular Hemoglobin 31.7 pg (27.0-31.2); Mean Corpuscular Volume 95.0 fl (81-99); Nucleated Red Blood Cells % 0 %; Platelet Count 278 K/mm3 (142-424); Red Blood Count 3.57 M/mm3 (4.20-5.40); Red Cell Distribution Width-SD 43.7 fL; White Blood Count 16.8 K/mm3 (4.8-10.8)
[2025-05-05] MEDS: BUDESONIDE 0.5MG/2ML NEB 0.5 MG IH (06:27)
[2025-05-05 06:28] LABS: Alanine Aminotransferase 12 U/L (12-78); Albumin Level 3.4 g/dl (3.5-5.0); Albumin/Globulin Ratio 1.4 (1.1-1.8); Alkaline Phosphatase 59 U/L (38-126); Anion Gap 8.7 mEq/L (5-15); Aspartate Amino Transferase 29 U/L (14-36); Bilirubin,Total 0.4 mg/dl (0.2-1.3); Blood Urea Nitrogen 18 mg/dl (7-17); Calcium 8.8 mg/dl (8.4-10.2); Carbon Dioxide 25 mmol/L (22.0-30.0); Chloride 97 mmol/L (98-107); Cholesterol 168 mg/dl (140-200); Creatinine Clearance Estimated 64 mL/min (50-200); Creatinine,Serum 1.00 mg/dl (0.52-1.04); Estimated Glomerular Filt Rate 53 ml/min (>60); GFR (African American) 65 ML/MIN (>60); Globulin 2.5 g/dL (1.3-3.2); Glucose 131 mg/dl (74-100); HDL Cholesterol 71 mg/dl (40-60); Magnesium 2.2 mg/dl (1.6-2.3); Potassium 4.7 mmoL/L (3.5-5.1); Sodium 126 mmol/L (136-145); Total Protein,Serum 5.9 g/dl (6.3-8.2); Triglycerides 80 mg/dl (30-150)
[2025-05-05 07:08] LABS: INR 5.65 (0.9-1.1); Prothrombin Time 55.2 seconds (10.1-12.5)
[2025-05-05 07:21] LABS: RBC Morphology Normal; Total Cells Counted 100
[2025-05-05] MEDS: FLUOXETINE 20MG CAPSULE 20 MG PO (08:59)
[2025-05-05] MEDS: SODIUM CHLORIDE 1,000MG TABLET 1000 MG PO (08:59)
[2025-05-05] MEDS: METHYLPREDNISOLONE SOD SUCC 40MG VIAL 40 MG IV (08:59)
[2025-05-05] MEDS: IRBESARTAN 75MG TABLET 75 MG PO (08:59)
--- NOTE | 2025-05-05 09:24 | P.PN_ITS ---
Subjective *Date: 05/05/25 *Time: 11:11 Interval history: No acute respiratory vents overnight. Patient admits continued improvement in her breathing Pulmonology Exam Inpatient Vital signs and Labs for Last 24 Hours: Temp Pulse Resp BP Pulse Ox O2 Del Method O2 Flow Rate 97.6 F 95 H 18 137/56 L 97 Room Air 2 05/05/25 08:00 05/05/25 08:00 05/05/25 08:00 05/05/25 08:00 05/05/25 08:00 05/05/25 08:00 05/04/25 08:00 FiO2 28 05/03/25 19:24 Laboratory Results - last 24 hr 05/03/25 11:53: Urine Sodium 12.0 L 05/03/25 17:24: A. baumannii (PCR) Not detected, Bacteroides fragilis Not detected, Karie albicans (PCR) Not detected, Karie auris (PCR) Not detected, C. glabrata (PCR) Not detected, C. krusei (PCR) Not detected, C. parapsilosis (PCR) Not detected, C. tropicalis (PCR) Not detected, Cryptococcus neoformans PCR Not detected, Enterobacterales (PCR) Not detected, Enterococc faecalis PCR Not detected, Enterococc faecium PCR Not detected, E. coli (PCR) Not detected, H. influenzae DNA Not detected, Klebsiella aerogenes (PCR) Not detected, Klebsiella oxytoca PCR Not detected, K. pneumoniae group (PCR) Not detected, List. monocytogenes PCR Not detected, N. meningitidis (PCR) Not detected, Proteus species (PCR) Not detected, Salmonella spp. (PCR) Not detected, Serratia marcescens PCR Not detected, Staphylococcus sp PCR Not detected, Staph aureus (PCR) Not detected, mecA/C & MREJ Resist Gene Not applicable, mecA/C-Methicil Resis Gene Not applicable, Staph epidermidis (PCR) Not detected, Staph lugdunensis (TEM-PCR) Not detected, S. maltophilia (PCR) Not detected, Streptococcus sp PCR Not detected, S.agalactiae Grp B ADELFO Not detected, Strep pneumoniae (PCR) Not detected, S. pyogenes GrpA ADELFO Not detected, P. aeruginosa (PCR) Not detected, Dianna/B-Vanco Res Genes Not applicable, blaIMP Car res Gene PCR Not applicable, KPC-Carbap Res Gene PCR Not applicable, blaNDM Car Res Gene PCR Not applicable, OXA-48 Carbapenem Resis Gene (PCR) Not applicable, blaVIM Car Res Gene PCR Not applicable, CTX-M Gene Resistance (PCR) Not applicable, MCR-1 Resistance Gene Not applicable 05/04/25 05:30: Hemoglobin A1c 5.9, Free T4 1.59 05/05/25 05:51: WBC 16.8 H D, RBC 3.57 L, Hgb 11.3 L, Hct 33.9 L, MCV 95.0, MCH 31.7 H, MCHC 33.3, RDW 12.4, Plt Count 278, MPV 9.4, Neut % (Auto) 83.5 H, Lymph % (Auto) 5.6 L, [place] % (Auto) 10.0 H, Eos % (Auto) 0.0 L, Baso % (Auto) 0.2, Neut # (Auto) 14.0 H, Lymph # (Auto) 0.9, [place] # (Auto) 1.7 H, Eos # (Auto) 0.0, Baso # (Auto) 0.0, Total Counted 100, Neutrophils % (Manual) 84 H, Lymphocytes % (Manual) 5 L, Monocytes % (Manual) 11 H, Platelet Estimate Normal, RBC Morphology Normal, PT 55.2 H, INR 5.65 H, Sodium 126 L, Potassium 4.7 D, Chloride 97 L, Carbon Dioxide 25, Anion Gap 8.7, BUN 18 H, Creatinine 1.00, Est imated Creat Clear 64, Estimated GFR 53 L, Est GFR ( Amer) 65, Glucose 131 H, Calcium 8.8, Magnesium 2.2, Total Bilirubin 0.4, AST 29, ALT 12, Alkaline Phosphatase 59, Total Protein 5.9 L, Albumin 3.4 L, Globulin 2.5, Albumin/Globulin Ratio 1.4, Triglycerides 80, Cholesterol 168, LDL Cholesterol Direct 54.15 L, VLDL Cholesterol 16, HDL Cholesterol 71 H, Cholesterol/HDL Ratio 2.4 Temp Pulse Resp BP Pulse Ox O2 Del Method O2 Flow Rate 97.7 F 88 19 146/62 H 97 Nasal Cannula 2 05/04/25 07:45 05/04/25 09:29 05/04/25 09:29 05/04/25 07:45 05/04/25 07:45 05/04/25 07:45 05/04/25 07:45 FiO2 28 05/03/25 19:24 Laboratory Results - last 24 hr 05/03/25 15:20: WBC 15.1 H, RBC 3.87 L, Hgb 12.1 L, Hct 36.0 L, MCV 93.0, MCH 31.3 H, MCHC 33.6, RDW 12.2, Plt Count 277, MPV 9.6, Neut % (Auto) 83.7 H, Lymph % (Auto) 5.2 L, [place] % (Auto) 10.5 H, Eos % (Auto) 0.0 L, Baso % (Auto) 0.1, Neut # (Auto) 12.7 H, Lymph # (Auto) 0.8, [place] # (Auto) 1.6 H, Eos # (Auto) 0.0, Baso # (Auto) 0.0, Total Counted 100, Neutrophils % (Manual) 88 H, Lymphocytes % (Manual) 6 L, Monocytes % (Manual) 6, Platelet Estimate Normal, RBC Morphology Normal, D-Dimer 0.40, VBG pH 7.42 H, VBG pCO2 40.9, VBG pO2 48.2 H, VBG HCO3 26 .1, VBG Total CO2 27.4 H, VBG O2 Saturation 84.7 H, VBG Base Excess 1.7, VBG Lactic Acid 1.7, Sodium 126 L, Potassium 4.2, Chloride 91 L, Carbon Dioxide 26, Anion Gap 13.2, BUN 20 H D, Creatinine 1.10 H, Estimated Creat Clear 55, Estimated GFR 48 L, Est GFR ( Amer) 58 L, Glucose 141 H, Calcium 9.2, Total Bilirubin 1.0, AST 37 H D, ALT 12 D, Alkaline Phosphatase 58, Troponin I 0.02, NT-Pro-B Natriuret Pep 4830 H, Total Protein 6.9, Albumin 4.0, Globulin 2.9, Albumin/Globulin Ratio 1.4 05/03/25 19:09: Troponin I < 0.01 05/03/25 22:19: Troponin I 0.01 05/04/25 05:30: WBC 13.1 H, RBC 3.65 L, Hgb 11.3 L, Hct 34.2 L, MCV 93.7, MCH 31.0, MCHC 33.0, RDW 12.2, Plt Count 266, MPV 9.3, Neut % (Auto) 94.3 H, Lymph % (Auto) 2.8 L, [place] % (Auto) 2.4, Eos % (Auto) 0.0 L, Baso % (Auto) 0.1, Neut # (Auto) 12.4 H, Lymph # (Auto) 0.4 L, [place] # (Auto) 0.3, Eos # (Auto) 0.0, Baso # (Auto) 0.0, Total Counted 100, Neutrophils % (Manual) 98 H, Lymphocytes % (Manual) 1 L, Monocytes % (Manual) 1 L, Platelet Estimate Normal, RBC Morphology Normal, PT 45.5 H, INR 4.59 H, Sodium 126 L, Potassium 3.5, Chloride 96 L, Carbon Dioxide 23, Anion Gap 10.5, BUN 15, Creatinine 1.00, Estimated Creat Clear 62, Estimated GFR 53 L, Est GFR ( Amer) 65, Glucose 173 H D, Calcium 8.6, Magnesium 2.1, Total Bilirubin 0.4, AST 27 D, ALT 12, Alkaline Phosphatase 62, Total Protein 6.4, Albumin 3.6, Globulin 2.8, Albumin/Globulin Ratio 1.3, Triglycerides 61, Cholesterol 168, LDL Cholesterol Direct 46.68 L, VLDL Cholesterol 12, HDL Cholesterol 72 H, Cholesterol/HDL Ratio 2.3, Procal citonin 0.194, TSH 0.19 L I & O for Labs for Last 24 Hours: Intake & Output 05/02/25 05/03/25 05/04/25 05/05/25 23:59 23:59 23:59 23:59 Intake Total 1400 / 1600 1150 / 1390 600 / 600 Output Total 200 / 200 0 / 0 Balance 1400 / 1600 950 / 1190 600 / 600 Weight 189 lb 192 lb 9.6 oz 198 lb 1.6 oz Intake & Output 05/01/25 05/02/25 05/03/25 05/04/25 23:59 23:59 23:59 23:59 Intake Total 1400 / 1600 200 / 200 Output Total 200 / 200 Balance 1400 / 1600 0 / 0 Weight 189 lb 192 lb 9.6 oz Microbiology Reports for the Last 24 Hours: Microbiology 05/03/25 17:24 Blood Blood Culture - Preliminary NO GROWTH AFTER 24 HOURS 05/03/25 17:24 Blood Blood Culture - Preliminary 05/04/25 09:35 Sputum - Expectorated Sputum Gram Stain - Final Constitutional: Present mild distress Head: Present normocephalic and atraumatic ENT: Present normal exam, normal oropharynx and mucous membranes moist Neck: Present normal inspection and full ROM Respiratory: Present prolonged expiratory phase, respiratory distress, wheezes, diminished air movement and able to speak in complete sentences Cardiac: Present S1/S2, Tachycardia and radial pulses present GI: Present soft and distention; Absent tenderness or guarding Rectal (female): Present deferred (female): Present deferred Skin: Present intact; Absent cyanosis or jaundice Neuro: Present alert, awake and oriented x 3 Extremities: Present normal inspection; Absent clubbing or cyanosis Psychiatric: Present normal affect and cooperative Assessment and Plan *Assessment and plan (1) Acute hypoxic respiratory failure: Status: Acute Category: Medical Code(s): J96.01 - Acute respiratory failure with hypoxia (2) Recurrent pneumonia: Status: Acute Category: Medical Code(s): J18.9 - Pneumonia, unspecified organism (3) Viral pneumonia: Status: Acute Category: Medical Code(s): J12.9 - Viral pneumonia, unspecified Plan Ms. Lorenzo is a 79-year-old female with a history of asthma and allergic rhinitis right middle lobe endobronchial lesion at baseline not using any oxygen supplementation Presented to the ER with worsening respiratory distress and pulmonary was called for further evaluation and management. Patient in the ER was managed for asthma exacerbation with continued symptoms of respiratory distress and was admitted to the hospital for further evaluation and management. Afebrile. Hemodynamically stable. Neutrophilic predominant leukocytosis. Respiratory viral PCR positive for entero and rhinovirus. Patient recently presented to the ER on 05/01/2025 for with worsening respiratory distress discharged home on steroids. Her prior CT scan from 2023 showed right middle lobe collapse over the findings subsequently resolved on her CT scan from December 2024. Her chest x-ray from her ER admission and chest x-ray from this admission now showing this questionable right middle lobe airspace disease. Currently receiving nebulization therapies along with ceftriaxone azithromycin and prednisone for presumed asthma exacerbation. On examination moderate respiratory distress. Saturating 95% and above on room air. Diffuse wheezing noted. Interval update: No acute respiratory vents overnight. Continued to remain on room air. CT chest narrowing of the right middle lobe bronchus and right lower lobe bronchus along with near complete atelectasis of right middle. Decreased breath sounds right middle and lower lung gruber on auscultation. Worsening leukocytosis. Sputum Gram stain, gram-positive diplococci. Blood cultures no growth 24 hours. Plan: Continue DuoNebs/Pulmicort every 12 scheduled. Can be discharged home on Breztri inhaler along with nebulization therapies as needed Continue ceftriaxone azithromycin, can be weaned to cefdinir to complete a total of 5-day course Continue steroids to complete a total of 5-day course. Can be discharged on prednisone 40 mg daily next Flutter valve 3 times daily Patient can be discharged from pulmonary standpoint. Will evaluate for bro nchoscopy as an outpatient basis. # Thank you for involving pulmonary in this patient care. Will follow the patient in 5 to 7 days postdischarge
--- NOTE | 2025-05-05 11:29 | P.DS_ITS ---
<Statement entered by Og Barbosa MD - 05/05/25 14:27> Will hold hydrochlorothiazide in the setting of hyponatremia until follow-up with cardiology. Agree with rest of plan as outlined by the MEDIA RECONCILIATION SPECIALIST. General Admission date:: 05/03/25 Discharge date: 05/05/25 HPI HPI HPI: This is an 79-year-old female who has a past medical history significant for right bundle branch block, asthma, coronary artery disease, allergic rhinitis, atrial fibrillation, and hypertension who presents with a chief complaint of shortness of breath. Due to patient's symptoms, she presented to the emergency room for evaluation. While in emergency room, patient was given steroids, magnesium, and multiple nebulizer treatments and her shortness of breath remained refractory. Additionally, patient was quiring supplemental oxygen; as a result, hospital medicine was consulted for further management. During my evaluation of the patient, patient states she has been having persistent shortness of air for some time. She presented on Friday to the emergency room and was evaluated and diagnosed with enteral/rhino virus. She was discharged home; unfortunately, patient reports that her shortness of breath progressively got worse. Review of patient's EMR reveals she is currently prescribed warfarin. When asked, she states she was prescribed this medication due to pacemaker placement and bundle branch block (patient was unsure whether White or left). Current EKG reveals a ventricular paced rhythm. Patient currently denies any chest pain, lightheadedness, dizziness, fever, chills, r igors, nausea, vomiting, lower extremity swelling, PND, orthopnea, or diarrhea. Chest x-ray shows right middle lobe atelectasis and possible right lower lobe effusion. Additional pertinent values obtained including white blood cell count of 15.1, red blood cell count of 3.87, hemoglobin 12.1, hematocrit 36, neutrophils 83.7%, sodium of 126, chloride of 96, BUN of 20, creatinine 1.10, GFR 48, blood glucose 141, AST of 37, and BNP of 4830. Hospital Course Hospital Course Hospital Course: Mrs. Lorenzo is a 79-year-old female who presented to the emergency department with shortness of breath. She has a primary medical history of RBBB, asthma, CAD, A-fib, CKD, and hypertension. She was recently in the emergency department for the same symptoms and was given steroids, magnesium, and multiple nebulizer treatments for her shortness of breath, at this time she was diagnosed with rhinovirus. She was ultimately discharged home. Patient continued to feel short of breath and presented to the emergency department again with similar symptoms. Patient also required supplemental O2 to maintain O2 saturation greater than 90%. Hospital medicine was consulted for admission for a asthma exacerbation, rhinovirus, new oxygen requirement. Plan of care was as follows: #Acute asthma exacerbation #Acute viral bronchitis #Acute hypoxic respiratory failure ?Patient shortness of breath improved, still having audible wheezing. Patient has been on room air for 24 hours, maintaining O2 saturation greater than 90%. Patient able to ambulate in the room and in the [place] and continue to maintain O2 greater than 90% on room air. She continues to have shortness of breath with exertion. ?Pulmonology consulted, recommendations to continue Breztri inhaler along with nebulizer therapies at home. Transition from ceftriaxone and azithromycin to cefdinir to complete a 5-day total course. Continue steroids for a 5-day total course, will discharge home on prednisone 40 mg daily. Continue use of flutter valve 3 times daily. Patient did have chest CT which showed narrowing of the right middle lobe bronchus and right lower lobe bronchus along with near complete atelectasis of right middle. Discussed bronchoscopy with patient, will schedule outpatient follow-up with pulmonology for further discussion. ? PT/OT consulted for evaluation, states patient is at baseline and may go home to current living situation. Patient states she feels back to her baseline and is ready to return home. #Leukocytosis ?Patient's white count day of discharge 16.8, patient is receiving steroids daily. Will discharge home on cefdinir for a total of 5-day course. Procalcitonin unremarkable. Patient remains afebrile, nontachycardic. #Hyponatremia ? BNP is markedly elevated at 4830, however patient does not appear hypervolemic. No lower extremity edema noted, patient has no known history of CHF. Echo shows EF of 45%. Patient follows with Dr. Doyle in [place] and would like to follow-up with him at discharge. Will make appointment within 1 week. She regularly interrogate her pacemaker at home, states she has not had any complications. ? Urine sodium low at 12 and urine osmolarity pending at this time. Patient received 2 doses of sodium tablets during admission, patient should follow-up with PCP for further evaluation of her hyponatremia. ? Sodium today remains stable at 126. #CKD ? Kidney function within normal range, BUN 18, creatinine 1.00. #A-fib #Pacemaker ? Patient has known history of atrial fibrillation, patient has pacemaker in place currently. Patient's EKG shows paced rhythm. Patient does take warfarin daily. INR is not therapeutic, 5.65. Currently holding Coumadin at this time. INR could be affected by azithromycin. Continue to hold Coumadin daily at discharge. Patient should follow-up with PCP on Friday for PT/INR recheck and management of her Coumadin therapy. ?Discussed with patient the possibility of switching from Coumadin to Eliquis or Xarelto. Encouraged her to discuss this with her research professor at her follow-up appointment. Echo during admission shows EF of 45%. Total time spent on discharge 40 minutes in counseling, documentation, chart review, and direct care with patient. Exam Data for Last 24 hours Vital signs and Labs for Last 24 Hours: Temp Pulse Resp BP Pulse Ox O2 Del Method O2 Flow Rate 97.6 F 88 18 137/56 L 92 L Room Air 2 05/05/25 08:00 05/05/25 10:21 05/05/25 08:00 05/05/25 08:00 05/05/25 10:21 05/05/25 10:21 05/04/25 08:00 FiO2 28 05/03/25 19:24 Laboratory Results - last 24 hr 05/03/25 11:53: Urine Sodium 12.0 L 05/03/25 17:24: A. baumannii (PCR) Not detected, Bacteroides fragilis Not detected, Karie albicans (PCR) Not detected, Karie auris (PCR) Not detected, C. glabrata (PCR) Not detected, C. krusei (PCR) Not detected, C. parapsilosis (PCR) Not detected, C. tropicalis (PCR) Not detected, Cryptococcus neoformans PCR Not detected, Enterobacterales (PCR) Not detected, Enterococc faecalis PCR Not detected, Enterococc faecium PCR Not detected, E. coli (PCR) Not detected, H. influenzae DNA Not detected, Klebsiella aerogenes (PCR) Not detected, Klebsiella oxytoca PCR Not detected, K. pneumoniae group (PCR) Not detected, List. monocytogenes PCR Not detected, N. meningitidis (PCR) Not detected, Proteus species (PCR) Not detected, Salmonella spp. (PCR) Not detected, Serratia marcescens PCR Not detected, Staphylococcus sp PCR Not detected, Staph aureus (PCR) Not detected, mecA/C & MREJ Resist Gene Not applicable, mecA/C-Methicil Resis Gene Not applicable, Staph epidermidis (PCR) Not detected, Staph lugdunensis (TEM-PCR) Not detected, S. maltophilia (PCR) Not detected, Streptococcus sp PCR Not detected, S.agalactiae Grp B ADELFO Not detected, Strep pneumoniae (PCR) Not detected, S. pyogenes GrpA ADELFO Not detected, P. aeruginosa (PCR) Not detected, Dianna/B-Vanco Res Genes Not applicable, blaIMP Car res Gene PCR Not applicable, KPC-Carbap Res Gene PCR Not applicable, blaNDM Car Res Gene PCR Not applicable, OXA-48 Carbapenem Resis Gene (PCR) Not applicable, blaVIM Car Res Gene PCR Not applicable, CTX-M Gene Resistance (PCR) Not applicable, MCR-1 Resistance Gene Not applicable 05/04/25 05:30: Hemoglobin A1c 5.9 05/05/25 05:51: WBC 16.8 H D, RBC 3.57 L, Hgb 11.3 L, Hct 33.9 L, MCV 95.0, MCH 31.7 H, MCHC 33.3, RDW 12.4, Plt Count 278, MPV 9.4, Neut % (Auto) 83.5 H, Lymph % (Auto) 5.6 L, [place] % (Auto) 10.0 H, Eos % (Auto) 0.0 L, Baso % (Auto) 0.2, Neut # (Auto) 14.0 H, Lymph # (Auto) 0.9, [place] # (Auto) 1.7 H, Eos # (Auto) 0.0, Baso # (Auto) 0.0, Total Counted 100, Neutrophils % (Manual) 84 H, Lymphocytes % (Manual) 5 L, Monocytes % (Manual) 11 H, Platelet Estimate Normal, RBC Morphology Normal, PT 55.2 H, INR 5.65 H, Sodium 126 L, Potassium 4.7 D, Chloride 97 L, Carbon Dioxide 25, Anion Gap 8.7, BUN 18 H, Creatinine 1.00, Estimated Creat Clear 64, Estimated GFR 53 L, Est GFR ( Amer) 65, Glucose 131 H, Calcium 8.8, Magnesium 2.2, Total Bilirubin 0.4, AST 29, ALT 12, Alkaline Phosphatase 59, Total Protein 5.9 L, Albumin 3.4 L, Globulin 2.5, Albumin/Globulin Ratio 1.4, Triglycerides 80, Cholesterol 168, LDL Cholesterol Direct 54.15 L, VLDL Cholesterol 16, HDL Cholesterol 71 H, Cholesterol/HDL Ratio 2.4 I & O for Last 24 hours: Intake & Output 05/02/25 05/03/25 05/04/25 05/05/25 23:59 23:59 23:59 23:59 Intake Total 1400 / 1600 1150 / 1390 600 / 600 Output Total 200 / 200 0 / 0 Balance 1400 / 1600 950 / 1190 600 / 600 Weight 85.729 kg 87.362 kg 89.857 kg Microbiology Reports for the Last 24 Hours: Microbiology 05/03/25 17:24 Blood Blood Culture - Preliminary NO GROWTH AFTER 24 HOURS 05/03/25 17:24 Blood Blood Culture - Preliminary 05/04/25 09:35 Sputum - Expectorated Sputum Gram Stain - Final Constitutional Constitutional: no acute distress, obese and cooperative *Routine HEENT Exam Head: Present normocephalic and atraumatic Eye: Present EOMI and PERRL ENT: Present mucous membranes moist *Routine Neck Exam Neck: Present supple; Absent JVD or lymphadenopathy *Routine Respiratory Exam Respiratory: Present rhonchi, wheezes, normal respiratory effort and symmetric chest movement *Routine Cardiovascular Exam Cardiovascular: Present RRR; Absent murmur *Routine Abdominal Exam Abdominal: Present soft and normoactive bowel sounds; Absent tenderness *Routine Extremities Exam Extremities: Present full ROM and pulses intact; Absent edema *Routine Skin Exam Skin: Present intact, dry and warm; Absent rash *Routine Neurological Exam Neurological: Present alert, oriented X3, moving all extremities and normal speech; Absent altered mental status Routine Psychiatric Exam Psychiatric: Present normal affect Results Data Completed and Pending Labs on day of discharge: Labs from last 24 hours 05/05/25 05/04/25 05/03/25 05:51 05:30 17:24 WBC 16.8 H D RBC 3.57 L Hgb 11.3 L Hct 33.9 L MCV 95.0 MCH 31.7 H MCHC 33.3 RDW 12.4 Plt Count 278 MPV 9.4 Neut % (Auto) 83.5 H Lymph % (Auto) 5.[address] % (Auto) 10.0 H Eos % (Auto) 0.0 L Baso % (Auto) 0.2 Neut # (Auto) 14.0 H Lymph # (Auto) 0.9 [place] # (Auto) 1.7 H Eos # (Auto) 0.0 Baso # (Auto) 0.0 Total Counted 100 Neutrophils % (Manual) 84 H Lymphocytes % (Manual) 5 L Monocytes % (Manual) 11 H Platelet Estimate Normal RBC Morphology Normal PT 55.2 H INR 5.65 H Sodium 126 L Potassium 4.7 D Chloride 97 L Carbon Dioxide 25 Anion Gap 8.7 BUN 18 H Creatinine 1.00 Estimated Creat Clear 64 Estimated GFR 53 L Est GFR ( Amer) 65 Glucose 131 H Hemoglobin A1c 5.9 Calcium 8.8 Magnesium 2.2 Total Bilirubin 0.4 AST 29 ALT 12 Alkaline Phosphatase 59 Total Protein 5.9 L Albumin 3.4 L Globulin 2.5 Albumin/Globulin Ratio 1.4 Triglycerides 80 Cholesterol 168 LDL Cholesterol Direct 54.15 L VLDL Cholesterol 16 HDL Cholesterol 71 H Cholesterol/HDL Ratio 2.4 Urine Sodium A. baumannii (PCR) Not detected Bacteroides fragilis Not detected Karie albicans (PCR) Not detected Karie auris (PCR) Not detected C. glabrata (PCR) Not detected C. krusei (PCR) Not detected C. parapsilosis (PCR) Not detected C. tropicalis (PCR) Not detected Cryptococcus neoformans PCR Not detected Enterobacterales (PCR) Not detected Enterococc faecalis PCR Not detected Enterococc faecium PCR Not detected E. coli (PCR) Not detected H. influenzae DNA Not detected Klebsiella aerogenes (PCR) Not detected Klebsiella oxytoca PCR Not detected K. pneumoniae group (PCR) Not detected List. monocytogenes PCR Not detected N. meningitidis (PCR) Not detected Proteus species (PCR) Not detected Salmonella spp. (PCR) Not detected Serratia marcescens PCR Not detected Staphylococcus sp PCR Not detected Staph aureus (PCR) Not detected mecA/C & MREJ Resist Gene Not applicable mecA/C-Methicil Resis Gene Not applicable Staph epidermidis (PCR) Not detected Staph lugdunensis (TEM-PCR) Not detected S. maltophilia (PCR) Not detected Streptococcus sp PCR Not detected S.agalactiae Grp B ADELFO Not detected Strep pneumoniae (PCR) Not detected S. pyogenes GrpA ADELFO Not detected P. aeruginosa (PCR) Not detected Dianna/B-Vanco Res Genes Not applicable blaIMP Car res Gene PCR Not applicable KPC-Carbap Res Gene PCR Not applicable blaNDM Car Res Gene PCR Not applicable OXA-48 Carbapenem Resis Gene (PCR) Not applicable blaVIM Car Res Gene PCR Not applicable CTX-M Gene Resistance (PCR) Not applicable MCR-1 Resistance Gene Not applicable 05/03/25 11:53 WBC RBC Hgb Hct MCV MCH MCHC RDW Plt Count MPV Neut % (Auto) Lymph % (Auto) [place] % (Auto) Eos % (Auto) Baso % (Auto) Neut # (Auto) Lymph # (Auto) [place] # (Auto) Eos # (Auto) Baso # (Auto) Total Counted Neutrophils % (Manual) Lymphocytes % (Manual) Monocytes % (Manual) Platelet Estimate RBC Morphology PT INR Sodium Potassium Chloride Carbon Dioxide Anion Gap BUN Creatinine Estimated Creat Clear Estimated GFR Est GFR ( Amer) Glucose Hemoglobin A1c Calcium Magnesium Total Bilirubin AST ALT Alkaline Phosphatase Total Protein Albumin Globulin Albumin/Globulin Ratio Triglycerides Cholesterol LDL Cholesterol Direct VLDL Cholesterol HDL Cholesterol Cholesterol/HDL Ratio Urine Sodium 12.0 L A. baumannii (PCR) Bacteroides fragilis Karie albicans (PCR) Karie auris (PCR) C. glabrata (PCR) C. krusei (PCR) C. parapsilosis (PCR) C. tropicalis (PCR) Cryptococcus neoformans PCR Enterobacterales (PCR) Enterococc faecalis PCR Enterococc faecium PCR E. coli (PCR) H. influenzae DNA Klebsiella aerogenes (PCR) Klebsiella oxytoca PCR K. pneumoniae group (PCR) List. monocytogenes PCR N. meningitidis (PCR) Proteus species (PCR) Salmonella spp. (PCR) Serratia marcescens PCR Staphylococcus sp PCR Staph aureus (PCR) mecA/C & MREJ Resist Gene mecA/C-Methicil Resis Gene Staph epidermidis (PCR) Staph lugdunensis (TEM-PCR) S. maltophilia (PCR) Streptococcus sp PCR S.agalactiae Grp B ADELFO Strep pneumoniae (PCR) S. pyogenes GrpA ADELFO P. aeruginosa (PCR) Dianna/B-Vanco Res Genes blaIMP Car res Gene PCR KPC-Carbap Res Gene PCR blaNDM Car Res Gene PCR OXA-48 Carbapenem Resis Gene (PCR) blaVIM Car Res Gene PCR CTX-M Gene Resistance (PCR) MCR-1 Resistance Gene Preliminary micro results at discharge 05/03/25 17:24 Blood Culture - Preliminary Blood NO GROWTH AFTER 24 HOURS 05/03/25 17:24 Blood Culture - Preliminary Blood DS: Diagnosis Discharge Diagnosis (1) Acute hypoxic respiratory failure: Status: Acute Code(s): J96.01 - Acute respiratory failure with hypoxia (2) Recurrent pneumonia: Status: Acute Code(s): J18.9 - Pneumonia, unspecified organism (3) Viral pneumonia: Status: Acute Code(s): J12.9 - Viral pneumonia, unspecified (4) Asthma exacerbation: Status: Acute Code(s): J45.901 - Unspecified asthma with (acute) exacerbation Qualifiers: Asthma persistence: persistent Asthma severity: moderate Qualified Code(s): J45.41 - Moderate persistent asthma with (acute) exacerbation (5) Acute viral bronchiolitis: Status: Acute Code(s): J21.8 - Acute bronchiolitis due to other specified organisms; B97.89 - Other viral agents as the cause of diseases classified elsewhere (6) Leukocytosis: Status: Acute Code(s): D72.829 - Elevated white blood cell count, unspecified Qualifiers: Leukocytosis type: unspecified Qualified Code(s): D72.829 - Elevated white blood cell count, unspecified (7) Hyponatremia: Status: Acute Code(s): E87.1 - Hypo-osmolality and hyponatremia (8) CKD (chronic kidney disease): Status: Acute Code(s): N18.9 - Chronic kidney disease, unspecified Qualifiers: Chronic kidney disease stage: unspecified stage Qualified Code(s): N18.9 - Chronic kidney disease, unspecified (9) Abnormal CT scan: Status: Acute Code(s): R93.89 - Abnormal findings on diagnostic imaging of other specified body structures (10) Atrial fibrillation: Status: Acute Code(s): I48.91 - Unspecified atrial fibrillation Meds Home Medications and Allergies Home Medications ?Medication ?Instructions ?Recorded ?Confirmed ?Type fluoxetine 20 mg capsule 20 mg PO DAILY 10/27/2104/12 History losartan 50 mg tablet 50 mg PO DAILY 10/27/2104/12 History omeprazole 20 mg capsule,delayed 20 mg PO DAILY 05/03/25 History release simvastatin 40 mg tablet 40 mg PO HS 10/27/21 5 History warfarin 5 mg tablet 2.5 mg PO MOTHSA 10/29/21 History Held on 05/05/25. Instructions: per PCP alprazolam 0.25 mg tablet 0.25 mg PO BIDP PRN Anxiety 04/22/24 05/04/25 History warfarin 5 mg tablet 5 mg PO SUTUWEFR #30 tabs 05/03/25 Rx Held on 05/05/25. Instructions: per PCP prednisone 2.5 mg tablet 2.5 mg PO DAILY 09/15/24 History Held on 05/05/25. Instructions: while taking high dose prednisone fluticasone propionate 50 2 spray intranasal BID aller gy 12/22/24 05/03/25 Rx mcg/actuation nasal symptoms 90 days #16 grams spray,suspension (Flonase Allergy Relief) hydrochlorothiazide 12.5 mg capsule 12.5 mg PO DAILY 0 12/22/24 05/03/25 History budesonide 160 mcg-glycopyr 9 2 inh inhalation BID 90 days #10.7 01/19/25 05/03/25 Rx mcg-formot 4.8 mcg/actuation HFA grams inhaler (Breztri Aerosphere) azelastine 137 mcg (0.1 %) nasal 2 spray intranasal HS 90 days #30 03/31/25 05/03/25 Rx spray mL montelukast 10 mg tablet 10 mg PO DAILY #90 tabs 03/1205/03/25 Rx (Singulair) benzonatate 100 mg capsule 200 mg (2 x 100 mg) PO TIDP PRN 05/05/25 Rx cough #30 caps cefdinir 300 mg capsule 300 mg PO BID #6 caps Rx prednisone 20 mg tablet 40 mg (2 x 20 mg) PO DAILY # 6 tabs 05/05/25 Rx New Prescriptions to Start Prescriptions: Enriqueta Villatoro cefdinir Enriqueta Todd prednisone Enriqueta Todd Allergies Allergy/AdvReac Type Severity Reaction Status Date / Time sulfamethoxazole (From Allergy Unknown Unknown Verified 03/31/25 11:26 Bactrim) allergy reaction trimethoprim (From Bactrim) Allergy Unknown Unknown Verified 03/31/25 11:26 allergy reaction Discharge Plan Disposition Patient Disposition: Home, Self-Care Condition: Good Follow up Plan Follow up with: Gabriel Pendleton MD [Primary Care Provider, Medical] - 05/09/25 Jaron Doyle MD [Referring, Cardiovascular Disease] - 1 week Jeronimo Barrett MD [Physician, Pulmonology] - Enter time for follow up Referral Note: 1-2 weeks Prescriptions/Medication Reconciliation: New benzonatate 100 mg Capsule 200 mg PO TIDP PRN (Reason: cough) Qty: 30 0RF prednisone 20 mg tablet 40 mg PO DAILY Qty: 6 0RF cefdinir 300 mg capsule 300 mg PO BID Qty: 6 0RF Continued montelukast [Singulair] 10 mg tablet 10 mg PO DAILY Qty: 90 2RF azelastine 137 mcg (0.1 %) spray,non-aerosol 2 spray intranasal HS 90 Days Qty: 30 2RF Rx Instructions: administer into each nostril hydrochlorothiazide 12.5 mg capsule 12.5 mg PO DAILY fluticasone propionate [Flonase Allergy Relief] 50 mcg/actuation spray,suspension 2 spray intranasal BID 90 Days Qty: 16 3RF Rx Instructions: administer into each nostril Breztri Aerosphere 160-9-4.8 mcg/actuation HFA aerosol inhaler 2 inh IH BID 90 Days Qty: 10.7 3RF losartan 50 MG tablet 50 mg PO DAILY simvastatin 40 MG tablet 40 mg PO HS omeprazole 20 MG capsule,delayed release(DR/EC) 20 mg PO DAILY fluoxetine 20 MG capsule 20 mg PO DAILY alprazolam 0.25 mg tablet 0.25 mg PO BIDP PRN (Reason: Anxiety) Held prednisone 2.5 mg tablet 2.5 mg PO DAILY Hold Instructions: while taking high dose prednisone warfarin 5 MG tablet 2.5 mg PO MOTHSA Hold Instructions: per PCP Rx Instructions: 2.5mg by mouth on Friday, and Friday and 5mg by mouth on Friday, Friday, Friday and Friday warfarin 5 mg tablet 5 mg PO SUTUWEFR Qty: 30 0RF Hold Instructions: per PCP Rx Instructions: 2.5mg by mouth on Friday, and Friday and 5mg by mouth on Friday, Friday, Friday and Friday Problem Reconciliation Problems Reviewed?: Yes Patient Discharge Instructions ACTIVITY: Continue current activity and Ambulate as tolerated DIET: continue same diet Patient Instructions: DI for Asthma -- Adult, DI for Pneumonia -- Adult, DI for Reactive Airway Disease-Adult, Coumadin Vitamin K/ Diet, Stop Light Pneumonia, Stop Light Infection Print Language: Icelandic Providers Primary Care Provider: Gabriel Pendleton Admit Provider: Og Barbosa Attending Provider: Og Barbosa
--- NOTE | 2025-05-05 12:34 | [facility].PHAAMS2 ---
- Antimicrobial Stewardship Review ABX 48 HOUR TIMEOUT Stewardship interventions: 48 hour timeout review (SPUTUM CULTURE PENDING, ON CORRECT EMPIRIC TREATMENT)
--- NOTE | 2025-05-06 10:11 | SW/DCPLANNER ---
Spoke with patient's daughter on the phone. Patient's daughter stated that she is doing well. Patient's daughter stated that they are aware of her upcoming appointments. Patient's daughter stated that they were able to strip picker her new medicine from [facility]. Patient's daughter stated that they have no concerns or questions at this time. Shelby Truong
[2025-05-14 15:10] LABS: Osmolality, Urine 433 mOsmol/kg (.)
== END 2025-05-05 13:50 | disposition home or self-care (01) | DRG 202 ==
LOC: ER 16:51 → 2ND 17:45
PROVIDERS: Nurse Practitioner Family; Admitting Provider Student in an Organized Health Care Education/Training Program; Emergency Provider Student in an Organized Health Care Education/Training Program; PCP Family Medicine; Visit Provider Student in an Organized Health Care Education/Training Program
DX: J45.41 Moderate persistent asthma with (acute) exacerbation (principal); J12.9 Viral pneumonia, unspecified; J15.4 Pneumonia due to other streptococci; J96.01 Acute respiratory failure with hypoxia; E87.1 Hypo-osmolality and hyponatremia; J98.11 Atelectasis; J21.8 Acute bronchiolitis due to other specified organisms; J20.6 Acute bronchitis due to rhinovirus; N18.9 Chronic kidney disease, unspecified; I48.91 Unspecified atrial fibrillation; I45.10 Unspecified right bundle-branch block; I25.10 Atherosclerotic heart disease of native coronary artery without angina pectoris; I12.9 Hypertensive chronic kidney disease with stage 1 through stage 4 chronic kidney disease, or unspecified chronic kidney disease; D72.829 Elevated white blood cell count, unspecified; B97.89 Other viral agents as the cause of diseases classified elsewhere; R79.89 Other specified abnormal findings of blood chemistry; R93.89 Abnormal findings on diagnostic imaging of other specified body structures; Z95.0 Presence of cardiac pacemaker; Z79.01 Long term (current) use of anticoagulants; Z79.52 Long term (current) use of systemic steroids; Z79.899 Other long term (current) drug therapy; Z88.2 Allergy status to sulfonamides
CPT/HCPCS: 36415; 71046; 71250; 80053; 80061; 82803; 83036; 83735; 83880; 83930; 83935; 84145; 84439; 84443; 84484; 84540; 85007; 85025; 85378; 85610; 87040; 87070; 87154; 87205; 89220; 93005; 93306; 94640; 94667; 94668; 94760; 97162; 97166; 97530; 97535; 99285; J0456; J0696; J2919; J3475; J7030; J7050

== ENCOUNTER 2025-06-07 11:31 | Outpatient (CLI) | payer MEDICARE, SELFPAY ==
--- OUTSIDE RECORDS SUMMARY | 2025-05-12 09:45 | XMS_ITS | Encounter Summary ---
Author Organization [facility] yste Address [address] [place] [address] Care Team Providers Care Ripshear Operator Name Role Phone Zoran Pendleton MD Primary Care Provider [phone] Reason for Visit * Reason Comments CAD, multiple vessel Hospital follow up Encounter Details Date Type Department Care Team (Late st Contact Info) Description 05/12/2025 9:45 AM EDT Office Visit [facility] C[facility]IOLOGY [address] [facility] [address] [place] [address] Jaron Doyle MD [address] [facility] [address] [facility] [address] [place] [address] 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); Paroxysmal atrial fibrillation; Primary hypertension Social History Tobacco Use Types Packs/Day Years Used Date Smoking Tobacco: Never Passive Smoke Exposure: Past Smokeless Tobacco: Never Alcohol Use Standard Drinks/Week Comments Never 0 (1 standard drink = 0.6 oz pur e alcohol) Comments No Sex and Gender Information Value Date Recorded Sex Assigned at Female 10/19/2024 2:18 PM EDT Legal Sex Female 11:51 AM EDT Gender Identity Not on file Sexual Orientation Straight 10/19/2024 2: 18 PM EDT documented as of this encounter Last Filed Vital Signs Vital Sign Reading Time Taken Comments Blood Pressure 132/70 05/12/2025 9:21 AM EDT Pulse 82 05/12/2025 9:21 AM EDT Temperature - - Respiratory Rate - - Oxygen Saturation 90% 05/12/2025 9:21 AM EDT Inhaled Oxygen Concentration - - Weight 85.7 kg (189 lb) 05/12/2025 9:21 AM EDT Height 165.1 cm (5' 5 ) 05/12/2025 9:21 AM EDT Body Mass Index 31.45 05/12/2025 9:21 AM EDT documented in this encounter Progress Notes * Jaron Doyle MD - 05/12/2025 9:45 AM EDTAssociated Order(s): ECG 12 Lead Post-Procedure Diagnose(s): Paroxysmal atrial fibrillation [facility] Cardiology Office Progress Note Sommer Lorenzo [address] [place] [id number] Visit Date: 05/12/25 PCP: Zoran Pendleton MD [address] [facility] [address] IDENTIFICATION: A 79 y.o. female PROBLEM LIST: Chest pain: September 2001, left heart catheterization with normal coronaries, EF preserved. 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 Tachy-morris symptoms with pacemaker implantation 2012, [employer] per Dr. Baez. 09/30 MDT gen change GFT On warfarin Diastolic HF 09/30 echo EF 60% mild TR , IR RVSP 32 05/05 OSH Echo: LVEF 45%, grade 2 dd, asynchronous septum. Chronic right bundle branch block, underlying. Hypertension. Dyslipidemia: 04/24 114-23-12-85 11/02 [id number] 05/05 393-78-71-54 Rheumatoid arthritis- 2018 Refractory to methotrexate Recurrent pneumonitis 10/30 hospitalized [facility] 5 days O2 requiring '- Surgical history: Skin cancer excision CC: Chief Complaint Patient presents with CAD, multiple vessel Hospital follow up Allergies Allergies Allergen Reactions Sulfamethoxazole Unknown - High Severity Trimethoprim Unknown - High Severity Sulfa Antibiotics GI Intolerance Vytorin [Ezetimibe-Simvastatin] Myalgia Current Medications Current Outpatient Medications Medication Instructions ALPRAZolam (XANAX) 0.25 mg, Nightly Breztri Aerosphere 160-9-4.8 MCG/ACT aerosol inhaler Daily PRN FLUoxetine (PROZAC) 20 mg, Daily losartan (COZAAR) 50 mg, Oral, Daily omeprazole (PRILOSEC) 20 mg, Oral, Daily predniSONE (DELTASONE) 2.5 mg, Daily simvastatin (ZOCOR) 40 mg, Oral, Nightly History of Present Illness Sommer Lorenzo is a 79 y.o. year old female here for outside hospital follow up. She was admitted to [facility] for hypoxic respiratory failure, pneumonia last week. She completed course of antibiotics and steroids. Remains on low-dose steroids chronically. She is taking nebulizer 4 times a day. She followed up with PCP yesterday who recommended cardiology follow-up to address anticoagulation and further med changes. Echo at OSH revealed EF 45% with diastolic dysfunction. She reports weeklong history of increased respiratory distress and orthopnea prior to hospitalization. Family does not recall if she got diuretics while hospitalized. INR at time of hospitalization over 5. She was discharged off HCTZ and warfarin. She is not checking home blood pressures but does weigh daily. She is sleeping chhaya recliner and reports O2 sats in the 80s when she is up moving around. Labs reviewed from hospitalization: normal H&H, proBNP 4830, INR 5.5, and sodium 126. Renal function normal. OBJECTIVE: Vitals: 05/12/25 0921 BP: 132/70 BP Location: Right arm Patient Position: Sitting Cuff Size: Adult Pulse: 82 SpO2: 90% Weight: 85.7 kg (189 lb) Height: 165.1 cm (65 ) Body mass index is 31.45 kg/m??. Wt Readings from Last 3 Encounters: 05/12/25 85.7 kg (189 lb) 10/21/24 83.9 kg (185 lb) 01/30/23 83.5 kg (184 lb) Vitals reviewed. Neck: Vascular: No JVR. JVD normal. Pulmonary: Effort: Increased respiratory effort. Breath sounds: No wheezing. No rhonchi. Bibasilar Rales present. Chest: Chest wall: Not tender to palpatation. Cardiovascular: PMI at left midclavicular line. Pacemaker clean dry and intact Normal rate. Regular rhythm. Normal S1. Normal S2. Murmurs: There is a systolic murmur. No gallop. No click. No rub. Pulses: Intact distal pulses. Edema: Peripheral edema present. Skin: General: Skin is warm and dry. Neurological: General: No focal deficit present. Mental Status: Alert and oriented to person, place and time. Diagnostic Data: ECG 12 Lead Date/Time: 05/12/2025 10:07 AM Performed by: Jaron Doyle MD Authorized by: Jaron Doyle MD BPM: 82 Pacing: atrial sensed rhythm and ventricular paced rhythm Clinical impression: abnormal EKG Device check ASSESSMENT: Diagnosis Plan 1. Heart failure with mildly reduced ejection fraction (HFmrEF) Basic Metabolic Panel 2. Paroxysmal atrial fibrillation 3. Primary hypertension PLAN: HFmrEF - EF 45 % per OSH echocardiogram. Newly diagnosed. Will add metoprolol succinate 25 mg daily. BMP today to follow sodium prior to initiation of diuretic. Advised to weigh daily. Discussed use of heart failure clinic. Will call her results of labs and with further recommendations. Hypertension controlled current losartan. Advised to follow home blood pressures Mixed dyslipidemia, LDL at target on statin therapy Paroxy A. fib/tachybrady syndrome s/p pacemaker, v paced today. Reports INR at PCP office yesterday1.3. Will alter to Eliquis if not cost prohibitive (samples and 30-day free supply card afforded toher today). Scribed for Jaron Doyle MD by Orin Florian APRN. 05/12/2025 10:07 EDT Jaron Doyle MD, [facility] documented in this encounter Plan of Treatment Upcoming Encounters Date Type Department Care Team (Late st Contact Info) Description 07/21/2025 12:00 PM EST Office Visit [facility] CARDIOLOGY [address] [facility] [address] Jaron Doyle MD [address] [facility] [address] [facility] [address] [place] [address] Scheduled Orders Name Type Priority Associated Diagnoses Orde r Schedule Cardiology Scan Cardiac Services Ord ered: 05/12/2025 documented as of this encounter Procedures Procedure Name Priority Date/Time Associated Diagnosis Comments ECG 12-LEAD Routine 05/12/2025 Paroxysmal atrial fibrillation documented in this encounter Results * proBNP (05/12/2025 10:40 AM EDT) Pathologist [facility] proBNP 1,098.0 0.0 - 1,800.0 pg/mL 05/12/2025 2:55 PM EDT [facility] Blood Venipuncture / Unknown 05/12/2025 10:40 AM EDT 05/12/2025 10:40 AM EDT Narrative [facility] - 05/12/2025 2:55 PM EDT This assay is used as an aid in the diagnosis of individuals suspected of having heart failure. It can be used as an aid in the diagnosis of acute decompensated heart failure (ADHF) in patients presenting with signs and symptoms of ADHF to the emergency department (ED). In addition, NT-proBNP of <300 pg/mL indicates ADHF is not likely. Age Range Result Interpretation NT-proBNP Concentration (pg/mL: <50 Positive >450 Bruce 300-450 Negative <300 50-75 Positive >900 Bruce 300-900 Negative <300 >75 Positive >1800 Bruce 300-1800 Negative <300 Orin Florian POST PRODUCTION ASSISTANT LAB BLOOD ORDERABLES Fi nal Result [facility]
[address] [place] [address], * (ABNORMAL) Basic Metabolic Panel (05/12/2025 10:40 AM EDT) Glucose 103(H) 65 - 99 mg/dL 05/12/2025 3:22 PM EDT [facility] BUN 9.0 8.0 - 23.0 mg/dL 05/12/2025 3:22 PM EDT [facility] Creatinine 1.02(H) 0.57 - 1.00 mg/dL 05/12/2025 3:22 PM EDT [facility] Sodium 134(L) 136 - 145 mmol/L 05/12/2025 3:22 PM EDT [facility] Potassium 3.8 3.5 - 5.2 mmol/L 05/12/2025 3:22 PM EDT [facility] Chloride 99 98 - 107 mmol/L 05/12/2025 3:22 PM EDT [facility] CO2 20.0(L) 22.0 - 29.0 mmol/L 05/12/2025 3:22 PM EDT [facility] Calcium 9.3 8.6 - 10.5 mg/dL 05/12/2025 3:22 PM EDT [facility] BUN/Creatinine Ratio 8.8 7.0 - 25.0 05/12/2025 3:22 PM EDT [facility] Anion Gap 15.0 5.0 - 15.0 mmol/L 05/12/2025 3:22 PM T [facility] eGFR 55.7(L) >60.0 mL/min/1.7 3 05/12/2025 3:22 PM EDT [facility] Blood Venipuncture / Unknown 05/12/2025 10:40 AM EDT 05/12/2025 10:40 AM EDT [facility] - 05/12/2025 3:22 PM EDT GFR Categories in Chronic Kidney Disease (CKD) GFR Category GFR (mL/min/1.73) Interpretation G1 90 or greater Normal or high (1) G2 60-89 Mild decrease (1) G3a 45-59 Mild to moderate decrease G3b 30-44 Moderate to severe decrease G4 15-29 Severe decrease G5 14 or less Kidney failure (1)In the absence of evidence of kidney disease, neither GFR category G1 or G2 fulfill the criteria for CKD. eGFR calculation 2020 CKD-EPI creatinine equation, which does not include race as a factor Orin Florian POST PRODUCTION ASSISTANT LAB BLOOD ORDERABLES nal Result [facility]
[address] [place] [address], * (ABNORMAL) ECG 12-LEAD (05/12/2025) Narrative 05/12/2025 Jaron Doyle MD 05/12/2025 10:31 AM ECG 12 Lead Date/Time: 05/12/2025 10:07 AM Performed by: Jaron Doyle MD Authorized by: Jaron Doyle MD BPM: 82 Pacing: atrial sensed rhythm and ventricular paced rhythm Clinical impression: abnormal EKG Procedure Note Jaron Doyle MD - 05/12/2025 9:45 AM EDT [facility] Cardiology Office Progress Note Sommer Lorenzo [address] [place] [id number] Visit Date: 05/12/25 PCP: Zoran Pendleton MD [address] [facility] [address] IDENTIFICATION: A 79 y.o. female PROBLEM LIST: Chest pain: September 2001, left heart catheterization with normal coronaries, EFpreserved. 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 Tachy-morris symptoms with pacemaker implantation 2012, [employer] per . 09/30 MDT gen change GFT On warfarin Diastolic HF 09/30 echo EF 60% mild TR , IR RVSP 32 05/05 OSH Echo: LVEF 45%, grade 2 dd, asynchronous septum. Chronic right bundle branch block, underlying. Hypertension. Dyslipidemia: 04/24 [id number] 11/02 [id number] 05/05 220-68-74-54 Rheumatoid arthritis- 2018 Refractory to methotrexate Recurrent pneumonitis 10/30 hospitalized [facility] 5 days O2 requiring ' Surgical history: Skin cancer excision CC: Chief Complaint Patient presents with CAD, multiple vessel Hospital follow up Allergies Allergies Allergen Reactions Sulfamethoxazole Unknown - High Severity Trimethoprim Unknown - High Severity Sulfa Antibiotics GI Intolerance Vytorin [Ezetimibe-Simvastatin] Myalgia Current Medications Current Outpatient Medications Medication Instructions ALPRAZolam (XANAX) 0.25 mg, Nightly Breztri Aerosphere 160-9-4.8 MCG/ACT aerosol inhaler Daily PRN FLUoxetine (PROZAC) 20 mg, Daily losartan (COZAAR) 50 mg, Oral, Daily omeprazole (PRILOSEC) 20 mg, Oral, Daily predniSONE (DELTASONE) 2.5 mg, Daily simvastatin (ZOCOR) 40 mg, Oral, Nightly History of Present Illness Sommer Lorenzo is a 79 y.o. year old female here for outside hospitalfollow up. She was admitted to [facility] for hypoxic respiratory failure,pneumonia last week. She completed course of antibiotics and steroids.Remains on low-dose steroids chronically. She is taking nebulizer 4 timesa day. She followed up with PCP yesterday who recommended cardiologyfollow-up to address anticoagulation and further med changes. Echo at OSHrevealed EF 45% with diastolic dysfunction. She reports weeklong historyof increased respiratory distress and orthopnea prior to hospitalization.Family does not recall if she got diuretics while hospitalized. INR attime of hospitalization over 5. She was discharged off HCTZ and warfarin.She is not checking home blood pressures but does weigh daily. She issleeping in a recliner and reports O2 sats in the 80s when she is upmoving around. Labs reviewed from hospitalization: normal H&H, [id number], INR 5.5, and sodium 126. Renal function normal. OBJECTIVE: Vitals: 05/12/25 0921 BP: 132/70 BP Location: Right arm Patient Position: Sitting Cuff Size: Adult Pulse: 82 SpO2: 90% Weight: 85.7 kg (189 lb) Height: 165.1 cm (65 ) Body mass index is 31.45 kg/m . Wt Readings from Last 3 Encounters: 05/12/25 85.7 kg (189 lb) 10/21/24 83.9 kg (185 lb) 01/30/23 83.5 kg (184 lb) Vitals reviewed. Neck: Vascular: No JVR. JVD normal. Pulmonary: Effort: Increased respiratory effort. Breath sounds: No wheezing. No rhonchi. Bibasilar Rales present. Chest: Chest wall: Not tender to palpatation. Cardiovascular: PMI at left midclavicular line. Pacemaker clean dry and intact Normalrate. Regular rhythm. Normal S1. Normal S2. Murmurs: There is a systolic murmur. No gallop. No click. No rub. Pulses: Intact distal pulses. Edema: Peripheral edema present. Skin: General: Skin is warm and dry. Neurological: General: No focal deficit present. Mental Status: Alert and oriented to person, place and time. Diagnostic Data: ECG 12 Lead Date/Time: 05/12/2025 10:07 AM Performed by: Jaron Doyle MD Authorized by: Jaron Doyle MD BPM: 82 Pacing: atrial sensed rhythm and ventricular paced rhythm Clinical impression: abnormal EKG Device check ASSESSMENT: Diagnosis Plan 1. Heart failure with mildly reduced ejection fraction (HFmrEF) BasicMetabolic Panel 2. Paroxysmal atrial fibrillation 3. Primary hypertension PLAN: HFmrEF - EF 45 % per OSH echocardiogram. Newly diagnosed. Will addmetoprolol succinate 25 mg daily. BMP today to follow sodium prior toinitiation of diuretic. Advised to weigh daily. Discussed use of heartfailure clinic. Will call her results of labs and with furtherrecommendations. Hypertension controlled current losartan. Advised to follow home bloodpressures Mixed dyslipidemia, LDL at target on statin therapy Paroxy A. fib/tachybrady syndrome s/p pacemaker, v paced today. ReportsINR at PCP office yesterday 1.3. Will alter to Eliquis if not costprohibitive (samples and 30-day free supply card afforded to her today). Scribed for Jaron Doyle MD by Orin Florian APRN. 510:07 EDT Jaron Doyle MD, [facility] Jaron Doyle MD ECG ORDERABLES Final Result documented in this encounter Visit Diagnoses Diagnosis Heart failure with mildly reduced ejection fraction (HFmrEF)- Primary Paroxysmal atrial fibrillation Atrial fibrillation Primary hypertension Unspecified essential hypertension documented in this encounter Care Teams Ripshear Operator Relationship Specialty Start Date End Date Zoran Pendleton MD [address] [place] [address] PCP - General 07/31/15 documented as of this encounter
--- OUTSIDE RECORDS SUMMARY | 2025-05-12 10:40 | XMS_ITS | Encounter Summary ---
[facility] [address] [place] [address] Care Team Providers Care Commercial Credit Portfolio Manager Name Role Phone Zoran Pendleton MD Primary Care Provider [phone] Encounter Details Date Type Department Care Team (Late st Contact Info) Description 05/12/2025 10:40 AM EDT Lab [facility] [address] [place] [address] Heart failure with mildly reduced ejection fraction (HFmrEF) Social History Tobacco Use Types Packs/Day Years [...] PM EDT documented as of this encounter Plan of Treatment Upcoming Encounters Date Type Department Care Team (Late st Contact Info) Description 07/21/2025 12:00 PM EST Office Visit [facility] C[facility] [address] [facility] [place] [address] Jaron Doyle MD [address] [facility] [address] [place] [address] documented as of this encounter Procedures Procedure Name Priority Date/Time Associated Diagnosis Comments PROBNP Routine 05/12/2025 10:40 AM EDT Heart failure with mildly reduced ejection fraction (HFmrEF) BASIC METABOLIC PANEL Routine 05/12/2025 10:40 AM EDT Heart failure with mildly reduced ejection fraction (HFmrEF) documented in this encounter Results * proBNP (05/12/2025 10:40 AM EDT) proBNP 1,098.0 0.0 - 1,800.0 pg/mL 05/12/2025 2:55 PM EDT [facility] Blood Venipuncture / Unknown 05/12/2025 10:40 AM EDT 05/12/2025 10:40 AM EDT Narrative [facility] - 05/12/2025 2:55 PM [...] >75 Positive >1800 Bruce 300-1800 Negative <300 us Orin Florian LOSS CLAIM CLERK LAB BLOOD ORDERABLES Fi nal Result [facility]
[address] [place] [address], * (ABNORMAL) Basic Metabolic Panel (05/12/2025 10:40 AM EDT) Glucose 103(H) 65 - 99 mg/dL 05/12/2025 3:22 PM EDT [facility] BUN 9.0 8.0 - 23.0 mg/dL 05/12/2025 3:22 PM EDT [facility] Creatinine 1.02(H) 0.57 - 1.00 mg/dL 05/12/2025 3:22 PM [facility] Sodium 134(L) 136 - 145 mmol/L 05/12/2025 3:22 PM [facility] Potassium 3.8 3.5 - 5.2 mmol/L 05/12/2025 3:22 PM T [facility] Chloride 99 98 - 107 mmol/L 05/12/2025 3:22 PM [facility] CO2 20.0(L) 22.0 - 29.0 mmol/L 05/12/2025 3:22 PM [facility] Calcium 9.3 8.6 - 10.5 mg/dL 05/12/2025 3:22 PM [facility] BUN/Creatinine Ratio 8.8 7.0 - 25.0 05/12/2025 3:22 PM [facility] Anion Gap 15.0 5.0 - 15.0 mmol/L 05/12/2025 3:22 PM [facility] eGFR 55.7(L) >60.0 mL/min/1.7 3 05/12/2025 3:22 PM [facility] Blood Venipuncture / Unknown 05/12/2025 10:40 AM EDT 05/12/2025 10:40 AM EDT [facility] - 05/12/2025 3:22 PM EDT [...] does not include race as a factor us Orin Florian LOSS CLAIM CLERK LAB BLOOD ORDERABLES Fi nal Result [facility]
[address] [place] [address], documented in this encounter Visit Diagnoses Diagnosis Heart failure with mildly reduced ejection fraction (HFmrEF) documented in this encounter Care Teams Commercial Credit Portfolio Manager Relationship Specialty Start Date End Date Zoran Pendleton MD [address] [place] [address] PCP - General 07/31/15 documented as of this encounter
[2025-06-07 08:16] VITALS: BMI 30.7
--- OUTSIDE RECORDS SUMMARY | 2025-06-07 11:42 | XMS_ITS | Clinical Summary ---
Author Organization Healthcare Address [address] [place] [address] Care Team Providers Care Senior Foreman Name Role Phone Zoran Pendleton MD Primary Care Provider [phone] Social History Tobacco Use Types Packs/Day Years [...] Screening 1945 [facility]-Medicare Annual Wellness (AWV) 1944 [facility]-Infant/Child/Adol SDOH Screenings 1944 [facility]-Obesity Intervention 1950 [facility]- SDOH Screenings 1962 [facility]-Adult SDOH Screenings 1962 [facility]-Zoster Vaccines (1 of 2) 1994 [facility]-DTaP,Tdap,and Td Vaccine s (1 - Tdap) 10/14/1996 10/13/1996 [facility]-RSV Vaccine: 60+ Years o r (1 - 1-dose 75+ series) 10/24/2019 [facility]-Pneumococcal Vaccine: 50 + Years (2 of 2 - PCV) 11/05/2022 11/05/2021 [id number] Vaccine (4 - 2024- season) 2025 07/31/2021, [...] patient's age to complete this topic Insurance [facility] MEDICARE Care Teams Senior Foreman Relationship Specialty Start Date End Date Zoran Pendleton MD [address] [place] [address] #1 #[address] [place] [address] PCP - General 12/22/20
--- OUTSIDE RECORDS SUMMARY | 2025-06-07 11:43 | XMS_ITS | Encounter Summary ---
Author Organization [facility] ystem Address [address] [place] [address] Care Team Providers Care Representative Phlebotomy Services Name Role Phone Zoran Pendleton MD Primary Care Provider [phone] Reason for Visit * Reason Onset Date Comments Med Refill 06/01/2025 Encounter Details Date Type Department Care Team (Late st Contact Info) Description 06/01/2025 Refill [facility] [address] [facility] [address] [place] [address] Orin Florian S, ENGINEERING GROUP LEADER [address] [facility] [address] [place] [address] Med Refill Social History Tobacco Use Types Packs/Day Years [...] Visit [facility] [address] [place] [address] [place] [address] Jaron Doyle MD [address] [place] [address] documented as of this encounter Visit Diagnoses Diagnosis Paroxysmal atrial fibrillation- Primary Atrial fibrillation documented in this encounter Care Teams Representative Phlebotomy Services Relationship Specialty Start Date End Date Zoran Pendleton MD [address] [place] [address] PCP - General 07/31/15 documented as of this encounter
--- OUTSIDE RECORDS SUMMARY | 2025-06-07 11:43 | XMS_ITS | Encounter Summary ---
Author Organization [facility] ystem Address [address] [place] [address] Care Team Providers Care Entry Level Staff Accountant Name Role Phone Zoran Pendleton MD Primary Care Provider [phone] Reason for Visit * Reason Onset Date Comments DR DOYLE - F/U APPT 05/05/2025 Encounter Details Date Type Department Care Team (Late st Contact Info) Description 05/05/2025 Telephone [facility] [address] [facility] [address] [place] [address] Jaron Doyle MD [address] [facility] [address] [place] [address] DR DOYLE - Katja/U APPT Social History Tobacco Use Types Packs/Day Years [...] encounter Miscellaneous Notes * Telephone Encounter - Ned Li RegSched Rep - 05/05/2025 1:19 PM EDT Name: Sommer Lorenzo Relationship: Self Best Callback Number: [phone] Incoming call to the Hub, requesting to Reschedule their Other: MDT appointment on 05-05-25. Per Hub workflow, further review is needed before the task can be completed. Result of Call: Please reach out to the patient to reschedule BRUNO GOMEZ [employer] FROM [facility] IS REQUESTING THE PATIENT BE SEEN WITHIN THE NEXT WEEK. documented in this encounter Plan of Treatment Upcoming Encounters Date Type Department Care Team (Late st Contact Info) Description 07/21/2025 12:00 PM EST Office Visit [facility] [address] [place] [address] [place] [address] Jaron Doyle MD [address] [facility] [address] [place] [address] documented as of this encounter Visit Diagnoses Not on filedocumented in this encounter Care Teams Entry Level Staff Accountant Relationship Specialty Start Date End Date Zoran Pendleton MD [address] [place] [address] PCP - General 07/31/15 documented as of this encounter
--- OUTSIDE RECORDS SUMMARY | 2025-06-07 11:43 | XMS_ITS | Encounter Summary ---
Author Organization [facility] yste Address [address] [place] [address] Care Team Providers Care Veterans Rehabilitation Counselor Name Role Phone Zoran Pendleton MD Primary Care Provider [phone] Reason for Visit * Reason Comments Med Refill Encounter Details Date Type Department Care Team (Late Contact Info) Description 05/31/2025 Refill [facility] CARDIOLOGY [address] [facility] [address] [place] [address] Jaron Doyle MD [facility] [address] [place] [id number] Med Refill Social History Tobacco Use Types [...] Encounters Date Type Department Care Team (Late Contact Info) Description 07/21/2025 12:00 PM EST Office Visit [facility] CARDIOLOGY [address] [place] [address] [place] [address] Jaron Doyle MD [address] [place] [address] documented as of this encounter Visit Diagnoses Not on filedocumented in this encounter Care Teams Veterans Rehabilitation Counselor Relationship Specialty Start Date End Date Zoran Pendleton MD [address] [place] [address] PCP - General 07/31/15 documented as of this encounter
--- OUTSIDE RECORDS SUMMARY | 2025-06-07 11:43 | XMS_ITS | Encounter Summary ---
[facility] Address [address] [place] [address] Care Team Providers Care Small Business Sales Representative Name Role Phone Zoran Pendleton MD Primary Care Provider [phone] Encounter Details Date Type Department Care Team (Latest Contact Info) Description 04/25/2025 Anticoagulation Visit [facility] [address] [place] [phone] Darren Martin Veterans Services Specialist Chronic atrial fibrillation (Primary Dx) Social History [...] this encounter Progress Notes * Darren Martin, Veterans Services Specialist - 04/25/2025 2:22 PM EDT [facility] Progress Note Patient Demographics Method of INR reporting: REMOTE LAB Estimated OOP Cost: Indication: Chronic Atrial Fibrillation Referring Provider Remi Silveira IV PA-C/ Jaron Doyle MD Reason patient is not on a DOAC: Goal INR: 2-3 Warfarin Start Date Reason patient is not on home monitor: [id number]: HTN (1), Age >74 (2), and Female [...] obtained Preferred contact number: Alternative contact number(s): [phone] (Kait) Patient Appropriate for WarfNoCall ? No Preferred contact name: Sommer Lorenzo Alternative contact name(s): Kait Bo (Daughter) Preferred contact relation: Self Lab contact information (if applicable): CONY Pendleton [facility] Subjective Findings Drug Interactions Dietary Findings [...] further questions at this time. Darren Martin [facility] 04/25/2025 14:27 EDT I, Breanne Dubois [facility], have reviewed the note in full and agree with the assessment and plan. 04/25/25 14:48 EDT documented in this encounter Plan of Treatment Upcoming Encounters Date Type Department Care Team (Late st Contact Info) Description 07/21/2025 12:00 PM EST Office Visit [facility] CARDIOLOGY [address] [place] [address] [address] [place] [address] Jaron Doyle MD [address] [facility] [address] [place] [address] documented as of this encounter Procedures Procedure Name Priority Date/Time Associated Diagnosis Comments SCANNED - LABS 04/25/2025 PROTIME-INR Routine 04/25/2025 documented in this encounter Results * LABS SCANNED (04/25/2025) [facility] LAB BLOOD ORDERABLES Final Re sult * Protime-INR (04/25/2025) INR 2.60 Blood 04/25/2025 [facility] Provider LAB BLOOD ORDERABLES Maite l Result documented in this encounter Visit Diagnoses Diagnosis Chronic atrial fibrillation- Primary Atrial fibrillation documented in this encounter Care Teams Small Business Sales Representative Relationship Specialty Start Date End Date Zoran Pendleton MD [address] [place] [address] PCP - General 07/31/15 documented as of this encounter
--- OUTSIDE RECORDS SUMMARY | 2025-06-07 11:43 | XMS_ITS | Encounter Summary ---
Author Organization [facility] ystem Address [address] [place] [address] Care Team Providers Care Double Bottom Driver Name Role Phone Zoran Pendleton MD Primary Care Provider [phone] Reason for Visit * Reason Onset Date Comments DR. SERVANDO PEREYRA DEVICE CHECK 05/04/2025 Encounter Details Date Type Department Care Team (Late st Contact Info) Description 05/04/2025 Telephone [facility] CARDIOLOGY [address] [facility] [address] [place] [address] Jaron Doyle MD [address] [facility] [address] [place] [address] DR. SERVANDO PEREYRA DEVICE CHECK Social History [...] Rep - 05/04/2025 9:12 AM EDT Name: Kait Bo Relationship: Emergency Contact Best Callback Number: [phone] Incoming call to the Hub, requesting to Cancel their Device Check appointment on 05/05/25. Per [facility] workflow, further review is needed before the task can be completed. Result of Call: Transferred to [facility] at the practice documented in this encounter Plan of Treatment Upcoming Encounters Date Type Department Care Team (Late st Contact Info) Description 07/21/2025 12:00 PM EST Office Visit [facility] CARDIOLOGY [address] [place] [address] [place] [address] Jaron Doyle MD [address] [facility] [address] [address] documented as of this encounter Visit Diagnoses Not on filedocumented in this encounter Care Teams Double Bottom Driver Relationship Specialty Start Date End Date Zoran Pendleton MD [address] [place] [address] PCP - General 07/31/15 documented as of this encounter
--- OUTSIDE RECORDS SUMMARY | 2025-06-07 11:43 | XMS_ITS | Encounter Summary ---
Author Organization [facility] yste Address [address] [place] [address] Care Team Providers Care Fuel Cell Designer Name Role Phone Zoran Pendleton MD Primary Care Provider [phone] Encounter Details Date Type Department Care Team (Latest Contact Info) Description 05/12/2025 Travel Social History Tobacco Use Types Packs/Day Years [...] Description 07/21/2025 12:00 PM EST Office Visit [facility] CARDIOLOGY [address] [place] [address] [address] [place] [address] Jaron Doyle MD [address] [facility] [address] [address] documented as of this encounter Visit Diagnoses Not on filedocumented in this encounter Care Teams Fuel Cell Designer Relationship Specialty Start Date End Date Zoran Pendleton MD [address] [place] [address] PCP - General 07/31/15 documented as of this encounter
--- OUTSIDE RECORDS SUMMARY | 2025-06-07 11:43 | XMS_ITS | Encounter Summary ---
Author Organization [facility] ystem Address [address] [place] [address] Care Team Providers Care Dinkey Driver Name Role Phone Zoran Pendleton MD Primary Care Provider [phone] Reason for Visit * Reason Onset Date Comments Surgical Clearance 05/24/2025 Encounter Details Date Type Department Care Team (Late st Contact Info) Description 05/24/2025 Telephone [facility] CARDIOLOGY [address] [facility] [address] [place] [address] Luisito Sellers APRN [address] [facility] [address] [place] [address] Surgical Clearance Social History Tobacco Use Types Packs/Day Years [...] as of this encounter Progress Notes * Luisito Sellers APRN - 05/31/2025 1:12 PM EDTAddended by: LUISITO SELLERS on: 05/31/2025 01:12 PM Modules accepted: Orders documented in this encounter Miscellaneous Notes * Telephone Encounter - Luisito Sellers APRN - 06/06/2025 11:58 AM EDT Letter sent - fax [phone] [phone] * Telephone Encounter - Tiffani Dumont RN - 06/03/2025 10:29 AM EDT Pt???s [facility], Kait, called requesting update on CC and eliquis instructions for bronchial biopsy on06/10. * Telephone Encounter - Tiffani Dumont RN - 05/31/2025 2:41 PM EDT Called [facility] Pulmonology (P: [phone]) and requested records. Awaiting receipt. *Records received and given to Luisito for review. * Telephone Encounter - Luisito Sellers APRN - 05/31/2025 1:05 PM EDT Typically with Eliquis initiation we do not hold temporarily until after least 3-4 weeks of continuous therapy. Reason for bronchial biopsy? Any records from pulmonary? Prescription sent to pharmacy * Telephone Encounter - Tiffani Dumont RN - 05/30/2025 3:59 PM EDT Pt???s [facility], Kait, called requesting update on CC and eliquis instructions for bronchial biopsy on06/10. Also requesting a prescription for eliquis to be sent to [facility]. Medication was initiated and samples provided at last OV 05/12/25. Please advise. * Telephone Encounter - Melva Mesa RN - 05/24/2025 2:41 PM EDT Pt to have bronchial Biopsy at [facility] requiring CC with direction of Eliquis of which was initiated at recent OV. Please advise . Fax results to Tami at [phone] Last OV; 05/12/25: PROBLEM LIST: Chest pain: September 2001, left [...] septum. Chronic right bundle branch block, underlying. documented in this encounter Plan of Treatment Upcoming Encounters Date Type Department Care Team (Late st Contact Info) Description 07/21/2025 12:00 PM EST Office Visit [facility] CARDIOLOGY [address] [place] [address] [place] [address] Jaron Doyle MD [address] [facility] [address] [address] documented as of this encounter Visit Diagnoses Not on filedocumented in this encounter Care Teams Dinkey Driver Relationship Specialty Start Date End Date Zoran Pendleton MD [address] [place] [address] PCP - General 07/31/15 documented as of this encounter
--- OUTSIDE RECORDS SUMMARY | 2025-06-07 11:43 | XMS_ITS | Encounter Summary ---
[facility] [address] [place], [place] Care Team Providers Care Vehicle Window Tinter Name Role Phone Zoran Pendleton MD Primary Care Provider [phone] Encounter Details Date Type Department Care Team (Late st Contact Info) Description 05/05/2025 Telephone [facility]ULATION [facility]INIC [address] [facility] [address] [place] [id number] Freya Storm, Luis Alfredo [address] [place] [address] Social History Tobacco Use Types Packs/Day Years [...] encounter Miscellaneous Notes * Telephone Encounter - Freya Storm PharmD - 05/05/2025 12:08 PM EDT Pt was admitted to [facility] 05/03 for asthma exacerbation. Discharging today and will see Dr Pendleton 05/10 and have her INR checked there at that time. documented in this encounter Plan of Treatment Upcoming Encounters Date Type Department Care Team (Late st Contact Info) Description 07/21/2025 12:00 PM EST Office Visit [facility] CARDIOLOGY [address] [place] [address] Jaron Doyle MD [address] [facility] [address] [place] [address] documented as of this encounter Visit Diagnoses Not on filedocumented in this encounter Care Teams Vehicle Window Tinter Relationship Specialty Start Date End Date Zoran Pendleton MD [address] [place] [address] PCP - General 07/31/15 documented as of this encounter
--- OUTSIDE RECORDS SUMMARY | 2025-06-07 11:43 | XMS_ITS | Encounter Summary ---
Author Organization [facility] ystem Address [address] [place] [address] Care Team Providers Care Slide Fasteners Inspector Name Role Phone Zoran Pendleton MD Primary Care Provider [phone] Reason for Visit * Reason Comments Med Refill Encounter Details Date Type Department Care Team (Late st Contact Info) Description 05/10/2025 Refill [facility] CARDIOLOGY [address] [address] Jaron Doyle MD [address] [facility] [place] [address] Med Refill Social History Tobacco Use Types [...] encounter Miscellaneous Notes * Telephone Encounter - Melva Mesa RN - 05/11/2025 8:58 AM EDT Lab Results Component Value Date GLUCOSE 103 (H) 10/21/2024 BUN 15 10/21/2024 CREATININE 1.31 (H) 10/21/2024 NA 134 10/21/2024 K 4.8 10/21/2024 CL 96 10/21/2024 CALCIUM 9.7 10/21/2024 PROTEINTOT 6.3 10/21/2024 ALBUMIN 4.0 10/21/2024 ALT 9 10/21/2024 AST 26 10/21/2024 ALKPHOS 86 10/21/2024 BILITOT 0.6 10/21/2024 GLOB 2.3 10/21/2024 BCR 11 (L) 10/21/2024 ANIONGAP 13.0 09/20/2019 EGFR 41 (L) 10/21/2024 documented in this encounter Plan of Treatment Upcoming Encounters Date Type Department Care Team (Late st Contact Info) Description 07/21/2025 12:00 PM EST Office Visit [facility] CARDIOLOGY [address] [place] [address] [place] [address] Jaron Doyle MD [address] [place] [address] documented as of this encounter Visit Diagnoses Not on filedocumented in this encounter Care Teams Slide Fasteners Inspector Relationship Specialty Start Date End Date Zoran Pendleton MD [address] [place] [address] PCP - General 07/31/15 documented as of this encounter
--- OUTSIDE RECORDS SUMMARY | 2025-06-07 11:43 | XMS_ITS | Clinical Summary ---
[facility] Address [address] [place] [address] Care Team Providers Care Tax Map Technician Name Role Phone Zoran Pendleton MD Primary Care Provider [phone] Allergies Active Allergy Reactions Criticality Noted Date Comments Sulfa Antibiotics GI Intolerance Low 02/06/2016 Sulfamethoxazole Unknown - High Severity 2024 Trimethoprim Unknown - High Severity 03/31/2025 Ezetimibe-Simvastatin Myalgia Low 02/06/2016 Medications FLUoxetine (PROzac) 20 MG capsule 1 capsule Daily. 016 Active omeprazole (priLOSEC) 20 MG capsule Take 1 capsule by mouth Daily. 30 capsule 2 017 Active predniSONE (DELTASONE) 5 MG tablet Take 0.5 tablets by mouth Daily. 020 Active Breztri Aerosphere 160-9-4.8 MCG/ACT aerosol inhaler Daily As Needed. 022 Active ALPRAZolam (XANAX) 0.25 MG tablet 1 tablet Every Night. 024 Active losartan (COZAAR) 50 MG tablet TAKE 1 TABLET BY MOUTH DAILY 90 tablet 1 025 Active metoprolol succinate XL (TOPROL-XL) 25 MG 24 hr tabletIndicatio ns:Heart failure with mildly reduced ejection fraction (HFmrEF) Take 1 tablet by mouth Daily. 30 tablet 11 025 Active furosemide (LASIX) 20 MG tablet Take 1 tablet by mouth Daily As Needed (TAKE NEED FOR WEIGHT GAIN OF 2 LBS IN A 24 HR PERIOD). 30 tablet 3 Active potassium chloride 10 MEQ CR tablet Take 1 tablet by mouth Daily As Needed (TAKE NEEDED WITH LASIX). 30 tablet 3 Active simvastatin (ZOCOR) 40 MG tablet TAKE 1 TABLET BY MOUTH EVERY NIGHT. 30 tablet 1 Active apixaban (Eliquis) 5 MG tablet tabletIndicatio ns:Paroxysmal atrial fibrillation Take 1 tablet by mouth 2 (Two) Times a Day. 60 tablet 11 Active hydroCHLOROthia zide (MICROZIDE) 12.5 MG capsule Take 1 capsule by mouth Every Morning. 90 capsule 2024 Discontinued simvastatin (ZOCOR) 40 MG tablet TAKE 1 TABLET BY MOUTH EVERY NIGHT. 30 tablet 2 2024 Discontinued warfarin (COUMADIN) 5 MG tablet TAKE ONE-HALF (1/2) TO ONE (1) TABLET BY MOUTH DAILY OR DIRECTED BY ANTICOAGULATION CLINIC 50 tablet 025 2024 Discontinued hydroCHLOROthia zide (MICROZIDE) 12.5 MG capsule TAKE 1 CAPSULE BY MOUTH EVERY MORNING 90 capsule 1 2024 Discontinued apixaban (Eliquis) 5 MG tablet tablet Take 1 tablet by mouth 2 (Two) Times a Day. 60 tablet 11 025 2024 Discontinued(R eorder) Active Problems Problem Noted Date Diagnosed Date Heart failure with mildly re duced ejection fraction (HFmrEF) 05/12/2025 Elective replacement indicated for pacemaker 10/2019 Overview (09/13/2019): Added automatically from request for surgery [id number] Chronic atrial fibrillation 02/16/2018 Atrial fibrillation [I48.91] [...] Encounters Date Type Department Care Team Description 06/01/2025 Refill [facility] [address] [facility] [address] [place] [address] Orin Florian, SHARA Med Refill 05/31/2025 Refill [facility] [address] [facility] [address] [place] [address] Jaron Doyle MD Med Refill 05/24/2025 Telephone [facility] [address] [facility] [address] [place] [address] Orin Florian, SHARA Surgical Clearance 05/13/2025 Results Follow-Up [facility] [address] [facility] [address] [place] [address] Melva Mesa RN 05/12/2025 10:40 AM EDT Lab [facility] [address] [place] [address] Heart failure with mildly reduced ejection fraction (HFmrEF) 05/12/2025 9:45 AM EDT Office Visit [facility] [address] [facility] [address] [place] [address] Jaron Doyle MD 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); Paroxysmal atrial fibrillation; Primary hypertension 05/12/2025 Travel 05/10/2025 Refill [facility] [address] [facility] [address] [place] [address] Jaron Doyle MD Med Refill 05/05/2025 Telephone [facility] [address] [facility] [address] [place] [address] CRAGER - F/U APPT 05/05/2025 Telephone [facility] [address] [facility] [address] [place] [address] Freya Storm, CedD 05/04/2025 Telephone [facility] [address] [facility] [address] [place] [address] CRAGER - CANCEL DEVICE CHECK 04/25/2025 Anticoagulation Visit [facility] [address] [facility] [address] [place] [address] Darren Martin, Plant Maintenance Technician Chronic atrial fibrillation (Primary Dx) 04/06/2025 Telephone [facility] [address] [facility] [address] [place] [address] Jaron Doyle MD Remote Device Check 03/24/2025 Anticoagulation Visit [facility] [address] [facility] [address] [place] [address] Darren Martin, Plant Maintenance Technician Chronic atrial fibrillation (Primary Dx) 03/17/2025 Refill [facility] [address] [facility] [address] [place] [address] Jaron Doyle MD from Last 3 Months Family History Medical [...] Pulse 82 05/12/2025 9:21 AM EDT Temperature 36.9 C (98.4 F) 09/20/2019 11:20 AM EST Respiratory Rate 14 09/20/2019 2:27 PM EST Oxygen Saturation 90% 05/12/2025 9:21 AM EDT Inhaled Oxygen Concentration - - Weight 85.7 kg (189 lb) 05/12/2025 9:21 AM EDT Height 165.1 cm (5' 5 ) 05/12/2025 9:21 AM EDT Body Mass Index 31.45 05/12/2025 9:21 AM EDT Plan of Treatment Upcoming Encounters Date Type Department Care Team (Late st Contact Info) Description 07/21/2025 12:00 PM EST Office Visit [facility] [address] [place] [address] [place] [address] Jaron Doyle MD [address] [facility] [address] [place] [address] Health Maintenance Due Date Last Done Comments [...] (1 - 1- dose 75+ series) 10/24/2019 COVID-19 Vaccine (3 - Modern a risk series) 08/28/2021 07/31/2021, 12/08/2020, 11/07/2020 Pneumococcal Vaccine 50+ (2 of 2 - PCV) 11/05/2022 11/05/2021 INFLUENZA VACCINE 03/11/2025 LIPID PANEL 10/21/2025 10/21/2024 Medical Devices Implanted Type Area Derrick Hand Device Identifier Shelf Expiration Date Model / Serial / Lot Gen Pm Advisa Surescan Dr Mccord - [id number] - [id number] Implanted:Qty: 1 on 09/20/2019 by Bobby Stephens MD at [facility] Pacemaker [employer] 10/22/2020 [id number] / [id number] / Procedures Procedure Name Priority Date/Time Associated Diagnosis Comments PROBNP Routine 05/12/2025 10:40 AM EDT Heart failure with mildly reduced ejection fraction (HFmrEF) BASIC METABOLIC PANEL Routine 05/12/2025 10:40 AM EDT Heart failure with mildly reduced ejection fraction (HFmrEF) ECG 12-LEAD Routine 05/12/2025 Paroxysmal atrial fibrillation SCANNED - LABS 04/25/2025 PROTIME-INR Routine 04/25/2025 REMOTE DEVICE CHECK 04/06/2025 5:45 PM EDT SCANNED - LABS 03/24/2025 PROTIME-INR Routine 03/24/2025 LIPID PANEL Routine 10/21/2024 3:40 PM EDT CAD, multiple vessel from Last 3 Months or Most Recently Relevant to Health Maintenance Results * proBNP (05/12/2025 10:40 AM EDT) [facility] proBNP 1,098.0 0.0 - 1,800.0 pg/mL 05/12/2025 2:55 PM EDT [facility] Blood Venipuncture / Unknown 05/12/2025 10:40 AM EDT 05/12/2025 10:40 AM EDT Narrative [facility] - 05/12/2025 2:55 PM [...] >1800 Bruce 300-1800 Negative <300 Orin Florian PRINCIPAL ACCOUNT CLERK LAB BLOOD ORDERABLES Fi nal Result [facility]
[address] [place] [address], * (ABNORMAL) Basic Metabolic Panel (05/12/2025 10:40 AM EDT) Pathologist [facility] Glucose 103(H) 65 - 99 mg/dL 05/12/2025 3:22 PM EDT [facility] BUN 9.0 8.0 - 23.0 mg/dL 05/12/2025 3:22 PM EDT [facility] Creatinine 1.02(H) 0.57 - 1.00 mg/dL 05/12/2025 3:22 PM EDT [facility] Sodium 134(L) 136 - 145 mmol/L 05/12/2025 3:22 PM EDT [facility] Potassium 3.8 3.5 - 5.2 mmol/L 05/12/2025 3:22 PM EDT [facility] Chloride 99 98 - 107 mmol/L 05/12/2025 3:22 PM EDT [facility] CO2 20.0(L) 22.0 - 29.0 mmol/L 05/12/2025 3:22 PM EDT [facility] Calcium 9.3 8.6 - 10.5 mg/dL 05/12/2025 3:22 PM EDT [facility] BUN/Creatinine Ratio 8.8 7.0 - 25.0 05/12/2025 3:22 PM EDT [facility] Anion Gap 15.0 5.0 - 15.0 mmol/L 05/12/2025 3:22 PM EDT [facility] eGFR 55.7(L) >60.0 mL/min/1.7 3 05/12/2025 3:22 PM EDT [facility] Blood Venipuncture / Unknown 05/12/2025 10:40 AM EDT 05/12/2025 10:40 AM EDT Narrative [facility] - 05/12/2025 3:22 PM EDT GFR [...] include race as a factor Orin Florian PRINCIPAL ACCOUNT CLERK LAB BLOOD ORDERABLES [facility] Result [facility]
[address] [place] [address], * (ABNORMAL) ECG 12-LEAD (05/12/2025) Narrative 05/12/2025 Jaron Doyle MD 05/12/2025 10:31 AM ECG 12 Lead Date/Time: 05/12/2025 10:07 AM Performed by: Jaron Doyle MD Authorized by: Jaron Doyle MD BPM: [id number] Pacing: atrial sensed rhythm and ventricular paced rhythm Clinical impression: abnormal EKG Procedure Note Jaron Doyle MD - 05/12/2025 9:45 AM EDT [facility] Office Progress Note Sommer Lorenzo [address] [place] [address] Visit Date: 05/12/25 PCP: Zoran Pendleton MD [address] [facility] [address] IDENTIFICATION: A 79 y.o. female PROBLEM LIST: Chest pain: September 2001, left heart catheterization with normal coronaries, EFpreserved. 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 Tachy-mushtaq symptoms with pacemaker implantation 2012, Medtronic per . 09/30 MDT gen change GFT On warfarin Diastolic HF 09/30 echo EF 60% mild TR , IR RVSP 32 05/05 OSH Echo: LVEF 45%, grade 2 dd, asynchronous septum. Chronic right bundle branch block, underlying. Hypertension. Dyslipidemia: 04/24 [id number] 11/02 [id number] 05/05 [id number] Rheumatoid arthritis- 2018 Refractory to methotrexate Recurrent pneumonitis 10/30 hospitalized [facility] 5 days O2 requiring ' Surgical history: [...] outside hospitalfollow up. She was admitted to [facility] for hypoxic respiratory failure,pneumonia last week. She [...] around. Labs reviewed from hospitalization: normal H&H, [id number], INR 5.5, and sodium 126. Renal function [...] Scribed for Jaron Doyle MD by Orin Florian, PRINCIPAL ACCOUNT CLERK. 510:07 EDT Jaron Doyle MD, [facility] Jaron Doyle MD ECG ORDERABLES Final Result * LABS SCANNED (04/25/2025) Only the most recent of2 resultswithin the time period is included. [facility] Onbase LAB BLOOD ORDERABLES Final Re sult * Protime-INR (04/25/2025) Only the most recent of2 resultswithin the time period is included. INR 2.60 Blood 04/25/2025 Historical Provider LAB BLOOD ORDERABLES Maite l Result * Remote Device Check (04/06/2025 5:45 PM EDT) Date Time Interrogation Session [id number] [facility] Type Interrogation Session Remote [facility] Implantable Pulse Generator Derrick Hand Medtronic [facility] Implantable Pulse Generator Type IPG [facility] Implantable Pulse Generator Model Advisa DR MCCORD [id number] [facility] Implantable Pulse Generator Serial Number [id number] [facility] Implantable Pulse Generator Implant Date [id number] [facility] Battery Remaining Longevity 43.0 mo [facility] Battery Voltage 2.970 [facility] Battery BOAT DISPATCHER Trigger 2.830 [facility] Battery Status OK [facility] Mushtaq Statistic RA Percent Paced 62.32 [facility] Mushtaq Statistic RV Percent Paced 94.99 [facility] Atrial Tachy Statistic AT/AF [place] Percent 0.00 [facility] Lead Channel RA Sensing Intrinsic Amplitude 1.875 [facility] Lead Channel Setting RA Sensing Sensitivity 0.30 [facility] Lead Channel RA Impedance Value 380 [facility] Lead Channel RA Pacing Threshold Amplitude 0.250 [facility] Lead Channel RA Pacing Threshold Pulse Width 0.4 [facility] Lead Channel RA Measurements Date and Time [id number] [facility] Lead Channel Setting RA Pacing Amplitude 1.500 [facility] Lead Channel Setting RA Pacing Pulse Width 0.4 [facility] Lead Channel RV Sensing Intrinsic Amplitude 11.125 [facility] Lead Channel Setting RV Sensing Sensitivity 0.90 [facility] Lead Channel RV Impedance Value 456 [facility] Lead Channel RV Pacing Threshold Amplitude 0.625 [facility] Lead Channel RV Pacing Threshold Pulse Width 0.4 [facility] Lead Channel RV Measurements Date and Time [id number] [facility] Lead Channel Setting RV Pacing Amplitude 2.000 [facility] Lead Channel Setting RV Pacing Pulse Width 0.4 [facility] Mushtaq Setting Mode (NBG Code) DDDR [facility] Mushtaq Setting Lower Rate Limit 70 [facility] Mushtaq Setting AT Mode Switch Rate 171 [facility] Mushtaq Setting Maximum Tracking Rate 100 [facility] Mushtaq Setting Maximum Sensor Rate 130 [facility] Mushtaq Setting PAV Delay 150 [facility] Mushtaq Setting JARRETT Delay 120 [facility] Lead Channel Setting RA Sensing Polarity Bipolar [facility] Lead Channel Setting RV Sensing Polarity Bipolar [facility] Lead Channel Setting RA Pacing Polarity Bipolar [facility] Lead Channel Setting RV Pacing Polarity Bipolar [facility] Lead Channel RA Pacing Threshold Polarity Bipolar [facility] Lead Channel RV Pacing Threshold Polarity Bipolar [facility] Zone Setting Type Category AT/AF [facility] IDC RATE 1 171 [facility] THERAPIES All Rx On [facility] Zone Setting Status Monitor [facility] Zone ID 2 [facility] Zone Setting Type Category VT [facility] IDC RATE 1 150 [facility] Zone Setting Status ENABLED [facility] Zone ID 6 [facility] 04/06/2025 5:45 PM EDT us Jaron Doyle MD CV IMPLANTABLE CARDIAC DEVICE Final Result [facility] * (ABNORMAL) Lipid Panel (10/21/2024 3:40 PM EDT) Total Cholesterol 201(H) 100 - 199 mg/dL [facility] Triglycerides 70 0 - 149 mg/dL [facility] HDL Cholesterol 90 >39 mg/dL [facility] VLDL Cholesterol Claude 13 5 - 40 mg/dL [facility] LDL Chol Calc (NIH) 98 0 - 99 mg/dL [facility] Blood 10/21/2024 3:40 PM EDT 10/21/2024 Narrative [facility] - 10/22/2024 6:09 AM EDT [facility]formed at: [facility] [address] [place] [address] [phone] Change Person: Mekhi Kimbrough PhD, Phone: [phone] Patient Fasting: Y us Jaron Doyle MD LAB BLOOD ORDERABLES Final Res ult Performing Organization Address City/State/[facility] Co de Phone Number [facility] [employer] [place] [facility]) [address] [place] [address], [place] [phone] [facility] [address] [place] [address], [place] [phone] from Last 3 Months or Most Recently Relevant to Health Maintenance Insurance MEDICARE ADVANTAGE PPO Advance Directives Documents on File Type Date Recorded Patient Powder Nipper Expl anation LIVING WILL - SCAN 09/20/2019 10:43 AM leanna ing will Care Teams Tax Map Technician Relationship Specialty Start Date End Date Zoran Pendleton MD [address] [place] [address] PCP - General 07/31/15
--- OUTSIDE RECORDS SUMMARY | 2025-06-07 11:43 | XMS_ITS | Encounter Summary ---
[facility] Address [address] [place] [address] Care Team Providers Care Kiln Remover Name Role Phone Zoran Pendleton MD Primary Care Provider [phone] Encounter Details Date Type Department Care Team (Late st Contact Info) Description 05/13/2025 Results Follow-Up [facility] [address] [facility] [address] [place] [address] Melva Mesa RN Social History Tobacco Use Types Packs/Day Years [...] Telephone Encounter - Melva Mesa RN - 05/13/2025 4:25 PM EDT ----- Message from Orin Florian sent at 05/13/2025 3:32 PM EDT ----- [facility] pt, labs show sodium improved, no significant fluid overload. Kidney function stable. Continue metoprolol and losartan. Start furosemide 20 mg daily as needed for 2 lbs weight gain in 24 hours. Take potassium 10 meq daily as needed with furosemide. ----- Message ----- From: Lab, Background User Sent: 05/12/2025 2:55 PM EDT To: Orin Erika KearnsFlorianSHARRON carsonN Family called informed of the above results, verbalized understanding. All questions answered. Prescriptions updated . documented in this encounter Plan of Treatment Upcoming Encounters Date Type Department Care Team (Late st Contact Info) Description 07/21/2025 12:00 PM EST Office Visit [facility] [address] [address] [place] [address] Jaron Doyle MD [address] [facility] [address] [place] [address] documented as of this encounter Visit Diagnoses Not on filedocumented in this encounter Care Teams Kiln Remover Relationship Specialty Start Date End Date Zoran Pendleton MD [address] [place] [address] PCP - General 07/31/15 documented as of this encounter
[2025-06-07 12:48] LABS: Hematocrit 36.5 % (37.0-47.0); Hemoglobin 11.9 g/dL (12.2-16.2); Immature Granulocytes % 0.4 %; Mean Corpuscular HGB Conc 32.6 g/dL (31.8-35.4); Mean Corpuscular Hemoglobin 31.5 pg (27.0-31.2); Mean Corpuscular Volume 96.6 fl (81-99); Nucleated Red Blood Cells % 0 %; Platelet Count 314 K/mm3 (142-424); Red Blood Count 3.78 M/mm3 (4.20-5.40); Red Cell Distribution Width-SD 48.4 fL; White Blood Count 9.1 K/mm3 (4.8-10.8)
[2025-06-07 13:01] LABS: Anion Gap 11.0 mEq/L (5-15); Blood Urea Nitrogen 11 mg/dl (7-17); Calcium 8.8 mg/dl (8.4-10.2); Carbon Dioxide 27 mmol/L (22.0-30.0); Chloride 102 mmol/L (98-107); Creatinine Clearance Estimated 54 mL/min (50-200); Creatinine,Serum 1.10 mg/dl (0.52-1.04); Estimated Glomerular Filt Rate 48 ml/min (>60); GFR (African American) 58 ML/MIN (>60); Glucose 108 mg/dl (74-100); Potassium 4.0 mmoL/L (3.5-5.1); Sodium 136 mmol/L (136-145)
== END 2025-06-07 23:59 | disposition home or self-care (01) ==
LOC: PREOP 11:32
PROVIDERS: Nurse Anesthetist, Certified Registered; PCP Family Medicine; Visit Provider Internal Medicine Pulmonary Disease
DX: Z01.812 Encounter for preprocedural laboratory examination (principal)
CPT/HCPCS: 80048; 85025

== ENCOUNTER 2025-06-10 09:03 | Day surgery (SDC) | payer MEDICARE, SELFPAY ==
[2025-06-10] VITALS (13 sets, daily range): BP systolic 121–161; BP diastolic 59–81; PULSE 71–89; RESP 14–18; TEMP 36.1–36.6; O2SAT 95–97; BMI 30.7
[2025-06-10] MEDS: LACTATED RINGERS 1000ML 1,000 ML 25 ML IV (09:38)
--- NOTE | 2025-06-10 09:59 | EXP.ANES.CKL ---
[facility] Disclaimer: The information contained in this section may have been updated after the patient was seen, as this information can be updated by other users. Medical History History of pacemaker COVID-19 Bilateral ankle pain Right foot pain Left foot pain Viral pneumonia Recurrent pneumonia Abnormal CT scan History of 2019 novel coronavirus disease (COVID-19) Dyspnea on exertion Allergic rhinitis Abnormal pulmonary function Asthma History of pacemaker Restrictive lung disease Allergic rhinitis, unspecified Moderate persistent asthma Dyspnea on exertion Family History Other Asthma Cancer Diabetes Heart attack Hyperlipidemia Hypertension Stroke Social History (Updated 06/10/25 @ 09:25 by Dyana Manuel RN) Smoking Status: Never smoker alcohol intake: current alcohol intake frequency: holidays/special occasions only substance use type: denies use current occupational status: retired Travel in the last 8 weeks?: None household members: family lives independently: Yes [facility] Anesthesia Checklist Patient Identification Patient Identification: Arm Band Structural Data Admitted From: Home Planned Operative Procedure/s: Bronchoscopy with Biopsy Consent for Planned Operative Procedure(s) Verified: Yes Verified Documents: Surgical Consent and History and Physical NPO Status Verified Time NPO: 00:00 Additional verifications Anesthesia Reactions: No Airway Assessment Mallampati Score:: Class II C-Spine Mobility Assessed: Yes TMJ Mobility Assessed: Yes Dentition: Good Dentition Neurological Assessment Level of Consciousness: Awake, Alert and Appropriate Anesthesia Plan Anesthesia Risk discussed: Yes Anesthesia Plan: Verified ASA Class: III Anesthesia Type: General
--- NOTE | 2025-06-10 12:03 | XR_ITS ---
FINAL REPORT CLINICAL HISTORY: BRONCH IN OR 5 MIN 10 SECS FLUORO 76.47 mGy FINDINGS: FLUOROSCOPY LESS THAN 1 HOUR HISTORY: Fluoroscopy guidance. FINDINGS: Fluoroscopic guidance was provided for bronchoscopy in the OR. Two spot films were obtained. A total of 5 minutes 10 seconds of fluoroscopy time were used. DAP: 76.47 mGy IMPRESSION: As above. Reviewed, Interpreted and Dictated by Yasir Unger MD Transcribed by Kimberly Aviles Authenticated and [facility]
--- NOTE | 2025-06-10 12:22 | XR_ITS ---
FINAL REPORT CLINICAL HISTORY: s/p bronch..COUGH COMPARISON: 05/03/2025 FINDINGS: The heart size is mildly enlarged. Left-sided pacer is present. The airspace infiltrate in the medial right lung base has improved compared to the prior exam. There is a new airspace opacity in the right upper lobe which may be due to developing infiltrate. There are no pleural effusions. There is no pneumothorax. There is no osseous abnormality. IMPRESSION: Improved medial right lung base airspace infiltrate with new developing infiltrate in the right upper lobe. Reviewed, Interpreted and Dictated by Yasir Unger MD Transcribed by Kimberly Aviles Authenticated and [facility]
--- NOTE | 2025-06-10 12:24 | EXP.BRONCH.N ---
Procedure: Date: 06/10/25 Patient Date of :: 1945 Procedure Performed:: Bronchoscopy airway examination, bronchoalveolar lavage, endobronchial lung biopsy and transbronchial lung biopsy Indications:: Recurrent Right Lower Lobe collapse Performing Provider:: Jeronimo Barrett MD Referring Provider:: Dr: Gabriel Pendleton MD Sedation:: General Anesthesia Procedure:: Bronchoscopy airway examination, bronchoalveolar lavage, endobronchial lung biopsy and transbronchial lung biopsy: A clean diagnostic bronchoscopy was advanced through the ET tube and airways were examined up to subsegmental bronchi. Significant abnormalities noted on the airways predominantly on the right side. Diffuse airway erythema noted throughout the right lung bronchi. Near complete occlusion of the right upper lobe bronchi, Unable to pass the bronchoscopy with only Pinhole opening but able to pass the biopsy forceps. Significant narrowing with fishmouth opening of the right middle lobe bronchi, Unable to pass bronchoscopy. Narrowing of the right lower lobe bronchi also noted however able to pass bronchoscopy to segmental bronchi. Airways on the left side appeared grossly normal, no evidence of mucoid secretions, mucous plugging. No evidence active bleeding/old blood clots noted in bilateral airways. Bronchoalveolar lavage was performed in the RUL with instillation of 60 cc normal saline with return of 15 cc back. BAL fluid was sent for bacterial stain cultures and cytopathology. Bronchoalveolar lavage was performed in theRLL with instillation of 60 cc normal saline with return of 20 cc back. BAL fluid was sent for cell count and differential along with bacterial fungal and AFB stain and cultures. Transbronchial forceps lung biopsy was performed in the RUL with a total of 7 biopsies performed, 5 biopsy specimens were sent in formalin for cytopathologic examination. The other 2 biopsy samples, were sent one each in two separate normal saline specimen cups for bacterial fungal and AFB stain cultures. Special request was also made for the pathologist to evaluate for AFB and fungal organisms on the cytopathologic examination. Transbronchial forceps lung biopsy was performed in the RLL with a total of 7 biopsies performed, 5 biopsy specimens were sent in formalin for cytopathologic examination. The other 2 biopsy samples, were sent one each in two separate normal saline specimen cups for bacterial fungal and AFB stain cultures. Special request was also made for the pathologist to evaluate for AFB and fungal organisms on the cytopathologic examination. Endobronchial biopsies were also performed right upper lobe bronchi and right lower lobe bronchi and were sent separately in formalin for cytopathologic examination. Patient tolerated the procedure with no immediate acute complications. We will follow the patient in pulmonary clinic in 7 to 10 days. Findings:: Please see the procedure note Recommendations:: Postoperative bronchoscopy instructions Follow in pulmonary clinic in 5 to 7 days Complications:: No acute immediate complication Estimated blood obtained (mL): 5
[2025-06-10] MEDS: IPRATROPIUM/ALBUTEROL 3 ML NEB IH (13:07)
--- NOTE | 2025-06-10 13:18 | P.PNANES_ITS ---
[facility] Anesthesia Record Part I Anesthesia Record I Intake, IV Amount: 750 Hydration: Adequate Estimated blood loss (mL): 5 Urine output (mL): 0 Blood Products used (#): none Blood Pressure: 148/74 SaO2: 95 Pulse Rate: 81 Airway Patency: Patent Respiratory Rate: 14 Temperature: 97.3 F Patient is:: Drowsy and Stable Stable to PACU at:: 12:13
--- NOTE | 2025-06-10 13:18 | EXP.ANES.II ---
[facility] Anesthesia Record Part II Anesthesia Record Part II Discharge Time: 12:49 Destination: Surgical Day Care (OP Surgery) PACU nurse assessment reviewed?: Yes Patient Condition:: Good Anesthesia Complications:: None Swallowing reflex intact?: Yes Airway Patency: Patent Cyanosis?: No Blood Pressure: 131/64 SaO2: 95 Respiratory Rate: 16 Pulse Rate: 80 Temperature: 97.3 F Mental Status: Alert & Oriented Pain level:: 0 Nausea and/or vomitting:: None Intake, IV Amount: 0 Hydration: Adequate
== END 2025-06-10 14:10 | disposition home or self-care (01) ==
PROVIDERS: PCP Family Medicine; Visit Provider Internal Medicine Pulmonary Disease
PROC: (CPT 31628; principal; 2025-06-10 10:45)
DX: J98.19 Other pulmonary collapse (principal); J45.30 Mild persistent asthma, uncomplicated; R94.2 Abnormal results of pulmonary function studies; J98.09 Other diseases of bronchus, not elsewhere classified; Z87.891 Personal history of nicotine dependence; Z79.51 Long term (current) use of inhaled steroids; Z79.899 Other long term (current) drug therapy; Z88.1 Allergy status to other antibiotic agents; Z88.2 Allergy status to sulfonamides
CPT/HCPCS: 31624; 31625; 31628; 31632; 71045; 76000; 87070; 87101; 87116; 87186; 87205; 88112; 88305; 88312; 89051; 94640; J1100; J2003; J2250; J2405; J2704; J3010; J7120